=== PATIENT | female | born 1975 | race Caucasian/White ===

== ENCOUNTER → 2017-09-13 11:13 | Outpatient (CLI) | payer MEDICAID, SELFPAY ==
--- NOTE | 2017-09-13 11:04 | DI.REPORT_ITS ---
SYMPTOM/DIAGNOSIS: F/U FX LEFT ANKLE: Three views. Comparison 08/30/17. There are again seen side plate screws and pins transfixing fractures of the distal left tibia and fibula. No change in alignment of the orthopaedic hardware or fracture components is seen. No new fractures or dislocations present. There is soft tissue swelling about the ankle.
== END ==
PROVIDERS: PCP Registered Nurse; Visit Provider Orthopaedic Surgery
DX: S82.852D Displaced trimalleolar fracture of left lower leg, subsequent encounter for closed fracture with routine healing (principal)
CPT/HCPCS: 73610

== ENCOUNTER → 2017-09-28 00:54 | Outpatient (CLI) | payer MEDICAID, SELFPAY ==
--- NOTE | 2017-09-28 10:24 | DI.REPORT_ITS ---
SYMPTOMS/DIAGNOSIS: SELF REPORTED MASS 7:00 O'CLOCK AND 4:00 O'CLOCK, ? FIBROCYSTIC VS MASS, SIMILAR FINDINGS LT BREAST 7:00 O'CLOCK MAMMOGRAM AND RIGHT BREAST ULTRASOUND: Mammograms were interpreted according to the usual protocol including computer analysis with CAD system, tomosynthesis and C view imaging. Mammogram and right breast ultrasound are interpreted in conjunction. The breasts are of moderate density with fairly symmetrical distribution of fibroglandular tissue. No dominant mass or clumped microcalcification identified in either breast. The current examination is compared with previous mammogram of July 2013 and there has been no gross interval change in appearance in comparison with the previous study. Ultrasound examination of a questioned palpable area of abnormality of the right breast shows no evidence of a mass or cyst. However there are incidental right breast masses noted, the largest an approximately 8 mm in diameter well circumscribed horizontally oriented hypoechoic solid lesion with no internal vascularity located in the 3: 00 o'clock position and also a 3 mm in diameter mass in the 3:00 o'clock position as well as a 6 mm in diameter well circumscribed hypoechoic mass seen more peripherally in the 3:00 o'clock position. These all have appearance consistent with benign disease such as fibroadenoma. Malignancy not absolutely excluded and follow up right breast ultrasound is recommended in 6 months. CONCLUSION: No specific evidence of malignancy. Follow up right breast ultrasound recommended in 6 months. Category III. Breast density Category B. MQSA ASSESSMENT OF FINDINGS: Probably benign. Six month follow-up recommended. Category 3. Patient will receive a letter notifying them of these results. BI-RADS category B. There are scattered areas of fibroglandular density.
== END ==
PROVIDERS: PCP Registered Nurse; Visit Provider Registered Nurse
DX: N63.12 Unspecified lump in the right breast, upper inner quadrant (principal); D24.1 Benign neoplasm of right breast
CPT/HCPCS: 76642; 77062; 77066; G0279

== ENCOUNTER 2017-10-18 12:43 | Outpatient (CLI) | payer MEDICAID, SELFPAY ==
--- NOTE | 2017-10-18 09:35 | DI.RAD_ITS ---
SYMPTOM/DIAGNOSIS: F/U ORIF LEFT ANKLE: Comparison is made with 13 September 2017 There has been no change in the hardware seen in both malleoli. The fracture alignment is unchanged. The ankle mortise appears intact.
== END 2017-10-18 13:03 ==
PROVIDERS: PCP Registered Nurse; Visit Provider Orthopaedic Surgery
DX: S82.852D Displaced trimalleolar fracture of left lower leg, subsequent encounter for closed fracture with routine healing (principal)
CPT/HCPCS: 73610

== ENCOUNTER 2017-11-17 09:20 | Outpatient (CLI) | payer MEDICAID, SELFPAY ==
--- NOTE | 2017-11-17 09:26 | DI.RAD_ITS ---
SYMPTOMS/DIAGNOSIS: F/U ORIF LEFT ANKLE: Comparison is made with [id number]. There has been no change in fracture or hardware alignment.
== END 2017-11-17 09:40 ==
PROVIDERS: PCP Registered Nurse; Visit Provider Orthopaedic Surgery
DX: S82.852D Displaced trimalleolar fracture of left lower leg, subsequent encounter for closed fracture with routine healing (principal)
CPT/HCPCS: 73610

== ENCOUNTER 2018-03-30 00:13 | Outpatient (CLI) | payer MEDICAID, SELFPAY ==
--- NOTE | 2018-03-30 11:03 | DI.US_ITS ---
SYMPTOMS/DIAGNOSIS: BREAST LUMP OR MASS, N63.0, 6-MO F/U ABNORMAL MAMMO RIGHT BREAST AND RIGHT AXILLARY ULTRASOUND: Sonographic evaluation of the right breast and right axilla was performed. Comparison is 09/28/17. There are multiple hypoechoic/anechoic round lesions in the right breast. No internal blood flow is seen to any of these lesions. They are most suggestive of cysts. No suspicious cystic or solid masses are seen in the right breast. The area evaluated was the medial right breast. The right axilla was also evaluated sonographically. No cystic or solid masses are seen. The left axilla was imaged briefly for comparison. IMPRESSION: 1. No evidence of an axillary mass sonographically. 2. Multiple right breast cysts.
== END 2018-03-30 00:33 ==
PROVIDERS: PCP Registered Nurse; Visit Provider Registered Nurse
DX: N63.10 Unspecified lump in the right breast, unspecified quadrant (principal); N60.11 Diffuse cystic mastopathy of right breast
CPT/HCPCS: 76642

== ENCOUNTER 2018-05-08 16:28 | Outpatient (CLI) | payer MEDICAID, SELFPAY ==
[2018-05-08 18:44] LABS: Vitamin D 25 Total 15.4 ng/ml (30-100)
== END 2018-05-08 16:48 ==
PROVIDERS: PCP Registered Nurse; Visit Provider Obstetrics & Gynecology Gynecology
DX: R79.89 Other specified abnormal findings of blood chemistry (principal)
CPT/HCPCS: 36415; 82306

== ENCOUNTER 2018-05-08 16:48 | Outpatient (REF) | payer MEDICAID, SELFPAY ==
[2018-05-10 14:10] LABS: Chlamydia Result Negative; GC Result Negative; Specimen Description URINE
== END 2018-05-08 17:08 ==
LOC: LBN 16:48
PROVIDERS: PCP Registered Nurse; Visit Provider Obstetrics & Gynecology Gynecology
DX: Z11.3 Encounter for screening for infections with a predominantly sexual mode of transmission (principal)
CPT/HCPCS: 87491; 87591

== ENCOUNTER 2018-07-25 00:21 | Outpatient (CLI) | payer MEDICAID, SELFPAY ==
--- NOTE | 2018-07-25 08:54 | DI.US_ITS ---
SYMPTOM/DIAGNOSIS: RUQ PAIN R10.11, EVALUATE CHOLELITHIASIS PER GI ABDOMEN ULTRASOUND: The liver shows increased echogenicity and decreased through transmission consistent with fatty infiltration. The posterior portions of the liver are not well seen. No focal liver lesions or biliary dilatation are identified. The gallbladder shows a tiny echogenic focus along the wall which is non shadowing. No calcifications or wall thickening is seen. There is no abnormal gallbladder distension or pericholecystic fluid. The spleen is mildly enlarged at 13.8 cm. The tail of the pancreas was not identified. The kidneys are unremarkable. The aorta is normal in diameter. IMPRESSION: Moderate hepatic steatosis. Tiny non shadowing echogenic gallbladder focus. No evidence of cholelithiasis or biliary dilatation.
== END 2018-07-25 00:41 ==
PROVIDERS: PCP Registered Nurse; Visit Provider Registered Nurse
DX: R10.11 Right upper quadrant pain (principal); K76.0 Fatty (change of) liver, not elsewhere classified; R16.1 Splenomegaly, not elsewhere classified; K82.8 Other specified diseases of gallbladder
CPT/HCPCS: 76700

== ENCOUNTER 2019-05-17 08:35 | Outpatient (CLI) | payer MEDICAID, SELFPAY ==
[2019-05-20 11:19] LABS: SARS-CoV-2 RNA Undetected (Undetected); SARS-CoV-2 Specimen Source Nasopharynx
== END 2019-05-17 08:55 ==
PROVIDERS: PCP Registered Nurse; Visit Provider Registered Nurse
DX: R50.9 Fever, unspecified (principal)
CPT/HCPCS: U0003

== ENCOUNTER 2019-05-25 12:34 | Outpatient (REF) | payer MEDICAID, SELFPAY ==
[2019-05-25 21:02] LABS: Hemoglobin A1C 4.8 % (3.8-5.6)
[2019-05-28 11:57] LABS: HIV-1/2 Ag & Ab Screen Negative (Negative)
[2019-05-28 15:42] LABS: Chlamydia Result Negative (Negative); GC Result Negative (Negative)
== END 2019-05-25 12:54 ==
LOC: NCHCN 12:34
PROVIDERS: PCP Registered Nurse; Visit Provider Registered Nurse
DX: Z11.3 Encounter for screening for infections with a predominantly sexual mode of transmission (principal); Z13.1 Encounter for screening for diabetes mellitus; Z11.4 Encounter for screening for human immunodeficiency virus [HIV]
CPT/HCPCS: 87389; 87491; 87591; 83036

== ENCOUNTER 2019-05-31 16:01 | Emergency (ER) | payer MEDICAID, SELFPAY ==
[2019-05-31 16:07] VITALS: BP 153/90; PULSE 101; RESP 16; TEMP 36.5; O2SAT 98
--- NOTE | 2019-05-31 16:15 | DI.CT_ITS ---
EXAM: CT BRAIN NECK CTA CLINICAL HISTORY: headache, r/o aneurysm TECHNIQUE: Noncontrast images through the brain were performed followed by images from the level of the aorta aortic arch through the vertex after IV contrast during the arterial phase. COMPARISON: ABD PELVIS WITH CONTRAST from 01/15/2015 FINDINGS: Noncontrast head CT: No intracranial hemorrhage, mass or infarct is seen. The ventricles are harman l in size. There is no evidence of skull fracture. The orbits, sinuses and mastoid air cells are un remarkable where visualized. CTA of the neck: The lung apices are clear. The common, internal and external carotid arteries as we ll as vertebral arteries are normal in caliber. There is no evidence of stenosis, dissection or occl usion. Degenerative disc changes are seen at C5-6 and C6-7. CTA of the brain: The poizxg-lm-Munqdp vasculature and branches show normal diameter. There is no ev idence of an aneurysm. There is no evidence of dissection or vascular irregularity. IMPRESSION: Negative noncontrast head CT. Negative CT angiography of the head and neck. RADIATION DOSE DELIVERED: Total DLP Total DLP Total DLP Total DLP
--- NOTE | 2019-05-31 16:23 | ED.GENADUL_ITS ---
Discharge Plan Disposition Patient Disposition: HOME Condition: Good Discharge Details Chief Complaint: Headache Clinical Impression: Atypical migraine, Headache Primary Care Provider: ANIBAL ESQUIVEL ED Provider: Gaurav Lin Home Meds and New Rx's Prescriptions: Continued cholecalciferol (vitamin D3) 50,000 unit capsule 50,000 unit PO QWEEK Qty: 8 RF: 0 mirabegron 50 mg tablet extended release 24 hr 50 mg PO DAILY Qty: 20 RF: 1 ibuprofen 800 MG tablet 800 mg PO TID Qty: 30 RF: 0 oxybutynin chloride 5 mg tablet extended release 24hr 5 mg PO DAILY Qty: 14 RF: 0 acetaminophen [Mapap Extra Strength] 500 MG tablet 2 PRNRF: 0 ibuprofen [Advil] 200 MG tablet 600 PRNRF: 0 Discharge Instructions Instructions: General Headache (ED), Lumbar Puncture (ED) Additional Instructions: At this time your lumbar puncture shows no evidence of meningitis or bleed. After the extensive work-up thankfully it seems that your headache may have been a notably atypical migraine or vasospasm. Please make sure to be drinking plenty of fluids, avoiding any nitrates, getting plenty of rest. As we discussed please follow-up with your primary care provider at your established appointment for discussion of potential migraine medications. After a lumbar puncture you may experience mild headache, I would recommend lying flat if this occurs, and drinking some caffeine beverage. If you notice any worsening of your symptoms, or any new symptoms such as vomiting, diarrhea, fever, chills, shortness of breath, chest pain, numbness, weakness, or fainting , please return immediately to the emergency department for reevaluation. Please follow up with your primary care provider as soon as possible for reassessment and reevaluation. As always, it was a pleasure participating in your medical care today. 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 Patient states that over the last 1 to 2 weeks she has had these occasional headaches not come on very suddenly, mild to moderate in severity, are usually located behind her frontal region or her occipital region. No particular aggravating or relieving factors, they go away after 2 to 3 hours on their own. However last night while the patient was having intercourse she states that she was having very small orgasms and during that episode she shot suddenly had a thunderclap onset of severe headache in the occipital region. She states that that was the worst headache that she is ever had before. It was made worse by breathing deep, squinting her eyes, or moving. She did take some ibuprofen this slightly helped her symptoms. However her headache has maintained through today. She denies any IV or illicit drug use. She does have a history of previous ocular migraines, but st ates that this is notably different from that. She is unaware of any of her family history as she was in foster care at a young age. She denies fever, chills, IV or illicit drug use, or other complaints. Patient has no other complaints at this time. No other modifying factors. Physical exam demonstrates no nuchal rigidity, no clinical evidence of meningismus, however she does have reproducible tenderness over her right posterior occiput. Neurologic exam is unremarkable. Vital signs are notably stable. Differential is broad, atypical migraine certainly on the differential however of concern would be aneurysm or rupture. Patient is notably hesitant about lumbar puncture, we will start with CTA and CT scan, treat the patient's pain and then reassess. 6:[address] scan of the head has returned negative for acute process, no evidence of aneurysm or bleed on CT, however the patient's clinical symptoms are certainly concerning. Headache is improved from a 10 out of 10 to a 5 out of 10 with the patient's history, and how it is been greater than 6 hours since the initial onset I do not feel that CT is adequate for complete rule out a bleed. I did discuss risk and benefits of further procedures, including lumbar puncture, patient has agreed to lumbar puncture. It was performed without complication. Patient tolerated procedure well. We are pending lab values at this time. 7:30 PM Patient's lumbar puncture results have returned, glucose normal, protein normal, patient has 3 WBCs and 2 RBCs in tube 4. Her symptoms are clinically inconsistent with meningitis, acute intracranial or aneurysmal hemorrhage, or other abnormality. On reassessment the patient has complete resolution of her headache symptoms at this time. She feels much better. Differential at this time after notable work-up includes arterial or vasospasm, notable atypical migraine, or combination of dehydration with tension migraine. Recommend close follow-up with her PCP at her scheduled appointment in 2 weeks. Discussed red flags for which to return. Discussed positioning post lumbar puncture. The complete resolution of the patient's symptomatology, she will be discharged home. I have extensively reviewed the treatment plan and discharge instructions with the patient. I have addressed all patient concerns at this time. The patient was made aware of what symptoms to monitor for that would warrant a return to the emergency department. Discussed the plan with the patient, they demonstrate verbal understanding and agreement with our assessment and plan at this time. Of note repeat neurologic exam after lumbar puncture and then again at time of discharge demonstrates no focal neurologic deficits whatsoever, no clinical evidence of nuchal rigidity or meningitis. IMPRESSION: 1. No acute intracranial abnormality. 2. Normal caliber and appearance of the intracranial arteries. No aneurysm as queried IMPRESSION: Normal caliber and appearance of the cervical arteries. Procedure: Lumbar Puncture Indication: Headache A time-out was completed verifying correct patient, procedure, site, positioning, and special equipment if applicable. The patient was placed in the left lateral decubitus position in a semi- position with help from the nursing staff. The area was cleansed and draped in usual sterile fashion. 1% lidocaine was used anesthetize the surrounding skin area. A 20-gauge 3.5-inch spinal needle was placed in the L4-L5 interspace. Clear cerebral spinal fluid was obtained. Four tubes were filled with 4 mL of CSF. These were sent for the usual tests, including 1 tube to be held for further analysis if needed. Estimated Blood Loss: <1ml The patient tolerated the procedure well and there were no complications. HPI General Date/Time Provider Initiated Documentation: 05/31/19 16:09 . HPI Narrative: 43-year-old female with a past medical history of fibromyalgia, depression, presents today for evaluation of headache. Patient states that over the last 1 to 2 weeks she has had these occasional headaches not come on very suddenly, mild to moderate in severity, are usually located behind her frontal region or her occipital region. No particular aggravating or relieving factors, they go away after 2 to 3 hours on their own. However last night while the patient was having intercourse she states that she was having very small orgasms and during that episode she shot suddenly had a thunderclap onset of severe he adache in the occipital region. She states that that was the worst headache that she is ever had before. It was made worse by breathing deep, squinting her eyes, or moving. She did take some ibuprofen this slightly helped her symptoms. However her headache has maintained through today. She denies any IV or illicit drug use. She does have a history of previous ocular migraines, but states that this is notably different from that. She is unaware of any of her family history as she was in foster care at a young age. She denies fever, chills, IV or illicit drug use, or other complaints. Patient has no other complaints at this time. No other modifying factors. Related Data Home Medications Medication Instructions Recorded Confirmed acetaminophen [Mapap Extra 2 PRN 11/24/16 05/08/18 Strength] ibuprofen [Advil] 600 PRN 11/24/16 05/08/18 ibuprofen 800 mg PO TID #30 tab-cap 08/22/17 05/08/18 cholecalciferol (vitamin D3) 1,250 50,000 unit PO QWEEK #8 cap 05/09/18 05/09/18 mcg (50,000 unit) capsule mirabegron 50 mg tablet,extended 50 mg PO DAILY #20 tab 05/09/18 05/09/18 release 24 hr oxybutynin chloride 5 mg 5 mg PO DAILY #14 tab 05/19/18 tablet,extended release 24 hr Previous Rx's Medication Instructions Recorded cholecalciferol (vitamin D3) 1,250 50,000 unit PO QWEEK #8 cap 05/09/18 mcg (50,000 unit) capsule mirabegron 50 mg tablet,extended 50 mg PO DAILY #20 tab 05/09/18 release 24 hr oxybutynin chloride 5 mg 5 mg PO DAILY #14 tab 05/19/18 tablet,extended release 24 hr Allergies Allergy/AdvReac Type Severity Reaction Status Date / Time dicyclomine [From Bentyl] Allergy Mild Verified 05/31/19 16:13 adhesive tape Allergy Skin Rash Unverified 05/31/19 16:13 Penicillins Allergy Hives Unverified 05/31/19 16:13 General Stated Complaint: Headache MARCELLO: 3 Review of Systems All systems reviewed & are unremarkable except as noted in HPI and below [facility] Medical History Abnormal glandular Papanicolaou smear of cervix (Acute) Aftercare for healing traumatic fracture of lower leg (Resolved) Anxiety (Chronic) Arthralgia (Resolved) BMI 30.0-30.9,adult (Acute) 05/2018 BMI 39 Chronic neck pain (Resolved) Chronic radicular pain of lower extremity (Resolved) Depression (Chronic) Fatigue (Acute) Fibromyalgia (Acute) Arthralgia, chronic neck pain, low back pain, chronic radicular pain of lower extremities H/O iron deficiency anemia (Inactive) 2017 Heavy menstrual bleeding (Acute) History of basal cell carcinoma (Acute) Low back pain (Resolved) Lump or mass in breast (Ruled-out) 03/2018 normal mammogram, breast ultrasound multiple cysts Migraine with aura (Acute) Obesity (Resolved) Palpitations (Acute) PMDD (premenstrual dysphoric disorder) (Acute) Treated with increased dose of sertraline 1 week prior to onset of menses Sleep apnea (Chronic) Stress incontinence (Chronic) With component of urinary frequency and urgency 09/2018. Refer to pelvic floor PT at [facility]. Had one visit did not reach Suicidal ideation (Resolved) Vitamin D deficiency (Acute) 05/2018 Vit D level 15.4 ng/mL. Rx 50K Vit D/week. 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 [employer] Sexually active: No (Not in relationship) Do you feel safe at home: Yes Do you feel safe in your relationship?: Yes Additional Social history: Children: Sandro, Fatuma, [place], Curt, Justa Female Reproductive History Menstrual Age of Menarche: 11 Duration of menses: 3-5 days control method: permanent sterilization (BTL) History History 5 Para Hx # Term Pregnancies 5 Multiple births Hx # Pregnancies Ectopic pregnancies AB induced Hx Number of Living Children AB spontaneous Exam Narrative Exam Narrative: 1.Const: Well-nourished, Well-developed, appearing stated age 2.Eyes: PERRL, no conjunctival injection, and symmetrical lids. 3.ENT: Atraumatic external nose and ears. Moist MM. Neck: Symmetric, trachea midline, No thyromegaly. Patient demonstrates good movement of cervical neck. There is no nuchal rigidity, no nuchal tenderness. Patient is able to flex the neck without any difficulty or significant pain. Negative Kernig's and Brudzinski sign. However the patient does have mild reproducible tenderness on palpation of the posterior occipital primarily on the right. 4.CVS: +S1/S2, No murmurs or gallops. Peripheral pulses 2+ and equal in all extremities. Brisk capillary refill in all extremities. 5.RESP: Unlabored respiratory effort. Clear to auscultation bilaterally. No wheezes rales or rhonchi 6.GI: Soft, Nontender/Nondistended, No hepatosplenomegaly. No guarding or rebound. 7.MSK: Normocephalic/Atraumatic, Extremities w/o deformity or ttp No cyanosis or clubbing, Normal movement of all extremities 8.Skin: Warm, Dry. No rashes or lesions. 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 Sensation grossly intact, no focal neurologic deficits. All 6 cardinal planes of vision are fully intact. No evidence of rotatory or vertical nystagmus. The patient demonstrated a normal hsaids-mymh-upkbyi, good dexterity. There was no evidence of dysdiadochokinesia. Patient was able to ambulate without difficulty. There was no wide-based gait. Romberg testing was normal. Namy-hk-zzej testing was normal. Sensation was intact bilaterally as well as muscle strength bilaterally for all extremities. Patient was able to verbalize butter cup with no slurring, or miss pronunciation. 10.Psych: (AAO) x3. Appropriate mood and affect Course Vital Signs Vital signs: Vital Signs Temperature 36.5 C 05/31/19 16:07 Pulse 101 H 05/31/19 16:07 Respiratory Rate 16 05/31/19 16:07 Blood Pressure 153/90 H 05/31/19 16:07 Pulse Oximetry 98 05/31/19 16:07 Temperature 36.5 C 05/31/19 16:07 Temperature Source Tympanic 05/31/19 16:07 Pulse 101 H 05/31/19 16:07 Respiratory Rate 16 05/31/19 16:07 Respiratory Effort Non-Labored 05/31/19 16:10 Blood Pressure 153/90 H 05/31/19 16:07 Blood Pressure Position Sitting 05/31/19 16:07 Pulse Oximetry 98 05/31/19 16:07 Oxygen Delivery Method Room Air 05/31/19 16:07 Oxygen Flow Rate 0 05/31/19 16:07 Pain Level 7 05/31/19 16:11 Procedures Lumbar Puncture Time Out Performed: Yes Patient Position: left lateral decubitus Skin Prep: Povidone-Iodine 1% Local Anesthetic: Lidocaine 1% Amount of anesthesia used (mL): 8 (Prior to procedure being started patient requested additional/extra anesthesia medications.) Spinal Needle Gauge: 20G Interspace Used: L4-L5 Fluid Initially Obtained: clear Complications: none
[2019-05-31] MEDS: diphenhydrAMINE 50 MG/ML VIAL 25 MG IVP (16:36)
[2019-05-31] MEDS: methylPREDNISolone SUCC 125 MG VIAL IVP (16:37)
[2019-05-31] MEDS: Prochlorperazine 10 MG/2 ML VIAL IVP (16:37)
[2019-05-31] MEDS: Omnipaque 350 MG/ML 100 ML BTL IJ (16:48)
[2019-05-31 16:53] LABS: Abs Immature Grans 0.01 k/cumm (0.0-0.09); Absolute Basophil Count 0.02 k/cumm (0.0-0.2); Absolute Eosinophil Count 0.02 k/cumm (0.0-0.7); Absolute Lymphocyte Count 2.23 k/cumm (1.2-3.4); Absolute Monocyte Count 0.38 k/cumm (0.11-0.7); Absolute Neutrophil Count 4.24 k/cumm (1.2-6.7); Basophils % 0.3; Eosinophils % 0.3; HCT 34.1 % (36.0-46.0); HGB 11.6 g/dL (12.0-15.5); Immature Grans % 0.1 %; Lymphocytes % 32.3; Mean Corpuscular Hemoglobin 28.5 pg (27.0-33.0); Mean Corpuscular Volume 83.8 fL (80-95); Mean Platelet Volume 9.5 fL (8.0-11.0); Monocytes % 5.5; Neutrophils % 61.5; Platelet Count 259 x1000/uL (130-400); RBC 4.07 m/cumm (4.00-5.20); RBC Distribution Width 15.5 % (11.7-14.6)
[2019-05-31] MEDS: Normal Saline 1,000 ML 1000 ML IV (16:58)
[2019-05-31] MEDS: Acetaminophen 500 MG TAB 1000 MG PO (16:58)
[2019-05-31 17:09] LABS: INR 1.1 (0.9-1.1); PTT Activated 23.9 sec (21.0-31.4); Prothrombin Time 10.6 sec (9.3-11.0)
[2019-05-31 17:17] LABS: ALT 44 U/L (14-59); AST 29 U/L (15-37); Albumin 3.6 g/dL (3.4-5.0); Alkaline Phosphatase 93 U/L (46-116); BUN 13 mg/dL (7-18); Bilirubin, Total 0.7 mg/dL (0.2-1.0); CREATININE 0.94 mg/dL (0.55-1.02); Calcium 8.5 mg/dL (8.5-10.1); Chloride 104 mmol/L (98-107); Glucose 113 mg/dL (74-106); Potassium 3.8 mmol/L (3.5-5.1); Sodium 138 mmol/L (136-145); Total Protein 7.2 g/dL (6.4-8.2)
[2019-05-31 17:24] VITALS: BP 101/59; PULSE 74; RESP 16; TEMP 36.8; O2SAT 97
--- NOTE | 2019-05-31 17:28 | DI.VRAD_ITS ---
PROCEDURE INFORMATION: Exam: CT Angiography Head With Contrast Exam date and time: 05/31/2019 4:23 PM Age: 43 years old Clinical indication: Other: Headache, R/O aneurysm TECHNIQUE: Imaging protocol: Computed tomography angiography of the head with intravenous contrast. 3D rendering: MIP and/or 3D reconstructed images were created by the technologist. Contrast material: OMNIPAQUE 350; Contrast volume: 85 ml; Contrast route: IV; COMPARISON: No relevant prior studies available. FINDINGS: Right internal carotid artery: Intracranial segment is patent with no significant stenosis or occlusion. No aneurysm. Right anterior cerebral artery: No occlusion or significant stenosis. No aneurysm. Right middle cerebral artery: No occlusion or significant stenosis. No aneurysm. Right posterior cerebral artery: No occlusion or significant stenosis. No aneurysm. Right vertebral artery: No occlusion or significant stenosis. No aneurysm. Left internal carotid artery: Intracranial segment is patent with no significant stenosis or occlusion. No aneurysm. Left anterior cerebral artery: No occlusion or significant stenosis. No aneurysm. Left middle cerebral artery: No occlusion or significant stenosis. No aneurysm. Left posterior cerebral artery: No occlusion or significant stenosis. No aneurysm. Left vertebral artery: Normal variant left vertebral artery terminating as PICA. Basilar artery: No occlusion or significant stenosis. No aneurysm. HEAD: Brain: No hemorrhage. No acute large vascular territory infarct. No mass effect. IMPRESSION: 1. No acute intracranial abnormality. 2. Normal caliber and appearance of the intracranial arteries. No aneurysm as queried. PROCEDURE INFORMATION: Exam: CT Angiography Neck With Contrast Exam date and time: 05/31/2019 4:23 PM Age: 43 years old Clinical indication: Other: Headache, R/O aneurysm TECHNIQUE: Imaging protocol: Computed tomography angiography of the neck with intravenous contrast. 3D rendering: MIP and/or 3D reconstructed images were created by the technologist. Radiation optimization: All CT scans at this facility use at least one of these dose optimization techniques: automated exposure control; mA and/or kV adjustment per patient size (includes targeted exams where dose is matched to clinical indication); or iterative reconstruction. Contrast material: OMNIPAQUE 350; Contrast volume: 85 ml; Contrast route: IV; COMPARISON: No relevant prior studies available. FINDINGS: Right common carotid artery: No stenosis. No dissection or occlusion. Right internal carotid artery: No stenosis of the extracranial segment. No dissection or occlusion. Right external carotid artery: No occlusion or stenosis of the origin. Right vertebral artery: No stenosis. No dissection or occlusion. Left common carotid artery: No stenosis. No dissection or occlusion. Left internal carotid artery: No stenosis of the extracranial segment. No dissection or occlusion. Left external carotid artery: No occlusion or stenosis of the origin. Left vertebral artery: No stenosis. No dissection or occlusion. Bones/joints: No acute fracture. Soft tissues: Normal. No significant soft tissue swelling. Lungs: The visualized portions of the lung apices are normal. IMPRESSION: Normal caliber and appearance of the cervical arteries. Dictated and Authenticated by: Sesar Arita MD. Ordering:TAMMI Nolasco MD
[2019-05-31 17:55] VITALS: BP 108/65; PULSE 83; RESP 14; O2SAT 99
--- NOTE | 2019-05-31 17:56 | NUR.NOTE ---
Nursing Note: Condon at bedside performing lumbar puncture.
[2019-05-31 19:05] LABS: Glucose (CSF) 58 mg/dL (40-70); Total Protein (CSF) 37 mg/dL (15-45)
[2019-05-31 19:27] LABS: Clarity Clear; Tube # 4
[2019-05-31 19:28] LABS: Other Cells CSF 0 % (0-0); RBC 2 /mm3 (0-5); WBC 3 /mm3 (0-5); Xanthochromia Absent
[2019-05-31 19:46] VITALS: BP 139/71; PULSE 72; RESP 16; O2SAT 99
== END 2019-05-31 19:50 | disposition home or self-care (01) ==
PROVIDERS: Emergency Provider Student in an Organized Health Care Education/Training Program; PCP Registered Nurse
DX: G43.009 Migraine without aura, not intractable, without status migrainosus (principal)
CPT/HCPCS: 62270; 70496; 70498; 80053; 81025; 82945; 89050; 89051; 96361; 96374; 96375; 99285; 84157; 85025; 85610; 85730; 87070; 87205; 99284; J0780; J1200; J2930; J3490

== ENCOUNTER 2019-07-04 01:01 | Outpatient (CLI) | payer MEDICAID, SELFPAY ==
--- NOTE | 2019-07-04 16:08 | DI.MAMMO_ITS ---
EXAM: MAMMO SCREENING CLINICAL HISTORY: SCREENING, Z12.39 TECHNIQUE: Mammograms were interpreted according to the usual protocol including computer analysis w [employer] CAD system, tomosynthesis and C-view imaging. COMPARISON: and 2017 FINDINGS: The breasts are composed of scattered fibroglandular densities, Breast Density category B. No suspicious masses or suspicious microcalcifications are seen. No skin thickening or abnormal axillary lymph nodes are seen. There has been no significant change from prior exams. IMPRESSION: BI-RADS category 1, yearly screening mammography is recommended. Breast density category B, scattered fibroglandular densities.
== END 2019-07-04 01:21 ==
PROVIDERS: PCP Registered Nurse; Visit Provider Registered Nurse
DX: Z12.31 Encounter for screening mammogram for malignant neoplasm of breast (principal)
CPT/HCPCS: 77063; 77067

== ENCOUNTER 2019-11-14 00:40 | Outpatient (CLI) | payer MEDICAID, SELFPAY ==
--- NOTE | 2019-11-14 | DI.US_ITS ---
EXAM: US SOFT TISSUE EXTREMITY CLINICAL HISTORY: SWELLING, INTERMITTENT PAIN, ? GANGLION CYST TECHNIQUE: Ultrasound performed using standard protocol. COMPARISON: US US ABDOMEN from 07/25/2018 FINDINGS: Soft tissue ultrasound was performed to evaluate an area palpable abnormality anterior to the lateral malleolus. There is heterogeneous partially cystic echogenicity at this site, could represent a dale glion cyst with debris, mass not excluded. No additional significant findings. IMPRESSION: Question ganglion cyst versus mass, correlation with MR of the ankle is recommended. Noncontrast and contrast enhanced study suggested. DATA REPOSITORY:
== END 2019-11-14 01:00 ==
PROVIDERS: PCP Registered Nurse; Visit Provider Registered Nurse
DX: M79.89 Other specified soft tissue disorders (principal); R22.42 Localized swelling, mass and lump, left lower limb
CPT/HCPCS: 76881

== ENCOUNTER 2020-02-21 16:51 | Outpatient (REF) | payer BC, MEDICAID, SELFPAY ==
[2020-02-21 20:57] LABS: Abs Immature Grans 0.02 10^3/uL (0.0-0.06); Absolute Basophil Count 0.04 10^3/uL (0.0-0.2); Absolute Eosinophil Count 0.02 10^3/uL (0.0-0.7); Absolute Lymphocyte Count 2.59 10^3/uL (1.2-3.4); Absolute Monocyte Count 0.42 10^3/uL (0.1-0.8); Absolute Neutrophil Count 5.93 10^3/uL (1.2-6.7); Basophils % 0.4; Eosinophils % 0.2; HCT 37.1 % (36.0-46.0); HGB 12.4 g/dL (11.2-15.7); Immature Grans % 0.2; Lymphocytes % 28.7; MCH 27.7 pg (27.0-33.0); MCHC 33.4 % (32.0-36.0); MPV 9.3 fL (8.0-11.0); Monocytes % 4.7; Neutrophils % 65.8; Nucleated RBC 0 %; Platelet Count 234 10^3/uL (130-400); RBC 4.47 10^6/uL (3.93-5.22); RDW 14.7 % (11.7-14.6); RDW-SD 43.9 fL; WBC 9.02 10^3/uL (4.4-10.8)
[2020-02-21 21:11] LABS: ALT 20 U/L (14-59); AST 15 U/L (15-37); Albumin 3.9 g/dL (3.4-5.0); Alkaline Phosphatase 117 U/L (46-116); Anion Gap 8.4 mmol/L (3-11); BUN 9 mg/dL (7-18); Bilirubin, Total 0.6 mg/dL (0.2-1.0); C-Reactive Protein 0.42 mg/dL (0.0-0.3); CO2 27.6 mmol/L (21.0-32.0); CREATININE 0.91 mg/dL (0.55-1.02); Calcium 8.6 mg/dL (8.5-10.1); Chloride 105 mmol/L (98-107); Glucose 94 mg/dL (74-106); Potassium 3.9 mmol/L (3.5-5.1); Sodium 141 mmol/L (136-145); Total Protein 7.5 g/dL (6.4-8.2)
[2020-02-21 21:23] LABS: Bacteria Moderate HPF (Negative); C & S Indicated? No/Sq. Contamination; Casts Negative LPF (Negative); Crystals Few Amorphous HPF (Negative); Epithelial Cells Many HPF (Negative); Mucus Negative (Negative); Other Cells Negative (Negative); RBC Negative HPF (0-2); WBC 0-2 HPF (0-5)
[2020-02-21 21:37] LABS: Mono Screening Negative (Negative)
[2020-02-21 22:07] LABS: ESR 43 mm/hr (0-20)
[2020-02-25 13:01] LABS: Lyme Ab w Rflx to Lyme Confirm Positive (Negative)
[2020-02-25 17:32] LABS: Anaplasma phagocytophilum Negative (Negative); B. miyamotoi PCR Negative (Negative); Babesia divergens/MO-1 Negative (Negative); Babesia duncani Negative (Negative); Babesia microti Negative (Negative); Ehrlichia chaffeensis Negative (Negative); Ehrlichia ewingii/canis Negative (Negative); Ehrlichia muris eauclairensis Negative (Negative)
[2020-02-27 14:41] LABS: IgG Band(s) p66; IgG Immunoblot Negative (Negative); IgM Band(s) p39; IgM Immunoblot Positive (Negative)
== END 2020-02-21 17:11 ==
LOC: NCHCN 16:51
PROVIDERS: PCP Registered Nurse; Visit Provider Registered Nurse
DX: R50.9 Fever, unspecified (principal)
CPT/HCPCS: 80053; 85652; 86617; 87798; 81015; 85025; 86140; 86308; 86618; 86644; 86645; 87086

== ENCOUNTER 2020-02-27 02:28 | Outpatient (CLI) | payer BC, MEDICAID, SELFPAY ==
--- NOTE | 2020-02-27 11:31 | DI.RAD_ITS ---
EXAM: XR CHEST 2V PA LATERAL CLINICAL HISTORY: FEVER,R50.9 TECHNIQUE: 2D digital imaging was performed. COMPARISON: No exams were available for comparison FINDINGS: MEDIASTINUM: Normal. HEART: Normal. PULMONARY VASCULATURE: Normal. LUNGS: Clear. PLEURAL SPACE: No pleural effusion or pneumothorax. BONE:Within normal limits for the patient's age. OTHER FINDINGS:Normal. IMPRESSION: No acute pulmonary findings. DATA REPOSITORY: RADIATION DOSE DELIVERED:
== END 2020-02-27 02:48 ==
PROVIDERS: PCP Registered Nurse; Visit Provider Nurse Practitioner Family
DX: R50.9 Fever, unspecified (principal)
CPT/HCPCS: 71046

== ENCOUNTER 2020-02-27 04:34 | Outpatient (CLI) | payer BC, MEDICAID, SELFPAY ==
[2020-02-27 12:14] LABS: Bilirubin Negative (Negative); Blood Negative (Negative); Clarity Sl Cloudy (Clear); Glucose Negative (Negative); Ketones Negative (Negative); Leukocyte Esterase Small (Negative); Nitrite Negative (Negative); Specific Gravity >= 1.030 (1.005-1.025); Urobilinogen 0.2 EU/dL (Up TO 0.2)
[2020-02-27 12:21] LABS: Lipase 156 U/L (73-393)
[2020-02-27 12:23] LABS: Epithelial Cells Many HPF (Negative)
[2020-02-27 12:24] LABS: C & S Indicated? No/Sq. Contamination
[2020-02-29 09:59] LABS: CMV Ab, IgM Negative (Negative)
== END 2020-02-27 04:54 ==
PROVIDERS: PCP Registered Nurse; Visit Provider Registered Nurse
DX: R50.9 Fever, unspecified (principal)
CPT/HCPCS: 36415; 83690; 87040; 81003; 81015; 86644; 86645

== ENCOUNTER 2020-03-12 03:52 | Outpatient (CLI) | payer BC, MEDICAID, SELFPAY ==
[2020-03-12 17:20] LABS: Lipase 184 U/L (73-393)
[2020-03-13 12:58] LABS: Lyme Ab w Rflx to Lyme Confirm Positive (Negative)
[2020-03-17 10:12] LABS: IgG 1113 mg/dL (610-1,616); IgM 81 mg/dL (35-242)
[2020-03-25 09:06] LABS: IgG Band(s) p18; IgG Immunoblot Positive (Negative); IgM Band(s) p23; IgM Immunoblot Positive (Negative)
== END 2020-03-12 03:53 | disposition home or self-care (01) ==
LOC: LBO 03:52
PROVIDERS: PCP Registered Nurse; Visit Provider Registered Nurse
DX: A69.20 Lyme disease, unspecified (principal)
CPT/HCPCS: 36415; 82784; 83690; 86617; 86618

== ENCOUNTER 2020-09-03 20:13 | Outpatient (REF) | payer BC, MEDICAID, SELFPAY ==
[2020-09-03 21:47] LABS: Abs Immature Grans 0.02 10^3/uL (0.0-0.06); Absolute Basophil Count 0.04 10^3/uL (0.0-0.2); Absolute Eosinophil Count 0.23 10^3/uL (0.0-0.7); Absolute Monocyte Count 0.35 10^3/uL (0.1-0.8); Absolute Neutrophil Count 5.44 10^3/uL (1.2-6.7); Basophils % 0.5; Eosinophils % 2.8; HCT 34.9 % (36.0-46.0); Immature Grans % 0.2; Lymphocytes % 26.6; MCH 28.4 pg (27.0-33.0); MCHC 34.4 % (32.0-36.0); MCV 82.5 fL (80-95); MPV 9.8 fL (8.0-11.0); Monocytes % 4.2; Neutrophils % 65.7; Nucleated RBC 0 %; Platelet Count 216 10^3/uL (130-400); RBC 4.23 10^6/uL (3.93-5.22); WBC 8.28 10^3/uL (4.4-10.8)
[2020-09-03 22:09] LABS: TSH 2.57 uIU/mL (0.36-3.74)
== END 2020-09-03 20:14 | disposition home or self-care (01) ==
LOC: NCHCN 20:13
PROVIDERS: PCP Registered Nurse; Visit Provider Registered Nurse
DX: R53.83 Other fatigue (principal); R06.09 Other forms of dyspnea; M79.7 Fibromyalgia
CPT/HCPCS: 84443; 85025

== ENCOUNTER 2020-09-09 02:30 | Outpatient (CLI) | payer BC, SELFPAY ==
--- NOTE | 2020-09-09 | DI.RAD_ITS ---
Exam(s) XR CHEST 2V PA LATERAL EXAM: XR CHEST 2V PA LATERAL CLINICAL HISTORY: DYSPNEA ON EXERTION,R06.09 TECHNIQUE: 2D digital imaging was performed. COMPARISON: CR XR CHEST 2V PA LATERAL from 02/27/2020 FINDINGS: The heart is not enlarged. The lungs are clear and well expanded. No pleural effusion seen. Mediastin al contours appear intact. IMPRESSION: Normal chest. RADIATION DOSE DELIVERED: Total DLP
== END 2020-09-09 02:50 ==
PROVIDERS: PCP Registered Nurse; Visit Provider Registered Nurse
DX: R06.00 Dyspnea, unspecified (principal)
CPT/HCPCS: 71046

== ENCOUNTER → 2021-01-26 13:57 | Outpatient (CLI) | payer BC, SELFPAY ==
--- NOTE | 2021-01-26 | DI.RAD_ITS ---
Exam(s) XR ACROMIO CLAVICULAR JOINTS EXAM: XR ACROMIO CLAVICULAR JOINTS INDICATION: RT SHOULDER JOINT PAIN, M25.511. COMPARISON: No exams were available for comparison TECHNIQUE: 2D digital imaging was performed. FINDINGS: AP views were performed without and with weights. There is no widening of either AC joint. No signi ficant degenerative changes are seen. IMPRESSION: No evidence of AC separation. DATA REPOSITORY: RADIATION DOSE DELIVERED:
== END ==
PROVIDERS: PCP Registered Nurse; Visit Provider Family Medicine
DX: M25.511 Pain in right shoulder (principal)
CPT/HCPCS: 73050

== ENCOUNTER 2022-01-04 17:24 | Outpatient (REF) | payer MEDICAID, SELFPAY ==
[2022-01-04 19:12] LABS: Anion Gap 8.8 mmol/L (3-11); BUN 11 mg/dL (7-18); CO2 26.2 mmol/L (21.0-32.0); CREATININE 0.9 mg/dL (0.55-1.02); Calcium 8.9 mg/dL (8.5-10.1); Calculated LDL 122 mg/dL (<100); Chloride 103 mmol/L (98-107); Cholesterol 199 mg/dL (<200); Estimated GFR 78.86 (mL/min/1.73m2); Glucose 105 mg/dL (74-106); HDL Cholesterol 44 mg/dL (40-60); Potassium 4.2 mmol/L (3.5-5.1); Sodium 138 mmol/L (136-145); Triglyceride 169 mg/dL (<150)
== END 2022-01-04 17:25 | disposition home or self-care (01) ==
LOC: NCHCN 17:24
PROVIDERS: PCP Registered Nurse; Visit Provider Nurse Practitioner Family
DX: E66.01 Morbid (severe) obesity due to excess calories (principal); Z00.00 Encounter for general adult medical examination without abnormal findings
CPT/HCPCS: 80048; 80061; 85027; 83036; 84443

== ENCOUNTER 2022-01-08 16:06 | Outpatient (REF) | payer MEDICAID, SELFPAY ==
--- OUTSIDE RECORDS SUMMARY | 2022-01-08 16:08 | XMS_ITS | Encounter Summary ---
:1975 Author Organization [facility] [place] [address] Care Team Providers Name Role Phone Tish Perez APRN Primary Care Provider Encounter Details Date Type Department Care Team Description 01/28/2021 Orders Only Gastroenterology at [facility] Octavia Gilliam Gastroesophageal reflux dise ase, unspecified whether esophagitis present (Primary Dx); [facility] Shannon Moscoso APRN Chest pain, unspecified type; [place] [address] [facility] Heartburn [phone] [place] [address] Social History Tobacco Use Types Packs/Day Years Used Date Smoking Tobacco: Never Smokeless Tobacco: Never Alcohol Use Standard Drinks/Week Comments Yes 0 (1 standard drink = 0.6 oz pure alcoho l) rare Sex Assigned at Date Recorded Not on file documented as of this encounter Plan of Treatment Not on filedocumented as of this encounter Visit Diagnoses Diagnosis Gastroesophageal reflux disease, unspeci fied whether esophagitis present - Primary Chest pain, unspecified type Heartburn documented in this encounter Care Teams Director Of Community Education Relationship Specialty Start Date End Date Tish Perez APRN PCP - General Family Medicine 11/11/20 [place] [address] documented as of this encounter
--- OUTSIDE RECORDS SUMMARY | 2022-01-08 16:08 | XMS_ITS | Clinical Summary ---
:1975 Author Organization [facility] [place] [address] Care Team Providers Name Role Phone Donitafernando Tish BENTON Primary Care Provider Allergies Active Allergy Reactions Severity Noted Date Comments Adhesive Itching, Rash 09/30/2016 Silk tape only . Dicyclomine Hives 11/18/2014 Duloxetine High 05/25/2017 Severe suicidal thoughts. Penicillins Hives 11/18/2014 Medications Medication Sig Dispensed Refills Start Date End Date Status famotidine (Pepcid) 20 mg Take 1 tablet 180 tablet 3 1 Active TabletIndications: Chest by mouth 2 pain, unspecified type, times daily as Heartburn, Esophageal needed. dysphagia, Dyspepsia, Gastroesophageal reflux disease, unspecified whether esophagitis present pantoprazole EC Take 1 tablet 90 tablet 4 04/13/2021 Active (Protonix) 40 mg Tablet, by mouth Delayed Release daily. (E.C.)Indications: Heartburn, Chest pain, unspecified type, Gastroesophageal reflux disease, unspecified whether esophagitis present Active Problems Problem Noted Date Depression 04/02/2020 Fibromyalgia 04/02/2020 Fracture of left ankle 04/02/2020 IBS (irritable bowel syndrome) 04/02/2020 NELSON (obstructive sleep apnea) 04/02/2020 Psoriasis 04/02/2020 Vagina bleeding 01/06/2015 History of abnormal cervical Pap smear 12/16/2014 Overview: [facility] in 1994 - DOROTHEA III with neg margins Intermittent abnormal Paps since. GABRIEL pap in 2010 - EMB benign. Re-collected Pap/HPV 12/16/2014 (pending) Dyspepsia 11/18/2014 Family History Medical History Relation Comments Uterine Cancer Maternal Grandmother ?also her mother, d x age 35? Breast Cancer Neg Hx Ovarian Cancer Neg Hx Relation Status Comments Maternal Grandmother Social History Tobacco Use Types Packs/Day Years Used Date Smoking Tobacco: Never Smokeless Tobacco: Never Alcohol Use Standard Drinks/Week Comments Yes 0 (1 standard drink = 0.6 oz pure alcoho l) rare Sex Assigned at Date Recorded Not on file Last Filed Vital Signs Vital Sign Reading Time Taken Comments Blood Pressure 110/75 01/21/2021 2:30 PM EST Pulse 102 01/21/2021 1:42 PM EST Temperature 36.6 ??C (97.9 ??F) 01/21/2021 11:57 AM EST Respiratory Rate 16 01/21/2021 2:30 PM EST Oxygen Saturation 99% 01/21/2021 2:30 PM EST Inhaled Oxygen Concentration - - Weight 100.7 kg (222 lb) 12/15/2020 4:04 PM EST Height 162.6 cm (5' 4) 12/15/2020 4:04 PM EST Body Mass Index 38.11 12/15/2020 4:04 PM EST Plan of Treatment Health Maintenance Due Date Last Done Comments Hepatitis B vaccine (0-59 yrs) (1 of 3 - 1973 3-dose series) Covid-19 Vaccine (#1) 06/04/1974 HIV screen 12/05/1991 Hepatitis C Screening 12/05/1991 Lipid Screening 12/05/1991 Tdap adult 1992 Tetanus vaccine 1992 Breast Cancer Share Decision Needed 2013 Diabetes Screening (HgbA1C or Glucose) 11/22/2017 5 HPV test 12/17/2019 12/16/2014 PAP Smear 12/17/2019 12/16/2014 Influenza (Flu) vaccine (1 of 1 - 10/08/2021 Influenza standard series) Colonoscopy 12/19/2024 12/19/2014, 12/19/2014 Insurance Payer Benefit Plan Subscriber ID Effective Dates Phone Address Type / Group [employer] [facility] [id number] 2021-Presen [phone] [address] [place] [address] Care Teams Plater Production Relationship Specialty Start Date End Date Tish Perez APRN PCP - General Family Medicine 11/11/20 [address], [place] [id number]
--- OUTSIDE RECORDS SUMMARY | 2022-01-08 16:08 | XMS_ITS | Encounter Summary ---
:1975 Author Organization [place] [address] Care Team Providers Name Role Phone Tish Perez APRN Primary Care Provider Reason for Visit Diagnostic Test (Routine) - Closed Specialty Diagnoses / Procedures Referred By Contact Refer red To Contact Gastroenterology Diagnoses Esophageal dysphagia Heartburn Chest pain, unspecified type HREM - dysphagia Octavia Gilliam APRN [facility] 4t Procedures High Resolution Esophageal Manometry PRG ESOPHAGEAL MOTILITY STUDY HREM - dysphagia [facility] [place] [address] Fax: Referral ID Status Reason Start Date Expiration Date Visits V isits Requested Authorized [id number] Closed Test Only 12/15/2020 12/15/2021 1 1 Encounter Details Date Type Department Care Team Description 03/23/2021 Procedure visit Gastroenterology at [facility] Esophageal dysphagia; [facility] Shannon KONG Heartburn; [place] [address] Chest pain, unspecified type [phone] Social History Tobacco Use Types Packs/Day Years Used Date Smoking Tobacco: Never Smokeless Tobacco: Never Alcohol Use Standard Drinks/Week Comments Yes 0 (1 standard drink = 0.6 oz pure alcoho l) rare Sex Assigned at Date Recorded Not on file documented as of this encounter Progress Notes Saundra Edwards, SHIRLEY - 03/23/2021 3:00 PM EST A description of the esophageal manometry procedure was provided to the patient. All questions were answered and the patient verbalized understanding. The HREM catheter was placed via the left naris without difficulty. The esophageal manometry procedure was performed and the catheter was removed. The patient tolerated the procedure well. Phil Kat MD - 03/23/2021 3:00 PM EST Images from the original note were not included. HIGH-RESOLUTION ESOPHAGEAL MANOMETRY PROCEDURE NOTE Patient: Anya Ferrari Rich Address: [address] [place] [id number] : 1975 Date of service: 03/23/2021 Indication: Dysphagia Procedure: The patient arrived after an overnight fast. After verbal consent, a Annie motility catheter with 36 circumferential sensors on 1 cm spacing with impedance sensors was inserted transnasally after application of topical anesthesia to the nasal passage. The catheter was positioned so that at least 2 distal sensors were in the stomach and 2 proximal sensors were located above the UES. A 3-5 minute acclimation period was provided followed by 10 wet swallows of 5 cc of water while supine. Normal values while supine: Upper esophageal sphincter residual pressure: < 12 mmHg Upper esophageal sphincter relaxation duration: > 480 msec Distal contractile integral (DCI): > 450 and < 8,000 mmHg x cm x s Distal latency time: > 4.5 sec Integrated EGJ relaxation pressure (IRP): < 15 mmHg Normal EGJ resting pressure (respiratory mean): 15-34 mmHg Findings: - Upper Esophageal Sphincter: normal mean residual pressure and relaxation duration - Body: 0% of swallows failed. 0% of swallows had premature contractions with shortened distal latency time. The remaining 100% of swallows were peristaltic, includin% of swallows with hypercontractility, 0% of swallows with weak peristalsis, and 0% of swallows with large breaks (>5 cm) in the 20mmHg isocontour line. - Esophagogastric Junction: Midpoint located 41 cm from the nares, and proximal extent located at 39cm. The lower esophageal sphincter is located at the same level as the crural diaphragm. Normal resting pressure (mean 41 mmHg) and normal IRP in 100% of swallows (median 6.5 mmHg). - Bolus transit: Liquid boluses cleared in 90% of swallows. - Multiple rapid swallows: Peristaltic reserve: intact (ratio of post-multiple rapid swallow DCI to median DCI on 10 supine swallows is >=1.0) Deglutitive inhibition: normal deglutitive inhibition (DCI <100 mmHg*s*cm) during the maneuver Integrated relaxation pressure: 2 mmHg (normal <12 mmHg) - Rapid drink challenge: Esophageal body contractility: normal deglutitive inhibition (DCI <100 mmHg*s*cm) during the maneuver and normal post-maneuver contractility Integrated relaxation pressure: 4 mmHg (normal <12 mmHg) Stringer Machine Tender swallow: Impressions based on Dallas Classification v4.0: No evidence of a clinically significant disorder of peristalsis or EGJ outflow obstruction. *These findings assume that mechanical obstruction has been ruled out. Phil Munson MD, FRCPC Section of Gastroenterology and Hepatology [facility] [place] [address] V: [phone] F: [phone] CC/EC: Tish Perez APRN [address] [place] [address] documented in this encounter Plan of Treatment Not on filedocumented as of this encounter Visit Diagnoses Diagnosis Esophageal dysphagia Dysphagia, pharyngoesophageal phase Heartburn Chest pain, unspecified type documented in this encounter Care Teams Chemical Laboratory Chief Relationship Specialty Start Date End Date Tish Perez APRN PCP - General Family Medicine 11/11/20 [address] [place] [address] documented as of this encounter
--- OUTSIDE RECORDS SUMMARY | 2022-01-08 16:08 | XMS_ITS | Encounter Summary ---
:1975 Author Organization [facility] [place] [address] Care Team Providers Name Role Phone Selena Gentile CHETAN Primary Care Provider [phone] Reason for Visit Reason Onset Date Comments Other 01/31/2020 Encounter Details Date Type Department Care Team Description 01/31/2020 Telephone Rheumatology at [facility] [place] [address] Social History Tobacco Use Types Packs/Day Years Used Date Smoking Tobacco: Never Smokeless Tobacco: Never Alcohol Use Standard Drinks/Week Comments No 0 (1 standard drink = 0.6 oz pure alcoho l) Sex Assigned at Date Recorded Not on file documented as of this encounter Miscellaneous Notes Telephone Encounter - Dexter Barnes RN - 01/31/2020 11:52 AM EST Jeff Boss DO sent to Dexter Barnes RN Caller: Unspecified (Yesterday, ??4:07 PM) ?? She is on a low dose so low risk for withdrawal, however she can wean to 1/2 pill for one week and then stop. Thanks RTC to Anya and left a message, to let her know the above recommendation from Dr. Boss. Telephone Encounter - Dexter Barnes RN - 01/31/2020 9:41 AM EST RTC to Anya and left a message with a call back number. Her message was that she wants to wean off of Lyrica, due to having side effects. documented in this encounter Plan of Treatment Not on filedocumented as of this encounter Visit Diagnoses Not on filedocumented in this encounter Care Teams Board Certified Behavioral Analyst Relationship Specialty Start Date End Date Selena Gentile APRN PCP - General Family Medicine 05/25/17 11/10/20 [address] [place] [address] documented as of this encounter
--- OUTSIDE RECORDS SUMMARY | 2022-01-08 16:08 | XMS_ITS | Encounter Summary ---
:1975 Author Organization [facility] [place] [address] Care Team Providers Name Role Phone Tish Perez APRN Primary Care Provider Reason for Visit Reason Onset Date Comments Reminder Appointment 12/15/2020 Encounter Details Date Type Department Care Team Description 12/15/2020 Telephone Gastroenterology at [facility] Aiyana Magallon Appointment [facility] [place] [address] Social History Tobacco Use Types Packs/Day Years Used Date Smoking Tobacco: Never Smokeless Tobacco: Never Alcohol Use Standard Drinks/Week Comments No 0 (1 standard drink = 0.6 oz pure alcoho l) Sex Assigned at Date Recorded Not on file documented as of this encounter Miscellaneous Notes Telephone Encounter - Jes Magallon LNA - 12/15/2020 9:40 AM EST Called patient to review medications and allergies for their upcoming gastroenterology Type of Appointment: Telehealth appointment. Reach Patient during MA Check: No, Left Message Notes for the provider: Notes for the nurse: documented in this encounter Plan of Treatment Not on filedocumented as of this encounter Visit Diagnoses Not on filedocumented in this encounter Care Teams Bag Machine Operator Relationship Specialty Start Date End Date Tish Perez APRN PCP - General Family Medicine 11/11/20 [facility] [place] [address] documented as of this encounter
--- OUTSIDE RECORDS SUMMARY | 2022-01-08 16:08 | XMS_ITS | Encounter Summary ---
:1975 Author Organization [facility] [place] [address] Care Team Providers Name Role Phone Tish Perez APRN Primary Care Provider Reason for Visit Auth/Cert Specialty Diagnoses / Procedures Referred By Contact Refer red To Contact Diagnoses Heartburn Other dysphagia Chest pain, unspecified EGD Gillis off PPI, symptom: chest pain, RMD: Octavia Gilliam, PCP: Tish Perez APRN Procedures PRO UPPER GI ENDOSCOPY, DIAGNOSTIC PRO UPPER GI ENDOSCOPY, BIOPSY PRO UP GI ENDOSCOPY, REMV TUMOR, SNARE PRO MOD SED SAME PHYS/QHP INITIAL 15 MINS 5/> YRS TC MOD SED SAME PHYS/QHP EACH ADDL 15 MINS EGD, UPPER GI ENDOSCOPY Referral ID Status Reason Start Date Expiration Date Visits Requ ested Visits Authorized [id number] 1 1 Encounter Details Date Type Department Care Team Description 01/21/2021 Hospital Encounter Gastroenterology at [facility] Phil Munson [facility] [place] [address] [place] [address] [employer] [address] [place] [address] Social History Tobacco Use Types Packs/Day Years Used Date Smoking Tobacco: Never Smokeless Tobacco: Never Alcohol Use Standard Drinks/Week Comments Yes 0 (1 standard drink = 0.6 oz pure alcoho l) rare Sex Assigned at Date Recorded Not on file documented as of this encounter Last Filed Vital Signs Vital Sign Reading Time Taken Comments Blood Pressure 110/75 01/21/2021 2:30 PM EST Pulse 102 01/21/2021 1:42 PM EST Temperature 36.6 ??C (97.9 ??F) 01/21/2021 11:57 AM EST Respiratory Rate 16 01/21/2021 2:30 PM EST Oxygen Saturation 99% 01/21/2021 2:30 PM EST Inhaled Oxygen Concentration - - Weight - - Height - - Body Mass Index - - documented in this encounter Discharge Instructions Discharge InstructionsBlaire Garduno RN - 01/21/2021 1:58 PM EST Upper GI Endoscopy: What to Expect at Home Your Recovery You will be able to go home after your doctor or nurse checks to make sure you are not having any problems. You may have to stay overnight if you had treatment during the test. You may have a sore throat for a day or two after the test. This care sheet gives you a general idea about what to expect after the test. How can you care for yourself at home? Activity Rest when you feel tired. ?? You can do your normal activities when it feels okay to do so. Diet ?? Follow your doctor's directions for eating. ?? Unless your doctor has told you not to, drink plenty of fluids. This helps to replace the fluidsthat were lost during the prep. ?? Do not drink alcohol. Medicines ?? Your doctor will tell you if and when you can restart your medicines. He or she will also give you instructions about taking any new medicines. ?? If you take blood thinners, such as warfarin (Coumadin), clopidogrel (Plavix), or aspirin, be sure to talk to your doctor. He or she will tell you if and when to start taking those medicines again.Make sure that you understand exactly what your doctor wants you to do. ?? If polyps were removed or a biopsy was done during the test, your doctor may tell you not to take aspirin or other anti-inflammatory medicines for a few days. These include ibuprofen (Advil, Motrin) and naproxen (Aleve). ?? If you have a sore throat the day after the procedure, use an rqkc-llb-lktuunx spray to numb yourthroat. Sucking on throat lozenges and gargling with warm salt water may also help relieve your symptoms. Other instructions ?? For your safety, do not drive or operate machinery until the medicine wears off and you can think clearly. Your doctor may tell you not to drive or operate machinery until the day after your test. ?? Do not sign legal documents or make major decisions until the medicine wears off and you can think clearly. The anesthesia can make it hard for you to fully understand what you are agreeing to. Additional Information for Sedation Patients For patients who received sedation: ?? You may have received medications before and/or during your procedure which effects your judgement and reaction time. ?? Do not drive, operate machinery, drink alcoholic beverages or make important decisions for 24 hours. ?? Be careful on stairs as you may be unsteady on your feet. ?? You may eat a regular diet as tolerated. ?? Do not smoke if you are alone. ?? IV site: Slight redness or tenderness is normal, you can use a warm compress if you would like. If tenderness and/or redness increase or if foul drainage occurs, please contact your Doctor. Please call [phone] before 8pm Mon-Fri with problems, questions or concerns. If you call after 8pm or on weekends, call the Hospital at [phone] and ask to speak to the Air Lift Operator conveyor man and the filter press operator will contact that person for you. When should you call for help? Call 105 anytime you think you may need emergency care. For example, call if: ?? You passed out (lost consciousness). ?? You pass maroon or bloody stools. ?? You have trouble breathing. Call your doctor now or seek immediate medical care if: ?? You have pain that does not get better after you take pain medicine. ?? You are sick to your stomach or cannot drink fluids. ?? You have new or worse belly pain. ?? You have blood in your stools. ?? You have a fever. ?? You cannot pass stools or gas. Watch closely for changes in your health, and be sure to contact your doctor if you have any problems. Where can you learn more? [facility] View your After Visit Summary and more online at [email or web address] If you would like to provide feedback about your hospital experience, please call the Office of Patient and Family Relations at . If you have received this After Visit Summary in error, please immediately return it in person to the department, or notify the [facility] Privacy Office by calling toll free at between the hours of 8AM and 5PM to arrange for our retrieval of the documents at no cost to you. Content Version: 12.2 ?? [id number] [employer]. Care instructions adapted under license by [facility]. If you have questions about a medical condition or this instruction, always ask your healthcare professional. [employer] disclaims any warranty or liability for your use of this information. documented in this encounter Medications at Time of Discharge Medication Sig Dispensed Refills Start Date End Date sulfamethoxazole-trimethopr Take 1 tablet by 0 04/13/2021 im DS (Bactrim DS) 800-160 mouth 2 times mg Tablet daily. clarithromycin (Biaxin) 250 Take 250 mg by 0 04/13/2021 mg Tablet mouth 2 times daily. documented as of this encounter H&P Notes Phil Munson MD - 01/21/2021 1:00 PM EST Patient Name: Anya Ferrari Patient Age: 45 y.o. Birthdate: 1975 Admit date: 01/21/2021 Attending Physician: Phil Munson MD Gastroenterology and Hepatology Pre-Procedure History and Physical Exam Procedure: EGD: with gillis Indication: dyspepsia Patient Active Problem List Diagnosis Code ??? Dyspepsia R10.13 ??? History of abnormal cervical Pap smear Z87.42 ??? Vagina bleeding N93.9 ??? Depression F32.A ??? Fibromyalgia M79.7 ??? Fracture of left ankle S82.892A ??? IBS (irritable bowel syndrome) K58.9 ??? NELSON (obstructive sleep apnea) G47.33 ??? Psoriasis L40.9 EXAM: HEENT: Airway examined, oropharynx clear Mallampati Score: II (soft palate, uvula, fauces visible) LUNGS: Clear to auscultation HEART: Regular rate and rhythm, normal S1, S2 ABDOMEN: Normal bowel sounds, soft, non tender, non distended, A/P Proceed with the planned endoscopic procedure. ASA 2 - Patient with mild systemic disease with no functional limitations Sedation Plan: moderate (conscious sedation) Risks and benefits of the procedure explained to the patient. Consent signed. documented in this encounter Plan of Treatment Not on filedocumented as of this encounter Procedures Procedure Name Priority Date/Time Associated Diagnosis Comme nts SPECIMEN TO Routine 01/21/2021 1:40 PM Results f or this PATHOLOGY EST procedure are i n the results section. SPECIMEN TO Routine 01/21/2021 1:40 PM Results f or this PATHOLOGY EST procedure are i n the results section. SURGICAL PATHOLOGY Routine 01/21/2021 1:39 PM Res ults for this REPORT EST procedure are i n the results section. EGD WITH BIOPSY 01/21/2021 1:09 PM EGD Gillis off PPI, (WRVU 2.49) EST symptom: chest pain, RMD: Octavia Gilliam, PCP: Tish Perez APRN EGD, UPPER GI 01/21/2021 1:09 PM EGD Gillis off PPI, ENDOSCOPY EST symptom: chest pain, RMD: Octavia Gilliam, PCP: Tish Perez APRN UPPER GI ENDOSCOPY Routine 01/21/2021 12:34 PM Re sults for this EST procedure are i n the results section. documented in this encounter Results Specimen to Pathology (01/21/2021 1:40 PM EST) Specimen Anatomical Collection Method Collection Time Receive d Time (Source) Location / / Volume Laterality AP Specimen 01/21/2021 1:40 PM 1:40 EST PM EST Narrative [facility] - 01/21/2021 1:40 PM EST Specimen requisition ordered. ??Separate Pathology report to follow Phil Munson MD PATHOLOGY/CYTOLOGY ORDERABLE S Performing Organization Address City/State/[place] [address] Specimen to Pathology (01/21/2021 1:40 PM EST) Specimen Anatomical Collection Method Collection Time Receive d Time (Source) Location / / Volume Laterality AP Specimen 01/21/2021 1:40 PM 1:40 EST PM EST Narrative [facility] - 01/21/2021 1:40 PM EST Specimen requisition ordered. ??Separate Pathology report to follow Phil Munson MD PATHOLOGY/CYTOLOGY ORDERABLE S Performing Organization Address City/State/[place] [address] [facility] [address] Surgical Pathology Report (01/21/2021 1:39 PM EST) Component Value Ref Test Analysis Performed At [facility] gist Range Method Time Signature Surgical [id number] ? Location: 4T; EA13; A [facility] Report The signing pathologist has (i) examined the relevant preparation(s) for the [facility] specimen(s) and (ii) rendered or confirmed the diagnosis(es) . HOSPITAL LABORATORY . ?Surgic al Pathology DIAGNOSIS A - Esophagus, biopsy: - ??Esophageal squamous mucosa within normal limits. - ??Gastric fundic mucosa within normal limits. - ??No goblet cell metaplasia is seen. B - Gastric biopsy: - ??Gastric fundic mucosa within normal limits. - ??No H. pylori-like microorganism is seen. Electronically signed by: ?Isaiah Cruz MD Verified: ??01/29/2021 10:11 ??Pathologist Performed at: ??-[facility] Dept. of Pathology, [place], [place] SPECIMEN(S) SUBMITTED A - Esophagus, biopsy B - Gastric, biopsy CLINICAL INFORMATION EGD for dyspepsia SPECIMEN PROCESSING A - Labeled/Fixative: Esophagus, formalin. Quantity/Size: Three, 0.2-0.3 cm. Tissue Description: Soft, pink-white tissues. Sections/Processing: Submitted en toto ??in 1 cassette labeled A1. B - Labeled/Fixative: Gastric, formalin. Quantity/Size: Three, 0.2-0.5 cm. Tissue Description: Soft, champion-pink tissues. Sections/Processing: Submitted en toto ??in 1 cassette labeled B1. ??reji Specimen (Source) Anatomical Collection Method Collection Time Re ceived Time Location / / Volume Laterality 01/21/2021 1:39 PM EST Phil Munson MD PATHOLOGY/CYTOLOGY ORDERABLE S Performing Organization Address City/State/[place] [address] UPPER GI ENDOSCOPY (01/21/2021 12:34 PM EST) Component Value Ref Test Analysis Performed At [facility] Range Method Time Signature UPPER GI [facility] ENDOSCOPY Endoscopy Procedure Date: 01/21/2021 12:34 PM ? Patient Name: Anya Ferrari ? N: [id number] ? Date of : 1975 ? Age: 45 ? Order #: [id number] ? Instrument Name: [id number] ? Procedure: ? Upper GI endoscopy Indications: ? Dyspepsia; GILLIS testing OFF PPI Providers: ? Phil Munson, Liam Crouch , ? RN, Zachary Laureano MD: ?Tish Perez MD Medicines: ? Midazolam 8 mg IV, Fentanyl 200 ? micrograms IV, Diphenhydramin e 25 mg ? IV, Benzocaine spray Complications: ? No immediate complications. Procedure: ? Pre-Anesthesia Assessment: ? - See the other procedure not e for ? documentation of the pre-proc edure ? assessment. ? The procedure, indications, b enefits, ? risks and alternatives were e xplained ? to the patient. Specifically ? discussed were potential ? complications including, but not ? limited to, bleeding, perfora tion, ? infection, missing a cancer, and ? adverse medication reactions. The ? Endoscope was introduced thro h the ? mouth, and [facility] the [facility] ? of duodenum. The patient tole rated ? the procedure well. The upper GI ? endoscopy was accomplished wi [facility] ? difficulty. The patient matilda ated the ? procedure poorly due to the p atient's ? discomfort during the procedu re. ? Findings: ? Esophagogastric landmarks were identified: the Z-line ? was found at 41 cm and the gastroesophageal junction ? was found at 41 cm from the incisors. ? The examined esophagus was normal. Biopsies were ? taken with a cold forceps for histology. The GILLIS ? capsule with delivery system was introduced through ? the mouth and advanced into the esophagus, such that ? the GILLIS pH capsule was positioned 35 cm from the ? incisors, which was 6 cm proximal to the GE junction. ? The GILLIS pH capsule was then deployed and attached ? to the esophageal mucosa. The delivery system was ? then withdrawn. Endoscopy was utilized for probe ? placement and diagnostic evaluation. ? A few 1 to 2 mm sessile polyps were found in the ? stomach. ? Non-targeted gastric biopsies taken ? The examined duodenum was normal. ? Moderate Sedation: ? I was present during the intraservice time as ? documented by the sedation RN. Impression: ?- Esophagogastric landmarks ? identified. ? - Normal esophagus. Biopsied. ? - A few benign appearing александр van ? polyps. Biopsied previously. ? - Normal examined duodenum. ? - The GILLIS pH capsule was de ployed. ? Initially I confirmed positio n in ? esophagus but did not do relo ok due ? to patient tolerance. Recommendation: ?- Discharge patient to home. ? - Patient has a contact numbe r ? available for emergencies. Th e signs ? and symptoms of potential del ayed ? complications were discussed with the ? patient. Return to normal act ivities ? tomorrow. Written discharge ? instructions were provided to the ? patient. ? - Follow-up with Octavia nash APRN ? - Poor tolerance today despit e high ? doses of sedation. Recommend MAC with ? future scopes. ? Attending Participation: ? I personally performed the entire procedure. ? Phil Munson Phil Munson, 01/21/2021 1:41:04 PM Number of Addenda: 0 Note Initiated On: 01/21/2021 12:34 PM Specimen (Source) Anatomical Collection Method Collection Time Re ceived Time Location / / Volume Laterality 01/21/2021 12:34 PM EST Tish Perez AUTOMOTIVE ARTIST GENERAL SURGICAL ORDERABLES Performing Organization Address City/State/ZIP Code Phon e Number [facility] documented in this encounter Visit Diagnoses Not on filedocumented in this encounter Administered Medications Inactive Administered Medications - up to 3 most recent administrations Medication Order MAR Action Action Date Dose Rate Site lactated ringers infusion New Bag 01/21/2021 12:06 PM 100 mL/hr 100 mL/hr 100 mL/hr, Intravenous, EST CONTINUOUS, Starting on Tue01/21/21 at 1215, Until Tue01/21/21 at 1702, Endoscopy (Day of Procedure) documented in this encounter Active and Recently Administered Medications Times are shown in EST. Continuous Medication Order 01/19/2021 01/20/2021 01/21/2021 lactated ringers infusion 1206 ( New Bag - Provider: Tyrone Dooley RN) 100 mL/hr, Intravenous, CONTINUOUS, Star ting on Tue01/21/21 at 1215, Until Tue01/21/21 at 1702, Endoscopy (Day of Procedure) PRN Medication Order 01/19/2021 01/20/2021 01/21/2021 benzocaine (Hurricane One) 20% spray (re stricted to meg-procedural use) (CANCELED) 1320 (Given - Provid er: Liam Crouch RN) ONCE PRN, Starting on Tue01/21/21 at 13 20, Until Tue01/21/21 at 1702, Intra- Operative (Intra-Procedure) diphenhydrAMINE (Benadryl) (50 mg/mL) injection (CANCELED) 1316 (Given - Provider: Liam Crouch RN) ONCE PRN, Starting on Tue01/21/21 at 13 16, Until Tue01/21/21 at 1702, Intra- Operative (Intra-Procedure), Routine fentaNYL (pf) (50 mcg/mL) multi-dose injection (CANCELED) 1310 (Given - Provider: Liam Crouch RN)1313 (Given - Provider: Liam Crouch RN)1316 (Given - Provider: Liam Crouch RN)1319 (Given - Provider: Liam Crouch RN)1322 (Given - Provider: Liam Crouch RN) ONCE PRN, Starting on Tue01/21/21 at 13 10, Until Tue01/21/21 at 1702, Intra- Operative (Intra-Procedure), Routine 132 5 (Given - Provider: Liam Crouch RN) midazolam (pf) (Versed) (1 mg/mL) multi-dose injection (CANCELED ) 1310 (Given - Provider: Liam Crouch RN)1313 (Given - Provider: Liam Crouch RN)1316 (Given - Provider: Liam Crouch RN)1319 (Given - Provider: Liam Crouch RN)1322 (Given - Provider: Liam Crouch RN) ONCE PRN, Starting on Tue01/21/21 at 13 10, Until Tue01/21/21 at 1702, Intra- Operative (Intra-Procedure), Routine 132 5 (Given - Provider: Liam Crouch RN)1328 (Given - Provider: Liam Crouch RN)1333 (Given - Provider: Liam Crouch RN) documented in this encounter Care Teams Paint Dipper Relationship Specialty Start Date End Date Tish Perez APRN PCP - General Family Medicine 11/11/20 [place] [address] documented as of this encounter
--- OUTSIDE RECORDS SUMMARY | 2022-01-08 16:08 | XMS_ITS | Encounter Summary ---
:1975 Author Organization [facility] [place] [address] Care Team Providers Name Role Phone Tish Perez APRN Primary Care Provider Encounter Details Date Type Department Care Team Description 12/16/2020 Telephone Gastroenterology at [facility] [place] [address] Social History Tobacco Use Types Packs/Day Years Used Date Smoking Tobacco: Never Smokeless Tobacco: Never Alcohol Use Standard Drinks/Week Comments No 0 (1 standard drink = 0.6 oz pure alcoho l) Sex Assigned at Date Recorded Not on file documented as of this encounter Miscellaneous Notes Telephone Encounter - Sesar Lowery - 12/16/2020 4:26 PM EST CAR[facility]O CLINICAL SAFETY CHECKLIST 12/16/2020 Sesar Lightvivien Ferrari [address] [facility] [address] [id number] : 1975 REFERRING PROVIDER: Octavia Gilliam PRIMARY CARE PROVIDER: Tish Perez APRN PRIMARY SYMPTOM (PROCEDURE INDICATION): chest pain SAFETY QUESTIONS PACEMAKER/DEFIBRILLATOR? No NEUROSTIMULATOR? no ESOPHAGEAL VARICES? no SENSITIVITY OR ALLERGY TO NICKEL? no BLOOD THINNERS SUCH PLAVIX, COUMADIN, PRADAXA, ELIQUIS, XARELTO, PLAVIX? no IF YES TO ANY OF THE ABOVE PRE-PROCEDURE QUESTIONS, please inform the patient that the test cannot be scheduled due to safety concerns about testing, and the patient should speak with their provider toconsider alternative testing. The music professionals should also contact the provider's office directly to notify them that we are unable to schedule due to a contraindication to testing. Then, delete the remainder of this checklist and close out the referral. 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 No Diabetic patients should speak with their PCP or managing provider at least two weeks before the test to ask what medication or insulin adjustments are needed for testing. If the patient feels ill while fasting due to diabetes, it is OK to have a little apple juice - just enough to feel better. Patients fast 8 hours before testing and the test lasts 1 hour. DOES THE PATIENT USE A WHEELCHAIR? No VERBAL PATIENT INSTRUCTIONS FOR off-PPI STUDY The written instructions are very important for the patient to review and contain specific dietary and medication instructions prior to testing. These instructions will give the patient the most accurate test result. The patient should speak with their referring provider or our office if they have any questions. For this test, it is important that the patient hold proton pump inhibitors (PPIs) for seven days before testing, but it is OK to use H2-blockers (zantac, ranitidine) up to 24 hours before testing. APPOINTMENT NOTES TEMPLATE EGD Caruso off PPI, symptom: chest pain, RMD: Octavia Gilliam, PCP: Tish Perez APRN (At exit, the RMD for appointment notes is the GI provider who saw the patient) EGD PATIENT SAFETY QUESTIONS ENDO Booked by: PNT PRIOR EGD?: No PROBLEMS DURING PRIOR EGD?: No PLAVIX, COUMADIN, PRADAXA? No PACEMAKER/DEFIBRILLATOR? : No DIABETIC? No ALLERGIC TO LATEX, EGGS, OR MEDS? Yes see edh IRON SUPPLEMENTS: no THREE OR MORE ABDOMINAL SURGERIES? no ANY PAST PROBLEMS WITH SEDATION OR ANESTHESIA? no DAILY SUPPLEMENTAL O2 OR CPAP? No DOES PT TAKE RX PAIN MEDS? No HT: 5'4 WT: 222 AGE: 45 y.o. DOES PT KNOW HE/SHE MUST HAVE A ASSEMBLER DECK AND HULL FOR AFTER PROCEDURE: Yes documented in this encounter Plan of Treatment Not on filedocumented as of this encounter Visit Diagnoses Not on filedocumented in this encounter Care Teams Concrete Smoother Relationship Specialty Start Date End Date Tish Perez APRN PCP - General Family Medicine 11/11/20 [place] [address] documented as of this encounter
--- OUTSIDE RECORDS SUMMARY | 2022-01-08 16:08 | XMS_ITS | Encounter Summary ---
:1975 Author Organization [facility] [place] [address] Care Team Providers Name Role Phone Tish Perez APRN Primary Care Provider Reason for Visit Auth/Cert Specialty Diagnoses / Procedures Referred By Contact Refer red To Contact Diagnoses Heartburn Other dysphagia Chest pain, unspecified EGD Caruso off PPI, symptom: chest pain, [...] Expiration Date Visits Requ ested Visits Authorized [id number] 1 1 Encounter Details Date Type Department Care Team Description 01/21/2021 Surgery Gastroenterology at [facility] Phil Munson, EGD, UPPER GI [facility] Shannon [place] [address] [facility] [phone] [place], [place] [address] Social History Tobacco Use Types Packs/Day Years Used Date Smoking Tobacco: Never Smokeless Tobacco: Never Alcohol Use Standard Drinks/Week Comments Yes 0 (1 standard drink = 0.6 oz pure alcoho l) rare Sex Assigned at Date Recorded Not on file documented as of this encounter Last Filed Vital Signs Vital Sign Reading Time Taken Comments Blood Pressure 110/68 01/21/2021 1:40 PM EST Pulse 103 01/21/2021 1:40 PM EST Temperature 36.6 ??C (97.9 ??F) 01/21/2021 11:57 AM EST Respiratory Rate 11 01/21/2021 1:40 PM EST Oxygen Saturation 98% 01/21/2021 1:40 PM EST Inhaled Oxygen Concentration - - [...] the day after the procedure, use an hdhk-iqi-mepjaua spray to numb yourthroat. Sucking on throat [...] occurs, please contact your Doctor. Please call [phone] before 8pm Mon-Fri with problems, questions or concerns. If you call after 8pm or on weekends, call the Hospital at [phone] and ask to speak to the [employer] contact center manager and the shell freezing machine operator will contact that person for you. When should you call for help? Call [phone] anytime you think you may need emergency [...] any problems. Where can you learn more? [email or web address] View your After Visit Summary and more online at [email or web address] If you would like to provide feedback [...] cost to you. Content Version: 12.2 ?? 7608-3021 [employer]. Care instructions adapted under license by [facility]. If you have questions about a medical condition or this instruction, always ask your healthcare professional. [employer] disclaims any warranty or liability for your [...] History and Physical Exam Procedure: EGD: with caruso Indication: dyspepsia Patient Active Problem List Diagnosis [...] EGD WITH BIOPSY 01/21/2021 1:09 PM EGD Caruso off PPI, (WRVU 2.49) EST symptom: chest pain, RMD: Octavia Gilliam, PCP: Tish Perez APRN EGD, UPPER GI 01/21/2021 1:09 PM EGD Caruso off PPI, ENDOSCOPY EST symptom: chest pain, [...] 1:40 PM 1:40 EST PM EST Narrative [facility] - 01/21/2021 1:40 PM EST Specimen requisition ordered. ??Separate Pathology report to follow Phil Munson MD PATHOLOGY/CYTOLOGY ORDERABLE S Performing Organization Address City/State/[place] [address] Specimen to Pathology (01/21/2021 1:40 PM EST) Specimen Anatomical Collection Method Collection Time Receive d Time (Source) Location / / Volume Laterality AP Specimen 01/21/2021 1:40 PM 1:40 EST PM EST Narrative [facility] - 01/21/2021 1:40 PM EST Specimen requisition ordered. ??Separate Pathology report to follow Phil Munson MD PATHOLOGY/CYTOLOGY ORDERABLE S Performing Organization Address City/State/[place] [address] [facility] [address] Surgical Pathology Report (01/21/2021 1:39 PM EST) Component Value Ref Test Analysis Performed At [facility] gist Range Method Time Signature Surgical [id number] ? Location: 4T; EA13; A [facility] Report The signing pathologist has (i) examined the relevant preparation(s) for the [facility] specimen(s) and (ii) rendered or confirmed the [...] MD Verified: ??01/29/2021 10:11 ??Pathologist Performed at: ??-[facility] Dept. of Pathology, [place], [place] SPECIMEN(S) SUBMITTED A - Esophagus, biopsy [...] Organization Address City/State/[place] [address] UPPER GI ENDOSCOPY (01/21/2021 12:34 PM EST) Component Value Ref Test Analysis Performed At [facility] Method Time Signature UPPER GI [facility] ENDOSCOPY Endoscopy Procedure Date: 01/21/2021 12:34 PM ? Patient Name: Anya Ferrari ? Date of : 1975 ? Age: 45 ? Order #: [id number] ? Instrument Name: [id number] ? Procedure: ? Upper GI endoscopy Indications: ? Dyspepsia; CARUSO testing OFF PPI Providers: ? Phil Munson, Liam Crouch , ? SHIRLEY, Zachary Baumann Referring MD: ?Tish Perez MD Medicines: ? Midazolam [...] the ? mouth, and advanced to the [facility] part ? of duodenum. The patient tole rated ? the procedure well. The upper GI ? endoscopy was accomplished wi [facility] ? difficulty. The patient matilda ated the [...] with a cold forceps for histology. The CARUSO ? capsule with delivery system was introduced through ? the mouth and advanced into the esophagus, such that ? the CARUSO pH capsule was positioned 35 cm from the ? incisors, which was 6 cm proximal to the GE junction. ? The CARUSO pH capsule was then deployed and attached [...] - Normal examined duodenum. ? - The CARUSO pH capsule was de ployed. ? Initially [...] Laterality 01/21/2021 12:34 PM EST Tish Perez BAND SPLITTER GENERAL SURGICAL ORDERABLES Performing Organization Address City/State/ZIP Code Phon e Number [facility] documented in this encounter Visit Diagnoses Not on filedocumented in this encounter Administered Medications Inactive Administered Medications - up to 3 most recent administrations Medication Order MAR Action Action Date Dose Rate Site benzocaine (Hurricane One) 20% Given 01/21/2021 1:20 PM EST 1 ea ch spray (restricted to meg-procedural use) ONCE PRN, Starting on Tue01/21/21 at 1320, Until Tue01/21/21 at 1702, Intra-Operative (Intra-Procedure) diphenhydrAMINE (Benadryl) (50 mg/mL) Given 01/21/2021 1:[address] 25 mg injection ONCE PRN, Starting on Tue01/21/21 at 1316, Until Tue01/21/21 at 1702, Intra-Operative (Intra-Procedure), Routine fentaNYL (pf) (50 mcg/mL) multi-dose Given 01/21/2021 1:25 PM ES T 25 mcg injection ONCE PRN, Starting on Tue01/21/21 at 1310, Until Tue01/21/21 at 1702, Intra-Operative (Intra-Procedure), Routine Given 01/21/2021 1:22 PM EST 25 mcg Given 01/21/2021 1:19 PM EST 25 mcg lactated ringers infusion New Bag 01/21/2021 12:06 PM EST 100 mL/hr 100 mL/hr 100 mL/hr, Intravenous, CONTINUOUS, Starting on Tue01/21/21 at 1215, Until Tue01/21/21 at 1702, Endoscopy (Day of Procedure) midazolam (pf) (Versed) (1 mg/mL) multi-dose Given 01/21/2021 1: 33 PM EST 1 mg injection ONCE PRN, Starting on Tue01/21/21 at 1310, Until Tue01/21/21 at 1702, Intra-Operative (Intra-Procedure), Routine Given 01/21/2021 1:28 PM EST 1 mg Given 01/21/2021 1:25 PM EST 1 mg documented in this encounter Active and Recently [...] Provider: Liam Crouch RN)1316 (Given - Provider: iLam Crouch RN)1319 (Given - Provider: Liam Crouch RN)1322 (Given - Provider: Liam Crouch RN) ONCE PRN, Starting on Tue01/21/21 at 13 10, Until Tue01/21/21 at 1702, Intra- Operative (Intra-Procedure), Routine 132 5 (Given - Provider: Liam Crouch RN)1328 (Given - Provider: Liam Crouch RN)1333 (Given - Provider: Liam Crouch RN) documented in this encounter Care Teams Activated Sludge Operator Relationship Specialty Start Date End Date Tish Perez APRN PCP - General Family Medicine 11/11/20 [place] [address] documented as of this encounter
--- OUTSIDE RECORDS SUMMARY | 2022-01-08 16:08 | XMS_ITS | Encounter Summary ---
:1975 [place] [address] Care Team Providers Name Role Phone Selena Gentile APRN Primary Care Provider [phone] Encounter Details Date Type Department Care Team Description 09/25/2020 Ext Surgery or [facility] Darling Mathias MD CONN (dyspnea on Single Event [facility] exertion) [address] [place] [address] [place], [place] [phone] [address] (Work) [phone] Social History Tobacco Use Types Packs/Day Years Used Date Smoking Tobacco: Never Smokeless Tobacco: Never Alcohol Use Standard Drinks/Week Comments No 0 (1 standard drink = 0.6 oz pure alcoho l) Sex Assigned at Date Recorded Not on file documented as of this encounter Plan of Treatment Not on filedocumented as of this encounter Procedures Procedure Name Priority Date/Time Associated Diagnosis Comme nts STRESS TEST SCAN 09/25/2020 12:00 AM Resu lts for this EDT procedure are i n the results section. documented in this encounter Results SCAN DOC: STRESS TEST (09/25/2020 12:00 AM EDT) Anatomical Region Laterality Modality Other Narrative This result has an attachment that is no t available. Unknown MEDIA MGR SCAN EXT ORDR/RSLT documented in this encounter Visit Diagnoses Diagnosis CONN (dyspnea on exertion) Other dyspnea and respiratory abnormalit y documented in this encounter Care Teams Radiation Therapist Relationship Specialty Start Date End Date Selena Gentile APRN PCP - General Family Medicine 05/25/17 11/10/20 [address] [place] [address] documented as of this encounter
--- OUTSIDE RECORDS SUMMARY | 2022-01-08 16:08 | XMS_ITS | Encounter Summary ---
:1975 Author Organization [place] [address] Care Team Providers Name Role Phone Selena Gentile Yoshi BENTON Primary Care Provider [phone] Reason for Visit Reason Onset Date Comments Appointment 04/10/2020 Encounter Details Date Type Department Care Team Description 04/10/2020 Telephone Physical Therapy at [facility] Ina Hughes, [place] [address] Social History Tobacco Use Types Packs/Day Years Used Date Smoking Tobacco: Never Smokeless Tobacco: Never Alcohol Use Standard Drinks/Week Comments No 0 (1 standard drink = 0.6 oz pure alcoho l) Sex Assigned at Date Recorded Not on file documented as of this encounter Miscellaneous Notes Telephone Encounter - Zari Felton - 05/02/2020 3:18 PM EDT Closing out telephone message as patient has never responded to two previous messages left for her re: Frequency of appointments for Ina:??1x/wk for 8 weeks (2-3 telehealth, 4th in person, 2-3 telehealth, etc) Telephone Encounter - Christine Santiago - 04/21/2020 8:37 AM EDT LM#2 to schedule appointments with Ina Hughes for PT. ?? Frequency of appointments: 1x/wk for 8 weeks (2-3 telehealth, 4th in person, 2-3 telehealth, etc) ?? Telephone Encounter - Melanie Kemp - 04/10/2020 9:34 AM EST LM#1 to schedule appointments with Ina Hughes for PT. Frequency of appointments: 1x/wk for 8 weeks (2-3 telehealth, 4th in person, 2-3 telehealth, etc) documented in this encounter Plan of Treatment Not on filedocumented as of this encounter Visit Diagnoses Not on filedocumented in this encounter Care Teams Set Up Mechanic Stamping Machines Relationship Specialty Start Date End Date Selena Gentile APRN PCP - General Family Medicine 05/25/17 11/10/20 [address] [place] [address] documented as of this encounter
--- OUTSIDE RECORDS SUMMARY | 2022-01-08 16:08 | XMS_ITS | Encounter Summary ---
:1975 Author Organization [facility] [place] [address] Care Team Providers Name Role Phone Selena Gentile APRN Primary Care Provider [phone] Encounter Details Date Type Department Care Team Description 01/10/2020 Office Visit Audiology at [facility] Fani Han AUD Dizziness; [facility] [address], [place] [address] AUDIOLOGY DEPT [phone] [place] [phone] (Wo rk) Social History Tobacco Use Types Packs/Day Years Used Date Smoking Tobacco: Never Smokeless Tobacco: Never Alcohol Use Standard Drinks/Week Comments No 0 (1 standard drink = 0.6 oz pure alcoho l) Sex Assigned at Date Recorded Not on file documented as of this encounter Progress Notes Fani Han AUD - 01/10/2020 10:15 AM EST AUDIOLOGIC EVALUATION Anya Ferrari was seen on 01/10/2020 for an audiologic evaluation as medically indicated in conjunction with Dr Pedraza in otolaryngology. Please refer to the scanned audiogram listed under Procedures for findings, impressions and recommendations. Yovani Mera, [facility] [place] [address] documented in this encounter Plan of Treatment Not on filedocumented as of this encounter Procedures Procedure Name Priority Date/Time Associated Comments Diagnosis COMPREHENSIVE HEARING Routine 01/10/2020 9:52 AM Results for this TEST EST procedure are i n the results section. documented in this encounter Results Comprehensive hearing test (01/10/2020 9:52 AM EST) Specimen (Source) Anatomical Collection Method Collection Time Re ceived Time Location / / Volume Laterality 01/10/2020 9:52 AM EST Narrative [facility] - 01/10/2020 9:52 AM EST Follow up as scheduled with Dr Pedraza Procedure Note Unknown - 01/10/2020Formatting of this n ote might be different from the original. Follow up as scheduled with Dr Pedraza Unknown AUDIOLOGY SERVICES ORDERABLE S Performing Organization Address City/State/ZIP Code Phon e Number [facility] documented in this encounter Visit Diagnoses Diagnosis Dizziness Dizziness and giddiness Otalgia, left documented in this encounter Care Teams Skip Miner Blasting Relationship Specialty Start Date End Date Selena Gentile APRN PCP - General Family Medicine 05/25/17 11/10/20 [address] [place] [address] documented as of this encounter
--- OUTSIDE RECORDS SUMMARY | 2022-01-08 16:08 | XMS_ITS | Encounter Summary ---
:1975 Author Organization [facility] [place] [address] Care Team Providers Name Role Phone Tish Perez APRN Primary Care Provider Encounter Details Date Type Department Care Team Description 06/15/2021 Hospital Encounter XRay at [facility] Tawana Octavia Canceled [address] Danis APRN (P-INCONVENIENT DATE [place], [place] [facility] TIME) [phone] [place] [phone] GASTROENTEROLOGY [place] [id number] Social History Tobacco Use Types Packs/Day Years Used Date Smoking Tobacco: Never Smokeless Tobacco: Never Alcohol Use Standard Drinks/Week Comments Yes 0 (1 standard drink = 0.6 oz pure alcoho l) rare Sex Assigned at Date Recorded Not on file documented as of this encounter Medications at Time of Discharge Medication Sig Dispensed Refills Start Date End Date pantoprazole EC (Protonix) Take 1 tablet by 90 tablet 4 08/2021 40 mg Tablet, Delayed mouth daily. Release (E.C.)Indications: Heartburn, Chest pain, unspecified type, Gastroesophageal reflux disease, unspecified whether esophagitis present famotidine (Pepcid) 20 mg Take 1 tablet by 180 tablet 3 01/08 TabletIndications: Chest mouth 2 times pain, unspecified type, daily as needed. Heartburn, Esophageal dysphagia, Dyspepsia, Gastroesophageal reflux disease, unspecified whether esophagitis present documented as of this encounter Plan of Treatment Not on filedocumented as of this encounter Visit Diagnoses Not on filedocumented in this encounter Care Teams Merchandise Clerk Relationship Specialty Start Date End Date Tish Perez APRN PCP - General Family Medicine 11/11/20 [address] [facility] [address] documented as of this encounter
--- OUTSIDE RECORDS SUMMARY | 2022-01-08 16:08 | XMS_ITS | Encounter Summary ---
:1975 Author Organization [facility] [place] [address] Care Team Providers Name Role Phone Tish [...] Expiration Date Visits Requ ested Visits Authorized [id number] 1 1 Encounter Details Date Type Department Care Team Description 01/21/2021 Procedure visit Gastroenterology at [facility] Chest pain, unspecified type ; [address] [facility] [address] [place] [place] [address] Social History Tobacco Use Types Packs/Day Years Used Date Smoking Tobacco: Never Smokeless Tobacco: Never Alcohol Use Standard Drinks/Week Comments Yes 0 (1 standard drink = 0.6 oz pure alcoho l) rare Sex Assigned at Date Recorded Not on file documented as of this encounter Progress Notes Amira Slater RN - 01/21/2021 1:00 PM EST Prior to placement of the Gillis pH capsule, a description of the procedure was provided to the patient. All questions were answered and the patient verbalized understanding. Written instructions were given to the patient as well. At 1:36 the Gillis device was inserted with the endoscope in place. The Gillis pH capsule was then deployed by Dr. Phil Munson following the EGD procedure. The capsule was placed 35cm from the incisors without difficulty. This study is being performed off acid suppressants. First pH: 7.0 Manolo Benoit MD - 01/21/2021 1:00 PM EST Wireless pH-metry (Gillis) procedure report Patient: Anya Ferrari Rich Address: [address] [place] [id number] : 1975 Referring provider: Octavia Gilliam Date of service: 01/28/21 Indication: Chest pain, heartburn Procedure: The Gillis probe was placed in the usual fashion 6cm above the gastroesophageal junction. The patientwas instructed to keep a diary of symptoms, and returned 2 days later for downloading the data. Testing performed OFF acid-suppressive therapy. Analysis Duration Total (HH:MM): 48:00 Analysis Duration Upright (HH:MM): 30:37 Analysis Duration Supine (HH:MM): 17:23 Acid exposure time (AET): Day 1 Day 2 Overall Total distal esophageal acid exposure time % of testing period 15.5 14.6 15.0 Upright distal esophageal acid exposure time % of testing period 16.4 16.3 16.4 Supine distal esophageal acid exposure time % of testing period 12.6 12.5 12.5 DeMeester Score: 49.9 (normal: <14.7) Normal values for total 48-hour average-day acid exposure time (AET) defined as the % of time with apH <4 Evidence for pathologic reflux: AET ?5.1% No convincing evidence of pathologic reflux: AET <5.1% Normal values for worst-day acid exposure time (AET) defined as the % of time with a pH <4 Conclusive evidence for pathologic reflux: AET >7.0% Borderline or inconclusive evidence for pathologic reflux: AET 4.0% to 7.0% Evidence against pathologic reflux: AET <4.0% Reflux symptom association (RSA): SYMPTOM EVENTS SYMPTOM INDEX (SI) Symptom Associated Probability (SAP) Heartburn 48 37.5 99.4 Chest pain 44 34.1 100.0 Regurgitation 7 14.3 68.5 Interpretation of reflux symptom association (RSA) Positive association: Symptom Associated Probability [SAP] > 95% AND Symptom Index [SI] > 50% No convincing association: Symptom Associated Probability [SAP] > 95% OR Symptom Index [SI] > 50% No evidence of association: Symptom Associated Probability [SAP] < 95% AND Symptom Index [SI] < 50% Impression based on the Preston classification: Evidence for pathologic acid reflux as measured by the total average-day acid exposure time The aggregate DeMeester composite score was high at 49.9. Possible association between reflux and recorded symptoms of chest pain and heartburn, but no association with regurgitation.. References: 1) Modern diagnosis of GERD: the Preston Consensus. Gut. 2018 Aug; 67(7): 4667-5597. 2) Validation of the Preston classification for GORD diagnosis: acid exposure time assessed by prolonged wireless pH monitoring in healthy controls and patients with erosive oesophagitis. Gut. 2020. doi 10.1136/xafbmk-8047-525852. Manolo Benoit MD Section of Gastroenterology and Hepatology [facility] [place] [address] V: [phone] F: [phone] CC/ETC: Tish Perez APRN [address] [place] [address] documented in this encounter Plan of Treatment Not on filedocumented as of this encounter Visit Diagnoses Diagnosis Chest pain, unspecified type Heartburn documented in this encounter Care Teams Alterations Workroom Clerk Relationship Specialty Start Date End Date Tish Perez APRN PCP - General Family Medicine 11/11/20 [place] [address] documented as of this encounter
--- OUTSIDE RECORDS SUMMARY | 2022-01-08 16:08 | XMS_ITS | Encounter Summary ---
:1975 Author Organization [facility] [address] Care Team Providers Name Role Phone GentileSelena zhao Yoshi BENTON Primary Care Provider Reason for Visit Physical Therapy (Routine) - Closed Specialty Diagnoses / Procedures Referred By Contact Refer red To Contact Physical Therapy Diagnoses Dizziness after extension of neck Venkata Pedraza MD [facility] Pt Rehab [facility] [place] [address] [place] [address] Fax: Referral ID Status Reason Start Date Expiration Date Visits V isits Requested Authorized [id number] Closed Evaluate and 01/10/2020 01/09/2021 1 1 Treat Encounter Details Date Type Department Care Team Description 02/12/2020 Office Visit Physical Therapy at [facility] [address] Social History Tobacco Use Types Packs/Day Years Used Date Smoking Tobacco: Never Smokeless Tobacco: Never Alcohol Use Standard Drinks/Week Comments No 0 (1 standard drink = 0.6 oz pure alcoho l) Sex Assigned at Date Recorded Not on file documented as of this encounter Miscellaneous Notes Initial Evaluation - Ina Hughes, PT - 02/12/2020 3:00 PM EST Images from the original note were not included. Physical Therapy Initial Evaluation Note: Outpatient Date of Exam/First treatment: 02/12/2020 Date of Referral: 01/11/2020 Onset date: September 2019 Referring Provider: Venkata Pedraza MD Primary Insurance: Payor: [place] / Plan[place] PRIMARY CARE PLUS / Product Type: *No Product type* / Diagnosis: ICD-10-CM 1. Dizziness after extension of neck R42 No past medical history on file. Patient Active Problem List Diagnosis ??? Vagina bleeding ??? History of abnormal cervical Pap smear Overview Note: [facility] in 1994 - DOROTHEA III with neg margins Intermittent abnormal Paps since. [facility] pap in 2010 - EMB benign. Re-collected Pap/HPV 12/16/2014 (pending) ??? Dyspepsia From chart review: dizziness, ankle edema, seasonal allergies, headache, GERD, history of suicidal tendencies, premenstrual dysphoric disorder, stress incontinence, migraines with aura, sleep apnea, depression, anxiety, chronic fatigue, fibromyalgia, obesity Past Surgical History: Procedure Laterality Date ??? CERVIX SURGERY 01/1995 [facility] - DOROTHEA III, neg margins ??? PRO COLONOSCOPY, DIAGNOSTIC N/A 12/19/2014 COLONOSCOPY, DIAGNOSTIC performed by Maxi Shell MD at [facility] ENDOSCOPY ??? PRO UPPER GI ENDOSCOPY, BIOPSY N/A 11/19/2014 EGD WITH BIOPSY performed by Adiel Penny MD at [facility] ENDOSCOPY ??? TUBAL LIGATION 11/01/2008 Current Outpatient Medications: ??? famotidine (Pepcid) 20 mg Tablet, Take 20 mg by mouth 2 times daily., Disp: , Rfl: ??? diclofenac (VOLTAREN) 1 % Gel, Apply 2g to upper extremities or 4g to lower extremities QID PRN for pain, Disp: 1 Tube, Rfl: 3 ??? pregabalin (Lyrica) 50 mg Capsule, Take 1 capsule by mouth nightly., Disp: 30 tablet, Rfl: 3 ??? cyclobenzaprine (Flexeril) 5 mg Tablet, Take 1 tablet by mouth 2 times daily as needed for Muscle spasms., Disp: 60 tablet, Rfl: 1 ??? meloxicam (MOBIC) 15 mg Tablet, Take 1 tablet by mouth daily. (Patient not taking: Reported on 01/01/2020), Disp: 30 tablet, Rfl: 3 ??? sertraline (ZOLOFT) 100 mg Tablet, Take 100 mg by mouth daily., Disp: , Rfl: ??? ranitidine (ZANTAC) 75 mg Tablet, Take 75 mg by mouth 2 times daily., Disp: , Rfl: ??? cholecalciferol, Vitamin D3, 50,000 unit Capsule, take 1 capsule by mouth ONCE A WEEK FOR 8 WEEKS, Disp: , Rfl: 0 Taking only sertraline, famotidine Allergies Allergen Reactions ??? Cymbalta [Duloxetine] Severe suicidal thoughts. ??? Adhesive Itching and Rash Silk tape only. ??? Bentyl [Dicyclomine] Hives ??? Penicillins Hives From 01/10/2020 office visit: ASSESSMENT & RECOMMENDATIONS ?? Anya Ferrari is a 44 y.o. obese female with headaches, blurry vision, and positional lightheadedness. PMHx significant for migraine, MDD, and fibromyalgia. ?? Her description of dizziness is more suggestive of presyncope rather than true vertigo. Differential includes orthostatic hypotension, intracranial hypertension, medication side effect, vestibular migraine, or central problems with assimilating incoming sensory inputs from the eyes, vestibular, and p roprioceptive systems. ?? The positional nature of her symptoms could fit with BPPV or cervicogenic dizziness. I recommended vestibular PT evaluation as the next step to rule these out. Depending on their findings, vestibular function testing may also be useful to obtain in the future. The mild left aural symptoms are nonspecific and not directly associated with dizziness. Her history and normal audiogram are not suggestive of otogenic vertigo. ?? I will cc to PCP for consideration of checking tilt table testing to evaluate for orthostatic hypotension if not already done. ?? If opening pressures were not checked during her LP in [facility], this could be a useful thing to investigate. ? Venkata Pedraza MD, FACS Otolaryngology - Head and Neck Surgery 01/10/20 12:20 PM CURRENT HISTORY Anya Ferrari is a 44 y.o. female referred to physical therapy for vestibular evaluation. Patient reports drop attack a couple of months ago when turning to walk around coffee table. Feels like she's going to fall over backwards when looking up to kiss . Patient reports having to hold reading further away. Symptoms worsen with increased peripheral stimulus. Last spring would get migraines with exertion. Patient reports that L ear feels like it is asleep inside, like a foot. 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 - is having to take breaks from computer at least once per hour Living situation: difficulty with quick movements putting dishes away, bending over to vacuum or bean picker, showers with holding curtain leonardo Social support: good support Transportation: difficulty driving with head turns Hobbies: painting, camping Current exercise: walking Barriers: dizziness, ankle edema, seasonal allergies, headache, GERD, history of suicidal tendencies, premenstrual dysphoric disorder, stress incontinence, migraines with aura, sleep apnea, depression,anxiety, chronic fatigue, fibromyalgia, obesity, polypharmacy Current level of function: difficulty with vacuuming, putting dishes away, UE support needed for showering / dressing, unable to work at computer for more than 60 min, for gym with student is now walking indoors on track rather than outdoors on trails Prior level of function: Prior to September 2019: Walking 2 miles daily, no UE support required for showering or dressing, could use computer throughout work day with no issues Patient's goals for physical therapy: I want an answer, is this something that I do have to live with forever Associated symptoms: Hearing loss denies Tinnitus has Ear fullness denies Ear pain has L with pins and needles, occurs with consistent loud noise, Phonophobia has Anything loud Headache has History of migraines has Only in last year or two, well-controlled Photophobia has Double vision denies Neck pain has Carries tension in shoulders TMJ pain denies Dysarthria/dysphagia has Use of medications for dizzy symptoms: none History of head or neck trauma: none Prior infection/illness: none Number of Falls in last year: 0 Pain: 9/10, neck pain Dizziness rating at start of eval: 4/10 CLINICAL FINDINGS: EXAMINATION Sensation: R LE L LE Light touch WNL WNL Localization WNL WNL Double Simultaneous Stimulation WNL WNL Proprioception Intact at hallux Intact at hallux Protective (Spurger Komal 5.07) WNL WNL Cervical Evaluation did elicit dizziness ROM (degrees) Left Side Bend 22 Right Side Bend 23 Flexion 49 Extension 48, dizzy Left Rotation 100% Right Rotation 100% Sitting VAT: negative bilaterally Cervical Vertigo (Head Fixed Body Turn) test: (L) Comments: negative for nystagmus, positive for vertigo (R) Comments: negative for nystagmus, positive for vertigo Oculomotor Exam Tilt in resting head posture absent Ptosis absent Ocular alignment within normal limits Cover/Uncover test of skew deviation within normal limits Resting or gaze evoked nystagmus absent Smooth pursuit within normal limits Convergence 7cm, <5cm considered normal Saccades within normal limits Vestibulo-Ocular Reflex Exam Head impulse test Right Negative Head impulse test Left Negative VOR x1 horizontal 70 bpm VOR x1 vertical 65 bpm VOR cancellation horizontal symptomatic VOR cancellation vertical symptomatic Head Shaking test (peripheral) Negative Positional Testing for BPPV: Not indicated. Patient's subjective report does not suggest BPPV Computerized Dynamic Posturography (CDP) no shoes, blue harness Sensory organization test (SOT) Motor control test (MCT) Adaptation test (AT) Gait: WFL Dizziness Handicap Inventory (DHI): The higher the score, the greater perceived handicap due to dizziness Dizziness Handicap Inventory 02/12/2020 1. Does looking up increase your problem? Yes 2. Because of your problem, do you feel frustrated? Yes 3. Because of your problem, do you restrict your travel for business or pleasure? Yes 4. Does walking down the aisle of a supermarket increase your problem? Sometimes 5. Because of your problem, do you have difficulty getting into or out of bed? Sometimes 6. Does your problem significantly restrict your participation in social activities such as going out to dinner, the movies, dancing or to parties? Yes 7. Because of your problem, do you have difficulty reading? Sometimes 8. Does performing more ambitious activities like sports, dancing, or prime minister such as sweeping or putting dishes away increase your problem? Yes 9. Because of your problem, are you afraid to leave your home without having someone accompany you? No 10. Because of your problem, are you embarrassed in front of others? No 11. Do quick movements of your head increase your problem? Yes 12. Because of your problem, do you avoid heights? Yes 13. Does turning over in bed increase your problem? No 14. Because of your problem, is it difficult for you to do strenuous housework or yard work? Yes 15. Because of your problem, are you afraid people may think that you are intoxicated? No 16. Because of your problem, is it difficult to go for a walk by yourself? No 17. Does walking down a sidewalk increase your problem? Sometimes 18. Because of your problem, is it difficult for you to concentrate? Yes 19. Because of your problem, is it difficult for you to walk around your house in the dark? Yes 20. Because of your problem, are you afraid to stay home alone? No 21. Because of your problem, do you feel handicapped? No 22. Has your problem placed stress on your relationships with members of your family or friends? No 23. Because of your problem, are you depressed? No 24. Does your problem interfere with your job or household responsibilities? Yes 25. Does bending over increase your problem? Sometimes Total Physical 14 Total Emotional 8 Total Functional 32 Total DHI Score 54 (Moderate Handicap) CLINICAL EVALUATION: Anya Ferrari is a 44 y.o. female who presents to physical therapy for vestibular evaluation due to history of dizziness and vertigo. 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 Impairments include neck pain, impaired gaze stability with functional mobility. Results of CDP assessment demonstrate reducedintegration of sensory inputs for balance. Impairments increase difficulty with showering, walking, using computer, looking up, and patient has had at least one drop attack. Prognosis is good for stated goals, limited by dizziness, ankle edema, seasonal allergies, headache, GERD, history of suicidal tendencies, premenstrual dysphoric disorder, stress incontinence, migraines with aura, sleep apnea, depression, anxiety, chronic fatigue, fibromyalgia, obesity, and distance from clinic. Anya Ferrari would benefit from skilled physical therapy using both rehabilitative and compensatory vestibular interventions of appropriate intensity and repetition required to promote neuroplastic changes and compensatory strategy development in the central nervous system to aid in recovery of functional mobility. Clinical presentation: Stable Evolving Unstable X Clinical decision making of moderate complexity using standardized patient assessment instrument andmeasurable assessment of functional outcome, number of comorbidities influencing plan of care and prognosis, and number of body systems and functions assessed. GOALS Short term goals by 03/04/2020 02/12/2020 Patient will be independent with home exercise program to facilitate management of symptoms and maintain or progress gains made within clinic Initiated Patient will improve worst pain as rated on 0-10 NPRS to no more than 6 points to demonstrate improvement in pain and to progress function. (MCID 1.7-2.17) 10/17 Patient will improve VORx1 to at least 90 beats per minute for at least 1 minute with no increase insymptoms to facilitate gaze stabilization horiz 70 bpm Vert 65 bpm Patient will improve VOR cancellation to WNL in order to decrease symptoms in crowds and busy visualenvironments provocative Patient will participate in positional testing to assess role of semicircular canals in dizziness atnext visit. retirement goals by 03/25/2020 Patient will improve DHI score to no more than 34 / 100 to demonstrate a reduced self-perception of disability related to dizziness, headache, or unsteadiness (18 point MCID for patients with vestibular dysfunction, Yuri and Eleuterio, 1990) 54 Patient will be able to shower without holding curtain leonardo. Patient will demonstrate improved postural stability as demonstrated by achieving within normal limits results with sensory organization testing via computerized dynamic posturography 63/70 Patient will be able to ambulate 2 miles outdoors in order to increase ease of participation in work-related duties. INITIAL TREATMENT INCLUDED: Examination and instruction in a home exercise program (refer to scan doc in chart review for details), patient education regarding physical therapy plan of care, anatomy, physiology, and diagnosis. ??? Patient education: components of balance, contribution of strength to stability, role of exercise in neuroplasticity Neuromuscular re-ed ??? Gaze stabilization, seated, quiet background o Week 1 head movement ex 1: target on wall 6-10 feet - Horizontal - vertical o Week 1 head movement ex 2: target stick at arm length - Horizontal - vertical PLAN: Treatment may include: Manual Techniques, Soft Tissue Mobilization, Stretching, Joint Mobilization, Therapeutic Exercise, Modalities (PRN to control pain and inflammation) hot or cold pack, Patient/Family Education, Body Mechanics, Posture, Home Exercise Program, Balance and Gait Training, Biofeedback, Pain Science Education, Vestibular Interventions and Telehealth Frequency and duration: 1/week x 6 weeks, adding or tapering as appropriate based on clinical and functional progress Further assessment / planned intervention for next visit: ?? Positionals, progress gaze stability Plan of care and goals established with patient. Patient in agreement with visit frequency and expected length of episode. Total Timed Coded Treatment: Evaluation MODERATE Complexity (96613) Therex: Neuromuscular Re-Ed (78752) 8 min Total treatment time: 90 minutes Ina [facility] PT [facility] Outpatient Rehabilitation documented in this encounter Plan of Treatment Scheduled Referrals Name Type Priority Associated Diagnoses Order S chedule Referral to Outpatient Referral Routine Dizziness after Order ed: Physical Therapy extension of neck 2019 documented as of this encounter Visit Diagnoses Diagnosis Dizziness after extension of neck documented in this encounter Care Teams Environmental Epidemiologist Relationship Specialty Start Date End Date Selena Gentile APRN PCP - General Family Medicine 05/25/17 11/10/20 [address] [place] [address] documented as of this encounter
--- OUTSIDE RECORDS SUMMARY | 2022-01-08 16:08 | XMS_ITS | Encounter Summary ---
:1975 Author Organization [facility] [place] [address] Care Team Providers Name Role Phone Tish Perez APRN Primary Care Provider Encounter Details Date Type Department Care Team Description 12/16/2020 Telephone [place] [facility] [place] [address] Social History Tobacco Use Types Packs/Day Years Used Date Smoking Tobacco: Never Smokeless Tobacco: Never Alcohol Use Standard Drinks/Week Comments No 0 (1 standard drink = 0.6 oz pure alcoho l) Sex Assigned at Date Recorded Not on file documented as of this encounter Miscellaneous Notes Telephone Encounter - Sesar Lowery - 12/23/2020 9:51 AM EST Inbound/Outbound: Outbound Spoke to Patient/Left Message: Left message Notes: Outbound call to patient to schedule motility lab testing from referral. Left message asking for callback to schedule. EGD/Gillis scheduled, need to schedule HREM. Return calls can be handled by: [facility] Telephone Encounter - Sesar Lowery - 12/16/2020 2:32 PM EST Inbound/Outbound: Outbound Spoke to Patient/Left Message: Left message Notes: Outbound call to patient to schedule motility lab testing from referral. Left message asking for callback to schedule. Return calls can be handled by: [facility] documented in this encounter Plan of Treatment Not on filedocumented as of this encounter Visit Diagnoses Not on filedocumented in this encounter Care Teams Frame Bender Relationship Specialty Start Date End Date Tish Perez APRN PCP - General Family Medicine 11/11/[address] [place] [address] [place] [address] documented as of this encounter
--- OUTSIDE RECORDS SUMMARY | 2022-01-08 16:08 | XMS_ITS | Encounter Summary ---
:1975 Author Organization [facility] [place] [address] Care Team Providers Name Role Phone Tish Perez APRN Primary Care Provider Encounter Details Date Type Department Care Team Description 04/13/2021 Telephone [place] [facility] [place] Babita Li CMA [facility] [place] [address] DEPT [phone] Social History Tobacco Use Types Packs/Day Years Used Date Smoking Tobacco: Never Smokeless Tobacco: Never Alcohol Use Standard Drinks/Week Comments Yes 0 (1 standard drink = 0.6 oz pure alcoho l) rare Sex Assigned at Date Recorded Not on file documented as of this encounter Miscellaneous Notes Telephone Encounter - Babita Li CMA - 04/13/2021 10:20 AM EST Called patient to review medications and allergies for their upcoming gastroenterology Telehealth appointment. Reach patient: No, left voicemail Notes for the provider: Notes for the nurse: documented in this encounter Plan of Treatment Not on filedocumented as of this encounter Visit Diagnoses Not on filedocumented in this encounter Care Teams Commercial Sales Consultant Relationship Specialty Start Date End Date Tish Perez APRN PCP - General Family Medicine 11/11/20 [place] [address] documented as of this encounter
--- OUTSIDE RECORDS SUMMARY | 2022-01-08 16:09 | XMS_ITS | Encounter Summary ---
:1975 Author Organization [facility] [place] [address] Care Team Providers Name Role Phone Unavailable Primary Care Provider Unavailable Reason for Visit Reason Onset Date Comments Other 03/26/2015 question Encounter Details Date Type Department Care Team Description 03/26/2015 Telephone [place] [facility] [place]entes, Other (question) [facility] [place] [address] Social History Tobacco Use Types Packs/Day Years Used Date Smoking Tobacco: Never Smokeless Tobacco: Never Alcohol Use Standard Drinks/Week Comments No 0 (1 standard drink = 0.6 oz pure alcoho l) Sex Assigned at Date Recorded Not on file documented as of this encounter Miscellaneous Notes Telephone Encounter - Hannah Fuentes RN - 03/26/2015 12:46 PM EST Anya returned call. She says the trazodone is not helping her sleep, her pain is worse, anxiety increased. Last night she reports having bad thoughts. Anya says she is scared to take it and does not want to take it anymore. She is currently on 75 mg daily. After checking with Isi Liang APRN told her to go ahead and stop it tonight, there is no need to taper dose because the dose she is currently on is low. Told her message will be sent to Dr. Parsons to see what else he recommends. Telephone Encounter - Hannah Fuentes RN - 03/26/2015 12:33 PM EST Anya called and left message that she has questions regarding trazodone. She is concerned she may beexperiencing side effects or having a bad reaction. Called Anya and left message that call was returned and for her to call back and have property underwriter paged so we can discuss further. documented in this encounter Plan of Treatment Not on filedocumented as of this encounter Visit Diagnoses Not on filedocumented in this encounter
--- OUTSIDE RECORDS SUMMARY | 2022-01-08 16:09 | XMS_ITS | Encounter Summary ---
:1975 Author Organization [facility] [place] [address] Care Team Providers Name Role Phone Jeremy Schmitz INÉS Primary Care Provider Reason for Referral Consultation (Routine) - Closed Specialty Diagnoses / Procedures Referred By Contact Refer red To Contact Radiology Diagnoses Dyspepsia O'Nuris Sanz APRN Radiology Procedures NM functional biliary scan [facility] [place] [address] [place] [address] Referral ID Status Reason Start Date Expiration Date Visits V isits Requested Authorized [id number] Closed Specialty 11/18/2014 11/18/2015 1 1 Service Requested Reason for Visit Consultation (Routine) - Closed Specialty Diagnoses / Procedures Referred By Contact Refer red To Contact Radiology Diagnoses Dyspepsia Marquis'Nuris Sanz APRN Radiology Procedures NM functional biliary scan [facility] [place] [address] [place] [address] Referral ID Status Reason Start Date Expiration Date Visits V isits Requested Authorized [id number] Closed Specialty 11/18/2014 11/18/2015 1 1 Service Requested Encounter Details Date Type Department Care Team Description 11/26/2014 Hospital Encounter Nuclear Medicine at [facility], Camila Fowler MD Dyspepsia [facility] DR Cabrera [place] [address] DEPT. [phone] [place], [place] [address] (Wo rk) Social History Tobacco Use Types Packs/Day Years Used Date Smoking Tobacco: Never Smokeless Tobacco: Never Alcohol Use Standard Drinks/Week Comments No 0 (1 standard drink = 0.6 oz pure alcoho l) Sex Assigned at Date Recorded Not on file documented as of this encounter Medications at Time of Discharge Medication Sig Dispensed Refills Start Date End Date acetaminophen-codeine Take 1-2 tablets by 20 tablet 0 11/2203/10/2015 (TYLENOL-CODEINE #3) mouth every 4 hours 300-30 mg Tablet as needed for Pain. No driving, no alcohol, no extra tylenol documented as of this encounter Plan of Treatment Not on filedocumented as of this encounter Procedures Procedure Name Priority Date/Time Associated Comments Diagnosis NM FUNCTIONAL Routine 11/26/2014 11:01 AM Dyspepsia Results for this BILIARY SCAN EDT procedure are i n the results section. documented in this encounter Results NM functional biliary scan (11/26/2014 11:01 AM EDT) Anatomical Region Laterality Modality Nuclear Medicine Specimen (Source) Anatomical Location Collection Method / Collectio n Time Received Time / Laterality Volume Impressions 11/26/2014 11:58 AM EDT IMPRESSION: Normal gallbladder function. I have personally reviewed the image(s) and the residents interpretation and agree with the findings, Jordan Moreno at 11/26/2014 11:58 AM Narrative 11/26/2014 11:58 AM EDT EXAMINATION: NM FUNCTIONAL BILIARY SCAN CLINICAL HISTORY: dyspepsia ?gb function TECHNIQUE: Technetium-99m mebrofenin was administered intravenously in a dose of 5.2 mCi. An image of the abdomen was obt ained in the [place] projection 60 minutes later. The patient then received continu ous infusion of IV sincalide in a dose of 0.02 mcg/kg during which time additio nal [place] projection images were obtained at 1 minute per frame for 60 minutes. FINDINGS: Activity fills the gallbladder at 60 min utes post injection. During the sincalide infusion, there is good contra ction of the gallbladder. Quantitative analysis: The gallbladder ejection fraction is 81% (normal is > 38%). Procedure Note Jordan Moreno MD - 11/26/2014Formatti ng of this note might be different from the original. EXAMINATION: NM FUNCTIONAL BILIARY SCAN CLINICAL HISTORY: dyspepsia ?gb function TECHNIQUE: Technetium-99m mebrofenin was administered intravenously in a dose of 5.2 mCi. An image of the abdomen was obt ained in the [place] projection 60 minutes later. The patient then received continu ous infusion of IV sincalide in a dose of 0.02 mcg/kg during which time additio nal [place] projection images were obtained at 1 minute per frame for 60 minutes. FINDINGS: Activity fills the gallbladder at 60 min utes post injection. During the sincalide infusion, there is good contra ction of the gallbladder. Quantitative analysis: The gallbladder ejection fraction is 81% (normal is > 38%). IMPRESSION IMPRESSION: Normal gallbladder function. I have personally reviewed the image(s) and the residents interpretation and agree with the findings, Jordan oMreno at 11/26/2014 11:58 AM Pedro Magdaleno MD IMG NM ORDERABLES documented in this encounter Visit Diagnoses Diagnosis Dyspepsia Dyspepsia and other specified disorders of function of stomach documented in this encounter Administered Medications Inactive Administered Medications - up to 3 most recent administrations Medication Order MAR Action Action Date Dose Rate Site technetium (TC 99M) mebrofenin Given 11/26/2014 8:56 AM EDT 5.2 mCi injection 5.2 mCi 5.2 mCi, Intravenous, ONCE PRN, 1 dose, Starting on Tue11/26/14 at 0855, Until Tue11/26/14 at 0856, Per Protocol, Routine documented in this encounter Care Teams City Superintendent Relationship Specialty Start Date End Date Jeremy Schmitz ND PCP - General Naturopathic Medicine 11/13/14 02/20/15 [address] [place] [address] documented as of this encounter
--- OUTSIDE RECORDS SUMMARY | 2022-01-08 16:09 | XMS_ITS | Encounter Summary ---
:1975 Author Organization [facility] [place] [address] Care Team Providers Name Role Phone Jeremy Schmitz ND Primary Care Provider Encounter Details Date Type Department Care Team Description 12/02/2014 Orders Only Gastroenterology at [facility] O'Iraida Sanza, Bloody stools [facility] Shannon [place] [address] [facility] [phone] GASTROENTEROLOGY DEPT. [place], [place] [address] (Wo rk) Social History Tobacco [...] Name Priority Date/Time Associated Diagnosis Comme nts COLONOSCOPY Routine 12/19/2014 10:48 AM Bloody stools Results for this EST procedure are i n the results section . documented in this encounter Results COLONOSCOPY (12/19/2014 10:48 AM EST) Component Value Ref Test Analysis Performed At [facility] Method Time Signature COLONOSCOPY [facility] Endoscopy Patient Name: Anya Cuellar ? Procedure Date: 12/19/2014 10:48 AM ? Date of : 1975 ? Age: 39 ? Order #: [id number] ? Procedure: ? Colonoscopy Indications: ? Hematochezia Providers: ? Maxi Shell MD, Phil Ramos ? SHIRLEY Carpio, Karen trevino, ? Helminthology Teacher Referring : ?Nuris Chapman MD Medicines: ? Midazolam 5.5 mg IV, Fentanyl 225 ? micrograms IV, Diphenhydramin e 50 mg ? IV Complications: ? No immediate complications. Procedure: ? The procedure, indications, benefi ts, ? risks and alternatives were e xplained ? to the patient. Specifically ? discussed were potential ? complications including, but not ? limited to, bleeding, perfora tion, ? infection, missing a cancer, and ? adverse medication reactions. The ? patient was placed in the lef t ? lateral decubitus position, a nd a ? digital rectal exam was perfo rmed. ? The Colonoscope was inserted in the ? anus and under direct visuali zation, ? advanced to the terminal ileu m. ? Careful inspection was made a s the ? colonoscope was withdrawn. Th e ? colonoscopy was performed wit danyel ? difficulty. The patient matilda ated the ? procedure well. The quality o f the ? bowel preparation was excelle nt. ? Scope withdrawal time was 12 minutes. ? Findings: ? The colon (entire examined portion) appeared normal. ? The terminal ileum appeared normal. ? Hemorrhoids were found during retroflexion. The ? hemorrhoids were small. ? Impression: ?- The entire examined colon is nor mal. ? - The examined portion of the ileum ? was normal. ? - Hemorrhoids. ? - No specimens collected. Recommendation: ?- Repeat colonoscopy in 10 years for ? surveillance. ? Procedure Code(s): ?? --- Professional --- ? 92204, Colonoscopy, flexible; ? diagnostic, including collect ion of ? specimen(s) by brushing or wa shing, ? when performed (separate proc edure) CPT copyright 2014 [employer]. All rights reserved. The codes documented in this report are preliminary and upon quality control assessor review may be revised to meet current compliance requirements. Maxi Shell MD 12/19/2014 11:45 AM This report has been signed electronically. Number of Addenda: 0 Note Initiated On: 12/19/2014 10:48 AM Specimen (Source) Anatomical Collection Method Collection Time Re ceived Time Location / / Volume Laterality 12/19/2014 10:48 AM EST Pedro Magdaleno MD GENERAL SURGICAL ORDERABLES Performing Organization Address City/State/ZIP Code Phon e Number [employer]OV[place] documented in this encounter Visit Diagnoses Diagnosis Bloody stools Blood in stool documented in this encounter Care Teams Sandwich Machine Operator Relationship Specialty Start Date End Date Jeremy Schmitz ND PCP - General Naturopathic Medicine 11/13/14 02/20/15 [address] [place] [address] documented as of this encounter
--- OUTSIDE RECORDS SUMMARY | 2022-01-08 16:09 | XMS_ITS | Encounter Summary ---
:1975 Author Organization [place] [address] Care Team Providers Name Role Phone Jeremy Schmitz ND Primary Care Provider Reason for Visit Auth/Cert - Closed Specialty Diagnoses / Procedures Referred By Contact Refer red To Contact Diagnoses bloody stools Procedures COLONOSCOPY, DIAGNOSTIC Referral ID Status Reason Start Date Expiration Date Visits Requ ested Visits Authorized [id number] Closed 1 1 Encounter Details Date Type Department Care Team Description 12/19/2014 Hospital Encounter Gastroenterology at [facility] Maxi Shell, [facility] [place] [address] [facility] [phone] [place], [place] [address] Social History Tobacco Use Types Packs/Day Years Used Date Smoking Tobacco: Never Smokeless Tobacco: Never Alcohol Use Standard Drinks/Week Comments No 0 (1 standard drink = 0.6 oz pure alcoho l) Sex Assigned at Date Recorded Not on file documented as of this encounter Last Filed Vital Signs Vital Sign Reading Time Taken Comments Blood Pressure 111/60 12/19/2014 11:46 AM EST Pulse 86 12/19/2014 11:46 AM EST Temperature - - Respiratory Rate 14 12/19/2014 11:46 AM EST Oxygen Saturation 100% 12/19/2014 11:46 AM EST Inhaled Oxygen Concentration - - Weight - - Height - - Body Mass Index - - documented in this encounter Discharge Instructions Discharge InstructionsKim Lincoln RN - 12/19/2014 11:48 AM EST Colonoscopy What to expect after the procedure You may feel a little more gassy or bloated than usual. This is normal. You should expect the return of normal bowel function in the 2 to 3 days. Activity Because of the sedation that you received your judgement and reaction time are effected ?? Go home and rest quietly for the remainder of the day. You may resume your normal activities tomorrow. ?? Change from one position to the next slowly. You may lose your balance unexpectedly ?? Be careful on stairs, as you may be unsteady on your feet FOR THE NEXT 24 HRS ?? DO NOT DRIVE OR OPERATE ANY MACHINERY ?? DO NOT DRINK ALCOHOLIC BEVERAGES ?? DO NOT SIGN LEGAL DOCUMENTS ?? If you are a smoker: DO NOT SMOKE WHILE YOU ARE ALONE Diet ?? Start by eating small portions of foods that ordinarily will not upset your stomach . Avoid gas producing foods for the next few days ?? Be gentle with what you choose to start with ?? Drink plenty of fluids ( unless your doctor has told you not to). IV SITE-- slight redness, or tenderness is normal. You can use warm compresses if you become concerned. If the tenderness +/or redness increases or foul drainage and a red streak occurs, please contact your PCP immediately When shoud you call for help? Call 911 anytime you think you may need emergency care. For example If you pass out ( loss of consciousness) If you pass maroon or bloody stools If you have severe belly pain Call your doctor now or seek immediate medical care If your stools are black and tarlike If your stools have streaks of blood, but you did not have a biopsy or any polyps removed If you have belly pain, or your belly is swollen and firm If you vomit If you have a fever If you are very dizzy Watch closely for changes in your health, and be sure to contact your doctor if you have any problems Your doctor will let you know when you will need your next colonoscopy. The results of your test andyour risk for colorectal cancer will help your doctor decide how often you need to be checked. Tuesday-Tuesday Same Day Endo [phone] 7a-8p Otherwise contact [phone] and ask to speak to the occupational health nursing director collection systems foreman Follow up care is a lee part of your treatment and safety. Be sure to make and go to all appointments, and call your doctor if you are having problems. Discharge instructions reviewed with patient who expresses understanding documented in this encounter Medications at Time of Discharge Medication Sig Dispensed Refills Start Date End Date acetaminophen-codeine Take 1-2 tablets by 20 tablet 0 11/2203/10/2015 (TYLENOL-CODEINE #3) mouth every 4 hours 300-30 mg Tablet as needed for Pain. No driving, no alcohol, no extra tylenol documented as of this encounter H&P Notes Maxi Shell MD - 12/19/2014 10:45 AM EST Gastroenterology and Hepatology Pre-Procedure History and Physical Exam Procedure: Colonoscopy: Indication: hematochezia Patient Active Problem List Diagnosis Code ??? Dyspepsia R10.13 ??? History of abnormal cervical Pap smear Z87.42 EXAM: HEENT: Airway examined, oropharynx clear Mallampati [...] Name Priority Date/Time Associated Diagnosis Comme nts COLONOSCOPY, DIAGNOSTIC 12/19/2014 10:58 AM Bloody sto ols EST documented in this encounter Visit Diagnoses Not on filedocumented in this encounter Active and Recently Administered Medications Times are shown in EST. PRN Medication Order 12/17/2014 12/18/2014 12/19/2014 diphenhydrAMINE (BENADRYL) injection (CANCELED) 1104 (Given - Provider: Phil Carpio RN)1110 (Given - Provider: Phil Carpio RN) ONCE PRN, Starting Trang 12/19/14 at 1104, Until Trang 12/19/14 at 1223, Intra- Operative (Intra-Procedure), Routine fentaNYL 50 mcg/mL multi-dose injection (CANCELED) 1104 (Given - Provider: Phil Carpio RN)1110 (Given - Provider: Phil Carpio RN)1115 (Given - Provider: Phil Carpio RN)1118 (Given - Provider: Phil Carpio RN)1121 (Canceled Entry - Provider: Phil Carpio RN) ONCE PRN, Starting Trang 12/19/14 at 1104, Until Trang 12/19/14 at 1223, Intra- Operative (Intra-Procedure), Routine 112 2 (Given - Provider: Phil Carpio RN)1125 (Given - Provider: Phil Carpio RN) midazolam (PF) (VERSED) 1 mg/mL multi-dose injection (CANCELED) 1104 (Given - Provider: Phil Carpio RN)1106 (Given - Provider: Phil Carpio RN)1110 (Given - Provider: Phil Carpio RN)1115 (Given - Provider: Phil Carpio RN)1118 (Given - Provider: Phil Carpio RN) ONCE PRN, Starting Trang 12/19/14 at 1104, Until Trang 12/19/14 at 1223, Intra- Operative (Intra-Procedure), Routine 112 1 (Canceled Entry - Provider: Phil Carpio RN)1122 (Given - Provider: Phil Carpio RN)1125 (Given - Provider: Phil Carpio RN) documented in this encounter Care Teams Second Cutter Relationship Specialty Start Date End Date Jeremy Schmitz ND PCP - General Naturopathic Medicine 11/13/14 02/20/15 [address] [place] [address] documented as of this encounter
--- OUTSIDE RECORDS SUMMARY | 2022-01-08 16:09 | XMS_ITS | Encounter Summary ---
:1975 Author Organization [facility] [place] [address] Care Team Providers Name Role Phone Selena Gentile APRN Primary Care Provider [phone] Reason for Visit Reason Onset Date Comments Other 11/30/2019 Encounter Details Date Type Department Care Team Description 11/30/2019 Telephone Rheumatology at [facility] [place] [address] Social History Tobacco Use Types Packs/Day [...] on filedocumented in this encounter Care Teams Scale Balancer Relationship Specialty Start Date End Date Selena Gentile APRN PCP - General Family Medicine 05/25/17 11/10/20 [address] [place] [address] documented as of this encounter
--- OUTSIDE RECORDS SUMMARY | 2022-01-08 16:09 | XMS_ITS | Encounter Summary ---
:1975 Author Organization [facility] [place] [address] Care Team Providers Name Role Phone Jeremy Schmitz ND Primary Care Provider Reason for Referral Consultation (Routine) - Closed Specialty Diagnoses / Procedures Referred By Contact Refer red To Contact Radiology Diagnoses Constipation, unspecified constipation type O'Umu, Tracia, HORSE RANCHER Radiology Procedures XR Abdomen 1 View (GENERIC) [facility] [place] [address] [place] [address] Referral ID Status Reason Start Date Expiration Date Visits V isits Requested Authorized [id number] Closed Specialty 11/18/2014 11/18/2015 1 1 Service Requested Reason for Visit Reason Comments GI Problem Encounter Details Date Type Department Care Team Description 11/18/2014 Office Visit Gastroenterology at [facility] [place] [place] O'Umu, Tracia, Upper abdominal pain; [facility] Shannon brown APRN Constipation, [place] [address] [facility] [phone] [facility] [place] [address] Social History Tobacco Use Types Packs/Day Years Used Date Smoking Tobacco: Never Smokeless Tobacco: Never Sex Assigned at Date Recorded Not on file documented as of this encounter Last Filed Vital Signs Vital Sign Reading Time Taken Comments Blood Pressure - - Pulse - - Temperature - - Respiratory Rate - - Oxygen Saturation - - Inhaled Oxygen Concentration - - Weight 78.9 kg (174 lb) 11/18/2014 10:00 AM EDT Height 162.6 cm (5' 4) 11/18/2014 10:00 AM EDT Body Mass Index 29.87 11/18/2014 10:00 AM EDT documented in this encounter Progress Notes Nuris Charlton RN - 11/18/2014 10:02 AM EDT Section of Gastroenterology and Hepatology [address] [place] [address] .Anya Ferrari : 1975 Patient is here for further evaluation of gastrointestinal symptoms at the request of Jeremy Schmitz. HPI: Two years has been having sx. Will have bloating. Tried gluten free with some relief of the bloating. Was good for about one year. Then sx returned this May 2014. Tried avoiding dairy, corn and other products with no relief of sx. If she eats gluten she can have muscle aches, dizziness, fatigue, confusion/mental fog. Underwent food allergy testing. Unremarkable per pt. In 2013 was living in [place] underwent an EKG and mri due to tachycardia and dizziness. Per pt these tests were normal. Eating is the trigger. When she eats she has significant distention and her abdomen is taut, hard. Associated nausea. No vomiting. Early satiety. Post-prandially feels full. Feels like nothing moves through her stomach. No chronic nsaids. No hx of reflux. No dysphagia, odynophagia. Occasionally has brief chest pains. No radiation or shortness of pain. Also, having right back/flank pain. Occurs daily. 2015 abdominal u/s: possible gallbladder stone or polyp. Weight fluctuates 10 pounds. Reviewed diet. Breakfast: rice cake peanut butter; banana. Lunch: leftovers. Supper: veg/ at times starch and meat. Does not eat late. She will eat, fill up quickly, then within 30-60 minutes will be starving. Tried Gas X with no relief. Did the Quantum cleanse. Mostly vegetables. [place] the best on this. For a couple of years, has had constipation. Stools are hard. Has to strain. Will not go for a few days. No laxative use. Her abdominal sx improve slightly when she is able to empty. Generally feels not empty. No blood in stool. Has hemorrhoids at times sees bright red blood with wiping. When living in [place] stools were more urgent. But since returning to [place], she is more constipated. November 2014 normal cbc, cmp, lipase, iron, tibc, ferritin. Low vitamin D. Pt aware to supplement. History Social History ??? Marital Status: Spouse Name: N/A Number of Children: N/A ??? Years of Education: N/A Occupational History ??? Not on file. Social History Main Topics ??? Smoking status: Never Smoker ??? Smokeless tobacco: Never Used ??? Alcohol Use: Not on file ??? Drug Use: Not on file ??? Sexual Activity: Not on file Other Topics Concern ??? Not on file Social History Narrative Medical History: non-contributory Surgical History: ganglion cyst removal; tubal ligation Family History: many cancers on father's side. Thinks uncle had colon cancer. Allergies Allergen Reactions ??? Bentyl [Dicyclomine] Hives ??? Penicillins Hives Current outpatient prescriptions: acetaminophen-codeine (TYLENOL-CODEINE #3) 300-30 mg Tablet, Take 1-2 tablets by mouth every 4 hours as needed for Pain. No driving, no alcohol, no extra tylenol, Disp: 20 tablet, Rfl: 0 Review of Systems - Negative except General: Cardiac: Resp: GI: see above : MS: Neuro: Skin: Psyche: Sleep: Endo: Physical Exam: soft, tympanic, tender in upper abdomen, no mass,organomegaly Impression: 1. Etiology for sx is not clear. Given the u/s results proceed with a hida scan. Schedule upper endoscopy. Low fodmap diet. Kefir.Obtain ttg, tsh, B12 today. If testing unrevealing consider further evaluation with gastric emptying scan and small bowel evaluation. 2. Gif in 4-6 weeks. I spent a total of 54 minutes face to face with this patient; 34 minutes were spent counseling the patient in the medical problems described above. Sincerely, Nuris Charlton NP Section of Gastroenterology and Hepatology documented in this encounter Miscellaneous Notes Addendum Note - Cindy Arrington - 11/18/2014 11:53 AM EDT Addended by: CNIDY ARIRNGTON on: 11/18/2014 11:53 AM Modules accepted: Orders documented in this encounter Plan of Treatment Not on filedocumented as of this encounter Procedures Procedure Name Priority Date/Time Associated Diagnosis Comme nts TISSUE Routine 11/18/2014 12:01 PM Upper abdominal pain Results for this TRANSGLUTAMINASE, EDT procedure are in IGA the results section. TSH Routine 11/18/2014 12:01 PM Upper abdominal pain Results for this EDT procedure are i n the results section. VITAMIN B12 Routine 11/18/2014 12:01 PM Upper abdominal pain Results for this EDT procedure are i n the results section. documented in this encounter Results Vitamin B12 (11/18/2014 12:01 PM EDT) athologist Signature Vitamin B-12 [phone] CERNER pg/mL MILLENNIUM Specimen Anatomical Collection Method Collection Time Receive d Time (Source) Location / / Volume Laterality Blood specimen 11/18/2014 12:01 5 (specimen) PM EDT 12:06 PM EDT Resulting Agency Comment Spec In Lab Pedro Magdaleno MD CHEMISTRY ORDERABLES Performing Organization Address City/State/[place] [address] CERNER MILLENNIUM TSH (11/18/2014 12:01 PM EDT) athologist Signature TSH 1.33 0.27 - 4.20 CERNER mcIU/mL MILLENNIUM Specimen Anatomical Collection Method Collection Time Receive d Time (Source) Location / / Volume Laterality Blood specimen 11/18/2014 12:01 5 (specimen) PM EDT 12:06 PM EDT Resulting Agency Comment Spec In Lab Pedro Magdaleno MD CHEMISTRY ORDERABLES Performing Organization Address City/State/[place] [address] CERNER MILLENNIUM Tissue transglutaminase, IgA (11/18/2014 12:01 PM EDT) P athologist Signature TTG IgA Ab 0.7 0.1 - 10.0 CERNER u/ml MILLENNIUM Comment: New methodology as of 06-11-2014 Negative = <7 U/mL Equivocal = 7-10 U/mL Positive = >10 U/mL Specimen Anatomical Collection Method Collection Time Receive d Time (Source) Location / / Volume Laterality Blood specimen 11/18/2014 12:01 5 8:02 (specimen) PM EDT AM EDT Resulting Agency Comment Spec In Lab Pedro Magdaleno MD IMMUNOLOGY ORDERABLES Performing Organization Address City/State/ZIP Code Phon e Number [place] [phone] [facility] [address] CERNER MILLENNIUM XR Abdomen 1 View (GENERIC) (11/18/2014 11:48 AM EDT) Anatomical Region Laterality Modality Abdomen N/A Digital Radiography Specimen (Source) Anatomical Location Collection Method / Collectio n Time Received Time / Laterality Volume Impressions 11/18/2014 12:01 PM EDT IMPRESSION: Stool seen throughout the colon with distention of the rectum. Narrative 11/18/2014 12:01 PM EDT EXAMINATION: XR ABDOMEN ONE VIEW CLINICAL HISTORY: constipation TECHNIQUE: Single supine view the abdome n COMPARISON: None FINDINGS: There is stool seen in the asc ending transverse descending colon and distending the rectum. This is consisten t with the clinical history of constipation. Small bowel is gasless. Procedure Note Bibiana Valentin MD - 11/18/2014Form atting of this note might be different from the original. EXAMINATION: XR ABDOMEN ONE VIEW CLINICAL HISTORY: constipation TECHNIQUE: Single supine view the abdome n COMPARISON: None FINDINGS: There is stool seen in the asc ending transverse descending colon and distending the rectum. This is consisten t with the clinical history of constipation. Small bowel is gasless. IMPRESSION IMPRESSION: Stool seen throughout the co jonny with distention of the rectum. Pedro Magdaleno MD IMG DX ORDERABLES documented in this encounter Visit Diagnoses Diagnosis Upper abdominal pain Abdominal pain, other specified site Constipation, unspecified constipation t ype Constipation, unspecified constipation t ype documented in this encounter Care Teams Cupola Patcher Relationship Specialty Start Date End Date Jeremy Schmitz ND PCP - General Naturopathic Medicine 11/13/14 02/20/15 [address] [place] [address] documented as of this encounter
--- OUTSIDE RECORDS SUMMARY | 2022-01-08 16:09 | XMS_ITS | Encounter Summary ---
:1975 Author Organization [facility] [place] [address] Care Team Providers Name Role Phone Jeremy Schmitz ND Primary Care Provider Encounter Details Date Type Department Care Team Description 12/02/2014 Orders Only Gastroenterology at [facility] Nuris Charlton, [facility] [place] [address] [facility] [phone] GASTROENTEROLOGY DEPT. [place], [place] [address] (Wo rk) Social History Tobacco [...] on filedocumented in this encounter Care Teams Security Operations Manager Relationship Specialty Start Date End Date Jeremy Schmitz ND PCP - General Naturopathic Medicine 11/13/14 02/20/15 [address] [place] [address] documented as of this encounter
--- OUTSIDE RECORDS SUMMARY | 2022-01-08 16:09 | XMS_ITS | Encounter Summary ---
:1975 Author Organization [facility] [place] [address] Care Team Providers Name Role Phone Unavailable Primary Care Provider Unavailable Reason for Visit Reason Onset Date Comments Medication Refill 04/03/2015 Encounter Details Date Type Department Care Team Description 04/03/2015 Refill [place]ology [place] [facility] [place]iena Parsons MD [facility] [place] [address] RHEUMATOLOGY DEPT [phone] [place], [place] [address] (Wo rk) Social History Tobacco [...]
--- OUTSIDE RECORDS SUMMARY | 2022-01-08 16:09 | XMS_ITS | Encounter Summary ---
:1975 Author Organization [facility] [place] [address] Care Team Providers Name Role Phone Selena Gentile APRN Primary Care Provider [phone] Encounter Details Date Type Department Care Team Description 01/01/2020 Orders Only Rheumatology at [facility] Selina Calles MD [facility] [place] [address] RHEUMATOLOGY DEPT. [phone] [place], [place] [address] (Wo rk) Social History Tobacco [...] on filedocumented in this encounter Care Teams Production Assembler Relationship Specialty Start Date End Date Selena Gentile APRN PCP - General Family Medicine 05/25/17 11/10/20 [address] [place] [address] documented as of this encounter
--- OUTSIDE RECORDS SUMMARY | 2022-01-08 16:09 | XMS_ITS | Encounter Summary ---
:1975 Author Organization [facility] [place] [address] Care Team Providers Name Role Phone Unavailable Primary Care Provider Unavailable Reason for Visit Reason Onset Date Comments Other 05/12/2015 gabapentin Encounter Details Date Type Department Care Team Description 05/12/2015 Telephone Rheumatology at [facility] Hannah Fuentes, Other (gabapentin) [facility] [place] [address] Social History Tobacco Use Types Packs/Day Years Used Date Smoking Tobacco: Never Smokeless Tobacco: Never Alcohol Use Standard Drinks/Week Comments No 0 (1 standard drink = 0.6 oz pure alcoho l) Sex Assigned at Date Recorded Not on file documented as of this encounter Miscellaneous Notes Telephone Encounter - Hananh Fuentes RN - 05/12/2015 9:57 AM EDT Anya is calling today to let Dr. Parsons know she stopped taking the gabapentin. She had been taking 600 mg at bedtime and 300 mg in the morning. She stopped it on 05/10/15 due to acne breakouts on her faceand chest. She also reports her anxiety and depression worsened, she was having blurry vision and itwas not relieving her pain. Since stopping it she feels mostly better. She says this is the third medication she has tried that has not worked. The others were trazodone and Cymbalta. She is switching jobs and will be without insurance for awhile, so if Dr. Parsons has other recommendations they will have to be not too expensive. documented in this encounter Plan of Treatment Not on filedocumented as of this encounter Visit Diagnoses Not on filedocumented in this encounter
--- OUTSIDE RECORDS SUMMARY | 2022-01-08 16:09 | XMS_ITS | Encounter Summary ---
:1975 Author Organization [facility] [place] [address] Care Team Providers Name Role Phone Selena Gentile APRN Primary Care Provider [phone] Encounter Details Date Type Department Care Team Description 04/24/2018 Telephone Rheumatology at [facility] Marcia Wu, [facility] [place] [address] [facility] [phone] RHEUMATOLOGY DEP [place], [place] [address] (Wo rk) Social History Tobacco Use Types Packs/Day Years Used Date Smoking Tobacco: Never Smokeless Tobacco: Never Alcohol Use Standard Drinks/Week Comments No 0 (1 standard drink = 0.6 oz pure alcoho l) Sex Assigned at Date Recorded Not on file documented as of this encounter Miscellaneous Notes Telephone Encounter - Anna Mandujano - 04/24/2018 4:46 PM EDT Anya would like a f/u appt with you. 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 documented in this encounter Plan of Treatment Not on filedocumented as of this encounter Visit Diagnoses Not on filedocumented in this encounter Care Teams Drilling Plant Operator Relationship Specialty Start Date End Date Selena Gentile APRN PCP - General Family Medicine 05/25/17 11/10/20 [address] [place] [address] documented as of this encounter
--- OUTSIDE RECORDS SUMMARY | 2022-01-08 16:09 | XMS_ITS | Encounter Summary ---
:1975 Author Organization [facility] [place] [address] Care Team Providers Name Role Phone Jeremy Schmitz INÉS Primary Care Provider Reason for Visit Consultation (Routine) - Closed Specialty Diagnoses / Procedures Referred By Contact Refer red To Contact Radiology Diagnoses Dyspepsia Nuris Charlton APRN Radiology Procedures NM functional biliary scan [facility] Deborah [place] [address] [place] [address] Referral ID Status Reason Start Date Expiration Date Visits V isits Requested Authorized [id number] Closed Specialty 11/18/2014 11/18/2015 1 1 Service Requested Encounter Details Date Type Department Care Team Description 11/26/2014 Hospital Encounter Nuclear Medicine at Camila Magdaleno MD [facility] DR [address] [place] [address] DEPT. [phone] [place], [place] [address] (Wo rk) Social History Tobacco [...] the abdomen was obt ained in the CHILEAN projection 60 minutes later. The patient then received continu ous infusion of IV sincalide in a dose of 0.02 mcg/kg during which time additio nal CHILEAN projection images were obtained at 1 minute [...] the abdomen was obt ained in the CHILEAN projection 60 minutes later. The patient then received continu ous infusion of IV sincalide in a dose of 0.02 mcg/kg during which time additio nal CHILEAN projection images were obtained at 1 minute [...] findings, Jordan Moreno at 11/26/2014 11:58 AM Pedro Magdaleno MD IMG NM ORDERABLES documented in this encounter Visit Diagnoses Not on filedocumented in this encounter Care Teams Pipe Covering Molder Relationship Specialty Start Date End Date Jeremy Schmitz ND PCP - General Naturopathic Medicine 11/13/14 02/20/15 [address] [place] [address] documented as of this encounter
--- OUTSIDE RECORDS SUMMARY | 2022-01-08 16:09 | XMS_ITS | Encounter Summary ---
:1975 Author Organization [facility] [place] [address] Care Team Providers Name Role Phone Selena Gentile APRN Primary Care Provider [phone] Encounter Details Date Type Department Care Team Description 12/05/2019 Ancillary Procedure Radiology Library at [facility] [address] [place] [address] [place] [address] [phone] Social History Tobacco Use Types Packs/Day Years Used Date Smoking Tobacco: Never Smokeless Tobacco: Never Alcohol Use Standard Drinks/Week Comments No 0 (1 standard drink = 0.6 oz pure alcoho l) Sex Assigned at Date Recorded Not on file documented as of this encounter Plan of Treatment Not on filedocumented as of this encounter Procedures Procedure Name Priority Date/Time Associated Diagnosis Comme nts FILM LIBRARY Routine 12/05/2019 12:00 AM Results for this STORAGE ONLY MR EDT procedure ar e in HEAD the results section. documented in this encounter Results Film Library- Storage Only MR Head (12/05/2019 12:00 AM EDT) Specimen (Source) Anatomical Location Collection Method / Collectio n Time Received Time / Laterality Volume Narrative [facility] - 12/07/2019 8:33 AM EDT This exam is auto-finalizing. It's purpo se is for storage only. Selena Gentile APRN [facility] FILM LIBRARY ORDERABLES Performing Organization Address City/State/ZIP Code [facility] e Number DH RAD DH RAD [place], [place] documented in this encounter Visit Diagnoses Not on filedocumented in this encounter Care Teams Circuit Manager Relationship Specialty Start Date End Date Selena Gentile APRN PCP - General Family Medicine 05/25/17 11/10/20 [address] [place] [address] documented as of this encounter
--- OUTSIDE RECORDS SUMMARY | 2022-01-08 16:09 | XMS_ITS | Encounter Summary ---
:1975 Author Organization [facility] [place] [address] Care Team Providers Name Role Phone Selena Gentile BIOLOGICAL SCIENCE AIDE Primary Care Provider Reason for Visit Consultation (Routine) - Closed Specialty Diagnoses / Procedures Referred By Contact Refer red To Contact Rheumatology Diagnoses Fibromyalgia pt [place] [address] Parsons. Selena Gentile, [facility] 5c Procedures consult BIOLOGICAL SCIENCE AIDE [facility] [address] [place] [phone] [place] [address] Referral ID Status Reason Start Date Expiration Date Visits Requ ested Visits Authorized [id number] Closed 02/23/2017 02/23/2018 1 1 Encounter Details Date Type Department Care Team Description 05/25/2017 Office Visit Rheumatology at [facility] [place] [place] Chel Amin MD Arthralgia, [facility] [place] [address] RHEUMATOLOGY DEPT [phone] [place], [place] [address] Social History Tobacco Use Types Packs/Day Years Used Date Smoking Tobacco: Never Smokeless Tobacco: Never Alcohol Use Standard Drinks/Week Comments No 0 (1 standard drink = 0.6 oz pure alcoho l) Sex Assigned at Date Recorded Not on file documented as of this encounter Last Filed Vital Signs Vital Sign Reading Time Taken Comments Blood Pressure 122/56 05/25/2017 9:11 AM EDT Pulse 78 05/25/2017 9:11 AM EDT Temperature 37.1 ??C (98.7 ??F) 05/25/2017 9:11 AM EDT Respiratory Rate - - Oxygen Saturation 100% 05/25/2017 9:11 AM EDT Inhaled Oxygen Concentration - - Weight 100.8 kg (222 lb 3.2 oz) 05/25/2017 9:11 AM EDT Height 162.6 cm (5' 4) 05/25/2017 9:11 AM EDT Body Mass Index 38.14 05/25/2017 9:11 AM EDT documented in this encounter Progress Notes Chel Amin MD - 05/25/2017 9:30 AM EDT Rheumatology Follow Up Note Patient was originally seen on 03/10/2015 for generalized body pains. Initial HPI:?? Patient reports that her symptoms started in 2012 as bloating, lethargy, mental fogginess and dizziness after a stressful event in her family. She had evaluation for her GI symptoms and dizziness whichwere mostly benign. MRI brain- normal, Colonoscopy- normal, EGD- mild grade A oesophagitis, thyroid panel/Ab's- normal, serum TTG-neg...etc). Over the next few years along with these symptoms she also developed generalized body aches and joint pains that are worse on somedays and better on others. No specific triggers noted. No swelling/redness/stifness in her joints. She reports longstanding Hx of poor sleep. Could hardly remember the last time she had a good night sleep. She takes flexeril at night which helps with falling asleep but she wakes up 3-4 hrs later andhas difficulty falling back to sleep. Snoring (+), occassional episodes of apnic spells (as noted byothers). ?? Reports feeling stressful over the past few years due to personal/family issues. Interval History: - Anya returns for follow up, was initially seen > 2 years ago - had recent sleep study which showed mild NELSON ->started using CPAP 2 weeks ago - she has chronic pain, diffuse pain, wakes up with pain at night - ongoing poor quality sleep, has not noticed a difference with using the CPAP yet, + brain fog, in addition to her diffuse pain areas will be painful when pressure is applied ie. Leaning against a wall, getting a hig - she is currently not taking anything for her pain - she has tried gabapentin, cymbalta and other medications, she does not remember exactly which onesand why they were stopped - she is now on sertraline 50mg (started a few months ago), helps some with her depression - ongoing abd bloating, occasionally food will get stuck when swallowing - trying to do regular exercise, going for walks with her dog ROS: No fevers, chills + fatigue + night sweats, + weight gain, wondering if starting menopausue (thryoid level was normal) + bloating (had upper and lower scopes, had a tear at end of esophagus and was told to start PPI, which she took for months but otherwise scopes were normal) No rashes No eye inflammatoin + Psoriasis in niece Joint pain: hips,knees, hands (PIPs) will feel swollen, joint pain worse with use, denies morning stiffness or improvement with activity + Foot pain with swelling, pain worse when standing, pain in the middle of her feet, feels like theyare being squished +Tingling in her hands involving her ring fingers Ongoing personal stress PMHx: Patient Active Problem List Diagnosis Code ??? Dyspepsia R10.13 ??? History of abnormal cervical Pap smear Z87.898 ??? Vagina bleeding N93.9 ? Past??Surgical??History Past Surgical History Procedure Laterality Date ??? Pro upper gi endoscopy, biopsy N/A 11/19/2014 ? EGD WITH BIOPSY performed by Adiel Penny MD at [facility] ??? Cervix surgery ?? 01/1995 ? cone - DOROTHEA III, neg margins ??? Tubal ligation ?? 11/01/2008 ? Pro colonoscopy, diagnostic N/A 12/19/2014 ? COLONOSCOPY, DIAGNOSTIC performed by Maxi Shell MD at [facility] ? Allergies Allergen Reactions ??? Bentyl [Dicyclomine] Hives ??? Penicillins Hives ? Social??History History ?? Social History ??? Marital Status: ? Spouse Name: N/A ? Number of Children: N/A ??? Years of Education: N/A ?? Occupational History ??? Not on file. ?? Social History Main Topics ??? Smoking status: Never Smoker ??? Smokeless tobacco: Never Used ??? Alcohol Use: No ??? Drug Use: No ??? Sexual Activity: Not on file ?? Other Topics Concern ??? Not on file ?? Social History Narrative ? Physical exam: Blood pressure 122/56, pulse 78, temperature 37.1 ??C (98.7 ??F), temperature source Oral, height 162.6 cm (5' 4), weight 100.8 kg (222 lb 3.2 oz), SpO2 100 %. Gen: Patient is awake, alert and oriented x 3, in no distress Skin: warm and dry, no rheumatologic rashes Spine: normal ROM and no tenderness Joints: normal ROM throughout the upper and lower extremity joints, no synovitis or tenderness in the hands, wrists,elbows, shoulders, knees, ankles and feet. Tender points above and below the waist. Diffuse trigger point tenderness ?? Studies: Sleep Study (04/2017) Mild NELSON, suspicion for restless leg syndrome-> recommendation to start CPAP therapy. ?? Assessment/Plan: Anya is 41 y/o female with longstanding hx of generalized body aches and sleep disturbances who present for follow up. She was last seen in our office >2 years ago at which time her symptoms were most consistent with fibromyalgia. Her symptoms and physical exam once again do not suggest an inflammatory etiology and are most consistent with FM. We checked inflammatory markers today, which were mostly normal (CRP slightly up at 5.6) which is further reassuring. We discussed the importance of continuing with her CPAP treatment and making sure her NELSON is treated. She is still noting poor quality sleep and we decided to try some flexeril 5-10mg at bedtime. We also talked about the importance of regular exercise and suggested trying yoga or raquel chi. She will also review her own records and discuss with her PCP which medications have been tried in the past, and exactly what the reasons were why she failed them. We will also consider a SMA in the future. ?? RTC in 1 month. Chel Amin MD Rheumatology Fellow ?? Steffen Russell MD - 05/25/2017 9:30 AM EDT I was the attending physician supervising the resident in the above care. For the purposes of billing, the resident provided the care. Chel Amin MD - 05/25/2017 9:30 AM EDT Review of previous medications (based on our noted and PCP notes) Naproxen, Celebrex, Ibuprofen - no benefit trazadone - nausea, dizziness, bad thoughts Gabapentin (600mg bed time, 300mg day time)- rash, worsened depression Nortriptyline - bad thoughts cymbalta (30 and 60mg) - helped FM, depression but made caused shaking, anxiety ,loss of appetite, sweating, dark urine and leaking urine Effexor - bad thoughts, palpitations Citalopram - prescribed, unclear if tried documented in this encounter Plan of Treatment Not on filedocumented as of this encounter Procedures Procedure Name Priority Date/Time Associated Comments Diagnosis CRP, ACUTE Routine 05/25/2017 10:48 Arthralgia, Results for this INFLAMMATION AM EDT unspecified joint procedure are in the results section. SEDIMENTATION RATE Routine 05/25/2017 10:48 Arthralgia, Resul ts for this AM EDT unspecified joint procedure are in the results section. FERRITIN Routine 05/25/2017 10:48 Arthralgia, Results for this AM EDT unspecified joint procedure are in the results section. documented in this encounter Results Ferritin (05/25/2017 10:48 AM EDT) athologist Signature Ferritin 78 15 - 150 JONAH ANA ng/mL [facility] Comment: Pediatric reference ranges not verified at [facility] [place] [place], interpret with caution. Reference ranges for females greater travon n 50 years of age approach values for men, i.e., 30-400 ng/mL. Specimen Anatomical Collection Method Collection Time Receive d Time (Source) Location / / Volume Laterality Blood specimen 05/25/2017 10:48 8 (specimen) AM EDT 10:53 AM EDT Resulting Agency Comment Spec In Lab Steffen Russell MD CHEMISTRY ORDERABLES Performing Organization Address City/[facility]/[place] [address] (ABNORMAL) CRP, acute inflammation (05/25/2017 10:48 AM EDT) P athologist Signature CRP 5.6 (H) <=4.9 mg/L [facility] Specimen Anatomical Collection Method Collection Time Receive d Time (Source) Location / / Volume Laterality Blood specimen 05/25/2017 10:48 8 (specimen) AM EDT 10:53 AM EDT Resulting Agency Comment Spec In Lab Steffen Rusesll MD CHEMISTRY ORDERABLES Performing Organization Address City/[facility]/[place] [address] Sedimentation rate (05/25/2017 10:48 AM EDT) P athologist Signature Sed Rate 16 0 - 20 [facility] mm/hr [facility] Specimen Anatomical Collection Method Collection Time Receive d Time (Source) Location / / Volume Laterality Blood specimen 05/25/2017 10:48 8 (specimen) AM EDT 10:53 AM EDT Resulting Agency Comment Spec In Lab Steffen Russell MD HEMATOLOGY ORDERABLES Performing Organization Address City/[facility]/[place] [address] documented in this encounter Visit Diagnoses Diagnosis Arthralgia, unspecified joint documented in this encounter Care Teams Glass Sagger Relationship Specialty Start Date End Date Selena Gentile APRN PCP - General Family Medicine 05/25/17 11/10/20 [address] [place] [address] documented as of this encounter
--- OUTSIDE RECORDS SUMMARY | 2022-01-08 16:09 | XMS_ITS | Encounter Summary ---
:1975 Author Organization [facility] [place] [address] Care Team Providers Name Role Phone Selena Gentile CHETAN Primary Care Provider [phone] Reason for Referral Physical Therapy (Routine) - Closed Specialty Diagnoses / Procedures Referred By Contact Refer red To Contact Physical Therapy Diagnoses Dizziness after extension of neck Venkata Pedraza MD [facility] [place]NGOLOG[place] [address] [place] [address] Fax: Referral ID Status Reason Start Date Expiration Date Visits V isits Requested Authorized [id number] Closed Evaluate and 01/10/2020 01/09/2021 1 1 Treat Reason for Visit Consultation (Routine) - Closed Specialty Diagnoses / Procedures Referred By Contact Refer red To Contact Otolaryngology Diagnoses Vestibular dysfunction of both ears Braxton Cline MD [facility] [address] [place] [address] [place] [address] [place] [address] Referral ID Status Reason Start Date Expiration Date Visits V isits Requested Authorized [id number] Closed Consult, 12/11/2019 12/10/2020 1 1 Test & Treat Encounter Details Date Type Department Care Team Description 01/10/2020 Office Visit Otolaryngology at [facility] Venkata Pedraza, Dizziness after [facility] Shannon brown [place] [address] [facility] [phone] CENTER OTOLARYNGOLOGY DEPT. [place], [place] [address] Social History Tobacco Use Types Packs/Day Years Used Date Smoking Tobacco: Never Smokeless Tobacco: Never Alcohol Use Standard Drinks/Week Comments No 0 (1 standard drink = 0.6 oz pure alcoho l) Sex Assigned at Date Recorded Not on file documented as of this encounter Last Filed Vital Signs Vital Sign Reading Time Taken Comments Blood Pressure 120/86 01/10/2020 10:30 AM EST Pulse 84 01/10/2020 10:30 AM EST Temperature 36.7 ??C (98.1 ??F) 01/10/2020 10:30 AM EST Respiratory Rate 20 01/10/2020 10:30 AM EST Oxygen Saturation 100% 01/10/2020 10:30 AM EST Inhaled Oxygen Concentration - - Weight 97.5 kg (215 lb) 01/10/2020 10:30 AM EST Height - - Body Mass Index 36.9 01/01/2020 1:14 PM EST documented in this encounter Progress Notes Venkata Pedraza MD - 01/10/2020 11:00 AM EST Images from the original note were not included. [facility] Otolaryngology - Head and Neck Surgery Venkata Pedraza MD 01/10/20 12:20 PM [place], [place] [address] Office Patient Name: Anya Ferrari Date of : 1975 PCP: Selena Gentile APRN Chief Complaint: dizziness History of Present Illness: Anya Ferrari is a 44 y.o. year old female with a history of MDD, fibromyalgia, and migraine headaches who was seen today at the request of Braxton Cline in consultation for dizziness. She describes several months of positional dysequilibrium/lightheadedness. If she stands up, turns fast, or whips her head around, it feels like the blood drains out and she feels she may pass out. No prior LOC. Alleviated by lying down. Disequilibrium is also triggered by visual stimuli as while driving. No preceding event. She did get this summer. Has been on and off sertraline. 1 week ago started lyrica. Also taking flexeril less than a month ago. Also has poorly characterized intermittent left aural symptoms including fullness and tinnitus that sounds like static sound and lasts up to 30 minutes. It doesn't happen every day. Not triggered by anything. This can also be associated with a milder version of lightheadedness which is different than the more severe feeling that she may pass out that she gets with rapid standing or rapid head movements. She specifically denies the illusion of movement at rest, no vertigo. + migraine headaches often ocular symptoms with these and other times just feels like a massive headache with tension in neck muscles. + phonophobia. Trouble hearing in noise. + photophobia. Had LP at [facility] more than 1 year ago for excruciating headaches. Says this was difficult for them to get in, but results came back fine. She is unsure if they checked opening pressure, and I do not havea copy of the report. Last March, she got a new eyeglasses prescription, and she feels she needs more power for reading. EKG was reportedly normal. MRI negative. Audiogram: Normal audiogram. MRI 12/05/19 with contrast brain: 10 point Review of Systems was normal except for pertinent positives and negatives included in the History of Present Illness. Past Medical and Surgical History Patient Active Problem List Diagnosis Code ??? Dyspepsia R10.13 ??? History of abnormal cervical Pap smear Z87.42 ??? Vagina bleeding N93.9 Current Outpatient Medications on File Prior to Visit Medication Sig Dispense Refill ??? famotidine (Pepcid) 20 mg Tablet Take 20 mg by mouth 2 times daily. ??? diclofenac (VOLTAREN) 1 % Gel Apply 2g to upper extremities or 4g to lower extremities QID PRN for pain 1 Tube 3 ??? pregabalin (Lyrica) 50 mg Capsule Take 1 capsule by mouth nightly. 30 tablet 3 ??? cyclobenzaprine (Flexeril) 5 mg Tablet Take 1 tablet by mouth 2 times daily as needed for Musclespasms. 60 tablet 1 ??? sertraline (ZOLOFT) 100 mg Tablet Take 100 mg by mouth daily. ??? ranitidine (ZANTAC) 75 mg Tablet Take 75 mg by mouth 2 times daily. ??? cholecalciferol, Vitamin D3, 50,000 unit Capsule take 1 capsule by mouth ONCE A WEEK FOR 8 WEEKS0 ??? meloxicam (MOBIC) 15 mg Tablet Take 1 tablet by mouth daily. (Patient not taking: Reported on 01/01/2020) 30 tablet 3 No current facility-administered medications on file prior to visit. Allergies: Cymbalta [duloxetine], Adhesive, Bentyl [dicyclomine], and Penicillins Surgical History: Past Surgical History: Procedure Laterality Date ??? CERVIX SURGERY 01/1995 cone - DOROTHEA III, neg margins ??? PRO COLONOSCOPY, DIAGNOSTIC N/A 12/19/2014 COLONOSCOPY, DIAGNOSTIC performed by Maxi Shell MD at [facility] ??? PRO UPPER GI ENDOSCOPY, BIOPSY N/A 11/19/2014 EGD WITH BIOPSY performed by Adiel Penny MD at [facility] ??? TUBAL LIGATION 11/01/2008 Family and Social History Family History: Family History Problem Relation Age of Onset ??? Ovarian Cancer Neg Hx ??? Breast Cancer Neg Hx ??? Uterine Cancer Maternal Grandmother ?also her mother, dx age 35? Social History: Lives in [place] [id number] Social History Socioeconomic History ??? Marital status: Spouse name: Not on file ??? Number of children: Not on file ??? Years of education: Not on file ??? Highest education level: Not on file Occupational History ??? Not on file Social Needs ??? Financial resource strain: Not on file ??? Food insecurity Worry: Not on file Inability: Not on file ??? Transportation needs Medical: Not on file Non-medical: Not on file Tobacco Use ??? Smoking status: Never Smoker ??? Smokeless tobacco: Never Used Substance and Sexual Activity ??? Alcohol use: No ??? Drug use: No ??? Sexual activity: Not on file Lifestyle ??? Physical activity Days per week: Not on file Minutes per session: Not on file ??? Stress: Not on file Relationships ??? Social connections Talks on phone: Not on file Gets together: Not on file Attends hinduism service: Not on file Active member of club or organization: Not on file Attends meetings of clubs or organizations: Not on file Relationship status: Not on file ??? Intimate partner violence Fear of current or ex partner: Not on file Emotionally abused: Not on file Physically abused: Not on file Forced sexual activity: Not on file Other Topics Concern ??? Do You live alone? Not Asked ??? Tobacco in Home Not Asked Social History Narrative ??? Not on file Physical Exam Temperature: 36.7 ??C (98.1 ??F) Heart Rate: 84 Blood Pressure: 120/86 Respiratory Rate: 20 SpO2: 100 % General: Age appropriate, healthy appearing, well-groomed, independently mobile. Communicates easily, speech clear, voice is strong. Awake, alert, and oriented to person, place and time. Affect appropriate. Head and Face: Head is normocephalic, atraumatic. Facial resting tone symmetric. Eyes: Conjugate gaze, ocular motility intact bilaterally Neurologic: Cranial Nerves II-XII grossly intact and symmetric. Ears: External ears without deformity. See documentation of otomicroscopy below. Hearing is grossly normal. Tuning fork midline with Air>Bone bilaterally. Nose: External nose is midline without deformity or lesion. Dentition is in good repair. Larynx: Strong voice and cough Pulmonary: Breathing comfortably. Symmetric chest expansion without use of accessory muscles or retraction. Milfay Hallpike testing negative. She became lightheaded with sitting up quickly from Shaq maneuvers and described blurry vision and need to close eyes tightly to allow the sensation to pass. There was no nystagmus. Romberg normal Fukuda stepping test normal Procedures Binocular otomicroscopy was performed: Left side: Ear canal clear Tympanic membrane intact and translucent with normal mobility on pneumatic otoscopy. Fistula test isnegative. Right side: Ear canal clear Tympanic membrane intact and translucent with normal mobility on pneumatic otoscopy. Fistula test isnegative. ASSESSMENT & RECOMMENDATIONS Anya Ferrari is a 44 y.o. obese female with headaches, blurry vision, and positional lightheadedness. PMHx significant for migraine, MDD, and fibromyalgia. Her description of dizziness is more suggestive of presyncope rather than true vertigo. Differential includes orthostatic hypotension, intracranial hypertension, medication side effect, vestibular migraine, or central problems with assimilating incoming sensory inputs from the eyes, vestibular, and p roprioceptive systems. The positional nature of her symptoms could [...] audiogram are not suggestive of otogenic vertigo. I will cc to PCP for consideration of checking tilt table testing to evaluate for orthostatic hypotension if not already done. If opening pressures were not checked during her LP in [facility], this could be a useful thing to investigate. Venkata Pedraza MD, [facility] Otolaryngology - Head and Neck Surgery 01/10/20 12:20 PM documented in this encounter Plan of Treatment Scheduled Referrals Name Type Priority Associated Diagnoses Order S chedule Referral to Outpatient Referral Routine Dizziness after Order ed: Physical Therapy extension of neck 2019 documented as of this encounter Visit Diagnoses Diagnosis Dizziness after extension of neck documented in this encounter Care Teams Power Shovel Mechanic Relationship Specialty Start Date End Date Selena Gentile APRN PCP - General Family Medicine 05/25/17 11/10/20 [address] [place] [address] documented as of this encounter
--- OUTSIDE RECORDS SUMMARY | 2022-01-08 16:09 | XMS_ITS | Encounter Summary ---
:1975 Author Organization [facility] [place] [address] Care Team Providers Name Role Phone Jeremy Schmitz ND Primary Care Provider Reason for Visit Reason Onset Date Comments Results 11/26/2014 Encounter Details Date Type Department Care Team Description 11/26/2014 Telephone [place] [facility] [place] [address] Social History Tobacco Use Types Packs/Day Years Used Date Smoking Tobacco: Never Smokeless Tobacco: Never Alcohol Use Standard Drinks/Week Comments No 0 (1 standard drink = 0.6 oz pure alcoho l) Sex Assigned at Date Recorded Not on file documented as of this encounter Miscellaneous Notes Telephone Encounter - Omkar Henderson RN - 11/26/2014 2:51 PM EDT Patient had HIDA scan done today. Calls for results. Advised patient the preliminary results are normal (EF 81%), however Tracia needs to looks at these in terms of the overall picture of her symptoms to come up with a plan of care. Patient teary and says that she is worried because no one knows what's going on. Reassured patient that I will have Tracia look at the results and give her a call. documented in this encounter Plan of Treatment Not on filedocumented as of this encounter Visit Diagnoses Not on filedocumented in this encounter Care Teams Resource Conservationist Relationship Specialty Start Date End Date Jeremy Schmitz ND PCP - General Naturopathic Medicine 11/13/14 02/20/15 [address] [place] [address] documented as of this encounter
--- OUTSIDE RECORDS SUMMARY | 2022-01-08 16:09 | XMS_ITS | Encounter Summary ---
:1975 Author Organization [facility] [place] [address] Care Team Providers Name Role Phone Jeremy Schmitz ND Primary Care Provider Reason for Visit Reason Comments Establish Care Consultation (Routine) - Closed Specialty Diagnoses / Procedures Referred By Contact Refer red To Contact Obstetrics and Diagnoses Nuris Pitt, [facility] Sales Lead Generator 5l Gynecology ACTUARIAL MANAGER Formerly [facility] [address] [place] GASTROENTEROLOGY [address] [place] [address] Referral ID Status Reason Start Date Expiration Date Visits V isits Requested Authorized [id number] Closed Consult, 12/02/2014 12/02/2015 1 1 Test & Treat Encounter Details Date Type Department Care Team Description 12/16/2014 Office Visit Obstetrics and Pedro Magdaleno M D [facility] [place] [address] Bloating (Primary Dx); Gynecology at [facility] Tyshawn Ortiz MD [facility] OBSTETRICS & [place] [address] Abnormal uterine bleeding; [facility] Health[facility] e maintenance; Drive Abdominal cramping; [place], [place] History of abno rmal cervical Pap smear [id number] Social History Tobacco Use Types Packs/Day Years Used Date Smoking Tobacco: Never Smokeless Tobacco: Never Alcohol Use Standard Drinks/Week Comments No 0 (1 standard drink = 0.6 oz pure alcoho l) Sex Assigned at Date Recorded Not on file documented as of this encounter Last Filed Vital Signs Vital Sign Reading Time Taken Comments Blood Pressure 100/64 12/16/2014 2:52 PM EST Pulse - - Temperature - - Respiratory Rate - - Oxygen Saturation - - Inhaled Oxygen Concentration - - Weight 78.5 kg (173 lb) 12/16/2014 2:52 PM EST Height 162.6 cm (5' 4) 12/16/2014 2:52 PM EST Body Mass Index 29.7 12/16/2014 2:52 PM EST documented in this encounter Progress Notes Fransisco Villanueva MD - 12/18/2014 8:40 PM EST Anya Ferrari was discussed with me at the time of the visit or immediately after the visit. The assessment and plan were formulated in discussion with me and I agree with them as documented. I have reviewed the history, physical exam, assessment and plan with the resident. FRANSISCO VILLANUEVA MD Tyshawn Ortiz MD - 12/16/2014 2:59 PM EST AIRCRAFT SALES REPRESENTATIVE Consult Visit Patient Name: Anya Ferrari Date of : 1975 Today's Date: 12/16/2014 Referring: Nuris Charlton APRN Reason for Visit: abdominal bloating Subjective: Anya Ferrari is a 39 y.o. presenting in kind referral from Nuris Charlton APRN,for bloating. Anya reports bloating after eating starting about 2 years ago, now has become constant, has been eval by GI. No Celiac, upper endoscopy WNL, colonoscopy is scheduled for . BM's are generally normal every 2-4 days, occasionally constipation, no diarrhea. +Hematochezia/clots - GI is aware. Denies pelvic pain but does report progressively heavier menstrual periods over the past year or so, no inter- menstrual bleeding. Constant, daily menstrual-like cramps. Wants to rule out AIRCRAFT SALES REPRESENTATIVE source for bloating, daily cramping. Denies dysuria, hematuria, frequency. +Urgency, +mild stress incontinence. Not interested in treatment at this time. AIRCRAFT SALES REPRESENTATIVE Hx: Cycles are regular every 28-30 days, lasting 7 days of heavy bleeding (uses tampons + pads and soaks through every few hours), +dysmenorrhea. Used OCP's <5 years in her lifetime. S/P BTL. Insame sex relationship. +Remote history of STI's - remote hx chlamydia, treated. Last Pap: ?2012 in [place] - normal, + history abnormal Paps. Cone bx age 19, many abnormals since that time. Hx EMB in 2010 for GABRIEL - benign. ROS: Negative to complete review except as per HPI No past medical history on file. Past Surgical History Procedure Laterality Date ??? Pro upper gi endoscopy, biopsy N/A 11/19/2014 EGD WITH BIOPSY performed by Adiel Penny MD at [facility] ENDOSCOPY ??? Cervix surgery 01/1995 cone - DOROTHEA III, neg margins ??? Tubal ligation 11/01/2008 Family History Problem Relation Age of Onset ??? Ovarian Cancer Neg Hx ??? Breast Cancer Neg Hx ??? Uterine Cancer Maternal Grandmother ?also her mother, dx age 35? Social Hx: History Social History ??? Marital Status: Spouse Name: N/A Number of Children: N/A ??? Years of Education: N/A Occupational History ??? Not on file. Social History Main Topics ??? Smoking status: Never Smoker ??? Smokeless tobacco: Never Used ??? Alcohol Use: No ??? Drug Use: Not on file ??? Sexual Activity: Not on file Other Topics Concern ??? Not on file Social History Narrative Current Meds: acetaminophen-codeine (TYLENOL-CODEINE #3) 300-30 mg Tablet Allergies: Allergies Allergen Reactions ??? Bentyl [Dicyclomine] Hives ??? Penicillins Hives Objective: BP 100/64 mmHg Ht 162.6 cm (5' 4) Wt 78.472 kg (173 lb) BMI 29.68 kg/m2 LMP 11/25/2014 Physical Examination: Gen: AAOx3, NAD, appears well, very pleasant Abd: soft, NT, ND Pelvic exam: VULVA: normal appearing vulva with no masses, tenderness or lesions, VAGINA: normal appearing vagina with normal color and discharge, no lesions, CERVIX: cervix without discharge or lesions, c/w prior cone bx, friable with collection of Pap test using cytobrush and broom, cervical motion t enderness absent, multiparous os, Nabothian cyst at 11 o'clock, UTERUS: uterus is normal size, shape, consistency and nontender, anteverted, mobile, ADNEXA: normal adnexa in size, nontender and no masses. Ext: warm, well-perfused Pertinent Labs/Films: none Assessment/Plan: Anya Ferrari is a 39 y.o. ( x5) female with abdominal bloating and dailymenstrual-like cramping with progressively heavier menses over the past year or so. She is undergoing workup by GI for bloating but so far has been unrevealing. Colonoscopy is scheduled for this . She is interested in ruling out a AIRCRAFT SALES REPRESENTATIVE source for her bloating and for her daily cramping. I reviewed with her my low suspicion for a pelvic cause of her bloating based on her concurrent GI symptoms of constipation, hematochezia, and multiple food intolerances making a GI source seem more consistent. Her bleeding may be related to meg-menopause and she is having occasional hot flashes/night sweats, or it may be related to hyperplasia, fibroids, adenomyosis, etc. She did have an EMB in 2010 for anAGUS Pap, which returned benign. Her daily cramping may be related to a polyp, though she has had nointer-menstrual bleeding. I feel that it would be worthwhile to obtain a pelvic US as her exam todaywas unrevealing. -TVUS with possible SHG and possible EMB if indicated -FU Pap test collected today -Continue workup with GI Thank you for this consultation. I will keep you apprised of progress in our care. D/W Dr. Villanueva. TYSHAWN ORTIZ MD, PGY4 12/16/2014 CC: Nuris Charlton APRN documented in this encounter Plan of Treatment Not on filedocumented as of this encounter Procedures Procedure Name Priority Date/Time Associated Comments Diagnosis HPV Routine 12/16/2014 3:19 Results for this PM EST procedure are i n the results section. AIRCRAFT SALES REPRESENTATIVE CYTOLOGY Routine 12/16/2014 3:19 Results for this INTERPRETATION PM EST procedure are in the results section. AIRCRAFT SALES REPRESENTATIVE CYTOLOGY FINAL Routine 12/16/2014 3:19 Result s for this REPORT PM EST procedure are i n the results section. CYTOPATHOLOGY Routine 12/16/2014 3:19 Healthcare Results for this GYNECOLOGICAL PM EST maintenance procedure are in the results section. documented in this encounter Results Policyholder Information Clerk Cytology Final Report (12/16/2014 3:19 PM EST) Component Value Ref Test Analysis Performed At [facility] Range Method Time Signature Policyholder Information Clerk Cytology The signing pathologist has (i) examined the relevant preparation(s) for the CERNER Final Report specimen(s) and (ii) rendered or confirmed the diagnosis (es). [facility] Accession Number: [id number] ?Location: 5 L . ? Policyholder Information Clerk Final DIAGNOSIS NORMAL Negative for Intraepithelial Lesion or Malignancy (NILM). 12/24/14 ?? Screened by: ??SLA 12/24/14 ?? Verified by: ??LUPE Weller(ASCP), Brianne Daniel - Basket Sorter DISCUSSION Please also see concurrent HPV test result. STATEMENT OF ADEQUACY Specimen submitted is satisfactory. Endocervical component present. CLINICAL INFORMATION HPV Option: ?Concurrent HPV and Pap Preparation: ? Liquid based Pap Specimen Source: ? Cervical/Endocervical LMP: ? 11/25/2014 Hormones?: ? No Hysterectomy?: ? No ?: ? No ?: ? No I.U.D.?: ? No Pelvic Radiation: ?No Prior AIRCRAFT SALES REPRESENTATIVE Therapy?: ?Cone Biopsy Hist Abnl Pap/Biopsy?: ?? Yes, Pap after Cryo, LEEP Hist of HPV Vaccine?: ?No Hist of Smoking?: ?No Hist of SUMI exposure?: ?? No ICD Diagnosis: ? V15.89 History of Clinically H igh Risk Clinical Data, Significant Therapy and Clinical Impression: ?_ Note: The Pap test is a screening test for cervical cancer with an inherent false-negative rate dependent upon several variables. ??For further information please contact the [facility] Laboratory. Reference: ??Ceasar ZAVALA. ? ?Paster Supervisor of Pap Smear Results. ??In: ??Waldemar BS, [facility], ed. ??The Pap Smear. ??[place]: ??Mil, 2002: ? ?71-77. Specimen (Source) Anatomical Collection Method Collection Time Re ceived Time Location / / Volume Laterality 12/16/2014 3:19 PM EST Pedro Magdaleno MD PATHOLOGY/CYTOLOGY ORDERABLE S Performing Organization Address City/[facility]/ZIP Code Phon [place] [address] [facility] AIRCRAFT SALES REPRESENTATIVE Cytology Interpretation (12/16/2014 3:19 PM EST) [facility] gist Method Time Signature Policyholder Information Clerk Cytology NILM [facility] Comment: Policyholder Information Clerk Cytology Final Report Acces yandel: [id number] Endocervical Component Present [facility] Specimen Anatomical Collection Method Collection Time Receive d Time (Source) Location / / Volume Laterality AP Specimen 12/16/2014 3:19 PM 5 4:55 EST PM EST Pedro Magdaleno MD PATHOLOGY/CYTOLOGY ORDERABLE S Performing Organization Address City/[facility]/ZIP [place] [address] [facility] HPV (12/16/2014 3:19 PM EST) Component Value Ref Test Analysis Performed At [facility] gist Range Method Time Signature HPV 16 NEGATIVE [facility] IUM HPV [facility] Other HR NEGATIVE [facility] HPV NEGATIVE for high-risk HPV *. [facility] It is recommended that patients with ASCUS cytology and a negative test for high-risk HPV undergo further evaluation according to curren t practice guidelines. ??* Testing negative for high risk H PV means that the specimen is negative for the following 1 4 types tested: ??types 16, 18, 31, 33, 35, 39, 45, 51, 52, 56, 58, 59, 66, and 68. ??The test is no t intended to detect low risk HPV types. Damion Shweta?? HPV test Specimen: HPV Testing - Cytology Liquid Based Prep Specimen Anatomical Collection Method Collection Time Receive d Time (Source) Location / / Volume Laterality Cervical swab 12/16/2014 3:19 PM 12/18/19 15 (specimen) EST 12:10 PM EST Resulting Agency Comment Spec In Lab Pedro Magdaleno MD PATHOLOGY/CYTOLOGY ORDERABLE S Performing Organization Address [facility] Code Phon e Number [address] [facility] Cytopathology Gynecological (12/16/2014 3:19 PM EST) Specimen Anatomical Collection Method Collection Time Receive d Time (Source) Location / / Volume Laterality AP Specimen 12/16/2014 3:19 PM 5 3:19 EST PM EST Narrative [facility] - 12/16/2014 3:[address] Specimen requisition ordered. ??Separate Pathology report to follow Pedro Magdaleno MD PATHOLOGY/CYTOLOGY ORDERABLE S Performing Organization Address City/[facility] Phon e Number [address] [facility] documented in this encounter Visit Diagnoses Diagnosis Bloating - Primary Flatulence, eructation, and gas pain Abnormal uterine bleeding Unspecified disorder of menstruation and other abnormal bleeding from female genital tract Healthcare maintenance Routine general medical examination at a health care facility Abdominal cramping Abdominal pain, unspecified site History of abnormal cervical Pap smear Personal history of other genital system and obstetric disorders documented in this encounter Care Teams Steam Shovel Operator Relationship Specialty Start Date End Date Jeremy Schmitz ND PCP - General Naturopathic Medicine 11/13/14 02/20/15 [address] [place] [address] documented as of this encounter
--- OUTSIDE RECORDS SUMMARY | 2022-01-08 16:09 | XMS_ITS | Encounter Summary ---
:1975 Author Organization [facility] [place] [address] Care Team Providers Name Role Phone Selena Gentile APRN Primary Care Provider [phone] Reason for Visit Reason Onset Date Comments Prior Authorization 01/02/2020 Encounter Details Date Type Department Care Team Description 01/02/2020 Telephone Rheumatology at [facility] [place] [phone] Social History Tobacco Use Types Packs/Day Years Used Date Smoking Tobacco: Never Smokeless Tobacco: Never Alcohol Use Standard Drinks/Week Comments No 0 (1 standard drink = 0.6 oz pure alcoho l) Sex Assigned at Date Recorded Not on file documented as of this encounter Miscellaneous Notes Telephone Encounter - Justa Zhang - 01/02/2020 12:26 PM EST Medication Prior Authorization Karyn Medication name/dose/directions: Diclofenac 1% gel - Apply 2g to upper extremities or 4g Rationale for request: Pain Health plan: [facility] (COUNTS INCLUDE 234 BEDS AT THE [facility]) Authorizing b2b sales representative name: Shima Sent to health plan on: 01/02/20 Health plan decision: Approved Quantity approved: Authorization number: [id number] Start date: 12/03/19 End date: 01/01/21 documented in this encounter Plan of Treatment Not on filedocumented as of this encounter Visit Diagnoses Not on filedocumented in this encounter Care Teams Electric Installer Relationship Specialty Start Date End Date Selena Gentile APRN PCP - General Family Medicine 05/25/17 11/10/20 [address] [place] [address] documented as of this encounter
--- OUTSIDE RECORDS SUMMARY | 2022-01-08 16:09 | XMS_ITS | Encounter Summary ---
:1975 Author Organization [place] [address] Care Team Providers Name Role Phone Jeremy Schmitz ND Primary Care Provider Reason for Referral Consultation (Routine) - Closed Specialty Diagnoses / Procedures Referred By Contact Refer red To Contact Radiology Diagnoses Constipation, unspecified constipation type O'Umu, Tracia, FREELANCE ART DIRECTOR Radiology Procedures XR Abdomen 1 View (GENERIC) [facility] [address] [place] [address] [place] [address] Referral ID Status Reason Start Date Expiration Date Visits V isits Requested Authorized [id number] Closed Specialty 11/18/2014 11/18/2015 1 1 Service Requested Reason for Visit Consultation (Routine) - Closed Specialty Diagnoses / Procedures Referred By Contact Refer red To Contact Radiology Diagnoses Constipation, unspecified constipation type O'Umu, Tracia, FREELANCE ART DIRECTOR Radiology Procedures XR Abdomen 1 View (GENERIC) [facility] [address] [facility] [place] [address] [place] [address] Referral ID Status Reason Start Date Expiration Date Visits V isits Requested Authorized [id number] Closed Specialty 11/18/2014 11/18/2015 1 1 Service Requested Encounter Details Date Type Department Care Team Description 11/18/2014 Hospital Encounter XRay at [facility] Pedro Magdaleno, Constipation, [address] HERNANDEZ unspecified [place], [place] [facility] constipation [facility] [phone] [place] [phone] [place] [address] Social History Tobacco Use Types Packs/Day Years Used Date Smoking Tobacco: Never Smokeless Tobacco: Never Sex Assigned at Date Recorded Not on file documented as of this encounter Medications at Time of Discharge Medication Sig Dispensed Refills Start Date End Date acetaminophen-codeine Take 1-2 tablets by 20 tablet 0 11/1311/22/2014 (TYLENOL-CODEINE #3) mouth every 4 hours 300-30 mg Tablet as needed for Pain. No driving, no alcohol, no extra tylenol documented as of this encounter Plan of Treatment Not on filedocumented as of this encounter Procedures Procedure Name Priority Date/Time Associated Diagnosis Comme nts XR ABDOMEN 1 VIEW Routine 11/18/2014 11:48 AM Constipation, Re sults for this EDT unspecified procedure are i n constipation type the result s section. documented in this encounter Results XR Abdomen 1 View (GENERIC) (11/18/2014 11:48 [...] documented in this encounter Visit Diagnoses Diagnosis Constipation, unspecified constipation t ype documented in this encounter Care Teams Silviculture Teacher Relationship Specialty Start Date End Date Jeremy Schmitz ND PCP - General Naturopathic Medicine 11/13/14 02/20/15 [address] [place] [address] documented as of this encounter
--- OUTSIDE RECORDS SUMMARY | 2022-01-08 16:09 | XMS_ITS | Encounter Summary ---
:1975 Author Organization [facility] [place] [address] Care Team Providers Name Role Phone Unavailable Primary Care Provider Unavailable Reason for Referral Consultation (Routine) - Closed Specialty Diagnoses / Procedures Referred By Contact Refer red To Contact Sleep Center Diagnoses Fibromyalgia Siena Parsons MD [facility] Sleep Disorders [address] [place] [address] [place] [address] Referral ID Status Reason Start Date Expiration Date Visits V isits Requested Authorized [id number] Closed Consult, 04/02/2015 04/01/2016 1 1 Test & Treat Encounter Details Date Type Department Care Team Description 04/02/2015 Orders Only Rheumatology at [facility] Siena Parsons MD Fibromyalgia [facility] [address] [facility] [phone] RHEUMATOLOGY DEPT [phone] [place], [place] [address] (Wo rk) Social History Tobacco Use Types Packs/Day Years Used Date Smoking Tobacco: Never Smokeless Tobacco: Never Alcohol Use Standard Drinks/Week Comments No 0 (1 standard drink = 0.6 oz pure alcoho l) Sex Assigned at Date Recorded Not on file documented as of this encounter Plan of Treatment Scheduled Referrals Name Type Priority Associated Diagnoses Order S chedule Referral to Sleep Outpatient Referral Routine Fibromyalgia Ord ered: Disorders Center 04/02/2015 documented as of this encounter Visit Diagnoses Diagnosis Fibromyalgia Mylagia and myositis, unspecified documented in this encounter
--- OUTSIDE RECORDS SUMMARY | 2022-01-08 16:09 | XMS_ITS | Encounter Summary ---
:1975 Author Organization [facility] [place] [address] Care Team Providers Name Role Phone Selena Gentile APRN Primary Care Provider [phone] Reason for Visit Reason Onset Date Comments Medication Refill 10/12/2017 Encounter Details Date Type Department Care Team Description 10/12/2017 Refill Rheumatology at [facility] Marcia Wu, [facility] [place] [phone] [facility] [phone] RHEUMATOLOGY [place], [place] [address] (Wo rk) Social History Tobacco [...] on filedocumented in this encounter Care Teams Human Resource Professional Relationship Specialty Start Date End Date Selena Gentile APRN PCP - General Family Medicine 05/25/17 11/10/20 [address] [place] [address] documented as of this encounter
--- OUTSIDE RECORDS SUMMARY | 2022-01-08 16:09 | XMS_ITS | Encounter Summary ---
:1975 Author Organization [facility] [place] [address] Care Team Providers Name Role Phone Jeremy Schmitz ND Primary Care Provider Reason for Visit Reason Onset Date Comments Advice Only 11/29/2014 Encounter Details Date Type Department Care Team Description 11/29/2014 Telephone Gastroenterology at [facility] Natacha Wu, vp & general counsel Only One [facility] Shannon brown DE[place] [phone] Social History Tobacco Use Types Packs/Day Years Used Date Smoking Tobacco: Never Smokeless Tobacco: Never Alcohol Use Standard Drinks/Week Comments No 0 (1 standard drink = 0.6 oz pure alcoho l) Sex Assigned at Date Recorded Not on file documented as of this encounter Miscellaneous Notes Telephone Encounter - Missael Nicholson, RN - 12/02/2014 3:36 PM EDT Spoke directly with patient. Reviewed results/findings from her 11/19/14 EGD, including esophagitis,gastric polyps which, in conjunction with abdominal pain/bloating are basis of Nuris Elmore APRN'srecommendation for starting PPi. Patient voiced understanding, will fill prescription and start taking PPi. PAtient wishes to proceed with colonoscopy, asks that procedure be scheduled for as soon as practical. Telephone Encounter - Missael Nicholson, RN - 12/02/2014 1:09 PM EDT LM on patient's voicemail that Nuris Charlton APRN faxed prescription for Nexium 40mg PO daily to [facility] in [facility]. Telephone Encounter - Missael Nicholson, RN - 12/02/2014 10:17 AM EDT Telephoned patient, left detailed message on identified private VM. Per Nuris Charlton APRN: (1) tin pot operator referral made - phone [phone] to schedule an appointment to assess etiology of symptoms andr/o or confirm logistics solution manager casue; (2) based on symptoms, colonoscopy worth considering - would you be interested in a colonoscopy?; (3) recommend PPI - have checked her insurance, appears coverage is available for esomeprazole and for omeprazole. Nuris can order for her. Call back to discuss when convenient. Telephone Encounter - Natacha Pham RN - 11/29/2014 10:01 AM EDT Returned patient's call regarding something that happened this morning She states her usual bowel pattern is a normal caliber bm once per day. For the past couple of days she has been passing thin, narrow stool 2-3 times per day. She adds that she started her menses on Tuesday, her usual cycle is 5-7 days. Her menses stopped yesterday. This morning she passed another narrow stool, and called GI because she noted streaks of bloodon the stool along with several clots. She adds after this bm, her menses started again. Patient denies fever or pain. (aside from post prandial) (EGD 11/19/14, two gastric polyps resected,LA Grade A esophagitis) She states she's had abnormal paps for forever and wonders if her abdominal pain, bloating, etc isGYN related. She states she has her first visit with her new PCP on 12/13 to discuss this and other concerns. Inquired if patient would like BLASTING CAP ASSEMBLER referral at [facility]? Patient is agreeable as she suspects new PCP will be unsure how to treat. Patient states she has hard copies of her medical records available to fax. Advised I would forward to CHETAN You for review and contact her if she feels patient needs urgent intervention. Please advise. documented in this encounter Plan of Treatment Not on filedocumented as of this encounter Visit Diagnoses Not on filedocumented in this encounter Care Teams Training Analyst Relationship Specialty Start Date End Date Jeremy Schmitz ND PCP - General Naturopathic Medicine 11/13/14 02/20/15 [address] [place] [address] documented as of this encounter
--- OUTSIDE RECORDS SUMMARY | 2022-01-08 16:09 | XMS_ITS | Encounter Summary ---
:1975 Author Organization [facility] [place] [address] Care Team Providers Name Role Phone Unavailable Primary Care Provider Unavailable Encounter Details Date Type Department Care Team Description 05/18/2017 Notes Only Rheumatology at [facility] Chel Amin MD [facility] [place] [address] RHEUMATOLOGY DEPT [phone] [place], [place] [address] (Wo rk) Social History Tobacco Use Types Packs/Day Years Used Date Smoking Tobacco: Never Smokeless Tobacco: Never Alcohol Use Standard Drinks/Week Comments No 0 (1 standard drink = 0.6 oz pure alcoho l) Sex Assigned at Date Recorded Not on file documented as of this encounter Progress Notes Chel Amin MD - 05/18/2017 2:45 PM EDT Sleep Study (04/2017) Mild NELSON, suspicion for restless leg syndrome-> recommendation to start CPAP therapy. documented in this encounter Plan of Treatment Not on filedocumented as of this encounter Visit Diagnoses Not on filedocumented in this encounter
--- OUTSIDE RECORDS SUMMARY | 2022-01-08 16:09 | XMS_ITS | Encounter Summary ---
:1975 Author Organization [facility] [place] [address] Care Team Providers Name Role Phone Jeremy Schmitz ND Primary Care Provider Encounter Details Date Type Department Care Team Description 01/27/2015 Telephone Obstetrics and Gynecology Ruth Young MD at [facility] Shannon brown OBSTETRICS & [place] [address] DEPT [phone] [place], [place] [address] (Wo rk) Social History Tobacco Use Types Packs/Day Years Used Date Smoking Tobacco: Never Smokeless Tobacco: Never Alcohol Use Standard Drinks/Week Comments No 0 (1 standard drink = 0.6 oz pure alcoho l) Sex Assigned at Date Recorded Not on file documented as of this encounter Miscellaneous Notes Telephone Encounter - Ruth Young MD - 01/27/2015 3:43 PM EST Called Anya to check in on her symptoms. She is s/p normal pelvic US 01/06/15. She reports that her pelvic cramping has subsided. She continues to have heavy menstrual bleeding but it is tolerable to her at this time. She is waiting to check in on her bloating with her PCP. She is doing well overall and will call for an appointment with me if she has any continued or new concerns going forward. documented in this encounter Plan of Treatment Not on filedocumented as of this encounter Visit Diagnoses Not on filedocumented in this encounter Care Teams Youth Liaison Officer Relationship Specialty Start Date End Date Jeremy Schmitz ND PCP - General Naturopathic Medicine 11/13/14 02/20/15 [address] [place] [address] documented as of this encounter
--- OUTSIDE RECORDS SUMMARY | 2022-01-08 16:09 | XMS_ITS | Encounter Summary ---
:1975 Author Organization [facility] [place] [address] Care Team Providers Name Role Phone Jeremy Schmitz ND Primary Care Provider Reason for Referral Consultation (Routine) - Closed Specialty Diagnoses / Procedures Referred By Contact Refer red To Contact Radiology Diagnoses Dyspepsia Nuris Charlton, CHETAN Radiology Procedures NM functional biliary scan [facility] [place] [address] [place] [address] Referral ID Status Reason Start Date Expiration Date Visits V isits Requested Authorized [id number] Closed Specialty 11/18/2014 11/18/2015 1 1 Service Requested Encounter Details Date Type Department Care Team Description 11/18/2014 Orders Only Gastroenterology at [facility] O'Umu Tracia, Dyspepsia [facility] [place] [address] [facility] [phone] GASTROENTEROLOGY DEPT. [place], [place] [address] (Wo rk) Social History Tobacco Use Types Packs/Day Years Used Date Smoking Tobacco: Never Smokeless Tobacco: Never Sex Assigned at Date Recorded Not on file documented as of this encounter Plan of Treatment Not on filedocumented as of this encounter Results NM functional biliary scan [...] the abdomen was obt ained in the KAZAKH projection 60 minutes later. The patient then received continu ous infusion of IV sincalide in a dose of 0.02 mcg/kg during which time additio nal KAZAKH projection images were obtained at 1 minute [...] the abdomen was obt ained in the KAZAKH projection 60 minutes later. The patient then received continu ous infusion of IV sincalide in a dose of 0.02 mcg/kg during which time additio nal KAZAKH projection images were obtained at 1 minute [...] at 11/26/2014 11:58 AM Pedro Magdaleno MD [facility] ORDERABLES documented in this encounter Visit Diagnoses Diagnosis Dyspepsia Dyspepsia and other specified disorders of function of stomach Dyspepsia Dyspepsia and other specified disorders of function of stomach documented in this encounter Care Teams Business Continuity Global Director Relationship Specialty Start Date End Date Jeremy Schmitz ND PCP - General Naturopathic Medicine 11/13/14 02/20/[address] [place] [address] documented as of this encounter
--- OUTSIDE RECORDS SUMMARY | 2022-01-08 16:09 | XMS_ITS | Encounter Summary ---
:1975 Author Organization [facility] [place] [address] Care Team Providers Name Role Phone Jeremy Schmitz ND Primary Care Provider Reason for Visit Auth/Cert - Closed Specialty Diagnoses / Procedures Referred By Contact Refer red To Contact Procedures PRO COLONOSCOPY, DIAGNOSTIC Referral ID Status Reason Start Date Expiration Date Visits Requ ested Visits Authorized [id number] Closed 1 1 Encounter Details Date Type Department Care Team Description 11/19/2014 Surgery [place]ology at [facility] Adiel Penny EGD WITH BIOPSY [facility] Shannon Mendez MD (WRVU 2.49) [place] [address] [facility] [phone] GASTROENTEROLOGY [place], [place] [address] (Wo rk) Social History Tobacco Use Types Packs/Day Years Used Date Smoking Tobacco: Never Smokeless Tobacco: Never Alcohol Use Standard Drinks/Week Comments No 0 (1 standard drink = 0.6 oz pure alcoho l) Sex Assigned at Date Recorded Not on file documented as of this encounter Last Filed Vital Signs Vital Sign Reading Time Taken Comments Blood Pressure 104/66 11/19/2014 9:33 AM EDT Pulse 76 11/19/2014 9:33 AM EDT Temperature 36.6 ??C (97.9 ??F) 11/19/2014 9:33 AM EDT Respiratory Rate 16 11/19/2014 9:33 AM EDT Oxygen Saturation 100% 11/19/2014 9:33 AM EDT Inhaled Oxygen Concentration - - Weight - - Height - - Body Mass Index - - documented in this encounter Discharge Instructions Discharge InstructionsMarta Howard RN - 11/19/2014 11:52 AM EDT UPPER GI ENDOSCOPY WHAT TO EXPECT AFTER THE PROCEDURE After the test you may feel a little more gassy or bloated than usual, this is normal. ACTIVITY Because of the sedation that you received Your judgement and reaction time are affected ?? Go home and rest quietly for the remainder of the day. You may resume your normal activities tomorrow. ?? Change from one position to the next slowly. You may lose your balance unexpectedly Be careful on stairs, as you may be unsteady on your feet. FOR THE NEXT 24 HRS ?? DO NOT DRIVE OR OPERATE ANY MACHINERY ?? DO NOT DRINK ALCOHOLIC BEVERAGES ?? DO NOT SIGN LEGAL DOCUMENTS ?? If you are a smoker: DO NOT SMOKE WHILE YOU ARE ALONE Diet ?? Start by eating small portions of foods that ordinarily will not upset your stomach. Be gentle with what you choose to start with. ?? Drink plenty of fluids ( unless otherwise told not to) Medications You may have a mild sore throat. Ice chips, popsicles, over the counter throat lozenges or spray may help numb your throat. This procedure should not cause a fever. IV SITE-- slight redness or tenderness is normal, you can use warm compresses if you get concerned.If the tenderness +/or redness increases or foul drainage and a red streak occurs, please contact your PCP immediately. WHEN SHOULD YOU CALL FOR HELP? Call 911 anytime you think that you need emergency care. For example, call if: You passed out (lost consciousness). You cough up blood. You vomit blood or what looks like coffee grounds. You pass maroon or very bloody stools. Call your healthcare provider or seek immediate medical attention if: You have trouble swallowing. You have belly pain. Your stools are black or tarlike or have streaks of blood. You are sick to your stomach or cannot keep fluids down. Watch closely for changes in your health, and be sure to contact your doctor IF Your throat still hurts after a day or two You do not get better as expected. Tuesday-Tuesday Same Day Endo [phone] 7a-8p Otherwise contact [phone] and ask to speak to the seed laboratory assistant commercial front load driver Follow-up care is a lee part of your treatment and safety. Be sure to make and go to all appointments, and call your doctor if you are having problems. Instructions have been reviewed and patient expresses understanding documented in this encounter Medications at Time of Discharge Medication Sig Dispensed Refills Start Date End Date acetaminophen-codeine Take 1-2 tablets by 20 tablet 0 11/1311/22/2014 (TYLENOL-CODEINE #3) mouth every 4 hours 300-30 mg Tablet as needed for Pain. No driving, no alcohol, no extra tylenol documented as of this encounter H&P Notes Adiel Penny MD - 11/19/2014 11:11 AM EDT Patient Name: Anya Ferrari Patient Age: 38 y.o. Birthdate: 1975 Admit date: 11/19/2014 Attending Physician: Adiel Penny MD Gastroenterology & Hepatology Pre-Procedure History and Physical Planned Procedure: EGD: Indication: abdominal pain and bloating after eating, assess for celiac disease Patient Active Problem List Diagnosis Code ??? Dyspepsia R10.13 Medications: Reviewed in EDH Allergies Allergen Reactions ??? Bentyl [Dicyclomine] Hives ??? Penicillins Hives Social History/Family History: Reviewed in EDH. No changes Exam: Filed Vitals: 11/19/14 0933 BP: 104/66 Pulse: 76 Temp: 36.6 ??C (97.9 ??F) Resp: 16 GEN: NAD, AAOX3 HEENT: NC/AT dryMM, anicteric Chest: CTAB Heart: RRR, nl s1, s2 Abdomen: normal bowel sounds, soft, non tender Assessment and Plan: Proceed with EGD: ASA Grade: ASA 1 - Normal health patient Mallampati: I (soft palate, uvula, fauces, tonsillar pillars visible) Sedation plan: Moderate Conscious sedation Risks and benefits of the procedure were discussed with the patient. Consent has been signed. documented in this encounter Plan of Treatment Not on filedocumented as of this encounter Procedures Procedure Name Priority Date/Time Associated Diagnosis Comme nts SURGICAL PATHOLOGY Routine 11/19/2014 11:45 AM Re sults for this REPORT EDT procedure are i n the results section. SPECIMEN TO Routine 11/19/2014 11:45 AM Results for this PATHOLOGY EDT procedure are i n the results section. SPECIMEN TO Routine 11/19/2014 11:45 AM Results for this PATHOLOGY EDT procedure are i n the results section. EGD WITH BIOPSY 11/19/2014 11:15 AM ongoing upper abd (WRVU 2.49) EDT pain UPPER GI ENDOSCOPY Routine 11/19/2014 11:14 AM Re sults for this EDT procedure are i n the results section. documented in this encounter Results Surgical Pathology Report (11/19/2014 11:45 AM EDT) [facility] Method Time Signature Surgical The signing pathologist has (i) examined the relevant preparation(s) for the [facility] Pathology specimen(s) and (ii) rendered or confirmed the diagnosis(e s). [facility] Report Accession Number: [id number] ?Location: . ?Surgic al Pathology DIAGNOSIS A - Duodenum, biopsy: Duodenal mucosa within ahrman l limits, including preserved villous architecture. B - Gastric body/fundus, polypectomy: Gastric fundic gland polyps. CR-0 11/20/14 [facility] 11/20/14 Verified by: ? Anthony HERNANDEZ, Isaiah Moscoso ?Pathologist ?(Electronic Signature ) The attending pathologist whose signature appears on this re port has reviewed all diagnostic slides and has edited the gross and/ or microscopic portion of the report in brendon dering the final pathologic diagnosis. CLINICAL INFORMATION Specimen Submitted: A - Duodenum, groslly normal for possible celiac B - Two small gastric body/fundus polyps Clinical History: Abdominal pain and prandial bloating Clinical Diagnosis: Same SPECIMEN PROCESSING A - Labeled/Fixative: Duodenum, grossly normal f or possible celiac, formalin. Quantity/Size: Seven, ranging from 0.2-0.6 cm. Tissue Description: Soft, champion tissues. Sections/Processing: (T2) B - Labeled/Fixative: Two small gastric body/fundus polyps, formalin. Quantity/Size: Two, ranging from 0.3 -0.4 cm. Tissue Description: Soft, champion tissues. Sections/Processing: (T1) ??aml Specimen (Source) Anatomical Collection Method Collection Time Re ceived Time Location / / Volume Laterality 11/19/2014 11:45 AM EDT Adiel Penny MD PATHOLOGY/CYTOLOGY ORDERABLE S Performing Organization Address [facility] [place] [address] [facility] Specimen to Pathology (surgical or derm) (11/19/2014 11:45 AM EDT) Specimen Anatomical Collection Method Collection Time Receive d Time (Source) Location / / Volume Laterality AP Specimen 11/19/2014 11:45 11/19/2014 AM EDT 11:45 AM EDT Narrative CERNER MILLENNIUM - 11/19/2014 11:45 AM EDT Specimen requisition ordered. ??Separate Pathology report to follow Adiel Penny MD PATHOLOGY/CYTOLOGY ORDERABLE S Performing Organization Address [facility] [place] [address] CERNER MILLENNIUM Specimen to Pathology (surgical or derm) (11/19/2014 11:45 AM EDT) Specimen Anatomical Collection Method Collection Time Receive d Time (Source) Location / / Volume Laterality AP Specimen 11/19/2014 11:45 11/19/2014 AM EDT 11:45 AM EDT Narrative CERNER MILLENNIUM - 11/19/2014 11:45 AM EDT Specimen requisition ordered. ??Separate Pathology report to follow Adiel Penny MD PATHOLOGY/CYTOLOGY ORDERABLE S Performing Organization Address City/[facility] [place] [address] CERNER MILLENNIUM UPPER GI ENDOSCOPY (11/19/2014 11:14 AM EDT) Component Value Ref Test Analysis Performed At [facility] Range Method Time Signature UPPER GI [facility] END[facility] Endoscopy Patient Name: Anya Ferrari ? Procedure Date: 11/19/2014 11:14 AM ? Date of : 1975 ? Age: 38 ? Order #: [id number] ? Procedure: ? Upper GI endoscopy Indications: ? Generalized abdominal pain, Abdomin al ? bloating Providers: ? Adiel Penny, Brianne Simpson, ? RN, Yoko Jacome RN, Giacomo Montgomery ? Eligio, Barn And Property Manager, Venkata ambrosio, ? Barn And Property Manager Referring MD: ?Jeremy Schmitz Requesting Provider: Nuris Charlton MD Medicines: ? Midazolam 4 mg IV, Fentanyl 150 ? micrograms IV, Diphenhydramin e 50 mg ? IV Complications: ? No immediate complications. Procedure: ? Pre-Anesthesia Assessment: ? - Prior to the procedure, a H istory ? and Physical was performed, a nd ? patient medications and aller gies ? were reviewed. The patient is ? competent. The risks and bene fits of ? the procedure and the sedatio n ? options and risks were discus sed with ? the patient. All questions we re ? answered and informed consent was ? obtained. Patient identificat ion and ? proposed procedure were verif ied by ? the physician, the nurse and the ? digital cartographic technician in the pre-procedu re area ? in the procedure room. Mental Status ? Examination: alert and orient ed. ? Airway Examination: normal ? oropharyngeal airway and neck ? mobility. Respiratory Examina tion: ? clear to auscultation. CV ? Examination: normal. Prophyla ctic ? Antibiotics: The patient does not ? require prophylactic antibiot ics. ? Prior Anticoagulants: The pat ient has ? taken no previous anticoagula nt or ? antiplatelet agents. ASA Grad e ? Assessment: I - A normal, hea lthy ? patient. After reviewing the risks ? and benefits, the patient was deemed ? in satisfactory condition to undergo ? the procedure. The anesthesia plan ? was to use moderate sedation / ? analgesia (conscious sedation ). ? Immediately prior to administ ration ? of medications, the patient w as ? re-assessed for adequacy to r eceive ? sedatives. The heart rate, ? respiratory rate, oxygen satu rations, ? blood pressure, adequacy of p ulmonary ? ventilation, and response to care ? were monitored throughout the ? procedure. The physical statu s of the ? patient was re-assessed after the ? procedure. ? The procedure, indications, b enefits, ? risks and alternatives were e xplained ? to the patient. Specifically ? discussed were potential ? complications including, but not ? limited to, bleeding, perfora tion, ? infection, missing a cancer, and ? adverse medication reactions. The ? Endoscope was introduced thro [facility] the ? mouth, and advanced to the [facility] part ? of duodenum. The patient tole rated ? the procedure well. The upper GI ? endoscopy was accomplished wi [facility] ? difficulty. The patient matilda ated the ? procedure well. ? Findings: ? Mild LA Grade A (one or more mucosal breaks less than ? 5 mm, not extending between tops of 2 mucosal folds) ? esophagitis with no bleeding was found 39 cm from the ? incisors. ? The Z-line was otherwise regular and was found 39 cm ? from the incisors. ? Three benign appearing sessile polyps (4 to 6 mm ? each) with no bleeding and no stigmata of recent ? bleeding were found in the gastric fundus and in the ? gastric body. Two of these polyps were removed with a ? cold biopsy forceps. Resection and retrieval were ? complete. Verification of patient identification for ? the specimen was done by the physician and digital cartographic technician ? using the patient's name, date and medical ? record number. ? The exam of the stomach was otherwise normal. ? Patchy mildly erythematous mucosa without active ? bleeding and with no stigmata of bleeding was found ? in the duodenal bulb. ? The exam of the duodenum was otherwise normal. ? Biopsies for histology were taken with a cold forceps ? in the duodenal bulb, in the first part of the ? duodenum, in the 2nd part of the duodenum and in the ? 3rd part of the duodenum for evaluation of celiac ? disease. Verification of patient identification for ? the specimen was done by the physician and digital cartographic technician ? using the patient's name, date and medical ? record number. Estimated blood loss was minimal. ? Impression: ?- Mild LA Grade A reflux esophagit is. ? - Z-line regular, 39 cm from the ? incisors. ? - Multiple gastric polyps. Re sected ? and retrieved. ? - Erythematous duodenopathy. ? - Biopsies were taken with a cold ? forceps for evaluation of estefanía iac ? disease. Recommendation: ?- Await pathology results. ? - Return to GI clinic. ? - Given constipation confirme d on ? X-ray, use fiber, for example ? Citrucel, Fibercon, Konsyl or ? Metamucil or Miralax daily wi th ? plenty of water and regular e xercise. ? Attending Participation: ? I personally performed the entire procedure. ? Adiel Penny, 11/19/2014 11:52 AM Number of Addenda: 0 Note Initiated On: 11/19/2014 11:14 AM Specimen (Source) Anatomical Collection Method Collection Time Re ceived Time Location / / Volume Laterality 11/19/2014 11:14 AM EDT Jeremy Schmitz ND GENERAL SURGICAL ORDERABLES Performing Organization Address City/State/ZIP Code Phon e Number [employer] documented in this encounter Visit Diagnoses Not on filedocumented in this encounter Administered Medications Inactive Administered Medications - up to 3 most recent administrations Medication Order MAR Action Action Date Dose Rate Site diphenhydrAMINE (BENADRYL) Given 11/19/2014 11:23 AM 25 mg Right Arm injection EDT ONCE PRN, Starting on Tue11/19/14 at 1120, Until Tue11/19/14 at 1451, Intra-Operative (Intra-Procedure), Routine Given 11/19/2014 11:20 AM EDT 25 mg Righ t Arm fentaNYL 50 mcg/mL multi-dose Given 11/19/2014 11:27 AM EDT 50 m cg Right Arm injection ONCE PRN, Starting on Tue11/19/14 at 1120, Until Tue11/19/14 at 1451, Intra-Operative (Intra-Procedure), Routine Given 11/19/2014 11:23 AM EDT 50 mcg Righ t Arm Given 11/19/2014 11:20 AM EDT 50 mcg Righ t Arm lactated ringers infusion New Bag 11/19/2014 9:44 AM EDT 100 mL/hr 100 mL/hr 100 mL/hr, Intravenous, CONTINUOUS, Starting on Tue11/19/14 at 1000, Until Tue11/19/14 at 1451, Endoscopy (Day of Procedure) midazolam (PF) (VERSED) 1 mg/mL Given 11/19/2014 11:34 AM EDT 0. 5 mg Right Arm multi-dose injection ONCE PRN, Starting on Tue11/19/14 at 1120, Until Tue11/19/14 at 1451, Intra-Operative (Intra-Procedure), Routine Given 11/19/2014 11:30 AM EDT 0.5 mg Righ t Arm Given 11/19/2014 11:27 AM EDT 1 mg documented in this encounter Active and Recently Administered Medications Times are shown in EDT. Continuous Medication Order 11/17/2014 11/18/2014 11/19/2014 lactated ringers infusion (CANCELED) 0944 (New Bag - Provider: Anders Crowe RN) 100 mL/hr, at 100 mL/hr, Intravenous, CO NTINUOUS, Starting Tue11/19/14 at 1000, Until Tue11/19/14 at 1451, Endo (Day of Procedure) PRN Medication Order 11/17/2014 11/18/2014 11/19/2014 diphenhydrAMINE (BENADRYL) injection (CANCELED) 1120 (Given - Provider: Brianne Simpson RN - Comment: starting sedation)1123 (Given - Provider: Brianne Simpson RN - Comment: starting sedation) ONCE PRN, Starting e 11/19/14 at 1120, Until Tue11/19/14 at 1451, Intra- Operative (Intra-Procedure), Routine fentaNYL 50 mcg/mL multi-dose injection (CANCELED) 1120 (Given - Provider: Brianne Simpson RN - Comment: starting sedation)1123 (Given - Provider: Brianne Simpson RN - Comment: continuing sedation)1127 (Given - Provider: Brianne Simpson RN - Comment: continuing sedation) ONCE PRN, Starting e 11/19/14 at 1120, Until Tue11/19/14 at 1451, Intra- Operative (Intra-Procedure), Routine midazolam (PF) (VERSED) 1 mg/mL multi-dose injection (CANCELED) 1120 (Given - Provider: Brianne Simpson RN - Comment: starting sedation)1123 (Given - Provider: Brianne Simpson RN - Comment: continuing sedation)1127 (Given - Provider: Brianne Simpson RN - Comment: continuing sedation) ONCE PRN, Starting e 11/19/14 at 1120, Until Tue11/19/14 at 1451, Intra- Operative (Intra-Procedure), Routine 113 0 (Given - Provider: Brianne Simpson RN - Comment: continuing sedation)1134 (Given - Provider: Brianne Simpson RN - Comment: pt waking) documented in this encounter Care Teams Flour Blender Relationship Specialty Start Date End Date Jeremy Schmitz ND PCP - General Naturopathic Medicine 11/13/14 02/20/15 [address] [place] [address] documented as of this encounter
--- OUTSIDE RECORDS SUMMARY | 2022-01-08 16:09 | XMS_ITS | Encounter Summary ---
:1975 Author Organization [facility] [place] [address] Care Team Providers Name Role Phone Selena Gentile APRN Primary Care Provider [phone] Encounter Details Date Type Department Care Team Description 07/09/2018 Orders Only Rhe[place]ology at [facility]cia Wu [facility] [place] [address] [facility] [phone] RHEUMATOLOGY DEP [place], [place] [address] (Wo rk) Social History Tobacco [...] on filedocumented in this encounter Care Teams Wound/Ostomy Nurse Relationship Specialty Start Date End Date Selena Gentile APRN PCP - General Family Medicine 05/25/17 11/10/20 [address] [place] [address] documented as of this encounter
--- OUTSIDE RECORDS SUMMARY | 2022-01-08 16:09 | XMS_ITS | Encounter Summary ---
:1975 Author Organization [facility] [place] [address] Care Team Providers Name Role Phone Unavailable Primary Care Provider Unavailable Encounter Details Date Type Department Care Team Description 05/13/2016 Hospital Encounter Radiology Library at [facility] M, GAS WELL PUMPER [facility] [address] [place] [address] [place] [address] [phone] Social History Tobacco Use Types Packs/Day Years Used Date Smoking Tobacco: Never Smokeless Tobacco: Never Alcohol Use Standard Drinks/Week Comments No 0 (1 standard drink = 0.6 oz pure alcoho l) Sex Assigned at Date Recorded Not on file documented as of this encounter Medications at Time of Discharge Medication Sig Dispensed Refills Start Date End Date gabapentin (NEURONTIN) 300 Take 1 capsule by 90 capsule 12 05/25/2017 mg Capsule mouth 3 times daily. DULoxetine (CYMBALTA) 60 Take 1 capsule by 30 tablet 3 03/1105/25/2017 mg Capsule, Delayed mouth daily. Release(E.C.) omeprazole (PRILOSEC) 20 Take 20 mg by 0 01/29/20 15 05/25/2017 mg Capsule, Delayed mouth daily. Release(E.C.) celecoxib (CELEBREX) 200 Take 200 mg by 0 016 05/25/2017 mg Capsule mouth as needed. cyclobenzaprine (FLEXERIL) Take 5 mg by mouth 0 0 02/11/2015 05/25/2017 5 mg Tablet nightly as needed. cholecalciferol, Vitamin Take 1,000 Units 0 05/25/2017 D3, 1,000 unit Capsule by mouth daily. documented as of this encounter Plan of Treatment Not on filedocumented as of this encounter Procedures Procedure Name Priority Date/Time Associated Diagnosis Comme nts FILM LIBRARY Routine 05/13/2016 12:00 AM Results for this STORAGE ONLY DX EDT procedure ar e in SPINE the results section. documented in this encounter Results Film Library- Storage Only DX Spine (05/13/2016 12:00 AM EDT) Specimen (Source) Anatomical Location Collection Method / Collectio n Time Received Time / Laterality Volume Narrative RAD - 06/01/2017 2:24 PM EDT This exam is for storage only and is aut o-finalizing. Selena Gentile APRN IMG FILM LIBRARY ORDERABLES Performing Organization Address City/State/ZIP Code Phon e Number [facility] [place], [place] documented in this encounter Visit Diagnoses Not on filedocumented in this encounter
--- OUTSIDE RECORDS SUMMARY | 2022-01-08 16:09 | XMS_ITS | Encounter Summary ---
:1975 Author Organization [facility] [place] [address] Care Team Providers Name Role Phone Unavailable Primary Care Provider Unavailable Reason for Visit Reason Onset Date Comments Other 03/11/2015 prescription Encounter Details Date Type Department Care Team Description 03/11/2015 Telephone Rheumatology at [facility] Hannah Fuentes Other (prescription) [facility] [place] [address] Social History Tobacco Use Types Packs/Day Years Used Date Smoking Tobacco: Never Smokeless Tobacco: Never Alcohol Use Standard Drinks/Week Comments No 0 (1 standard drink = 0.6 oz pure alcoho l) Sex Assigned at Date Recorded Not on file documented as of this encounter Miscellaneous Notes Telephone Encounter - Hannah Fuentes RN - 03/13/2015 12:11 PM EST Anya called and left message that she tried the trazodone for two nights and it is not helping. She says she is actually worse, waking up every 2 hours, pain worse, nauseous and dizzy. She is not sure if she should continue the medication or try something different. Telephone Encounter - Hannah Fuentes RN - 03/11/2015 11:33 AM EST Anya called and left message yesterday afternoon asking when her prescription would be sent in. She saw Dr. Parsons and Dr. Antoine yesterday and she was told they were prescribing a medication. Called [facility] and left message that Dr. Antoine ordered trazodone yesterday evening and it was sent to [facility] in [place], [place]. Asked her to call back if she has additional questions. documented in this encounter Plan of Treatment Not on filedocumented as of this encounter Visit Diagnoses Not on filedocumented in this encounter
--- OUTSIDE RECORDS SUMMARY | 2022-01-08 16:09 | XMS_ITS | Encounter Summary ---
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 [address] [place] [address] [place] [address] [phone] Social History Tobacco Use Types Packs/Day Years [...] Associated Diagnosis Comme nts FILM LIBRARY Routine 05/13/2017 12:00 AM Results for this STORAGE ONLY DX EDT procedure ar e in SPINE the results section. documented in this encounter Results Film Library- Storage Only DX Spine (05/13/2017 12:00 AM EDT) Specimen (Source) Anatomical Location Collection Method / Collectio n Time Received Time / Laterality Volume Narrative RAD - 06/01/2017 2:23 PM EDT This exam is for storage only and is aut o-finalizing. Selena Gentile APRN IMG FILM LIBRARY ORDERABLES Performing Organization Address City/State/ZIP Code Phon e Number [facility] [place], [place] documented in this encounter Visit Diagnoses Not on filedocumented in this encounter
--- OUTSIDE RECORDS SUMMARY | 2022-01-08 16:09 | XMS_ITS | Encounter Summary ---
:1975 Author Organization [facility] [place] [address] Care Team Providers Name Role Phone Jeremy Schmitz ND Primary Care Provider Encounter Details Date Type Department Care Team Description 01/06/2015 Hospital Encounter Radiology at [facility] Pedro Magdaleno, Abnormal uterine [facility] MD bleeding [facility] [id number] GASTROENTEROLOGY [phone] [place] [address] Social History Tobacco Use Types Packs/Day Years [...] Procedure Name Priority Date/Time Associated Comments Diagnosis US TRANSVAGINAL NON Routine 01/06/2015 3:58 PM Abnormal uterin e Results for this OB EST bleeding procedure are i n the results section. documented in this encounter Results US Transvaginal Non OB (01/06/2015 3:58 PM EST) Anatomical Region Laterality Modality Ultrasound Specimen (Source) Anatomical Collection Method Collection Time Re ceived Time Location / / Volume Laterality 01/06/2015 3:55 PM EST Impressions 01/06/2015 4:09 PM EST Impression ??Ultrasound - Transvaginal - Summary The uterus is ??anteverted and appears normal and the adnexa are normal. On 3-D rendering of the uterine cavity if appears normal. The endometrial echo measures 6.59 mm. This study was performed transvaginally . I ??viewed the images and agree with kris ventura above interpretation. ? Lolly Moran MD Electronically Signed Final Report ?? 04:09 pm Narrative 01/06/2015 4:09 PM EST Gynecological Report ? (Signed Final 01/06/2015 04:09 pm) Patient Info ID #: ? [id number] ?: ??[birth year] (39 yrs) Name: ? ANYA CARRILLO ? Visit Date: 01/06/2015 03:55 pm Performed By Performed By: ? Fe OCHOA, ??Leila hurtado Attending: ?Nancy Moran MD, Lolly Associate: ?Tan HERNANDEZ, Charlene Negrete Referred By: ?JEAN-CLAUDE TOLBERT MD Service(s) Provided ??UTV - Ultrasound - Transvaginal - IMG [id number] ? [id number] Indications ??39yo P5 with heavy menses and constan t ??menstrual-like cramps. Eval for fibro ids, ??SHG if indicated, EMB if indicated.; History ??of: Abnormal bleeding, Tubes tied Comparison No prior studies for comparison. ------- History ------- Age: ?? 39 ------ Uterus ------ Uterus: ? Visualized Position: ?? Anteverted Size (cm) ?L: ??7.91 ?W: ?? 4.87 ? H: ??4.83 Endometrium Endometrium: ?Normal appea radha Thickness(mm): ?6.59 [place] No fluid is visualized. Right Ovary Status: ?? Visualized Size (cm) ?L: ??3.1 ? W: ?? 2.67 ? H: ??1.9 Vol (ml): ?8.2 Morphology: ?Normal appearance Left Ovary Status: ?? Visualized Size (cm) ?L: ??2.67 ?W: ?? 1.36 ? H: ??1.37 Vol (ml): ?2.6 Morphology: ?Normal appearance Procedure Note Lolly Alex MD - 015 Gynecological Report (Signed Final 12/10 04:09 pm) Patient Info ID #: [id number] : [birth year] (39 y rs) Name: ANYA CARRILLO Visit Date: 01/07/20 03:55 pm Performed By Performed By: Kiersten Miramontes RDMS Attending: Lolly Alex MD Associate: Christine Maddox MD Referred By: JEAN-CLAUDE TOLBERT MD Service(s) Provided UTV - Ultrasound - Transvaginal - [id number] Indications 39yo P5 with heavy menses and constant menstrual-like cramps. Eval for fibroid s, SHG if indicated, EMB if indicated.; Hi story of: Abnormal bleeding, Tubes tied Comparison No prior studies for comparison. ------- History ------- Age: 39 ------ Uterus ------ Uterus: Visualized Position: Anteverted Size (cm) L: 7.91 W: 4.87 H: 4.83 Endometrium Endometrium: Normal appearance Thickness(mm): 6.59 [place] No fluid is visualized. Right Ovary Status: Visualized Size (cm) L: 3.1 W: 2.67 H: 1.9 Vol (ml): 8.2 Morphology: Normal appearance Left Ovary Status: Visualized Size (cm) L: 2.67 W: 1.36 H: 1.37 Vol (ml): 2.6 Morphology: Normal appearance IMPRESSION Impression Ultrasound - Transvaginal - Summary The uterus is anteverted and appears no rmal and the adnexa are normal. On 3-D rendering of the uterine cavity if appears normal. The endometrial echo measures 6.59 mm. This study was performed transvaginally . I viewed the images and agree with the above interpretation. Lolly Moran MD Electronically Signed Final Report 01/06 04:09 pm Pedro Magdaleno MD IMG US PELVIC ORDERABLES documented in this encounter Visit Diagnoses Diagnosis Abnormal uterine bleeding Unspecified disorder of menstruation and other abnormal bleeding from female genital tract documented in this encounter Care Teams Cryptographic Clerk Relationship Specialty Start Date End Date Jeremy Schmitz ND PCP - General Naturopathic Medicine 11/13/14 02/20/15 [address] [place] [address] documented as of this encounter
--- OUTSIDE RECORDS SUMMARY | 2022-01-08 16:09 | XMS_ITS | Encounter Summary ---
:1975 Author Organization [facility] Address [address] [place] [address] Care Team Providers Name Role Phone Jeremy Schmitz INÉS Primary Care Provider Reason for Visit Reason Comments Abdominal Pain Encounter Details Date Type Department Care Team Description 11/22/2014 Emergency Emergency Department Maxi Erazo Ab dominal pain, unspecified abdominal location; Darling Hurley [facility] Abdominal pain, right upper quadrant; [address] Abdominal pain, epigastric [place], [place] [address] [phone] [place] [address] (Work) [phone] Social History Tobacco Use Types Packs/Day Years Used Date Smoking Tobacco: Never Smokeless Tobacco: Never Alcohol Use Standard Drinks/Week Comments No 0 (1 standard drink = 0.6 oz pure alcoho l) Sex Assigned at Date Recorded Not on file documented as of this encounter Last Filed Vital Signs Vital Sign Reading Time Taken Comments Blood Pressure 106/66 11/22/2014 7:02 PM EDT Pulse 76 11/22/2014 7:02 PM EDT Temperature 36.8 ??C (98.2 ??F) 11/22/2014 2:00 PM EDT Respiratory Rate 20 11/22/2014 7:02 PM EDT Oxygen Saturation 99% 11/22/2014 7:02 PM EDT Inhaled Oxygen Concentration - - Weight 78.9 kg (174 lb) 11/22/2014 2:00 PM EDT Height - - Body Mass Index 29.87 11/18/2014 10:00 AM EDT documented in this encounter Discharge Instructions Discharge InstructionsSarai Vela - 11/22/2014 6:58 PM EDT Please return to the emergency department for any concerning symptoms such as worsening or changing abdominal pain, fevers or chills, or inability to tolerate food or drink by mouth. You should keep your follow up appointment for HIDA scan scheduled next week for 11/26. Additionally, you should follow up with the gastroenterology service. Take prescribed medication for pain as needed. Do not drive or drink alcohol while taking this medication. AttachmentsThe following attachments cannot be sent through Care Everywhere. GALLSTONES (TAJIK)documented in this encounter Medications at Time of Discharge Medication Sig Dispensed Refills Start Date End Date acetaminophen-codeine Take 1-2 tablets by 20 tablet 0 11/2203/10/2015 (TYLENOL-CODEINE #3) mouth every 4 hours 300-30 mg Tablet as needed for Pain. No driving, no alcohol, no extra tylenol documented as of this encounter ED Notes Maxi Erazo MD - 11/22/2014 5:19 PM EDT Anya Ferrari is an 38 y.o. female who presents to the ED with: Chief Complaint Patient presents with ??? Abdominal Pain I saw this patient 11/22/2014. HPI Anya Ferrari is a 38 y.o. female who presents to the Emergency Department with complaint of worsening RUQ abdominal pain and epigastric pain. She has been worked up for this pain both in this ED and inoutpatient GI clinic over the past two weeks with RUQ ultrasound and EGD, which were revealing of gallstone and several gastric polyps. Patient states that she is also schedule for HIDA scan next week.She has been prescribed tylenol with codeine for pain control at home, which she has not been taking. Nor has she been take OTC pain medications. She has been eating and drinking without difficulty. Today she states that the pain has worsened, is 8/10, and when at it's worst she has the sensation of di fficulty breathing. She also endorses a period of brief chest pain/aching while driving over associated with the pain. No fevers, no chills, no dysuria. No change in bowel movements. She does report feeling intermittently bloated. No current nausea, no episodes of emesis. Review of Systems: Review of Systems Constitutional: Negative for fever and chills. HENT: Negative for congestion and rhinorrhea. Respiratory: Positive for shortness of breath. Negative for cough. Cardiovascular: Positive for chest pain. Negative for palpitations and leg swelling. Gastrointestinal: Positive for nausea and abdominal pain. Negative for vomiting and diarrhea. Genitourinary: Negative for dysuria and frequency. Musculoskeletal: Negative for back pain and neck pain. Skin: Negative for pallor and rash. Neurological: Negative for dizziness and headaches. Hematological: Negative for adenopathy. Does not bruise/bleed easily. Psychiatric/Behavioral: Negative for confusion and agitation. Patient Vitals for the past 24 hrs: BP Temp Temp src Pulse Resp SpO2 Weight 11/22/14 1515 112/65 mmHg - - 75 17 100 % - 11/22/14 1400 117/73 mmHg 36.8 ??C (98.2 ??F) Oral 81 16 100 % 78.926 kg (174 lb) Physical Exam: Physical Exam Constitutional: She is oriented to person, place, and time. She appears well- developed and well-nourished. No distress. HENT: Head: Normocephalic and atraumatic. Mouth/Throat: Oropharynx is clear and moist. Eyes: EOM are normal. Pupils are equal, round, and reactive to light. Neck: Normal range of motion. Neck supple. Cardiovascular: Normal rate, regular rhythm, normal heart sounds and intact distal pulses. Pulmonary/Chest: Effort normal and breath sounds normal. No respiratory distress. Abdominal: Soft. Bowel sounds are normal. There is tenderness in the right upper quadrant and epigastric area. There is no rigidity, no rebound, no guarding, no tenderness at McBurney's point and negative Gama's sign. Musculoskeletal: She exhibits no edema or tenderness. Neurological: She is alert and oriented to person, place, and time. Skin: Skin is warm and dry. Psychiatric: Her mood appears anxious. ED Course: - Patient was evaluated and discussed with Dr. Erazo - Medications, allergies and past medical history reviewed - I reviewed the patients records: briefly, multiple visits to ED and outpatient for this pain, see above - I reviewed the EKG: NSR, no stemi, no depressions, normal intervals - Medications and fluids administered: dilaudid IV, IV NS - I reviewed the patient's labwork: no leukocytosis, no anemia, BMP and LFTs completely wnl. - I reviewed the US images from 11/13: No cholecytitis, no CBD dilation, small stone vs polyp visualized Assessment and Plan: Assessment: 38 y.o. female with ongoing RUQ and epigastric abdominal pain, today associated with some SOB. Etiology of her pain seems likely to be biliary colic in the setting of a known gallstone vs. polyp as seen on ultrasound last week. Patient has recently seen in GI in evaluation of her symptoms,and has a HIDA scan scheduled for next week. And EGD was done which showed mild reflux esophagitis, and few gastric polyps. EKG today is unremarkable for evidence of ischemia or strain. Labs show no evidence of cholecystitis or other biliary pathology. No leukocytosis, no fever, no focal infectious symptoms. Pain is significantly improved in the ED with dose of dilaudid. Patient is encouraged to takeher recently prescribed pain control medications and follow up with GI as scheduled. She is hemodynamically stable, symptomatically improved, and ready for discharge to home. Return precautions were verbally discussed with the patient and written in discharge instructions, including fevers, shortness of breath, abdominal pain, nausea/vomiting, or other concerns. The patientexpressed understanding that she could come back to the ED at any time and agreed to the follow-up plan. Plan: - Rx for continued tylenol/codeine - Recommend PPI - Follow up with PCP and GI - Return precautions clearly discussed Sarai Vela MD Resident 11/23/14 1030 ED ATTENDING ATTESTATION NOTE The patient was seen in conjunction with Dr. Vela, the resident physician. I have independently performed the lee portions of the history and physical exam. I have reviewed the nursing notes, vitalsigns, and all diagnostic studies personally including labs, imaging studies and EKGs. I have discussed the details of the case with the resident and agree with the assessment and plan as described in the resident note above unless noted otherwise below. Brief Summary: Young otherwise healthy female with right upper quadrant pain. She has had negative labs and a negative ultrasound. She has a HIDA scan scheduled for the next couple of days. She was hoping she could get this today but this does not seem a reasonable possibility given that it is Tuesday a fternoon. Her pain was improved and her labs are again negative. She will follow up as scheduled andunderstands this plan and will return if worsening. Final Assessment: Right upper quadrant pain Maxi Erazo MD 11/29/14 1150 documented in this encounter Miscellaneous Notes ED Triage - Lauren Henry RN - 11/22/2014 1:56 PM EDT Pt presents with pain RUQ, mid abd and under both shoulders. Eval for this in the ED on 11/13 and Dx with gallstones. She had an endoscopy 11/19 wnl. She is scheduled for a HIDA scan on 11/26. Comes to the ED today because of worsened pain. A+O PWD She has had recurrent CP and SOB (sometimes associatedwith CP) x the last few days. Though no CP currently she had CP in route to [facility] lasting 30 seconds. documented in this encounter Plan of Treatment Not on filedocumented as of this encounter Procedures Procedure Name Priority Date/Time Associated Comments Diagnosis HEMOGRAM STAT 11/22/2014 3:48 PM Results f or this EDT procedure are i n the results section. DIFFERENTIAL, STAT 11/22/2014 3:48 PM Results for this AUTOMATED EDT procedure are i n the results section. GOLD TUBE HOLD STAT 11/22/2014 3:48 PM Results for this EDT procedure are i n the results section. BLUE TUBE HOLD STAT 11/22/2014 3:48 PM Results for this EDT procedure are i n the results section. CREATININE STAT 11/22/2014 3:48 PM Results f or this EDT procedure are i n the results section. CBC (WITH DIFF) STAT 11/22/2014 3:48 PM EDT BUN STAT 11/22/2014 3:48 PM Results f or this EDT procedure are i n the results section. LIPASE STAT 11/22/2014 3:48 PM Results f or this EDT procedure are i n the results section. GLUCOSE, RANDOM STAT 11/22/2014 3:48 PM Result s for this EDT procedure are i n the results section. HEPATIC FUNCTION STAT 11/22/2014 3:48 PM Resul ts for this PANEL EDT procedure are i n the results section. ELECTROLYTES PANEL STAT 11/22/2014 3:48 PM Res ults for this EDT procedure are i n the results section. EKG 12-LEAD STAT 11/22/2014 3:46 PM Results f or this EDT procedure are i n the results section. documented in this encounter Results Gold Tube HOLD (11/22/2014 3:48 PM EDT) athologist Signature Gold Hold Sample in [facility] Specimen Anatomical Collection Method Collection Time Receive d Time (Source) Location / / Volume Laterality Blood specimen Venous Draw / 11/22/2014 3:48 PM 2014 4:16 (specimen) Unknown EDT PM EDT Maxi Erazo MD CHEMISTRY ORDERABLES Performing Organization Address City/[facility] [place] [address] [facility] TheBlogTVDIGNITY [facility]IL[facility]ERTIUM Blue Tube HOLD (11/22/2014 3:48 PM EDT) athologist Signature Blue Hold Sample in [facility] Specimen Anatomical Collection Method Collection Time Receive d Time (Source) Location / / Volume Laterality Blood specimen Venous Draw / 11/22/2014 3:48 PM 2014 4:17 (specimen) Unknown EDT PM EDT Maxi Erazo MD HEMATOLOGY ORDERABLES Performing Organization Address City/[facility] [place] [address] [facility] M [employer]IUM Differential, Automated (11/22/2014 3:48 PM EDT) athologist Signature Neutrophils % 62.3 % CERNER MILLENNIUM Neutr Abs (ANC) 4.40 1.50 - CERNER 6.30 MILLENNIUM x10(3)/mcL Lymphocytes % 32.0 % CERNER MILLENNIUM Lymphocytes Abs 2.3 1.0 - 3.6 CERNER x10(3)/mcL MILLENNIUM Monocytes % 4.5 % CERNER MILLENNIUM Monocyte Abs 0.3 0.2 - 1.0 CERNER x10(3)/mcL MILLENNIUM Eosinophils % 0.8 % CERNER MILLENNIUM Eosinophils Abs 0.1 0.0 - 0.5 CERNER x10(3)/mcL MILLENNIUM Basophils % 0.1 % CERNER MILLENNIUM Basophils Abs 0.0 0.0 - 0.2 CERNER x10(3)/mcL MILLENNIUM Immature Gran % 0.30 % CERNER MILLENNIUM Comment: Immature granulocytes(IG's)percentage an d absolute count will include metamyelocytes, myelocytes, and promyelo cytes. Blood smears from CBCs yielding IG's will be scanned manually for concor dance. If this scan disagrees with the automated IG or if promyelocytes are not ed, a manual differential will be performed. Oma Gran Abs 0.02 0.00 - 0.05 x10(3)/mcL CER NER MILLENNIUM Specimen Anatomical Collection Method Collection Time Receive d Time (Source) Location / / Volume Laterality Blood specimen 11/22/2014 3:48 PM 015 4:16 (specimen) EDT PM EDT Resulting Agency Comment Spec In Lab Maxi Erazo MD HEMATOLOGY ORDERABLES Performing Organization Address City/State/[place] [address] CERNER MILLENNIUM (ABNORMAL) Hemogram (11/22/2014 3:48 PM EDT) P athologist Signature WBC 7.1 4.0 - 10.0 CERNER x10(3)/mcL MILLENNIUM RBC 4.02 3.93 - CERNER 5.22 MILLENNIUM x10(6)/mcL Hemoglobin 12.4 11.2 - CERNER 15.7 gm/dL MILLENNIUM Hematocrit 34.8 34.0 - CERNER 45.0 % MILLENNIUM MCV 86.6 79.0 - CERNER 94.0 fL MILLENNIUM MCH 30.8 26.6 - CERNER 32.2 pg MILLENNIUM MCHC 35.6 32.0 - CERNER 36.5 gm/dL MILLENNIUM Platelets 211 145 - 370 CERNER x10(3)/mcL MILLENNIUM RDWSD 46.2 (H) 35.0 - CERNER 46.0 fL MILLENNIUM RDWCV 14.7 (H) 10.9 - CERNER 14.4 % MILLENNIUM MPV 10.4 9.0 - 12.0 CERNER fL MILLENNIUM Specimen Anatomical Collection Method Collection Time Receive d Time (Source) Location / / Volume Laterality Blood specimen 11/22/2014 3:48 PM 015 4:16 (specimen) EDT PM EDT Resulting Agency Comment Spec In Lab Maxi Erazo MD HEMATOLOGY ORDERABLES Performing Organization Address City/[facility]/ZIP Code Phon e Number [address] [facility] MILLDIGN[facility]ERTI[facility] Lipase (11/22/2014 3:48 PM EDT) athologist Signature Lipase 42 0 - 60 CERNER unit/L [facility] Specimen Anatomical Collection Method Collection Time Receive d Time (Source) Location / / Volume Laterality Blood specimen 11/22/2014 3:48 PM 015 4:16 (specimen) EDT PM EDT Resulting Agency Comment Spec In Lab Maxi Erazo MD CHEMISTRY ORDERABLES Performing Organization Address City/[facility] Phon e Number [address] [facility] MILLDIGN[facility] Hepatic Function Panel (11/22/2014 3:48 PM EDT) P athologist Signature Total Protein 7.7 6.1 - 8.0 CERNER gm/dL MILLENNIUM Albumin 4.5 3.2 - 5.2 CERNER gm/dL MILLENNIUM AST 17 0 - 30 CERNER unit/L MILLENNIUM ALT 11 0 - 30 CERNER unit/L MILLENNIUM Alk Phos 81 40 - 104 CERNER unit/L MILLENNIUM Total 0.9 0.2 - 1.3 CERNER Bilirubin mg/dL MILLENNIUM Bili, Direct 0.2 0.0 - 0.3 CERNER mg/dL MILLENNIUM Specimen Anatomical Collection Method Collection Time Receive d Time (Source) Location / / Volume Laterality Blood specimen 11/22/2014 3:48 PM 015 4:16 (specimen) EDT PM EDT Resulting Agency Comment Spec In Lab Maxi Erazo MD CHEMISTRY ORDERABLES Performing Organization Address City/[facility] Phon e Number [address] CERNER MILLENNIUM Creatinine (11/22/2014 3:48 PM EDT) athologist Signature Creatinine 0.75 0.70 - 1.20 CERNER mg/dL [facility] Comment: Please note that the pediatric reference intervals supplied above were not validated at [facility]. Results from pediatri c patients should be interpreted in conjunction to the patient's age, height and muscle mass. Estimated GFR >60 >=60 FRANCISCO JAVIERNER MILVIANETTIEIU M Comment: This estimated GFR (eGFR) value was calc ulated using the MDRD equation which has been validated on patients between t he ages of 18 and 70. The MDRD should not be used to assess kidney function in patients < 18 years of age or in patients with extremes of body mass, or in patients with acute kidney failure. This value should be multiplied by 1.2 f or patients. For further information please copy and past e the following links into your internet browser. [email or web address] Specimen Anatomical Collection Method Collection Time Receive d Time (Source) Location / / Volume Laterality Blood specimen 11/22/2014 3:48 PM 015 4:16 (specimen) EDT PM EDT Resulting Agency Comment Spec In Lab Maxi Erazo MD CHEMISTRY ORDERABLES Performing Organization Address City/[facility] Phon e Number [address] CERNER MILLENNIUM Glucose, random (11/22/2014 3:48 PM EDT) athologist Signature Glucose Lvl 88 65 - 199 CERNER mg/dL MILLENNIUM Comment: Diabetes: >=200 mg/dL plus symp toms Specimen Anatomical Collection Method Collection Time Receive d Time (Source) Location / / Volume Laterality Blood specimen 11/22/2014 3:48 PM 015 4:16 (specimen) EDT PM EDT Resulting Agency Comment Spec In Lab Maxi Erazo MD CHEMISTRY ORDERABLES Performing Organization Address [facility] [place] [address] CERNER MILLENNIUM BUN (11/22/2014 3:48 PM EDT) athologist Signature BUN 13 8 - 18 CERNER mg/dL MILLENNIUM Specimen Anatomical Collection Method Collection Time Receive d Time (Source) Location / / Volume Laterality Blood specimen 11/22/2014 3:48 PM 015 4:16 (specimen) EDT PM EDT Resulting Agency Comment Spec In Lab Maxi Erazo MD CHEMISTRY ORDERABLES Performing Organization Address [facility] [place] [address] CERNER MILLENNIUM Electrolytes panel (11/22/2014 3:48 PM EDT) athologist Signature Sodium 139 135 - 145 CERNER mmol/L MILLENNIUM Potassium 3.5 3.5 - 5.0 CERNER mmol/L MILLENNIUM Comment: Please note: ??Patients with WBC >100,00 0 may have falsely elevated Potassium levels. ??For accurate Potassium quantif ication in these patients send serum separator tube (gold top) for subsequent determinations. ??Contact the Clinical Chemistry Laboratory if there are any qu estions. Chloride 103 98 - 107 mmol/L CERNER MILLENN IUM CO2 24 22 - 31 mmol/L CERNER MILLENNI UM Anion Gap 12 5 - 15 mmol/L CERNER MILLENNIU M Specimen Anatomical Collection Method Collection Time Receive d Time (Source) Location / / Volume Laterality Blood specimen 11/22/2014 3:48 PM 015 4:16 (specimen) EDT PM EDT Resulting Agency Comment Spec In Lab Maxi Erazo MD CHEMISTRY ORDERABLES Performing Organization Address City/State/ZIP Code Phon e Number [place] [phone] NICA M [employer] TechnologiesIUM EKG 12 Lead (11/22/2014 3:46 PM EDT) [facility] gist Method Time Signature Ventricular rate 72 BPM MUSE SYSTEM Atrial Rate 72 BPM MUSE SYSTEM P-R Interval 134 ms MUSE SYSTEM QRS Duration 80 ms MUSE SYSTEM Q-T Interval 404 ms MUSE SYSTEM QTC Calculated 442 ms MUSE SYSTEM (Bezet) Calculated P [place] 53 degrees MUSE SYSTEM Calculated R [place] 47 degrees MUSE SYSTEM Calculated T [place] 32 degrees MUSE SYSTEM INTERPRETATION Normal sinus rhythm MUSE SYSTEM Normal ECG No previous ECGs available Confirmed by MD Harvey, Ton ([id number]) on 11/23/2014 9:46:18 A M Specimen Anatomical Collection Method Collection Time Receive d Time (Source) Location / / Volume Laterality 11/22/2014 3:46 PM 5 9:46 EDT AM EDT Maxi Erazo MD ECG ORDERABLES Performing Organization Address City/[facility]/ZIP Code Phon e Number MUSE SYSTEM documented in this encounter Visit Diagnoses Diagnosis Abdominal pain, unspecified abdominal lo cation Abdominal pain, right upper quadrant Abdominal pain, epigastric documented in this encounter Administered Medications Inactive Administered Medications - up to 3 most recent administrations Medication Order MAR Action Action Date Dose Rate Site HYDROmorphone (DILAUDID) injection Given 11/22/2014 3:53 PM EDT 0.5 mg 0.5 mg 0.5 mg, Intravenous, ONCE, 1 dose, On Tue11/22/14 at 1549, STAT HYDROmorphone (DILAUDID) injection 0.5 m g Given 11/22/2014 6:12 PM EDT 0.5 mg 0.5 mg, Intravenous, ONCE, 1 dose, On Tue11/22/14 at 1759, STAT sodium chloride 0.9% 1,000 mL IV bolus Given 11/22/2014 3:54 PM EDT Intravenous, ONCE, 1 dose, On Tue11/22/14 at 1551 documented in this encounter Active and Recently Administered Medications Times are shown in EDT. Scheduled Medication Order 11/20/2014 11/21/2014 11/22/2014 HYDROmorphone (DILAUDID) injection 0.5 mg (COMPLETED) 1553 (Given - Provider: Catalino Garcia RN) 0.5 mg, Intravenous, ONCE, 1 dose, 11/22/14 at 1549, STAT HYDROmorphone (DILAUDID) injection 0.5 mg (COMPLETED) 1812 (Given - Provider: Amira Boles RN) 0.5 mg, Intravenous, ONCE, 1 dose, Tue11/22/14 at 1759, STAT sodium chloride 0.9% 1,000 mL IV bolus (COMPLETED) 1554 (Given - Provider: Catalino Garcia RN) Intravenous, ONCE, 1 dose, Tue11/22/14 at 1551 documented in this encounter Care Teams Wrinkle Chaser Relationship Specialty Start Date End Date Jeremy Schmitz ND PCP - General Naturopathic Medicine 11/13/14 02/20/15 [address] [place] [address] documented as of this encounter
--- OUTSIDE RECORDS SUMMARY | 2022-01-08 16:09 | XMS_ITS | Encounter Summary ---
:1975 Author Organization [facility] [place] [address] Care Team Providers Name Role Phone Jeremy Schmitz ND Primary Care Provider Reason for Visit Reason Onset Date Comments Follow-up 12/27/2014 Encounter Details Date Type Department Care Team Description 12/27/2014 Telephone Obstetrics and Gynecology at [facility], Follow-up [facility] [place] [phone] Social History Tobacco Use Types Packs/Day Years Used Date Smoking Tobacco: Never Smokeless Tobacco: Never Alcohol Use Standard Drinks/Week Comments No 0 (1 standard drink = 0.6 oz pure alcoho l) Sex Assigned at Date Recorded Not on file documented as of this encounter Miscellaneous Notes Telephone Encounter - Arlin Hernadez RN - 12/27/2014 10:58 AM EST Caller: Arlin Hernadez RN Learning Needs Assessment Reviewed: Yes Subjective Patient presents with: Follow-up Objective/Assessment Patient called per Dr Young regarding medication for acid reflux. Dr Young had advised Pepcid OTC. Symptom onset:NA Location:NA Duration:NA Characteristics:NA Aggravating factors:NA Relieving factors:NA Timing:NA Severity:N A Pertinent Past Medical History: History of abnormal pap. dyspepsia Plan Intervention/Plan/ Follow Up: Attempted to reach patient and message left advising her to try OTC Pepcid. Advised to call clinic with any questions. documented in this encounter Plan of Treatment Not on filedocumented as of this encounter Visit Diagnoses Not on filedocumented in this encounter Care Teams Metallurgical Technician Relationship Specialty Start Date End Date Jeremy Schmitz ND PCP - General Naturopathic Medicine 11/13/14 02/20/15 [address] [place] [address] documented as of this encounter
--- OUTSIDE RECORDS SUMMARY | 2022-01-08 16:09 | XMS_ITS | Encounter Summary ---
:1975 Author Organization [facility] [place] [address] Care Team Providers Name Role Phone Selena Gentile APRN Primary Care Provider [phone] Encounter Details Date Type Department Care Team Description 12/14/2019 Notes Only Otolaryngology at [facility] [place] [address] Social History Tobacco Use Types Packs/Day Years Used Date Smoking Tobacco: Never Smokeless Tobacco: Never Alcohol Use Standard Drinks/Week Comments No 0 (1 standard drink = 0.6 oz pure alcoho l) Sex Assigned at Date Recorded Not on file documented as of this encounter Progress Notes Elisabeth Escamilla RN - 12/14/2019 9:18 AM EST On 12/13/19 we have carefully reviewed your case with the Clinical Vertigo Team including your medical history and any other previous diagnostic tests performed/forwarded by your referring provider. It's our recommendation that you have an AE and appointment with ENT. Management Department Chair is aware. documented in this encounter Plan of Treatment Not on filedocumented as of this encounter Visit Diagnoses Not on filedocumented in this encounter Care Teams Senior Asic Design Engineer Relationship Specialty Start Date End Date Selena Gentile APRN PCP - General Family Medicine 05/25/17 11/10/20 [address] [place] [address] documented as of this encounter
--- OUTSIDE RECORDS SUMMARY | 2022-01-08 16:09 | XMS_ITS | Encounter Summary ---
:1975 Author Organization [facility] [place] [address] Care Team Providers Name Role Phone Unavailable Primary Care Provider Unavailable Encounter Details Date Type Department Care Team Description 10/15/2016 Hospital Encounter Radiology Library at [facility] M, RAILROAD FIRER/FIREMAN [facility] [address] [place] [address] [place] [address] [phone] Social History Tobacco Use Types Packs/Day Years [...] Associated Diagnosis Comme nts FILM LIBRARY Routine 10/15/2016 12:00 AM Results for this STORAGE ONLY NM EDT procedure ar e in PET/CT the results section. documented in this encounter Results Film Library- Storage Only NM Pet / CT (10/15/2016 12:00 AM EDT) Specimen (Source) Anatomical Location Collection Method / Collectio n Time Received Time / Laterality Volume Narrative RAD - 06/01/2017 2:18 PM EDT This exam is for storage only and is aut o-finalizing. Selena Gentile APRN IMG FILM LIBRARY ORDERABLES Performing Organization Address City/State/ZIP Code Phon e Number [facility] TOMASZ Vicente documented in this encounter Visit Diagnoses Not on filedocumented in this encounter
--- OUTSIDE RECORDS SUMMARY | 2022-01-08 16:09 | XMS_ITS | Encounter Summary ---
:1975 Author Organization [facility] [place] [address] Care Team Providers Name Role Phone Jeremy Schmitz ND Primary Care Provider Reason for Visit Auth/Cert - Closed Specialty Diagnoses / Procedures Referred By Contact Refer red To Contact Diagnoses bloody stools Procedures COLONOSCOPY, DIAGNOSTIC Referral ID Status Reason Start Date Expiration Date Visits Requ ested Visits Authorized [id number] Closed 1 1 Encounter Details Date Type Department Care Team Description 12/19/2014 [place] [facility] [place] Maxi Shell, COLONOSCOPY, [facility] Sahnnon [place] [address] [facility] [phone] DR GASTROENTEROLOGY [place], [place] [address] Social History Tobacco Use Types [...] to be checked. Tuesday-Tuesday Same Day Endo [phone]-[phone] Otherwise contact [phone] and ask to speak to the unarmed security officer precision inspector Follow up care is a lee part [...] EST documented in this encounter Visit Diagnoses Diagnosis Bloody stools Blood in stool documented in this encounter Administered Medications Inactive Administered Medications - up to 3 most recent administrations Medication Order MAR Action Action Date Dose Rate Site diphenhydrAMINE (BENADRYL) Given 12/19/2014 11:10 AM 25 mg Right Arm injection EST ONCE PRN, Starting on Trang 12/19/14 at 1104, Until Trang 12/19/14 at 1223, Intra-Operative (Intra-Procedure), Routine Given 12/19/2014 11:04 AM EST 25 mg Righ t Arm fentaNYL 50 mcg/mL multi-dose Given 12/19/2014 11:25 AM EST 25 m cg Right Arm injection ONCE PRN, Starting on Trang 12/19/14 at 1104, Until Trang 12/19/14 at 1223, Intra-Operative (Intra-Procedure), Routine Given 12/19/2014 11:22 AM EST 50 mcg Righ t Arm Given 12/19/2014 11:18 AM EST 25 mcg Righ t Arm midazolam (PF) (VERSED) 1 mg/mL Given 12/19/2014 11:25 AM EST 0. 5 mg Right Arm multi-dose injection ONCE PRN, Starting on Trang 12/19/14 at 1104, Until Trang 12/19/14 at 1223, Intra-Operative (Intra-Procedure), Routine Given 12/19/2014 11:22 AM EST 1 mg Righ t Arm Given 12/19/2014 11:18 AM EST 0.5 mg Righ t Arm documented in this encounter Active and Recently [...] RN) documented in this encounter Care Teams Hospice Executive Director Relationship Specialty Start Date End Date Jeremy Schmitz ND PCP - General Naturopathic Medicine 11/13/14 02/20/15 [address] [place] [address] documented as of this encounter
--- OUTSIDE RECORDS SUMMARY | 2022-01-08 16:09 | XMS_ITS | Encounter Summary ---
:1975 Author Organization [facility] [place] [address] Care Team Providers Name Role Phone Unavailable Primary Care Provider Unavailable Encounter Details Date Type Department Care Team Description 08/20/2016 Hospital Encounter Radiology Library at [facility] M, CINDER SNAPPER [facility] [address] [place] [address] [place] [address] [phone] Social History Tobacco Use Types Packs/Day Years [...] Associated Diagnosis Comme nts FILM LIBRARY Routine 08/20/2016 12:00 AM Results for this STORAGE ONLY DX EDT procedure ar e in SPINE the results section. documented in this encounter Results Film Library- Storage Only DX Spine (08/20/2016 12:00 AM EDT) Specimen (Source) Anatomical Location Collection Method / Collectio n Time Received Time / Laterality Volume Narrative RAD - 06/01/2017 2:20 PM EDT This exam is for storage only and is aut o-finalizing. Selena Gentile APRN IMG FILM LIBRARY ORDERABLES Performing Organization Address City/State/ZIP Code Phon e Number [facility] [place], [place] documented in this encounter Visit Diagnoses Not on filedocumented in this encounter
--- OUTSIDE RECORDS SUMMARY | 2022-01-08 16:09 | XMS_ITS | Encounter Summary ---
:1975 Author Organization [facility] [address] Care Team Providers Name Role Phone Jeremy Schmitz ND Primary Care Provider Reason for Visit Auth/Cert - Closed Specialty Diagnoses / Procedures Referred By Contact Refer red To Contact Procedures PRO COLONOSCOPY, DIAGNOSTIC Referral ID Status Reason Start Date Expiration Date Visits Requ ested Visits Authorized [id number] Closed 1 1 Encounter Details Date Type Department Care Team Description 11/19/2014 Hospital Encounter [place] [facility] [place] Adiel [facility] [place] [address] [facility] [phone] DR GASTROENTEROLOGY [place], [place] [address] (Wo rk) Social History Tobacco Use Types Packs/Day Years Used Date Smoking Tobacco: Never Smokeless Tobacco: Never Alcohol Use Standard Drinks/Week Comments No 0 (1 standard drink = 0.6 oz pure alcoho l) Sex Assigned at Date Recorded Not on file documented as of this encounter Last Filed Vital Signs Vital Sign Reading Time Taken Comments Blood Pressure 112/62 11/19/2014 11:50 AM EDT Pulse 77 11/19/2014 11:50 AM EDT Temperature 36.6 ??C (97.9 ??F) 11/19/2014 9:33 AM EDT Respiratory Rate 12 11/19/2014 11:50 AM EDT Oxygen Saturation 100% 11/19/2014 11:50 AM EDT Inhaled Oxygen Concentration - - [...] better as expected. Tuesday-Tuesday Same Day Endo [phone] 7a-8p Otherwise contact [phone] and ask to speak to the clinical review specialist video production specialist Follow-up care is a lee part of [...] Surgical Pathology Report (11/19/2014 11:45 AM EDT) [facility] Method Time Signature Surgical The signing pathologist has (i) examined the relevant preparation(s) for the [facility] Pathology specimen(s) and (ii) rendered or confirmed the diagnosis(e s). [facility] Report Accession Number: [id number] ?Location: . ?Surgic al Pathology DIAGNOSIS A - Duodenum, biopsy: Duodenal mucosa within harman l limits, including preserved villous architecture. B - Gastric body/fundus, polypectomy: Gastric fundic gland polyps. CR-0 11/20/14 [facility] 11/20/14 Verified by: ? Isaiah Cruz MD A ?Pathologist ?(Electronic Signature ) The attending pathologist [...] MD PATHOLOGY/CYTOLOGY ORDERABLE S Performing Organization Address City/[facility] Code Phon e Number [address] CERNER MILLENNIUM Specimen to Pathology [...] MD PATHOLOGY/CYTOLOGY ORDERABLE S Performing Organization Address [facility]/[place] [address] CERNER MILLENNIUM Specimen to [...] MD PATHOLOGY/CYTOLOGY ORDERABLE S Performing Organization Address City/[facility]/[place] [address] CERNER MILLENNIUM UPPER GI ENDOSCOPY (11/19/2014 11:14 AM EDT) Component Value Ref Test Analysis Performed At [facility] Range Method Time Signature UPPER GI [facility]OVATION ENDOSCOPY Endoscopy Patient Name: Anya Ferrari ? Procedure Date: 11/19/2014 11:14 AM ? Date of : 1975 ? Age: 38 ? Order #: [id number] ? Procedure: ? Upper GI endoscopy Indications: ? Generalized abdominal pain, Abdomin al ? bloating Providers: ? Adiel Zohaib, Brianne P. Musty, ? RN, Yoko Jacome RN, Giacomo Montgomery ? Eligio, General Internist, Venkata ambrosio, ? General Internist Referring MD: ?Jeremy Schmitz Requesting Provider: Nuris [...] the physician, the nurse and the ? landscape management technician in the pre-procedu re area ? [...] the ? mouth, and advanced to the pending [facility] part ? of duodenum. The patient tole rated ? the procedure well. The upper GI ? endoscopy was accomplished wi out ? difficulty. The patient matilda ated the [...] specimen was done by the physician and landscape management technician ? using the patient's name, date [...] specimen was done by the physician and landscape management technician ? using the patient's name, date [...] Rate Site lactated ringers infusion New Bag 11/19/2014 9:44 AM EDT 100 mL/hr 100 mL/hr 100 mL/hr, Intravenous, CONTINUOUS, Starting on Tue11/19/14 at 1000, Until Tue11/19/14 at 1451, Endoscopy (Day of Procedure) documented in this encounter Active and Recently Administered Medications Times are shown in EDT. Continuous Medication Order 11/17/2014 11/18/2014 11/19/2014 lactated ringers infusion (CANCELED) 0944 (New Bag - Provider: Anders Crowe RN) 100 mL/hr, at 100 mL/hr, Intravenous, CO NTINUOUS, Starting e 11/19/14 at 1000, Until Tu11/19/14 at 1451, Endo (Day of Procedure) PRN Medication Order 11/17/2014 11/18/2014 11/19/2014 diphenhydrAMINE (BENADRYL) injection (CANCELED) 1120 (Given - Provider: Brianne Simpson RN - Comment: starting sedation)1123 (Given - Provider: Brianne Simpson RN - Comment: starting sedation) ONCE PRN, Starting e 11/19/14 at 1120, Until 11/19/14 at 1451, Intra- Operative (Intra-Procedure), Routine fentaNYL 50 mcg/mL multi-dose injection (CANCELED) 1120 (Given - Provider: Brianne Simpson RN - Comment: starting sedation)1123 (Given - Provider: Brianne Simpson RN - Comment: continuing sedation)1127 (Given - Provider: Brianne Simpson RN - Comment: continuing sedation) ONCE PRN, Starting e 11/19/14 at 1120, Until 11/19/14 at 1451, Intra- Operative (Intra-Procedure), Routine midazolam (PF) (VERSED) 1 mg/mL multi-dose injection (CANCELED) 1120 (Given - Provider: Brianne Simpson RN - Comment: starting sedation)1123 (Given - Provider: Brianne Simpson RN - Comment: continuing sedation)1127 (Given - Provider: Brianne Simpson RN - Comment: continuing sedation) ONCE PRN, Starting 11/19/14 at 1120, Until Tue11/19/14 at 1451, Intra- Operative (Intra-Procedure), Routine 113 0 (Given - Provider: Brianne Simpson RN - Comment: continuing sedation)1134 (Given - Provider: Brianne Simpson RN - Comment: pt waking) documented in this encounter Care Teams Finishing Manager Relationship Specialty Start Date End Date Jeremy Schmitz ND PCP - General Naturopathic Medicine 11/13/14 02/20/15 [address] [place] [address] documented as of this encounter
--- OUTSIDE RECORDS SUMMARY | 2022-01-08 16:09 | XMS_ITS | Encounter Summary ---
:1975 Author Organization [facility] [place] [address] Care Team Providers Name Role Phone Jeremy Schmitz ND Primary Care Provider Reason for Visit Reason Onset Date Comments Results 11/19/2014 Encounter Details Date Type Department Care Team Description 11/19/2014 Telephone Gastroenterology at [facility] [place] [address] Social History Tobacco Use Types Packs/Day Years Used Date Smoking Tobacco: Never Smokeless Tobacco: Never Alcohol Use Standard Drinks/Week Comments No 0 (1 standard drink = 0.6 oz pure alcoho l) Sex Assigned at Date Recorded Not on file documented as of this encounter Miscellaneous Notes Telephone Encounter - Omkar Henderson RN - 11/21/2014 9:58 AM EDT Per Nuris patient should keep appointment for HIDA scan. Left patient message with above information. Encouraged her to continue with miralax as per plan for2 weeks. We will contact her with pathology and HIDA scan results when they're available. Telephone Encounter - Omkar Henderson RN - 11/19/2014 3:55 PM EDT Patient calls to discuss results of bloodwork. Gave patient normal results. Reviewed recommendations given in EGD procedure note with patient. Discussed trial of miralax for 2 weeks to see if this is helpful. Advised 17 g at night before bed taken with a large glass of water. Pathology report still pending. We will contact her with results. Patient wonders is she should still have HIDA scan? Advised her to keep unless Tracia contacts her to cancel. Patient verbalized understanding. documented in this encounter Plan of Treatment Not on filedocumented as of this encounter Visit Diagnoses Not on filedocumented in this encounter Care Teams Automotive Parts Manager Relationship Specialty Start Date End Date Jeremy Schmitz ND PCP - General Naturopathic Medicine 11/13/14 02/20/15 [address] [place] [address] documented as of this encounter
--- OUTSIDE RECORDS SUMMARY | 2022-01-08 16:09 | XMS_ITS | Encounter Summary ---
:1975 Author Organization [facility] [place] [address] Care Team Providers Name Role Phone Unavailable Primary Care Provider Unavailable Encounter Details Date Type Department Care Team Description 05/27/2016 Hospital Encounter Radiology Library at [facility] M, HOME THEATRE TECHNICIAN [facility] [address] [place] [address] [place] [address] [phone] Social History Tobacco Use Types Packs/Day Years [...] Associated Diagnosis Comme nts FILM LIBRARY Routine 05/27/2016 12:00 AM Results for this STORAGE ONLY MR EDT procedure ar e in SPINE the results section. documented in this encounter Results Film Library- Storage Only MR Spine (05/27/2016 12:00 AM EDT) Specimen (Source) Anatomical Location Collection Method / Collectio n Time Received Time / Laterality Volume Narrative RAD - 06/01/2017 2:22 PM EDT This exam is for storage only and is aut o-finalizing. Selena Gentile APRN IMG FILM LIBRARY ORDERABLES Performing Organization Address City/State/ZIP Code Phon e Number [facility] [place] documented in this encounter Visit Diagnoses Not on filedocumented in this encounter
--- OUTSIDE RECORDS SUMMARY | 2022-01-08 16:09 | XMS_ITS | Encounter Summary ---
:1975 Author Organization [facility] [place] [address] Care Team Providers Name Role Phone Jermey Schmitz ND Primary Care Provider Encounter Details Date Type Department Care Team Description 11/13/2014 Emergency Emergency Department Christian Tolbert MD Abdominal pain, RUQ (right upper quadran t); [facility] Chronic abdominal pain; [facility] Nausea and vomiting, vomiting of unspeci fied type; [facility] EMERGENCY MED ICINE Calculus of gallbladder without cholecys titis without obstruction [place] [id number] [phone] Social History Tobacco Use Types Packs/Day Years Used Date Smoking Tobacco: Never Sex Assigned at Date Recorded Not on file documented as of this encounter Last Filed Vital Signs Vital Sign Reading Time Taken Comments Blood Pressure 107/63 11/13/2014 1:00 PM EDT Pulse 84 11/13/2014 10:50 AM EDT Temperature 36.6 ??C (97.9 ??F) 11/13/2014 10:50 AM EDT Respiratory Rate 15 11/13/2014 10:50 AM EDT Oxygen Saturation 97% 11/13/2014 1:00 PM EDT Inhaled Oxygen Concentration - - Weight 78.5 kg (173 lb) 11/13/2014 10:50 AM EDT Height - - Body Mass Index - - documented in this encounter Discharge Instructions Discharge InstructionsChristian Tolbert MD - 11/13/2014 1:49 PM EDT Images from the original note were not included. [facility] Abdominal Pain: After Your Visit Your Care Instructions Abdominal pain has many possible causes. Some aren't serious and get better on their own in a few days. Others need more testing and treatment. If your pain continues or gets worse, you need to be rechecked and may need more tests to find out what is wrong. You may need surgery to correct the problem. Don't ignore new symptoms, such as fever, nausea and vomiting, urination problems, pain that gets worse, and dizziness. These may be signs of a more serious problem. Your doctor may have recommended a follow-up visit in the next 8 to 12 hours. If you are not gettingbetter, you may need more tests or treatment. The doctor has checked you carefully, but problems can develop later. If you notice any problems or new symptoms, get medical treatment right away. Follow-up care is a lee part of your treatment and safety. Be sure to make and go to all appointments, and call your doctor if you are having problems. It's also a good idea to know your test results and keep a list of the medicines you take. How can you care for yourself at home? ?? Rest until you feel better. ?? To prevent dehydration, drink plenty of fluids, enough so that your urine is light yellow or clear like water. Choose water and other caffeine-free clear liquids until you feel better. If you have kidney, heart, or liver disease and have to limit fluids, talk with your doctor before you increase the amount of fluids you drink. ?? If your stomach is upset, eat mild foods, such as rice, dry toast or crackers, bananas, and applesauce. Try eating several small meals instead of two or three large ones. ?? Wait until 48 hours after all symptoms have gone away before you have spicy foods, alcohol, and drinks that contain caffeine. ?? Do not eat foods that are high in fat. ?? Avoid anti-inflammatory medicines such as aspirin, ibuprofen (Advil, Motrin), and naproxen (Aleve). These can cause stomach upset. Talk to your doctor if you take daily aspirin for another health problem. When should you call for help? Call 911 anytime you think you may need emergency care. For example, call if: ?? You passed out (lost consciousness). ?? You pass maroon or very bloody stools. ?? You vomit blood or what looks like coffee grounds. ?? You have new, severe belly pain. Call your doctor now or seek immediate medical care if: ?? Your pain gets worse, especially if it becomes focused in one area of your belly. ?? You have a new or higher fever. ?? Your stools are black and look like tar, or they have streaks of blood. ?? You have unexpected vaginal bleeding. ?? You have symptoms of a urinary tract infection. These may include: ?? Pain when you urinate. ?? Urinating more often than usual. ?? Blood in your urine. ?? You are dizzy or lightheaded, or you feel like you may faint. Watch closely for changes in your health, and be sure to contact your doctor if: ?? You are not getting better after 1 day (24 hours). Where can you learn more? Visit our health information library at [email or web address] You can also view health information on [employer], your personal patient account. Log in or sign up today. Enter E907 in the search box to learn more about Abdominal Pain: After Your Visit. ?? [id number] [employer]. Care instructions adapted under license by [facility]. This care instruction is for use with your licensed healthcare professional. If you have questionsabout a medical condition or this instruction, always ask your healthcare professional. [employer] disclaims any warranty or liability for your use of this information. Content Version: 10.4.543448; Current as of: July 11, 2013 documented in this encounter Medications at Time of Discharge Medication Sig Dispensed Refills Start Date End Date dicyclomine (BENTYL) 10 Take 1 capsule by 20 capsule 0 11/1311/18/2014 mg Capsule mouth 4 times daily as needed. acetaminophen-codeine Take 1-2 tablets by 20 tablet 0 11/1311/22/2014 (TYLENOL-CODEINE #3) mouth every 4 hours 300-30 mg Tablet as needed for Pain. No driving, no alcohol, no extra tylenol documented as of this encounter ED Notes Christian Tolbert MD - 11/13/2014 1:51 PM EDT No chief complaint on file. JUAN J Ferrari is a 38 y.o. who presents to the Emergency Department, with abdominal pain associated with nausea and vomiting. Patient complains of postprandial pain. Denies any significant alcohol intake. No previous history of gallbladder surgery. Patient is not concerned that she might be . She denies any fevers or chills. No cough or shortness breath. Patient states the pain is now morein her right upper quadrant. Allergies not on file Review of Systems Physical Exam Constitutional: She is oriented to person, place, and time. She appears well- developed and well-nourished. No distress. HENT: Head: Normocephalic and atraumatic. Eyes: Conjunctivae are normal. Right eye exhibits no discharge. Left eye exhibits no discharge. No scleral icterus. Neck: Normal range of motion. Neck supple. No tracheal deviation present. No thyromegaly present. Cardiovascular: Normal rate, regular rhythm and normal heart sounds. Pulmonary/Chest: Effort normal and breath sounds normal. No respiratory distress. She has no wheezes. She has no rales. Abdominal: Soft. Bowel sounds are normal. She exhibits no distension and no mass. There is tenderness. There is no rebound and no guarding. Musculoskeletal: Normal range of motion. She exhibits no edema or tenderness. Neurological: She is alert and oriented to person, place, and time. Skin: Skin is warm and dry. She is not diaphoretic. No erythema. Psychiatric: She has a normal mood and affect. Nursing note and vitals reviewed. Procedures MDM Number of Diagnoses or Management Options Abdominal pain, RUQ (right upper quadrant): Diagnosis management comments: I reviewed the patient's past medical history, medications, and an allergy list. I reviewed the patient's social history, patient's had chronic abdominal pain it's now localized to the right upper quadrant postprandially associated with nausea no vomiting, ultrasound shows one stone no evidence cholecystitis this would be a little unusual to have symptomatically or colic with one stone recommend follow-up with primary care doctor with possible surgical consult will try Bentyl andTylenol with codeine to see if this helps with her pain ED Course: Patient with abdominal pain of unclear etiology, metabolic evaluation is unremarkable no evidence ofcholecystitis she does have a gallstone this may be symptomatic biliary colic recommend follow-up with primary care and possible surgical referral Christian Tolbert MD 11/26/14 0439 Christian Tolbert MD 11/26/14 0440 Saadia Kaye RN - 11/13/2014 1:16 PM EDT Pt would like something for the pain. aware. No new orders at this time documented in this encounter Miscellaneous Notes ED Triage - Saadia Kaye RN - 11/13/2014 10:58 AM EDT Pt presents to the ED AAOX4 c/o diffuse abdominal pain for the past couple of weeks. PT states, I recently took gluten out of my diet because I would get really bloated everytime I ate it. I went to a naturopathic doctor and she gave me enzymes to try. I've never had normal bowel movements but todayI had two formed stools w/ no blood in it. I've been nauseous and I am peeing a lot more. Denies chest pain SOB, fever, fatigue. Respirations even and unlabored. Skin pink warm and dry documented in this encounter Plan of Treatment Not on filedocumented as of this encounter Procedures Procedure Name Priority Date/Time Associated Comments Diagnosis US ABDOMEN LIMITED STAT 11/13/2014 12:44 Resul ts for this PM EDT procedure are i n the results section. HEMOGRAM STAT 11/13/2014 11:40 Results for this AM EDT procedure are i n the results section. DIFFERENTIAL, STAT 11/13/2014 11:40 Results fo r this AUTOMATED AM EDT procedure are i n the results section. BLUE TUBE HOLD STAT 11/13/2014 11:40 Results f or this AM EDT procedure are i n the results section. CBC (WITH DIFF) STAT 11/13/2014 11:40 AM EDT LIPASE STAT 11/13/2014 11:40 Results for this AM EDT procedure are i n the results section. HEPATIC FUNCTION STAT 11/13/2014 11:40 Results for this PANEL AM EDT procedure are i n the results section. ELECTROLYTES PANEL STAT 11/13/2014 11:40 Resul ts for this AM EDT procedure are i n the results section. POCT URINE STAT 11/13/2014 Results for this procedure are i n the results section. POCT URINE DIPSTICK STAT 11/13/2014 Results for this procedure are i n the results section. documented in this encounter Results US Abdomen Limited (11/13/2014 12:44 PM EDT) Anatomical Region Laterality Modality Abdomen Ultrasound Specimen (Source) Anatomical Collection Method Collection Time Re ceived Time Location / / Volume Laterality 11/13/2014 12:43 PM EDT Impressions 11/13/2014 1:32 PM EDT Impression Ultrasound - Abdomen Limited - Summary Probable gallbladder stone vs tiny poly p. No CBD dilatation. I ??viewed the images and agree with kris willis interpretation. ? Maxi Hector MD Electronically Signed Final Report ?? 01:31 pm Narrative 11/13/2014 1:32 PM EDT Abdominal ?(Signed Final 11/13/2014 01:31 pm) Patient Info ID #: ? [id number] ?: ??[birth year] (38 yrs) Name: ? FLORENCIA FERRARI ? Visit Date: 11/13/2014 12:43 pm Performed By Performed By: ? Fe OCHOA, ??Leila hurtado Attending: ?Tawny HERNANDEZ, Toni Black Referred By: ?CHRISTIAN TOLBERT MD Service(s) Provided ??UABDLIM - Abdominal Limited Survey Si ngle ? [id number] ??Organ or Quadrant - [id number] Indications ??Postprandial right upper quadrant romy n concern for ??biliary d Comparison No prior studies for comparison. ----- Liver ----- Right Lobe Length: ?? 14.6 ?? cm Echogenicity/Echotexture: ?? Normal Gallbladder Cholelithiasis: ?single small st one vs polyp Wall Thickness: ?Normal wall thi ckness Focal Tenderness: ?Negative sonogra phic Gama's sign Biliary Tract Intrahepatic Ducts: ?? Normal Extrahepatic Ducts: ?? Normal Common Duct Size: ? 2.49 ?mm -------- Pancreas -------- Head: ? Normal Tail: ? Poorly visua lized due to overlying bowel Body: ? Normal Right Kidney Size (cm) ?L: ??10.2 Cortical Thickness: ?Normal Cortical Echogenicity: ?? Normal Hydronephrosis: ?No sonogr aphic evidence ----- Aorta ----- Measurements (cm): Proximal ? AP: ?? 1.3 Mid ?AP: ?? 1.1 Distal ? AP: ?? 1.25 --- IVC --- Normal in caliber where visualized. Fluid Collections No ascites in the imaged RUQ. Procedure Note Maxi Hector MD - 11/13/2014Format ting of this note might be different from the original. Abdominal (Signed Final 11/13/2014 01:3 1 pm) Patient Info ID #: [id number] : [birth year] (38 y rs) Name: FLORENCIA FERRARI Visit Date: 11/14/19 12:43 pm Performed By Performed By: Kiersten Miramontes RDMS Attending: Maxi Hector MD Referred By: CHRISTIAN TOLBERT MD Service(s) Provided UABDLIM - Abdominal Limited Survey [place] [id number] Organ or Quadrant - [id number] Indications Postprandial right upper quadrant pain concern for biliary d Comparison No prior studies for comparison. ----- Liver ----- Right Lobe Length: 14.6 cm Echogenicity/Echotexture: Normal Gallbladder Cholelithiasis: single small stone vs p olyp Wall Thickness: Normal wall thickness Focal Tenderness: Negative sonographic Gama's sign Biliary Tract Intrahepatic Ducts: Normal Extrahepatic Ducts: Normal Common Duct Size: 2.49 mm -------- Pancreas -------- Head: Normal Tail: Poorly visualized due to overlyin g bowel Body: Normal Right Kidney Size (cm) L: 10.2 Cortical Thickness: Normal Cortical Echogenicity: Normal Hydronephrosis: No sonographic evidence ----- Aorta ----- Measurements (cm): Proximal AP: 1.3 Mid AP: 1.1 Distal AP: 1.25 --- IVC --- Normal in caliber where visualized. Fluid Collections No ascites in the imaged RUQ. IMPRESSION Impression Ultrasound - Abdomen Limited - Summary Probable gallbladder stone vs tiny poly p. No CBD dilatation. I viewed the images and agree with the above interpretation. Maxi Hector MD Electronically Signed Final Report 11/13 01:31 pm Christian Tol[address] [facility] GEN ORDERABLES Blue Tube HOLD (11/13/2014 11:40 AM EDT) athologist Signature Blue Hold Sample in [employer]. Applitools Specimen Anatomical Collection Method Collection Time Receive d Time (Source) Location / / Volume Laterality Blood specimen Venous Draw / 11/13/2014 11:40 11/14/19 15 (specimen) Unknown AM EDT 11:58 AM EDT Christian Tolbert MD HEMATOLOGY ORDERABLES Performing Organization Address City/State/ZIP Code Phon e Number [place] [phone] [employer] Differential, Automated (11/13/2014 11:40 AM EDT) P athologist Signature Neutrophils % 59.7 % CERNER MILLENNIUM Neutr Abs (ANC) 3.80 1.50 - CERNER 6.30 MILLENNIUM x10(3)/mcL Lymphocytes % 34.3 % CERNER MILLENNIUM Lymphocytes Abs 2.2 1.0 - 3.6 CERNER x10(3)/mcL MILLENNIUM Monocytes % 4.1 % CERNER MILLENNIUM Monocyte Abs 0.3 0.2 - 1.0 CERNER x10(3)/mcL MILLENNIUM Eosinophils % 1.6 % CERNER MILLENNIUM Eosinophils Abs 0.1 0.0 - 0.5 CERNER x10(3)/mcL MILLENNIUM Basophils % 0.3 % CERNER MILLENNIUM Basophils Abs 0.0 0.0 - 0.2 CERNER x10(3)/mcL MILLENNIUM Immature Gran % 0.00 % CERNER MILLENNIUM Comment: Immature granulocytes(IG's)percentage an d absolute count will include metamyelocytes, myelocytes, and promyelo cytes. Blood smears from CBCs yielding IG's will be scanned manually for concor dance. If this scan disagrees with the automated IG or if promyelocytes are not ed, a manual differential will be performed. Oma Gran Abs 0.00 0.00 - 0.05 x10(3)/mcL CER NER MILLENNIUM Specimen Anatomical Collection Method Collection Time Receive d Time (Source) Location / / Volume Laterality Blood specimen 11/13/2014 11:40 5 (specimen) AM EDT 11:58 AM EDT Resulting Agency Comment Spec In Lab Christian Tolbert MD HEMATOLOGY ORDERABLES Performing Organization Address City/State/[place] [address] CERNER MILLENNIUM (ABNORMAL) Hemogram (11/13/2014 11:40 AM EDT) P athologist Signature WBC 6.4 4.0 - 10.0 CERNER x10(3)/mcL MILLENNIUM RBC 4.01 3.93 - CERNER 5.22 MILLENNIUM x10(6)/mcL Hemoglobin 12.4 11.2 - CERNER 15.7 gm/dL MILLENNIUM Hematocrit 35.5 34.0 - CERNER 45.0 % MILLENNIUM MCV 88.5 79.0 - CERNER 94.0 fL MILLENNIUM MCH 30.9 26.6 - CERNER 32.2 pg MILLENNIUM MCHC 34.9 32.0 - CERNER 36.5 gm/dL MILLENNIUM Platelets 217 145 - 370 CERNER x10(3)/mcL MILLENNIUM RDWSD 46.3 (H) 35.0 - CERNER 46.0 fL MILLENNIUM RDWCV 14.4 10.9 - CERNER 14.4 % MILLENNIUM MPV 10.1 9.0 - 12.0 CERNER fL MILLENNIUM Specimen Anatomical Collection Method Collection Time Receive d Time (Source) Location / / Volume Laterality Blood specimen 11/13/2014 11:40 5 (specimen) AM EDT 11:58 AM EDT Resulting Agency Comment Spec In Lab Christian Tolbert MD HEMATOLOGY ORDERABLES Performing Organization Address City/[facility]/ZIP Code Phon e Number [address] [facility] MILLEN[facility] Lipase (11/13/2014 11:40 AM EDT) P athologist Signature Lipase 33 0 - 60 CERNER unit/L MILLENNIUM Specimen Anatomical Collection Method Collection Time Receive d Time (Source) Location / / Volume Laterality Blood specimen 11/13/2014 11:40 5 (specimen) AM EDT 11:58 AM EDT Resulting Agency Comment Spec In Lab Christian Tolbert MD CHEMISTRY ORDERABLES Performing Organization Address City/[facility] Phon e Number [address] CERNER MILLENNIUM Hepatic Function Panel (11/13/2014 11:40 AM EDT) P athologist Signature Total Protein 7.3 6.1 - 8.0 CERNER gm/dL MILLENNIUM Albumin 4.5 3.2 - 5.2 CERNER gm/dL MILLENNIUM AST 15 0 - 30 CERNER unit/L MILLENNIUM ALT 12 0 - 30 CERNER unit/L MILLENNIUM Alk Phos 78 40 - 104 CERNER unit/L MILLENNIUM Total 0.7 0.2 - 1.3 CERNER Bilirubin mg/dL MILLENNIUM Bili, Direct 0.2 0.0 - 0.3 CERNER mg/dL MILLENNIUM Specimen Anatomical Collection Method Collection Time Receive d Time (Source) Location / / Volume Laterality Blood specimen 11/13/2014 11:40 5 (specimen) AM EDT 11:58 AM EDT Resulting Agency Comment Spec In Lab Christian Tolbert MD CHEMISTRY ORDERABLES Performing Organization Address City/State/[place] [address] CERNER MILLENNIUM Electrolytes panel (11/13/2014 11:40 AM EDT) P athologist Signature Sodium 142 135 - 145 CERNER mmol/L MILLENNIUM Potassium 3.7 3.5 - 5.0 CERNER mmol/L MILLENNIUM Comment: Please note: ??Patients with WBC >100,00 0 may have falsely elevated Potassium levels. ??For accurate Potassium quantif ication in these patients send serum separator tube (gold top) for subsequent determinations. ??Contact the Clinical Chemistry Laboratory if there are any qu estions. Chloride 103 98 - 107 mmol/L CERNER MILLENN IUM CO2 26 22 - 31 mmol/L CERNER MILLENNI UM Anion Gap 13 5 - 15 mmol/L CERNER MILLENNIU M Specimen Anatomical Collection Method Collection Time Receive d Time (Source) Location / / Volume Laterality Blood specimen 11/13/2014 11:40 5 (specimen) AM EDT 11:58 AM EDT Resulting Agency Comment Spec In Lab Christian Tolbert MD CHEMISTRY ORDERABLES Performing Organization Address City/[facility]/ZIP Code Phon e Number [address] CERNER MILLENNIUM POCT urine (11/13/2014) Patholo gist Method Time Signature POC Urine HCG Negative Negative - Negative POC Control Internal Controls Acceptable Specimen (Source) Anatomical Location Collection Method / Collectio n Time Received Time / Laterality Volume 11/13/2014 Christian Tolbert MD POINT OF CARE TEST ORDERABLE S POCT urine dipstick (11/13/2014) Analysis Performed At Patho logist Time Signature POC Sp [place] 1.010 1.002 - 1.030 POC pH, UA 8.0 5.0 - 8.5 POC Leuk, UA neg Negative - Negative POC Nitrite, neg Negative - UA Negative POC Protein, neg Negative - UA Negative mg/dL POC Glucose, normal Normal - UA Normal mg/dL POC Ketone, UA neg Negative - Negative POC Urobil, UA normal 0.2 - 1.0 mg/dL POC Bili, UA neg Negative - Negative POC Blood, UA neg Negative - Negative joe/uL Specimen (Source) Anatomical Location Collection Method / Collectio n Time Received Time / Laterality Volume 11/13/2014 Christian Tolbert MD POINT OF CARE TEST ORDERABLE S documented in this encounter Visit Diagnoses Diagnosis Abdominal pain, RUQ (right upper quadran t) Abdominal pain, right upper quadrant Chronic abdominal pain Abdominal pain, unspecified site Nausea and vomiting, vomiting of unspeci fied type Calculus of gallbladder without cholecys titis without obstruction Calculus of gallbladder without mention of cholecystitis or obstruction documented in this encounter Administered Medications Inactive Administered Medications - up to 3 most recent administrations Medication Order MAR Action Action Date Dose Rate Site HYDROmorphone (DILAUDID) Given 11/13/2014 11:46 AM EDT 0.5 mg injection 0.5 mg 0.5 mg, Intravenous, ONCE, 1 dose, On Tue11/13/14 at 1133, STAT documented in this encounter Active and Recently Administered Medications Times are shown in EDT. Scheduled Medication Order 11/11/2014 11/12/2014 11/13/2014 HYDROmorphone (DILAUDID) injection 0.5 mg (COMPLETED) 1146 (Given - Provider: Saadia Kaye RN) 0.5 mg, Intravenous, ONCE, 1 dose, Tue11/13/14 at 1133, STAT documented in this encounter Care Teams Air Export Agent Relationship Specialty Start Date End Date Jeremy Schmitz ND PCP - General Naturopathic Medicine 11/13/14 02/20/15 [address] [place] [address] documented as of this encounter
--- OUTSIDE RECORDS SUMMARY | 2022-01-08 16:09 | XMS_ITS | Encounter Summary ---
:1975 Author Organization [facility] [place] [address] Care Team Providers Name Role Phone Unavailable Primary Care Provider Unavailable Reason for Referral Consultation (Routine) - Closed Specialty Diagnoses / Procedures Referred By Contact Refer red To Contact Sleep Center Diagnoses Sleep disturbance Siena Parsons MD [facility] Sleep Disorders [address] [place] [address] [place] [address] Referral ID Status Reason Start Date Expiration Date Visits V isits Requested Authorized [id number] Closed Consult, 03/10/2015 03/09/2016 1 [facility] Reason for Visit Reason Comments Referral Consultation (Routine) - Closed Specialty Diagnoses / Procedures Referred By Contact Refer red To Contact Rheumatology Diagnoses Arthralgias Mariela Paniagua, [facility] 5c [employer] TECHNICIAN [facility] [address] [place] [phone] [place] [address] Referral ID Status Reason Start Date Expiration Date Visits V isits Requested Authorized [id number] Closed Consult, 02/24/2015 02/24/2016 1 1 [facility] Encounter Details Date Type Department Care Team Description 03/10/2015 Office Visit [place] [facility] [place]win Antoine MD [facility] [address] [place] [address] Sleep disturbance [facility] Siena Escamilla MD [facility] [place] [address] [place] [address] Social History Tobacco Use Types Packs/Day Years Used Date Smoking Tobacco: Never Smokeless Tobacco: Never Alcohol Use Standard Drinks/Week Comments No 0 (1 standard drink = 0.6 oz pure alcoho l) Sex Assigned at Date Recorded Not on file documented as of this encounter Last Filed Vital Signs Vital Sign Reading Time Taken Comments Blood Pressure 110/80 03/10/2015 12:41 PM EST Pulse 82 03/10/2015 12:41 PM EST Temperature 36.8 ??C (98.2 ??F) 03/10/2015 12:41 PM EST Respiratory Rate - - Oxygen Saturation 100% 03/10/2015 12:41 PM EST Inhaled Oxygen Concentration - - Weight 77.1 kg (170 lb) 03/10/2015 12:41 PM EST Height 162.6 cm (5' 4) 03/10/2015 12:41 PM EST Body Mass Index 29.18 03/10/2015 12:41 PM EST documented in this encounter Progress Notes Siena Parsons MD - 03/10/2015 1:17 PM EST Outpatient rheumatology consult note Reason for consult: generalized body pains. HPI: Ms Martinez is a 39 y/o female who was referred to us by PCP for evaluation of generalized body aches. Patient reports that her symptoms started in [...] episodes of apnic spells (as noted byothers). Reports feeling stressful over the past few years due to personal/family issues. ROS: General (-)fevers, (-)chills, (-)night sweats, (-)wt loss/gain,(+) fatigue. HEENT (-)head trauma, (-)vision change, (-)tinnitus, (-)epistaxis, (-)sore throat, oral ulcers (-)bleeding gums, (-), (-)dry eyes, (-)dry mouth, (- )dysphagia, (-)GERD, (-)photo sensitivity, (-)Hair loss, (-)vertigo CVS (-)chest pain, (-)palpitations, (-)pedal edema, (-)PND, (-)orthopnea. Pulm (+)CONN, (-)wheezes, (-)cough. GI (+)N, (-) bloating, (-)emesis, (-)hematemesis, (-)hematochezia, (-)change in appetite, (-) diahrrea. (-)hematuria, (-)dysuria, (-)frequency, (-)nocturia, (-)genital ulcers MS As above Endo (-)thyroid disorders, (-)diabetes, (-)temperature intolerance. Neuro (-)focal weakness, (-)paresthesias, (-)gait instability, (-) hx seizures Skin (-)Raynaud's,(-) rash,(-) ulcers, telangectasia (-) Psych (-) mood disorder. Recent hospitalizations for serious infections - Active Ambulatory Problems Diagnosis Date Noted ??? Dyspepsia 11/18/2014 ??? History of abnormal cervical Pap smear 12/16/2014 ??? Vagina bleeding 01/06/2015 Resolved Ambulatory Problems Diagnosis Date Noted ??? No Resolved Ambulatory Problems No Additional Past Medical History Past Surgical History Procedure Laterality Date ??? Pro upper gi endoscopy, biopsy N/A 11/19/2014 EGD WITH BIOPSY performed by Adiel Penny MD at [facility] ENDOSCOPY ??? Cervix surgery 01/1995 cone - DOROTHEA III, neg margins ??? Tubal ligation 11/01/2008 ??? Pro colonoscopy, diagnostic N/A 12/19/2014 COLONOSCOPY, DIAGNOSTIC performed by Maxi Shell MD at [facility] ENDOSCOPY Allergies Allergen Reactions ??? Bentyl [Dicyclomine] Hives ??? Penicillins Hives ??? omeprazole (PRILOSEC) 20 mg Capsule, Delayed Release(E.C.) ??? celecoxib (CELEBREX) 200 mg Capsule ??? cyclobenzaprine (FLEXERIL) 5 mg Tablet ??? cholecalciferol, Vitamin D3, 1,000 unit Capsule History Social History ??? Marital Status: Spouse Name: N/A Number of Children: N/A ??? Years of Education: N/A Occupational History ??? Not on file. Social History Main Topics ??? Smoking status: Never Smoker ??? Smokeless tobacco: Never Used ??? Alcohol Use: No ??? Drug Use: No ??? Sexual Activity: Not on file Other Topics Concern ??? Not on file Social History Narrative Physical exam: Filed Vitals: 03/10/15 1241 BP: 110/80 Pulse: 82 Temp: 36.8 ??C (98.2 ??F) Gen: Patient is awake, alert and oriented x 3, in no distress Skin: warm and dry, no rheumatologic rashes Lymph: no cervical or submandibular adenopathy Thyroid: no nodules or thyromegaly Mouth: moist mucous membranes, no oral ulcers Eyes: normal sclerae Heart: regular rate, no murmurs, rubs or gallops Lungs: clear to auscultation b/l Spine: normal ROM and no tenderness Joints: normal ROM throughout the upper and lower extremity joints, no synovitis or tenderness in the hands, wrists,elbows, shoulders, knees, ankles and feet. Tender points above and below the waist. Last 3 wbc, hgb, hct plt Recent Labs 11/22/14 1548 11/13/14 1140 WBC 7.1 6.4 HGB 12.4 12.4 HCT 34.8 35.5 PLATELET 211 217 Last 3 wbc, hgb, hct plt Recent Labs 11/22/14 1548 11/13/14 1140 WBC 7.1 6.4 HGB 12.4 12.4 HCT 34.8 35.5 PLATELET 211 217 Last 3 Lytes Recent Labs 11/22/14 1548 11/13/14 1140 NA 139 142 K 3.5 3.7 CL 103 103 CO2 24 26 BUN 13 -- CREATININE 0.75 -- Assessment/Plan: Ms Robb is 39 y/o female with longstanding hx of generalized body aches and sleep disturbances. Exam is negative for synovitis and she denies symptoms of rash, photosensitivity, oral ulcers, joint swelling/redness, muscle weakness etc.. suggestive of an ongoing autoimmune disorder. Considering her poor sleep, stress and findings of tender points above and below the waist, I suspect her symptoms are primarily myofascial pains driven by poor sleep. I believe she would most benefit by addressing her sleep problems at this time. Will refer for sleep evaluation and start trazodone for improving quality of sleep. Patients with fibromyalgia generally respond best to a multidisciplinary involving both non-pharmacologic measures and drug therapy. Patient was educated regarding the disease, treatment approaches, good sleep hygiene and the adverseeffects of poor sleep on pain. Role of stress was explained. Patient was educated on simple relaxation techniques. Low-impact aerobic activities such as fast walking, biking, swimming, or water aerobics are most successful. Medication: Trazadone 25 mg x 1week -->50 mg x 1 week --->75 mg x 1 week --->100 mg till next visit. Referral: Sleep evaluation. RTC- 4-6 weeks. Rheumatology Staff Note: I have interviewed and examined the patient independently and I agree with the assessment and plan of Dr. Parsons. There is a high enough probability for NELSON that a sleep study ismerited while we are attempting trazodone. Corwin Antoine M.D. documented in this encounter Plan of Treatment Scheduled Referrals Name Type Priority Associated Diagnoses Order S chedule Referral to Sleep Outpatient Referral Routine Sleep disturbanc e Ordered: Disorders Center 03/10/2015 documented as of this encounter Visit Diagnoses Diagnosis Sleep disturbance Sleep disturbance, unspecified documented in this encounter
--- OUTSIDE RECORDS SUMMARY | 2022-01-08 16:13 | XMS_ITS | Encounter Summary ---
:1975 Author Organization [facility] Address [address] [place] [address] Care Team Providers Name Role Phone Nicholas Damon MD Unavailable Selena Gentile APRN Primary Care Provider [phone] Reason for Visit Reason Onset Date Comments Medical Records 02/26/2021 Encounter Details Date Type Department Care Team Description 02/26/2021 Telephone [facility] Records Rheumatology & Immunology MD Reg - [id number] [place] [address] [place] [address] (Wo rk) Social History Tobacco Use Types Packs/Day Years Used Date Smoking Tobacco: Never Smokeless Tobacco: Never Alcohol Use Standard Drinks/Week Comments Yes 0 (1 standard drink = 0.6 oz pure alcoho l) Sex Assigned at Date Recorded Female 12/11/2020 13:05 EDT documented as of this encounter Functional Status Functional Status Response Date of Assessment Because of a physical, mental, or emotional condition, Yes 04/25/2020 does this person have difficulty doing errands alone such as visiting a doctor's office or shopping? Cognitive Status Response Date of Assessment Because of a physical, mental, or emotional condition, No 06/27/2020 does this person have serious difficulty concentrating, remembering, or making decisions? documented as of this encounter Miscellaneous Notes Telephone Encounter - Lorena De Jesus RN - 02/26/2021 1546 EST Per pt request, X-ray report of right shoulder along with the ULS done were faxed to Dr. Hinojosa [phone] Telephone Encounter - Millie Roldan - 02/26/2021 1442 EST Patient is calling to get xrays of shoulder and U/S results sent to: [facility] [address]. Ashwin Garcia documented in this encounter Plan of Treatment Upcoming Encounters Date Type Specialty Care Team Description 03/10/2022 Office Visit Dermatology Doris Sheffield , SITA [address] [facility], [facility], [address] [place], [place] [phone] (Wo rk) documented as of this encounter Visit Diagnoses Not on filedocumented in this encounter Care Teams Golf Course Mechanic Relationship Specialty Start Date End Date Selena Gentile APRN PCP - General 09/02/16 [address] [place] [phone] Nicholas Damon MD 05/29/14 [facility] [address] [place] [address] documented as of this encounter
--- OUTSIDE RECORDS SUMMARY | 2022-01-08 16:13 | XMS_ITS | Encounter Summary ---
:1975 Author Organization [facility] Address [address] [place] [address] Care Team Providers Name Role Phone Nicholas Damon MD Unavailable Selena Gentile APRN Primary Care Provider [phone] Reason for Visit Reason Comments Follow-up Skin lesions. Re-check spot on back. Post-5-FU along face Encounter Details Date Type Department Care Team Description 12/18/2020 Office Visit [facility] Doris Sheffield, Denise orcody of basal cell carcinoma (Primary Dx); Dermatology - [facility] PA-C Actinic keratoses; [place] [address] [place] Seborrheic keratosis; [address] [place] [address] Actinic skin damage; [place], [place] [phone] [place] [address], [place] Lyme disease [phone] [facility] [address] [place] [phone] (Wo rk) Social History Tobacco Use Types [...] making decisions? documented as of this encounter Progress Notes Doris Sheffield PA-C - 12/18/2020 1030 EST DERMATOLOGY OUT PATIENT PROGRESS NOTE BASAL CELL SKIN CANCER - FOLLOW-UP PROBLEM: 1. History of basal cell carcinoma on the right anterior temporal scalp; S/P Mohs micrographic surgery with complex linear repair, 11/19/16 by Nicholas Forrest MD 2. Basal cell carcinoma, right upper back post electrodesiccation and curettage 11/19/16 by Nicholas Forrest MD. SUBJECTIVE: Ms. Villanueva is a 45 y.o. female who presents today for skin check. She was last seen 1 year ago. She has no concerns regarding the surgical site(s). She has no constitutional symptoms. She has been much better about sun protection. Risk factors: fair skin, history of blistering sunburns and prior history of skin cancer Other concerns: 1. At her last visit on 10/31/2019 we talked about using the prescription that she had been given fortopical 5-fluorouracil cream for treatment of her actinic keratoses -she use this on her nose and right cheek. She thinks she may have a remaining small actinic keratosis just at the left alar crease. 2. She was diagnosed with Lyme disease and is currently taking a azithromycin, doxycycline and a probiotic. She has had symptoms for about 2 years with no history of a tick bite and no rash. She was having night sweats and was not feeling well and a battery of tests were done that were negative. Lyme a ntibodies were done that were negative but immunoblot confirmation was positive for IgG and IgM. I reviewed the past medical history, social history, current medications and allergies. Current Outpatient Medications on File Prior to Visit Medication Sig Dispense Refill ??? azithromycin (ZITHROMAX) 250 mg tablet Take 250 mg by mouth daily. ??? DOXYCYCLINE HYCLATE ORAL Take by mouth daily. ??? Lactobac no.41/Bifidobact no.7 (PROBIOTIC-10 ORAL) Take by mouth daily. No current facility-administered medications on file prior to visit. Allergies Allergen Reactions ??? Duloxetine Severe suicidal thoughts. ??? Adhesive ??? Bentyl [Dicyclomine] ??? Penicillins OBJECTIVE: She is well-groomed, well-nourished and appears stated age. Appropriate affect and demeanor. SKIN EXAM: Ramos Skin Type II: Well-healed scar on the right anterior temporal scalp and rightupper back with no nodularity, crusting or erosion - full body examination including the hair, scalp, face, eyelids, lips, neck, chest, back, abdomen, all four extremities, pubis, buttocks, hands, feet, digits and nails. There are diffuse actinic changes over the sun-exposed areas of the face, neck, chest, upper back, shoulders (most prominent), arms and dorsal hands; less so on the legs. Suspicious lesions: none: Other findings: 1. Left anterior alar crease - 1 mm slightly gritty papule 2. Right cheek - clear 3. The rest of her face is clear 4. Right mid back -solitary 1.0 x 0.6 cm oval, waxy villalobos/champion seborrheic keratosis ASSESSMENT: 1. History of basal cell carcinoma 2. Actinic keratoses 3. Seborrheic keratosis 4. Actinic skin damage 5. Lyme disease -currently being treated PLAN: 1. Recommend continued sun avoidance, sun protection and self-examination. Reapply sunscreen every 2-3 hours. 2. Reviewed signs and symptoms of melanoma and non-melanoma skin cancers to be aware of. 3. It is possible that there is a remaining tiny actinic keratosis on the left alar crease. She can retreat this area sometime over the winter. She may get an exuberant reaction as this is in the crease and should try to put this on in the direction away from that. 4. Patient was reassured about the benign lesions - instructed to call with any changes. She can expect more seborrheic keratoses over time. Reviewed the clinical characteristics (champion, marrufo, waxy etc). 5. Follow-up: 1 year or sooner with any questions or concerns. Please note: Parts of this documentation were created with the use of voice recognition software andmay contain home energy rater errors Doris Sheffield PA-C 10:41 12/18/2020 Surinder Flores MA - 12/18/2020 1030 EST Review of Systems Constitutional: Negative for fatigue, fever and unexpected weight change. HENT: Negative for mouth sores. Eyes: Negative for pain. Respiratory: Negative for cough and shortness of breath. Cardiovascular: Negative for chest pain and palpitations. Gastrointestinal: Negative for abdominal pain, blood in stool, constipation, diarrhea, nausea and vomiting. Genitourinary: Negative for dysuria, frequency and hematuria. Musculoskeletal: Negative for myalgias, joint swelling, arthralgias and muscle stiffness in the morning. Skin: Negative for rash. Neurological: Negative for numbness and headaches. Endo/Heme/Allergies: Does not bruise/bleed easily. Psychiatric/Behavioral: Negative for sleep disturbance. The patient is not nervous/anxious. SURINDER FLORES MA 12/18/2020 10:49 Doris Sheffield PA-C 11:24 12/18/2020 documented in this encounter Plan of Treatment Upcoming Encounters Date Type Specialty Care Team Description 03/10/2022 Office Visit Dermatology Doris Sheffield PA-C [address] [facility], [facility], [address] [place], [place] [phone] (Wo rk) documented as of this encounter Visit Diagnoses Diagnosis History of basal cell carcinoma - Primar y Personal history of other malignant neop lasm of skin Actinic keratoses Actinic keratosis Seborrheic keratosis Other seborrheic keratosis Actinic skin damage Other dermatitis due to solar radiation Lyme disease documented in this encounter Discontinued Medications Medication Sig Discontinue Reason Start Date End Date acetaminophen (TYLENOL) Take by mouth. 325 mg capsule cyclobenzaprine Take 1 at bedtime. Therapy completed 04/25/2020 1 02/18/2020 (FLEXERIL) 10 mg tablet famotidine (PEPCID) 20 Take 20 mg by Therapy completed 03/08/2020 12/18/2020 mg tablet mouth 2 times daily. fluorouraciL (EFUDEX) 5 Apply to nose and 10/31/2019 12/18/2020 % cream cheek daily for 3 weeks. KEEP AWAY FROM CHILDREN AND PETS ibuprofen (MOTRIN) 200 4 tab(s) orally Patient Stopped 12/18/2020 mg tablet every 6 hours PRN Taking headaches ranitidine HCl Take by mouth at Patient Stopped 2020 (HEARTBURN RELIEF, bedtime. Taking RANITIDINE, ORAL) sertraline (ZOLOFT) 100 Take 100 mg by Discontinued by 12/18/2020 mg tablet mouth daily. another clinician documented as of this encounter Historical Medications This list may reflect changes made after this encounter. Medication Sig Dispensed Refills Start Date End Date Lactobac no.41/Bifidobact Take by mouth daily. 0 no.7 (PROBIOTIC-10 ORAL) azithromycin (ZITHROMAX) Take 250 mg by mouth 0 250 mg tablet daily. DOXYCYCLINE HYCLATE ORAL Take by mouth daily. 0 added in this encounter Care Teams Bailiff Relationship Specialty Start Date End Date Selena Gentile APRN PCP - General 09/02/16 [address] [place] [phone] Nicholas Damon MD 05/29/[address] [address] documented as of this encounter
--- OUTSIDE RECORDS SUMMARY | 2022-01-08 16:13 | XMS_ITS | Encounter Summary ---
:1975 Author Organization [facility] Address [address] [place] [address] Care Team Providers Name Role Phone Nicholas Damon MD Unavailable Selena Gentile APRN Primary Care Provider [phone] Reason for Referral PT/OT/ST (Routine) - New Request Specialty Diagnoses / Procedures Referred By Contact Refer red To Contact Diagnoses Pain in joint of right shoulder Subdeltoid bursitis of right shoulder joint Mil Luna MD [address] [place] [address] 5 [place] [address] Referral ID Status Reason Start Expiration Visits Visits Date Date Requested Authorized [id number] New Request Specialty 06/27/2020 1 1 Services Required Question Answer Reason for Request: Right shoulder pain. Will ne ed strengthening of infraspinatus and supraspinatus muscles. Reason for Visit Reason Comments Ultrasound right shoulder Joint Pain Injections Encounter Details Date Type Department Care Team Description 06/27/2020 Procedure visit [facility] Mil Luna ain in joint of right shoulder (Primary Dx); Rheumatology & MD Reg Subdeltoid bursitis of right shoulder mu int Immunology - Main [address] [place] [address] [address] [place], [place] [id number] [place] [address] [place] [address] Social History Tobacco Use Types Packs/Day Years Used Date Smoking Tobacco: Never Smokeless Tobacco: Never Alcohol Use Standard Drinks/Week Comments Yes 0 (1 standard drink = 0.6 oz pure alcoho l) Sex Assigned at Date Recorded Female 12/11/2020 13:05 EDT documented as of this encounter Last Filed Vital Signs Vital Sign Reading Time Taken Comments Blood Pressure 124/79 06/27/2020 0955 EDT Pulse 91 06/27/2020 0955 EDT Temperature - - Respiratory Rate - - Oxygen Saturation - - Inhaled Oxygen Concentration - - Weight 103 kg (227 lb) 06/27/2020 0955 EDT Height - - Body Mass Index 38.66 04/25/2020 1451 EDT documented in this encounter Functional Status Functional Status Response [...] making decisions? documented as of this encounter Patient Instructions Patient InstructionsMil Luna MD - 06/27/2020 10:00 EDT Take it easy on your right shoulder for the next 1-2 days. Use an ice bag over the region intermittently for 5-10 minutes on and 1 hour off for the next few hours today. Keep the area dry today. The band-aid can be removed tomorrow. Give us call if you develop any redness or warmth over your right shoulder. Start physical therapy for your right shoulder from next week. documented in this encounter Progress Notes Mil Luna MD - 06/27/2020 1000 EDT Images from the original note were not included. DIVISION OF RHEUMATOLOGY AND CLINICAL IMMUNOLOGY MUSCULOSKELETAL ULTRASOUND REPORT Date of Service: 06/27/2020 Site: Right shoulder Indication: Right shoulder pain Probe: High frequency linear probe Scan views performed: Complete sonographic shoulder evaluation Findings: The long head of the biceps tendon appears normal within the bicipital groove. The sheath surrounding the tendon appears normal. No abnormal Doppler activity in this region. The subscapularis tendon appears normal. The tendon fibers of the infraspinatus tendon appear minimally hyperechoic. Few hyperechoic densities suggestive of calcifications are noted within the tendon. An erosion is noted over the greater tuberosity (erosions over this region are not always pathologic and can also be seen in healthy individuals). The tendon fibers of the supraspinatus tendon appear minimally hyperechoic. The tendon fibers of the teres minor tendon appear minimally hyperechoic. The subdeltoid bursa appears thickened. No abnormal Doppler signal in the region. The glenohumeral joint appears normal. There is mild extrusion of the joint capsule at the acromioclavicular joint. No abnormal Doppler signal in the region. 1. The overlying deltoid muscle and subcutaneous tissues appear normal. Impression: 1. Rotator cuff tendinosis affecting infraspinatus, supraspinatus and teres minor tendons. 2. Subdeltoid bursitis. 3. AC joint arthritis Mil Luna MD 06/27/2020 Anterior Transverse and Longitudinal views (Biceps tendon views): Anterior Transverse and Longitudinal views with arm in External Rotation (Subscapularis tendon views): Posterior Transverse and Longitudinal views (Infraspinatus tendon views): Posterior Transverse and Longitudinal views (Teres minor tendon views): Posterior Glenohumeral joint views: Acromioclavicular joint views: Crass and modified Crass position views (Supraspinatus tendon views): Lateral Longitudinal views (Subacromial bursa impingement testing views): Mil Luna MD 06/27/2020 DIVISION OF RHEUMATOLOGY AND CLINICAL IMMUNOLOGY ULTRASOUND GUIDED INJECTION PROCEDURE NOTE Date of Service: 06/27/2020 Site: Right shoulder Indication: Right shoulder pain, subdeltoid bursitis Probe: High frequency linear probe Procedure Description: Once informed consent was obtained from the patient, the area(s) was marked and time out was performed. The area(s) was cleansed with Chlorhexidine. Ethyl chloride was used for surface anesthesia and lidocaine was used for subcutaneous anesthesia. A 21 gauge 2 inch needle was used to enter the bursa under sonographic guidance and Kenalog (triamcinolone acetonide 40 mg mixed with lidocaine was then injected into this area. The area(s) was then cleansed again with alcohol and band aid(s) was applied. No complications were noted. Post- procedure instructions were provided to the patient. Needle guidance views: Mil Luna MD 06/27/2020 documented in this encounter Plan of Treatment Upcoming Encounters Date Type Specialty Care Team Description 03/10/2022 Office Visit Dermatology Doris Sheffield , SITA [address] [facility], [facility], [address] [place], [place] [address] (Wo rk) Scheduled Referrals Name Type Priority Associated Diagnoses Order S chedule AMB CONS/FOLLOW UP Outpatient Referral Routine Pain in joint o f Ordered: PHYSICAL THERAPY right shoulder 06/27/2020 Subdeltoid bursitis of right shoulder joint documented as of this encounter Visit Diagnoses Diagnosis Pain in joint of right shoulder - Primar y Pain in joint, shoulder region Subdeltoid bursitis of right shoulder mu int documented in this encounter Administered Medications Inactive Administered Medications - up to 3 most recent administrations Medication Order MAR Action Action Date Dose Rate Site triamcinolone acetonide (KENALOG-40) Given 06/27/2020 11:15 EDT 40 mg injection 40 mg 40 mg, intra-articular, NOW X1, 1 dose, On Tue06/27/20 at 1145, Routine documented in this encounter Orders Medications Ordered That Might Not Have Count Last Ord ered Date First Ordered Date Been Administered triamcinolone acetonide (KENALOG-40) 1 06/27/2020 injection 40 mg documented in this encounter Care Teams Top Carrier Relationship Specialty Start Date End Date Selena Gentile APRN PCP - General 09/02/16 [address] [place] [address] Nicholas Damon MD 05/29/14 [place] [address] [place] [address] documented as of this encounter
--- OUTSIDE RECORDS SUMMARY | 2022-01-08 16:14 | XMS_ITS | Encounter Summary ---
:1975 Author Organization [facility] Address [address] [place] [address] Care Team Providers Name Role Phone Nicholas Damon MD Unavailable Selena Gentile APRN Primary Care Provider [phone] Reason for Visit Reason Comments Follow-up Skin lesions. Spot on R eyeb row, L lower legs, back Encounter Details Date Type Department Care Team Description 10/31/2019 Office Visit [facility] Doris Sheffield, Hist ory of basal cell carcinoma (Primary Dx); Dermatology - Main PA-C Actinic keratoses; [place] [address] [place] Seborrheic keratosis; [address] [place] [address] Actinic skin damage [place], [place] [id number] [place] [address] [place], [address] [place] [address] (Wo rk) Social History Tobacco [...] a physical, mental, or emotional condition, No 04/21/2019 does this person have difficulty doing errands alone such as visiting a doctor's office or shopping? Cognitive Status Response Date of Assessment Because of a physical, mental, or emotional condition, No 04/21/2019 does this person have serious difficulty concentrating, remembering, or making decisions? documented as of this encounter Patient Instructions Patient InstructionsDoris Sheffield PA-C - 10/31/2019 15:30 EDT INSTRUCTIONS FOR USING TOPICAL 5-FLUOROURACIL FOR ACTINIC KERATOSES Actinic keratoses are the result of sun damage and are visible as rough, red darden on the skin. Carac???, Efudex??? or Tolak (5-fluorouracil) is chemotherapy which kills the precancerous cells. The medication is safe as prescribed. Do not use if you are , trying to become , or nursing. 1. Apply a thin layer of cream to the affected areas and rub into the skin. 2. Wash your hands well after applying. AVOID: Eyelids and the crescents around the wings of the nose. CAUTION: If eaten by pets or children this medication is toxic. Keep away. 3. EXPECT THE FOLLOWING: The following reactions start after a few days. ??? Redness and Irritation ??? Crusting and some Oozing ??? Mild discomfort These are normal: Continue application as directed. To reduce tenderness, use a moist pillowcase as a cool compress. Wash after use. Apply petroleum jelly / Vaseline several times daily. You may use ibuprofen orally at standard doses as needed. If you develop ?? Excessive pain and purulent discharge (pus) ?? Fever or chills ?? Painful blisters Contact our office at [phone] or , as you may be developing an infection. 4. Minimize sun exposure to the treated areas during and for at least 1 month following treatment. 5. After completing treatment it will take several weeks for the treated area(s) to return to normal. You can conceal the redness with makeup. Redness or discoloration can persist for several months. Please call our office or if you have any concerns or questions. documented in this encounter Ordered Prescriptions Prescription Sig Dispensed Refills Start Date End Date fluorouraciL (EFUDEX) 5 % Apply to nose and 40 g 0 12/18/2020 cream cheek daily for 3 weeks. KEEP AWAY FROM CHILDREN AND PETS documented in this encounter Progress Notes Surinder Flores MA - 10/31/2019 1530 EDT Review of Systems Constitutional: Negative for fatigue, [...] disturbance. The patient is not nervous/anxious. SURINDER FLROES MA 10/31/2019 15:27 Doris Sheffield PA-C 15:50 10/31/2019 Doris Sheffield PA-C - 10/31/2019 1530 EDT DERMATOLOGY OUT PATIENT PROGRESS NOTE BASAL CELL SKIN CANCER - FOLLOW-UP Chief Complaint Patient presents with ??? Follow-up Skin lesions. Spot on R eyebrow, L lower legs, back PROBLEM: 1. History of basal cell carcinoma on the right anterior temporal scalp; S/P Mohs micrographic surgery with complex linear repair, 11/19/16 by Nicholas Forrest MD 2. Basal cell carcinoma, right upper back post electrodesiccation and curettage 11/19/16 by Nicholas Forrest MD. SUBJECTIVE: Ms. Ferrari is a 43 y.o. female who presents today for skin check. She was last seen 1 year ago. She has no concerns regarding the surgical site(s). She has no constitutional symptoms. She has been much better about sun protection. Risk factors: fair skin, history of blistering sunburns and prior history of skin cancer Other concerns: 1. She never did the treatment with the topical 5-fluorouracil cream because many friends told her that it was a horrible experience and she chickened out. She has not noticed any changes in any of the small actinic keratoses that were noted at her visit last year. 2. Check spot above the right brow-she thinks this may be a little larger and thicker over time 3. Check spot on the right mid back at the bra line 4. New shiny champion spot on the left knee I reviewed the past medical history, social history, current medications and allergies. Current Outpatient Medications on File Prior to Visit Medication Sig Dispense Refill ??? acetaminophen (TYLENOL) 325 mg capsule Take by mouth. ??? ibuprofen (MOTRIN) 200 mg tablet 4 tab(s) orally every 6 hours PRN headaches ??? ranitidine HCl (HEARTBURN RELIEF, RANITIDINE, ORAL) Take by mouth at bedtime. ??? sertraline (ZOLOFT) 100 mg tablet Take 100 mg by mouth daily. No current facility-administered medications on file prior to visit. Allergies Allergen Reactions ??? Duloxetine Severe suicidal thoughts. ??? Adhesive ??? Bentyl [Dicyclomine] ??? Penicillins OBJECTIVE: She is well-groomed, well-nourished and appears stated age. Appropriate affect and demeanor. She is accompanied today by her . SKIN EXAM: Ramos Skin Type II: Well-healed scar on the right anterior temporal scalp and rightupper back with no nodularity, crusting or erosion - full body examination including the hair, scalp, face, eyelids, lips, neck, chest, back, abdomen, all four extremities, hands, feet, digits and nails. There are diffuse actinic changes over the sun-exposed areas of the face, neck, chest, upper back,shoulders, arms and dorsal hands; less so on the legs. Suspicious lesions: none Other findings: 1. Right superior cheek, nasal tip, right chest- pink gritty macules and small patches 2. Right forehead just superior to the brow- 7 x 4 mm waxy, champion, stuck-on appearing, flat-topped papule 3. Right mid back- 8 x 5 mm waxy, champion, stuck-on appearing, flat-topped papule 4. Left medial knee-1 mm champion, waxy, shiny, stuck-on appearing papule ASSESSMENT: 1. History of basal cell carcinoma 2. Actinic keratoses 3. Seborrheic keratosis 4. Actinic skin damage PLAN: 1. Recommend continued sun avoidance, sun protection and self-examination. Reapply sunscreen every 2-3 hours. 2. Reviewed signs and symptoms of melanoma and non-melanoma skin cancers to be aware of. 3. Her actinic keratoses are so small and so few in number, I do not think that her course of treatment will be intolerable. She could also do this segmentally if she prefers. She is willing to give elma try. Rx Efudex 40 g no refills; apply daily for 3 weeks to the affected areas on the cheeks and nose and right chest. Encouraged to call to talk to the nurse with any questions or concerns. 4. Patient was reassured about the benign lesions - instructed to call with any changes. She can expect more seborrheic keratoses over time. Reviewed the clinical characteristics (champion, marrufo, waxy etc). 5. Follow-up: 1 year or sooner with any questions or concerns. Please note: Parts of this documentation were created with the use of voice recognition software andmay contain managed care manager errors Doris Sheffield PA-C 15:51 10/31/2019 documented in this encounter Plan of Treatment Upcoming Encounters Date Type Specialty Care Team Description 03/10/2022 Office Visit Dermatology Doris Sheffield PA-C [address] [facility], [facility], [address] [place], [place] [address] (Wo rk) documented as of this encounter Visit Diagnoses Diagnosis History of basal cell carcinoma - Primar y Personal history of other malignant neop lasm of skin Actinic keratoses Actinic keratosis Seborrheic keratosis Other seborrheic keratosis Actinic skin damage 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 to scaly spots on right cheek, right chest, nose for 3 weeks. KEEP AWAY FROM CHILDREN AND PETS documented as of this encounter Care Teams Account Resolution Specialist Relationship Specialty Start Date End Date Selena Gentile APRN PCP - General 09/02/16 [address] [place] [phone] Nicholas Damon MD 05/29/[address] [address] documented as of this encounter
--- OUTSIDE RECORDS SUMMARY | 2022-01-08 16:14 | XMS_ITS | Encounter Summary ---
:1975 Author Organization [facility] Address [address] [place] [address] Care Team Providers Name Role Phone Unknown, Provider Primary Care Provider Nicholas Damon MD Unavailable Nicholas Damon MD Primary Care Provider Mariela Paniagua CNM Primary Care Provider Unknown, Provider Primary Care Provider Selena Gentile APRN Primary Care Provider [phone] Encounter Details Date Type Department Care Team Description 01/07/2016 Historical Results [facility] - Kristen Seo [facility] - [place] us M, [employer]LECT[employer] D[employer] [address] [place], [place] [id number] [place] [address] Road [address] [place] [address] Social History Tobacco Use Types Packs/Day Years Used Date Smoking Tobacco: Never Assessed Sex Assigned at Date Recorded Female 12/11/2020 13:05 EDT documented as of this encounter Plan of Treatment Upcoming Encounters Date Type Specialty Care Team Description 03/10/2022 Office Visit Dermatology Doris Sheffield PA-C [address] [facility], [facility], [address] [place], [place] [address] (Wo rk) documented as of this encounter Procedures Procedure Name Priority Date/Time Associated Comments Diagnosis PHARYNGITIS SCREEN - Routine 01/07/2016 14:27 Res ults for this [facility] EST procedure are i n the results section. documented in this encounter Results PHARYNGITIS SCREEN - [facility] (01/07/2016 14:27 EST) P athologist Signature BETA HEMOLYTIC SKIP LOCATOR 01/09/[address] NOT GRP 12:28 EST [facility] - [facility] QUANT - [facility] MANY 01/09/2016 CENTRAL 12:28 EST [facility] USUAL UTF 01/09/2016 CENTRAL ORAL/PHARYNGEA 12:28 EST [facility] SHAUN - [facility] QUANT - [facility] PRESENT 01/09/2016 CENTRAL 12:28 EST [facility] Specimen Anatomical Collection Method Collection Time Receive d Time (Source) Location / / Volume Laterality 01/07/2016 14:27 01/07/2016 EST 18:18 EST Ricky Seo NP CHEMISTRY & BLOOD GAS ORDERA BLES Performing Organization Address City/State/ZIP Code Phon e Number [facility] [address] [place], [place] [id number] [place] [address] LAB documented in this encounter Visit Diagnoses Not on filedocumented in this encounter Care Teams Mortuary Beautician Relationship Specialty Start Date End Date Unknown, Provider, PCP - General 05/29/14 07/07/16 Nicholas Damon MD PCP - General 07/08/16 07/27/16 [facility] [address] [place], [place] [id number] Mariela Paniagua CNM PCP - General 07/28/16 07/28/16 [address] [place] [address] Unknown, Provider, PCP - General 07/29/16 09/01/16 Selena Gentile, CREPE MACHINE OPERATOR PCP - General 09/02/16 [address] [place] [address] Nicholas Damon MD 05/29/[address] [address] documented as of this encounter
--- OUTSIDE RECORDS SUMMARY | 2022-01-08 16:14 | XMS_ITS | Encounter Summary ---
:1975 Author Organization [facility] Address [address] [place] [address] Care Team Providers Name Role Phone Nicholas Damon MD Primary Care Provider Encounter Details Date Type Department Care Team Description 06/26/2010 Results Only [facility] Maggie Ash ie, [facility] Laboratory Services - [address] [facility] [place] [address] [address] [facility] [place], [place] [address] [phone] Social History Tobacco Use Types Packs/Day Years Used Date Smoking Tobacco: Never Assessed Sex Assigned at Date Recorded Female 12/11/2020 13:05 EDT documented as of this encounter Plan of Treatment Upcoming Encounters Date Type Specialty Care Team Description 03/10/2022 Office Visit Dermatology Doris Sheffield , SITA [address] [facility], [facility], [address] [place] [address] (Wo rk) documented as of this encounter Procedures Procedure Name Priority Date/Time Associated Diagnosis Comme nts SURGICAL PATHOLOGY Routine 06/26/2010 0:00 EDT Re sults for this procedure are i n the results section. documented in this encounter Results SURGICAL PATHOLOGY (06/26/2010 0:00 EDT) Component Value Ref Test Analysis Performed At [facility] Range Method Time Signature Pathology SURGICAL PATHOLOGY REPORT ? FLETC HER Report: Reports generated via electr onic interface contain original data; ? [facility] however they are lacking the format of the original report. ? Caution should be taken when reading/interpreting unformatted reports. ? Name: ? LORENA, ANYA L ? Accession #: ? [id number] ? : ? 1975 (Age: 34) ??F ? Collec t Date: ? 06/26/2010 ? Location: ? [facility] ? R eceive Date: ? 06/29/2010 ? Provider: GABE SONJA CNM ? Copy to: DANIEL MECH MD ? Final Pathologic Diagnosis: ? A. ?Endometrium , biopsy: ? 1. ?Benign endo cervical tissue admixed with mucin. ??See comment. ? B. ?Endometrium , curettings: ? 1. ?Secretory e ndometrium. ??See comment. ? Comment: ? Specimen container (A ) was labelled as endometrial biopsy, and specimen ? container (B) was labelled a s biopsy. ??(Dr. Stevenson)/mpl ? Document reviewed and electr onically signed by: ? ABDELMONEM [facility] MD ? Report ??Date: 07/02/2010 16 :26 ? By the signature above, the attending physician certifies that he/she has ? personally conducted a gross and/or microscopic examination of the described ? specimens and rendered or co nfirmed the above diagnosis. ? Specimen(s) Received: ? A. ?Endometrial ? B. ? Bx x2 ? Clinical History: ? Clinical diagnosis co de: glandular cell abn-atypical endocervical cells ? Gross Description: ? Received in formalin labelled Ferrari, Anya and EMB is 1cc of ? blood-tinged mucus admixed w ith fragments of red-brown tissue. ??The specimen is received attached to two cur ettage brushes. ??The specimen is submitted entirely as (A). ? Received in formalin amanda d Ferrari, Anya and bx are approximately 2cc of champion-brown and red-brown tiss ue fragments admixed with blood-tinged mucus. ??The ?? specimen is submitted entire ly as (B) following filtration. (Alexandria Haque)/evgeny ? End of Report ? Specimen (Source) Anatomical Collection Method Collection Time Re ceived Time Location / / Volume Laterality 06/26/2010 06/29/2010 8:23 EDT Gabe Ash CNM PATHOLOGY ORDERABLES Performing Organization Address City/State/ZIP Code Phon e Number [facility] [address] [place] [address] SERVICES [facility] [address] [place] [address] documented in this encounter Visit Diagnoses Not on filedocumented in this encounter Care Teams Band Machine Operator Relationship Specialty Start Date End Date Nicholas Damon MD PCP - General 05/29/08 05/28/14 [facility] [address] [address] documented as of this encounter
--- OUTSIDE RECORDS SUMMARY | 2022-01-08 16:14 | XMS_ITS | Encounter Summary ---
:1975 Author Organization [facility] Address [address] [place] [address] Care Team Providers Name Role Phone Nicholas Damon MD Unavailable Selena Gentile APRN Primary Care Provider [phone] Reason for Visit Reason Onset Date Comments Wound Care 11/24/2016 Encounter Details Date Type Department Care Team Description 11/24/[address] [facility] Nicholas Forrest MD Wound Care Dermatology - Main ampus [address] [facility] PREM [address] [place], [place] [id number] [place] [phone] (Wo rk) Social History Tobacco Use Types Packs/Day Years Used Date Smoking Tobacco: Never Smokeless Tobacco: Never Alcohol Use Standard Drinks/Week Comments Yes 0 (1 standard drink = 0.6 oz pure alcoho l) Sex Assigned at Date Recorded Female 12/11/2020 13:05 EDT documented as of this encounter Miscellaneous Notes Telephone Encounter - Fatuma Mccarthy - 11/25/[address] Forrest, Ms. Ferrari has been scheduled for a [facility] nurse visit today at 11:30AM. Fatuma Mccarthy 11/25/2016 8:13 Telephone Encounter - Fatuma Mccarthy - 11/24/2016 1529 EDT Spoke with Ms. Ferrari and provided her with my email so she can send a photo of her face to Dr. Forrest. She stated that when she went to the ER they gave her an antibiotic because they believe she has askin infection. Fatuma Rosassunitashawnlennie 11/24/2016 15:33 Telephone Encounter - Fatuma Mccarthy - 11/24/2016 1511 EDT Left message for patient asking if she would be willing to send a photo of her face and the Mohs site. If patient calls back and is fine to send the photo, please have her email it to my email, or Dr. Forrest's. Also please try and get hold of me. [email or web address] or [email or web address] Fatuma Shari 11/24/2016 15:13 Telephone Encounter - Marta Amezcua - 11/24/2016 1428 EDT Nurse from [facility] calling regarding patient illness/fever. Patient has fever of 101.2, but no signs of infection. Nurse wanted to relay information to Dr. Forrest to see if he thought it would be best to see patient again? Please call patient, if so. Telephone Encounter - Prema Negro RN - 11/24/2016 1310 EDT Status Post MOHS of basal cell carcinoma right, anterior scalp with complex linear repair and Curettage and Electrodesiccation basal cell carcinoma right an upper back by Nicholas Forrest MD 11/19/16 Patient reports: Tuesday she started feeling sick like she didn't have any energy, slept all day Scalp is painful, rates pain 7/10 and if she moves it is 10/10 Rates pain on back 4-5/10 Eye is swollen with pinkish at the inner corer of her eye, feels like to swelling is getting worse Has difficulty seeing out of her eye No drainage Temp was 99 Took yesterday off from work and went to see her PCP who assessed her wounds and she felt that everything was OK as far as her surgery went, recommended watching the wound on her back Went into work today, started feeling worse No energy, joints are achy Temp is 101.2 Patient offered an appointment for a wound check but with her swollen eye does not feel as if it is safe for her to drive. She was instructed to see her PCP or [facility] for assessment Triage note to Nicholas Forrest MD to make him aware PREMA NEGRO RN 11/24/2016 13:40 Telephone Encounter - Mel Joiner - 11/24/2016 1229 EDT Patient returning call. She states she is leaving work now due to a fever and will be available to answer her phone. Telephone Encounter - Guillermo Arechiga - 11/24/2016 1209 EDT Patient is returning a call. Please call. Telephone Encounter - Guillermo Arechiga - 11/24/2016 1140 EDT Patient states she had Mohs on 11/19/16 and she has started running a temperature of 101.2, has bodyaches, a bad headache, swelling around her eye and forehead and the wound site is very painful. Patient is wondering what she can do to help. Please call patient. documented in this encounter Plan of Treatment Upcoming Encounters Date Type Specialty Care Team Description 03/10/2022 Office Visit Dermatology Doris Sheffield PA-C 111 [facility], [facility], [address] [place], [place] [phone] (Wo rk) documented as of this encounter Visit Diagnoses Not on filedocumented in this encounter Care Teams Data Processing Mechanic Relationship Specialty Start Date End Date Selena Gentile APRN PCP - General 09/02/16 [address] [place] [phone] Nicholas Damon MD 05/29/[address] [id number] documented as of this encounter
--- OUTSIDE RECORDS SUMMARY | 2022-01-08 16:14 | XMS_ITS | Encounter Summary ---
:1975 Author Organization [facility] Address [address] [place] [address] Care Team Providers Name Role Phone Nicholas Damon MD Unavailable Unknown, Provider Primary Care Provider Encounter Details Date Type Department Care Team Description 08/04/2016 [facility] MD [id number] [place] [address] [phone] Social History Tobacco Use Types Packs/Day Years Used Date Smoking Tobacco: Never Assessed Sex Assigned at Date Recorded Female 12/11/2020 13:05 EDT documented as of this encounter Discharge Diagnoses Diagnosis M25.512 Pain in left shoulder-M25.512[IC D-10-CM] documented in this encounter Discharge Disposition Disposition Code Departure Means Destination Auto Discharge Home documented in this encounter Plan of Treatment Upcoming Encounters Date Type Specialty Care Team Description 03/10/2022 Office Visit Dermatology Doris Sheffield PA-C 111 [facility], [facility], [address] [place], [place] [phone] (Wo rk) documented as of this encounter Visit Diagnoses Not on filedocumented in this encounter Care Teams Director Of Informatics Relationship Specialty Start Date End Date Unknown, Provider, PCP - General 07/29/16 09/01/16 Nicholas Damon MD 05/29/[address] [address] documented as of this encounter
--- OUTSIDE RECORDS SUMMARY | 2022-01-08 16:14 | XMS_ITS | Encounter Summary ---
:1975 Author Organization [facility] Address [address] [place] [address] Care Team Providers Name Role Phone Nicholas Damon MD Unavailable Selena Gentile APRN Primary Care Provider [phone] Reason for Visit Reason Comments Fever dizzy about 10 days, fever a nd headache x1 week, no ear pain but prone to ear infections, highest temps 10 1. Encounter Details Date Type Department Care Team Description 04/21/2019 Walk-In [facility] - Cynthia Silva Fever of unknown [facility] AUSTIN Nunez origin (Primary Dx) [address] [place] [address] [place] [address] [phone] (Wo rk) Social History Tobacco Use Types Packs/Day Years Used Date Smoking Tobacco: Never Smokeless Tobacco: Never Alcohol Use Standard Drinks/Week Comments Yes 0 (1 standard drink = 0.6 oz pure alcoho l) Sex Assigned at Date Recorded Female 12/11/2020 13:05 EDT documented as of this encounter Last Filed Vital Signs Vital Sign Reading Time Taken Comments Blood Pressure 110/64 04/21/2019 1146 EDT Pulse 84 04/21/2019 1146 EDT Temperature 36.8 ??C (98.2 ??F) 04/21/2019 1146 EDT Respiratory Rate 18 04/21/2019 1146 EDT Oxygen Saturation 98% 04/21/2019 1146 EDT Inhaled Oxygen Concentration - - Weight - - Height - - Body Mass Index - - documented in this encounter Functional Status Functional [...] as of this encounter Patient Instructions Patient InstructionsToJolene lee APRN - 04/21/2019 11:30 EDT Images from the original note were not included. [facility] Patient Instructions Learning About Fever What is a fever? A fever is a high body temperature. It's one way your body fights being sick. A fever shows that thebody is responding to infection or other illnesses, both minor and severe. A fever is a symptom, not an illness by itself. A fever can be a sign that you are ill, but most fevers are not caused by a serious problem. You may have a fever with a minor illness, such as a cold. But sometimes a very serious infection may cause little or no fever. It is important to look at other symptoms, other conditions you have, andhow you feel in general. In children, notice how they act and see what symptoms they complain of. What is a normal body temperature? A normal body temperature is about 98.6??F. Some people have a normal temperature that is a little higher or a little lower than this. Your temperature may be a little lower in the morning than it is later in the day. It may go up during hot weather or when you exercise, wear heavy clothes, or take a hot bath. Your temperature may also be different depending on how you take it. A temperature taken in the mouth (oral) or under the arm may be a little lower than your core temperature (rectal). What is a fever temperature? A core temperature of 100.4??F or above is considered a fever. What can cause a fever? A fever may be caused by: ?? Infections. This is the most common cause of a fever. Examples of infections that can cause a fever include the flu, a kidney infection, or pneumonia. ?? Some medicines. ?? Severe trauma or injury, such as a heart attack, stroke, heatstroke, or botello. ?? Other medical conditions, such as arthritis and some cancers. How can you treat a fever at home? ?? Ask your doctor if you can take an yvoj-khv-szrypvf pain medicine, such as acetaminophen (Tylenol), ibuprofen (Advil, Motrin), or naproxen (Aleve). Be safe with medicines. Read and follow all instructions on the label. ?? To prevent dehydration, drink plenty of fluids. Choose water and other caffeine-free clear liquids until you feel better. If you have kidney, heart, or liver disease and have to limit fluids, talk with your doctor before you increase the amount of fluids you drink. Follow-up care is a lee part of your treatment and safety. Be sure to make and go to all appointments, and call your doctor if you are having problems. It's also a good idea to know your test results and keep a list of the medicines you take. Where can you learn more? Go to https://[email or web address].net/CenturyLink or log into your [employer] account at [email or web address] Enter G732 in the search box to learn more about Learning About Fever. Current as of: August 02, 2018 Content Version: 12.2 ?? 8814-0010 [employer]. Care instructions adapted under license by [facility]. If you have questions about a medical condition or this instruction, always ask your healthcare professional. [employer] disclaims any warranty or liability for your use of this information. documented in this encounter Progress Notes Jolene Silva APRN - 04/21/2019 1130 EDT [facility] Chief Complaint(s): Fever (dizzy about 10 days, fever and headache x1 week, no ear pain but prone toear infections, highest temps 101.) HPI: Onset 10 days ago with dizziness and fatigue. Developed fever and headache 6 days ago. Temp average 101. Denies cough, congestion, sore throat, dysuria, or shortness of breath. Has outdoor cat who sometimes carries in ticks but hasn't seen any ticks recently. I have reviewed current problem list and current medications. ROS: Review of Systems Constitutional: Positive for fever and malaise/fatigue. HENT: Negative. Respiratory: Negative. Cardiovascular: Negative. Musculoskeletal: Negative. Skin: Negative. Neurological: Positive for dizziness and headaches. Objective: Examination: Vitals: BP 110/64 Pulse 84 Temp 36.8 ??C (98.2 ??F) Resp 18 SpO2 98% There is no height or weight onfile to calculate BMI. Physical Exam Constitutional: She is oriented to person, place, and time. She appears well- developed and well-nourished. No distress. HENT: Right Ear: Tympanic membrane normal. Left Ear: Tympanic membrane normal. Nose: Nose normal. Mouth/Throat: Oropharynx is clear and moist. Neck: Normal range of motion. Neck supple. Cardiovascular: Normal rate, regular rhythm and normal heart sounds. Pulmonary/Chest: Effort normal and breath sounds normal. Lymphadenopathy: She has no cervical adenopathy. Neurological: She is alert and oriented to person, place, and time. Skin: Skin is warm and dry. Vitals reviewed. Data reviewed with patient (past results):Reviewed and/or ordered lab results, imaging tests Results for orders placed or performed in visit on 04/21/19 POCT URINE CLINITEK (DIPSTICK) - DOES NOT REFLEX Result Value Ref Range Color, UA Yellow Clarity, UA Cloudy Glucose, UA Negative . mg/dL Bilirubin, UA Negative . Ketones, UA Negative . mg/dL Spec Grav, UA 1.020 . Blood, UA Negative . pH, UA 5.5 4.6 - 8.0 Protein, UA Negative . mg/dL Urobilinogen, UA 0.2 0.2 - 1.0 E.U./dL Nitrite, UA Negative . Leuk Esterase Small . Comment Assessment & Plan: 1. Fever of unknown origin Unclear etiology of fever. No focal infection. U/A essentially negative and Chest xray appears normal. Will get baseline labs and advised follow up with pcp if fever persists another 3-5 days. Stay home until fever free for 24 hours. - POCT URINE CLINITEK (DIPSTICK) - DOES NOT REFLEX - XR CHEST 2 VIEWS - COMPLETE BLOOD COUNT AND DIFFERENTIAL - LYME AB; Future - COMPREHENSIVE METABOLIC PANEL (CMP) Francesca Johnson - 04/21/2019 1130 EDT Venipuncture performed, patient tolerated well. Butterfly used in RT AC. Tubes drawn EDTA and SST Francesca Johnson 04/21/19 12:53 documented in this encounter Plan of Treatment Upcoming Encounters Date Type Specialty Care Team Description 03/10/2022 Office Visit Dermatology Doris Sheffield , SITA [address] [facility], [facility], [address] [place], [place] [address] (Wo rk) Scheduled Orders Name Type Priority Associated Diagnoses Order S chedule COMPLETE BLOOD COUNT AND Lab Routine Fever of unknown origin Ordered: 04/21/2019 DIFFERENTIAL COMPREHENSIVE METABOLIC Lab Routine Fever of unknown origin Ordered: 04/21/2019 PANEL (CMP) documented as of this encounter Procedures Procedure Name Priority Date/Time Associated Comments Diagnosis XR CHEST 2 VIEWS 04/21/2019 13:03 Results for this EDT procedure are i n the results section. COMPLETE BLOOD COUNT Routine 04/21/2019 12:35 Fever of unknown Results for this WITH DIFFERENTIAL EDT origin procedure are in (AUTO) the results section. LYME AB Routine 04/21/2019 12:35 Fever of unknown Results for this EDT origin procedure are i n the results section. POCT URINE CLINITEK Routine 04/21/2019 Fever of unknown Resu lts for this (DIPSTICK) - DOES NOT origin proced ure are in REFLEX the results section. BACTERIAL CULTURE, Routine 04/20/2019 16:41 Fever of unknown R esults for this URINE EDT origin procedure are i n the results section. documented in this encounter Results XR CHEST 2 VIEWS (04/21/2019 13:03 EDT) Anatomical Region Laterality Modality Other Specimen (Source) Anatomical Collection Method Collection Time Re ceived Time Location / / Volume Laterality 04/21/2019 13:03 EDT Narrative 04/21/2019 13:03 EDT ? EXAM: RADIOLOGY EXPRESS CARE/EXP CARE FABIAN EX. D/ (1220) ? CLINICAL INFORMATION: ? R50.9 FEVER OF UNKNOWN ORGIN ? PROCEDURE INFORMATION: ? Exam: XR Chest, 2 Views ? Exam date and time: 04/21/2019 12: 09 PM ? Age: 43 years old ? Clinical indication: Fever; Addit ional info: R50.9 fever of unknown ? orgin ? TECHNIQUE: ? Imaging protocol: XR of the chest ? Views: 2 views. ? COMPARISON: ? CR CHEST (PA ?? LAT) 11/11/2018 1: 39 PM ? FINDINGS: ? Lungs: Unremarkable. No consolida tion. ? Pleural space: Unremarkable. No p leural effusion. No pneumothorax. ? Heart/Mediastinum: Unremarkable. No cardiomegaly. ? Bones/joints: Thoracic spondylosi s is present. ? IMPRESSION: ? No acute findings. ? REPORT SIGNED IN OTHER VENDOR SYSTEM 04/21/2019 ?Reported B y: Iza Aiken MD ? CC: ? Transcribed Date/Time: 04/21/2019 (1303) ? Scraper Burrer: .VRAD ? Printed Date/Time: 04/21/2019 (13 03) ? PAGE 1 ? Daiana d Report ? Procedure Note Iza Aiken MD - 04/21/2019 EXAM: RADIOLOGY EXPRESS CARE/EXP CARE C HE EX. D/ (1320) CLINICAL INFORMATION: R50.9 FEVER OF UNKNOWN ORGIN PROCEDURE INFORMATION: Exam: XR Chest, 2 Views Exam date and time: 04/21/2019 12:09 PM Age: 43 years old Clinical indication: Fever; Additional info: R50.9 fever of unknown orgin TECHNIQUE: Imaging protocol: XR of the chest Views: 2 views. COMPARISON: CR CHEST (PA LAT) 11/11/2018 1:39 PM FINDINGS: Lungs: Unremarkable. No consolidation. Pleural space: Unremarkable. No pleural effusion. No pneumothorax. Heart/Mediastinum: Unremarkable. No car diomegaly. Bones/joints: Thoracic spondylosis is p resent. IMPRESSION: No acute findings. REPORT SIGNED IN OTHER VENDOR SYSTEM 04/21/2019 Reported By: Iza Aiken MD CC: Transcribed Date/Time: 04/21/2019 (4494 ) Scraper Burrer: Printed Date/Time: 04/21/2019 (9931) PAGE 1 Signed Report Jolene Silva DIAMOND DIE DRILLER IMG DIAGNOSTIC IMAGING O RDERABLES LYME AB (04/21/2019 12:35 EDT) athologist Signature Lyme Ab IgG NEGATIVE 04/23/2019 [place] 10:07 EDT [facility] Lyme Ab NEGATIVE 04/23/2019 [place] 10:07 EDT [facility] Specimen Anatomical Collection Method Collection Time Receive d Time (Source) Location / / Volume Laterality 04/21/2019 12:35 04/21/2019 EDT 13:21 EDT Jolene Silva DIAMOND DIE DRILLER IMMUNOLOGY AND SEROLOGY ORDERABLES Performing Organization Address City/State/ZIP Code Phon e Number [facility] [address] [place], [place] [id number] [place] [address] LAB (ABNORMAL) COMPLETE BLOOD COUNT WITH DIFFERENTIAL (AUTO) (04/21/2019 12:35 EDT) [facility] gist Method Time Signature Gran # 4.7 2.2 - 8.85 04/21/2019 [place] 10e3/uL 13:29 EDT [facility] BASO # - [facility] 0.03 0.01 - 04/21/2019 [place] 0.11 13:29 EDT [facility] 10e/uL [facility] LAB BASO % - [facility] 1 0 - 2 % 04/21/2019 [place] 13:29 [facility] EOS # - [facility] 0 (L) 0.03 - 04/21/2019 [place] 0.61 13:29 [place] [address]e3/ul CENTER LAB EOS % - [facility] 0 0 - 5 % 04/21/2019 [place] 13:29 [facility] GRAN % - [facility] 72.1 40 - 80 % 04/21/2019 [place] 13:29 [facility] HEMATOCRIT - 34.8 (L) 34.9 - 04/21/2019 [place] [facility] 44.4 % 13:29 [facility] HEMOGLOBIN - 12.0 11.6 - 04/21/2019 [place] [facility] 15.2 g/dl 13:29 [facility] IG# - [facility] 0.01 0 - 0.7 04/21/2019 [place] [address]/uL 13:29 [facility] IG% - [facility] 0.2 0 - 0.9 % 04/21/2019 [place] 13:29 [facility] LYMPH # - [facility] 1.5 1.09 - 3.3 04/21/2019 [place] [address]/ul 13:29 [facility] LYMPH% - [facility] 23.1 20 - 40 % 04/21/2019 [facility] 13:29 [facility] MEAN CORPUSCULAR 28.9 26.7 - 04/21/2019 [place] HGB - [facility] 33.3 pg 13:29 [facility] MEAN CORPUSCULAR 34.5 32.1 - 04/21/2019 [place] HGB CONC - [facility] 35.9 g/dL 13:29 [facility] MEAN CELL VOLUME 83.9 81 - 98 fl 04/21/2019 CENTRAL - [facility] 13:29 [facility] MONO # - [facility] 0.3 0.1 - 0.8 04/21/2019 [place] [address]/uL 13:29 [facility] MONO% - [facility] 4.1 0 - 12 % 04/21/2019 [place] 13:29 [facility] PLATELET COUNT 220 141 - 377 04/21/2019 [facility] 10e3/ul 13:29 EDT [facility] RED BLOOD COUNT 4.15 3.86 - 04/21/2019 [facility] 5.04 13:29 EDT [facility] 10e3/ul [facility] RED CELL DISTRI 15.1 <14.7 % 04/21/2019 [place] WIDTH - [facility] 13:29 EDT [facility] WHITE BLOOD 6.5 4.0 - 12.4 04/21/2019 [place] COUNT - [facility] 10e3/ul 13:29 EDT [facility] Specimen Anatomical Collection Method Collection Time Receive d Time (Source) Location / / Volume Laterality 04/21/2019 12:35 04/21/2019 EDT 13:21 EDT Jolene Silva DIAMOND DIE DRILLER HEMATOLOGY & PF4 ORDERAB LES Performing Organization Address City/State/ZIP Code Phon e Number [facility] [address] LAB POCT URINE CLINITEK (DIPSTICK) - DOES NOT REFLEX (04/21/2019) athologist Signature Color, UA Yellow POINT OF CARE [facility] Clarity, UA Cloudy POINT OF CARE [facility] Glucose, UA Negative . mg/dL POINT [facility] CARE [facility] Bilirubin, UA Negative . POINT OF CARE [facility] Ketones, UA Negative . mg/dL POINT [facility] CARE [facility] Spec Grav, UA 1.020 . POINT OF CARE [facility] Blood, UA Negative . POINT OF CARE [facility] pH, UA 5.5 4.6 - 8.0 POINT OF CARE [facility] Protein, UA Negative . mg/dL POINT OF CARE [facility] Urobilinogen, 0.2 0.2 - 1.0 POINT OF CARE UA E.U./dL [facility] Nitrite, UA Negative . POINT OF CARE [facility] Leuk Esterase Small . POINT OF CARE [facility] Comment POINT OF CARE [facility] Specimen (Source) Anatomical Location Collection Method / Collectio n Time Received Time / Laterality Volume Urine URINE SPECIMEN 04/21/2019 COLLECTION, CLEAN CATCH / Unknown Jolene Silva DIAMOND DIE DRILLER URINALYSIS ORDERABLES Performing Organization Address City/State/ZIP Code Phon e Number [facility] POINT OF CARE POINT OF CARE [facility] BACTERIAL CULTURE, URINE (04/20/2019 16:41 EDT) P athologist Signature USUAL [facility] 04/22/2019 [place] [facility] 10:33 EDT [facility] SHAUN - [facility] COLONY COUNT <10,000 CFU/ML 04/22/2019 [place] 10:33 EDT [facility] Specimen Anatomical Collection Method Collection Time Receive d Time (Source) Location / / Volume Laterality Urine URINE SPECIMEN 04/20/2019 16:41 0 (substance) COLLECTION, CLEAN EDT 13:25 EDT CATCH / Unknown Comment: VOID Jolene Silva NP MICROBIOLOGY - GENERAL O RDERABLES Performing Organization Address City/State/ZIP Code Phon e Number [facility] [address] [place] [address] [facility] documented in this encounter Visit Diagnoses Diagnosis Fever of unknown origin - Primary Fever, unspecified documented in this encounter Historical Medications This list may reflect changes made after this encounter. Medication Sig Dispensed Refills Start Date End Date acetaminophen (TYLENOL) Take by mouth. 0 12/18/2020 325 mg capsule ibuprofen (MOTRIN) 200 mg 4 tab(s) orally 0 12/18/2020 tablet every 6 hours PRN headaches added in this encounter Care Teams Computer Game Tester Relationship Specialty Start Date End Date Selena Gentile, DRUG DISCOVERY INFORMATICS SPECIALIST PCP - General 09/02/16 [address] [place] [phone] Nicholas Damon MD 05/29/14 [facility] [address] [place] [id number] documented as of this encounter
--- OUTSIDE RECORDS SUMMARY | 2022-01-08 16:14 | XMS_ITS | Encounter Summary ---
:1975 Author Organization [facility] Address [address] [place] [address] Care Team Providers Name Role Phone Nicholas Damon MD Unavailable Selena Gentile APRN Primary Care Provider [phone] Reason for Visit Reason Onset Date Comments Appointment Related 10/03/2019 Encounter Details Date Type Department Care Team Description 10/03/2019 Telephone [facility] Doris Sheffield Appo intment Related Dermatology - [id number] [place] [address], [place] [address] (Wo rk) Social History Tobacco [...] this encounter Miscellaneous Notes Telephone Encounter - Surinder Flores MA - 10/03/2019 1137 EDT Called and got patient scheduled for her annual skin exam on 10/31/19 at 3:30pm with Isi Sheffield PA-C. SURINDER FLORES MA 10/03/2019 11:37 Telephone Encounter - Fatuma Maldonado MA - 10/03/2019 1040 EDT Patient calling today to reschedule cancelled visit from this spring. OK to leave a message with an appointment, contact confirmed. FBSE hx BCC, [place] FATUMA MALDONADO MA 10/03/2019 10:41 documented in this encounter Plan of Treatment Upcoming Encounters Date Type Specialty Care Team Description 03/10/2022 Office Visit Dermatology Doris Sheffield PA-C [address] [facility], [facility], [address] [place], [place] [address] (Wo rk) documented as of this encounter Visit Diagnoses Not on filedocumented in this encounter Care Teams Stuntman Relationship Specialty Start Date End Date Selena Gentile APRN PCP - General 09/02/16 [address] [place] [phone] Nicholas Damon MD 05/29/14 [facility] [address] [place] [address] documented as of this encounter
--- OUTSIDE RECORDS SUMMARY | 2022-01-08 16:14 | XMS_ITS | Encounter Summary ---
:1975 Author Organization [facility] Address [address] [place] [address] Care Team Providers Name Role Phone Unknown, Provider Primary Care Provider Nicholas Damon MD Unavailable Encounter Details Date Type Department Care Team Description 05/13/2016 Hospital Encounter [facility], [facility] [phone] [place] [address] (Work) [place], [place] [id number] Social History Tobacco Use Types Packs/Day Years Used Date Smoking Tobacco: Never Assessed Sex Assigned at Date Recorded Female 12/11/2020 13:05 EDT documented as of this encounter Discharge Disposition Disposition Code Departure Means Destination Auto Discharge Home documented in this encounter Plan of Treatment Upcoming Encounters Date Type Specialty Care Team Description 03/10/2022 Office Visit Dermatology Doris Sheffield , SITA [address] [facility], [facility], [address] [place], [place] [address] (Wo rk) documented as of this encounter Visit Diagnoses Not on filedocumented in this encounter Care Teams Vice President Business & Corporate Development Relationship Specialty Start Date End Date Unknown, Provider, PCP - General 05/29/14 07/07/16 Nicholas Damon MD 05/29/14 [facility] [address] [place], [place] [id number] documented as of this encounter
--- OUTSIDE RECORDS SUMMARY | 2022-01-08 16:14 | XMS_ITS | Encounter Summary ---
:[address] [facility] Address [address] [place] [address] Care Team Providers Name Role Phone Nicholas Damon MD Unavailable Selena Gentile APRN Primary Care Provider [phone] Reason for Visit (Routine) - Receiving Office to Obtain Authorization Specialty Diagnoses / Procedures Referred By Contact Refer red To Contact Procedures Unknown, Provider, MR OUTSIDE IMAGES NEURO Phone: Referral ID Status Reason Start Expiration Visits Visits Date Date Requested Authorized [id number] Receiving Office 04/03/2020 1 1 to Obtain Authorization Encounter Details Date Type Department Care Team Description 12/05/2019 Hospital Encounter [facility] Secondary [place] Social History Tobacco Use Types Packs/Day Years [...] making decisions? documented as of this encounter Medications at Time of Discharge Medication Sig Dispensed Refills Start Date End Date acetaminophen (TYLENOL) Take by mouth. 0 12/18/2020 325 mg capsule fluorouraciL (EFUDEX) 5 % Apply to nose and 40 g 0 12/18/2020 cream cheek daily for 3 weeks. KEEP AWAY FROM CHILDREN AND PETS ibuprofen (MOTRIN) 200 mg 4 tab(s) orally 0 12/18/2020 tablet every 6 hours PRN headaches ranitidine HCl (HEARTBURN Take by mouth at 0 12/18/2020 RELIEF, RANITIDINE, ORAL) bedtime. sertraline (ZOLOFT) 100 Take 100 mg by mouth 0 12/18/2020 mg tablet daily. documented as of this encounter Discharge Disposition Disposition Code Departure Means Destination Home or Self Care documented in this encounter Plan of Treatment Upcoming Encounters Date Type Specialty Care Team Description 03/10/2022 Office Visit Dermatology Doris Sheffield PA-C 111 [facility], [facility], [address] [place], [place] [address] (Wo rk) documented as of this encounter Procedures Procedure Name Priority Date/Time Associated Diagnosis Comme nts MR OUTSIDE IMAGES Routine 04/03/2020 9:45 EST Res ults for this NEURO procedure are i n the results section. documented in this encounter Results MR OUTSIDE IMAGES NEURO (04/03/2020 9:45 EST) Specimen (Source) Anatomical Location Collection Method / Collectio n Time Received Time / Laterality Volume Narrative 04/03/2020 9:45 EST This is a non-reportable exam. Provider Unknown MD MALLOY OTHER IMAGING ORDERABLES documented in this encounter Visit Diagnoses Not on filedocumented in this encounter Care Teams Clerk Guide Relationship Specialty Start Date End Date Selena Gentile, HEADING MACHINE OPERATOR PCP - General 09/02/16 [address] [place] [phone] Nicholas Damon MD 05/29/14 [facility] [address] [place] [address] documented as of this encounter
--- OUTSIDE RECORDS SUMMARY | 2022-01-08 16:14 | XMS_ITS | Encounter Summary ---
:[address] [facility] Address [address] [place] [address] Care Team Providers Name Role Phone Nicholas Damon MD Primary Care Provider Encounter Details Date Type Department Care Team Description 06/14/2011 Results Only [facility] Alvin Conway, CN Laboratory Services - [address] [facility],[address] [place] [address] [address] [facility] [place], [place] [address] [phone] Social History Tobacco Use Types Packs/Day Years Used Date Smoking Tobacco: Never Assessed Sex Assigned at Date Recorded Female 12/11/2020 13:05 EDT documented as of this encounter Plan of Treatment Upcoming Encounters Date Type Specialty Care Team Description 03/10/2022 Office Visit Dermatology Doris Sheffield , SITA 111 [facility], [facility], [address] [place], [place] [address] (Wo rk) documented as of this encounter Procedures Procedure Name Priority Date/Time Associated Diagnosis Comme nts PAP TEST- RESULT Routine 06/14/2011 0:00 EDT Resu lts for this ONLY procedure are i n the results section. documented in this encounter Results PAP TEST- RESULT ONLY (06/14/2011 0:00 EDT) Component Value Ref Test Analysis Performed At [facility] Range Method Time Signature Pathology CYTOPATHOLOGY REPORT [facility] Report: [facility] Reports generated via electronic interface contain original data; however they are lacking the format of the original report. Caution should be taken when reading/interpreting unformatte d reports. Name: ? ANYA CARRILLO ? Accession #: ? [id number] : ? 1975 (Age: 35) ??F ?Collect Date: ? 06/14/2011 Location: ? [facility] ? Receive Date: ? 06/16/2011 Provider: ?SUNITHA CONWAY CNM Copy to: ? Specimen/Source: ? Pap Test, Cervix/Endocervix, ThinPrep Imaging System with manual evaluation Last Menstrual Period: ? Hormonal/Contraceptive Status: ? Tubal ligation Previous Gynecologic Pathology: ? HPV Treatment History: ? Cone biopsy: '95 Colposcopy: '95 ? SPECIMEN ADEQUACY ? Satisfactory for Evaluation - transformation zone component present GENERAL CATEGORIZATION ? Negative for Intraepithelial Lesion or Malignancy INTERPRETATION ? Reactive cellular aureliano nges associated with inflammation present (includes repair). Shift in palma present suggestive of bacterial vaginosis. ? Document reviewed and electronically signed by: ? DORIS PUGH MD ? Report Date: ??06/22/2011 12:25 End of Report Specimen (Source) Anatomical Location Collection Method / Collectio n Time Received Time / Laterality Volume 06/14/2011 06/16/2011 Sunitha Conway CNM PATHOLOGY ORDERABLES Performing Organization Address City/State/ZIP Code Phon e Number [facility] [address] [place] [address] SERVICES [facility] [address] [place] [address] documented in this encounter Visit Diagnoses Not on filedocumented in this encounter Care Teams Chain Saw Mechanic Relationship Specialty Start Date End Date Nihcolas Damon MD PCP - General 05/29/08 05/28/[address] [address] documented as of this encounter
--- OUTSIDE RECORDS SUMMARY | 2022-01-08 16:14 | XMS_ITS | Encounter Summary ---
:1975 Author Organization [facility] Address [address] [place] [address] Care Team Providers Name Role Phone Nicholas Damon MD Unavailable Unknown, Provider Primary Care Provider Selena Gentile APRN Primary Care Provider [phone] Reason for Visit Reason Onset Date Comments Provider Referred 08/25/2016 Encounter Details Date Type Department Care Team Description 08/25/2016 Telephone [facility] Quinten Townsend, Provider Referred Dermatology - [address] [address] [place], [place] [phone] (Wo rk) Social History Tobacco Use Types Packs/Day Years Used Date Smoking Tobacco: Never Assessed Sex Assigned at Date Recorded Female 12/11/2020 13:05 EDT documented as of this encounter Miscellaneous Notes Telephone Encounter - Shy Harris RN - 09/02/2016 1027 EDT PRISM Notes under External Notes tab Patient is referred by MITA Lovett, [facility] for Skin lesion Per Notes 08/12/16: lesion Right forehead. Present for several months and has increased in size. Initially pickked at it, there was some discharge. Denies pain, signs of infection, discharge currently. On Exam: Round raised pink pearly lesion, approx 3 mm in diameter, right forehead, just above hairline Spoke to patient Lesion, right forehead at hairline Present x at least 6 months Raised ~ 6 mm Circular to oval shape Pinkish Smooth shiny surface Patient states initially when it appeared I messed with it and it popped, there was some wetness. Ihaven't messed with it since. Left it alone and it has grown Denies pain, itch or bleeding No personal or family hx of skin cancer Would like FBSE Declined appointment today or tomorrow Scheduled for NPV 09/30/16 at 10:15 AM with Shannon Sheffield PA-C, EP3 SHY HARRIS, RN 09/02/2016 10:44 Telephone Encounter - Guillermo Arechiga - 08/25/2016 1416 EDT Notes received from MITA Lovett referring patient for a lesion on scalp that has increased in size. Please call patient to schedule. documented in this encounter Plan of Treatment Upcoming Encounters Date Type Specialty Care Team Description 03/10/2022 Office Visit Dermatology Doris Sheffield PA-C 111 [facility], [facility], [address] [place], [place] [address] (Wo rk) documented as of this encounter Visit Diagnoses Not on filedocumented in this encounter Care Teams [place] Upholsterer Relationship Specialty Start Date End Date Unknown, Tao, PCP - General 07/29/16 09/01/16 Selena Gentile APRN PCP - General 09/02/16 [address] [place] [address] Nicholas Damon MD 05/29/14 [facility] [address] [place] [address] documented as of this encounter
--- OUTSIDE RECORDS SUMMARY | 2022-01-08 16:14 | XMS_ITS | Encounter Summary ---
:1975 Author Organization [facility] Address [address] [place] [address] Care Team Providers Name Role Phone Nicholas Damon MD Primary Care Provider Encounter Details Date Type Department Care Team Description 05/22/2014 Hospital Encounter [facility] - Unknown, [facility] [phone] [place] [address] (Work) [place] [address] Social History Tobacco Use Types Packs/Day Years Used Date Smoking Tobacco: Never Assessed Sex Assigned at Date Recorded Female 12/11/2020 13:05 EDT documented as of this encounter Discharge Disposition Disposition Code Departure Means Destination Home or Self Intermediate documented in this encounter Plan of Treatment Upcoming Encounters Date Type Specialty Care Team Description 03/10/2022 Office Visit Dermatology Doris Sheffield , SITA [address] [facility], [facility], [address] [place], [place] [phone] (Wo rk) documented as of this encounter Visit Diagnoses Not on filedocumented in this encounter Care Teams Vehicle Assembler Relationship Specialty Start Date End Date Nicholas Damon MD PCP - General 05/29/08 05/28/14 [facility] [address] [place] [id number] documented as of this encounter
--- OUTSIDE RECORDS SUMMARY | 2022-01-08 16:14 | XMS_ITS | Encounter Summary ---
:1975 Author Organization [facility] Address [address] [place] [address] Care Team Providers Name Role Phone Nicholas Damon MD Unavailable Selena Gentile APRN Primary Care Provider [phone] Reason for Visit Reason Onset Date Comments Appointment Related 03/26/2019 Encounter Details Date Type Department Care Team Description 03/26/2019 Telephone [facility] Doris Sheffield Appo intment Related Dermatology - Main SITA [phone] [place] [address], [place] [address] (Wo rk) Social History Tobacco Use Types Packs/Day Years Used Date Smoking Tobacco: Never Smokeless Tobacco: Never Alcohol Use Standard Drinks/Week Comments Yes 0 (1 standard drink = 0.6 oz pure alcoho l) Sex Assigned at Date Recorded Female 12/11/2020 13:05 EDT documented as of this encounter Miscellaneous Notes Telephone Encounter - Lois Mancilla - 03/26/2019 0710 EST PAS Message: Anya called to cancel appointment with Doris Sheffield PA-C on 03/26 at 0845 due to schedule conflict. Patient would like a call back to reschedule? Yes. documented in this encounter Plan of Treatment Upcoming Encounters Date Type Specialty Care Team Description 03/10/2022 Office Visit Dermatology Doris Sheffield , SITA [address] [facility], [facility], [address] [place], [place] [phone] (Wo rk) documented as of this encounter Visit Diagnoses Not on filedocumented in this encounter Care Teams Brewer Helper Relationship Specialty Start Date End Date Selena Gentile APRN PCP - General 09/02/16 [address] [place] [phone] Nicholas Damon MD 05/29/14 [facility] [address] [place] [address] documented as of this encounter
--- OUTSIDE RECORDS SUMMARY | 2022-01-08 16:14 | XMS_ITS | Encounter Summary ---
:1975 Author Organization [facility] Address [address] [place] [address] Care Team Providers Name Role Phone Nicholas Damon MD Unavailable Nicholas Damon MD Primary Care Provider Encounter Details Date Type Department Care Team Description 07/13/2016 Results Only [facility] Anibal Gentile, AGRICULTURAL PRODUCE COMMISSION AGENT [address] [place] [address] (Wo rk) Social History Tobacco Use Types Packs/Day Years Used Date Smoking Tobacco: Never Assessed Sex Assigned at Date Recorded Female 12/11/2020 13:05 EDT documented as of this encounter Plan of Treatment Upcoming Encounters Date Type Specialty Care Team Description 03/10/2022 Office Visit Dermatology Doris Sheffield PA-C 111 [facility], [facility], [address] [place], [place] [address] (Wo rk) documented as of this encounter Procedures Procedure Name Priority Date/Time Associated Diagnosis Comme nts PAP TEST- RESULT Routine 07/13/2016 0:00 EDT Resu lts for this ONLY procedure are i n the results section. documented in this encounter Results PAP TEST- RESULT ONLY (07/13/2016 0:00 EDT) Component Value Ref Test Analysis Performed At [facility] Method Time Signature Pathology CYTOPATHOLOGY REPORT [facility] Report: CENTER Reports generated via electronic interface contain origina l data; LABORATORY however they are lacking the format of the original report. SERVICES Caution should be taken when reading/interpreting unformatte d reports. Name: ? ANYA CARRILLO Ashely ? Accession #: ? [id number] ? : ? 1975 (Age: 40) ??F ?Collect Date: ? 2016 ? Location: ? [facility] ? Receive Date: ? 07/15/2016 ? Provider: ANIBAL GENTILE AGRICULTURAL PRODUCE COMMISSION AGENT Copy to: ? Final Report SPECIMEN ADEQUACY ? Satisfactory for Evaluation - transformation zone component present GENERAL CATEGORIZATION ? Epithelial Cell Abnormality INTERPRETATION ? Squamous Cell Abnormality - Atypical squamous cells, undetermined significance (ASC-US). Shift in palma present suggestive of bacterial vaginosis. EDUCATIONAL NOTES/RECOMMENDATIONS ? [facility] recommends foll owing ASCCP's 2012 Updated Consensus Guidelines for the Management of Abnormal Cervical Cancer Screening Tests a nd Cancer Precursors (JLGTD, 2013; 17(5):S1-S27). ??Conse nsus guidelines are available online at www.asccp.org. Previous Gynecologic Pathology: Yes: previous PAP abnl no dx available Other: Friable Cervix Specimen/Source: ??Pap Test, Cervix, ThinPrep Imaging System with manual evaluation Document reviewed and electronically signed by: ? ANJEL LIN MD ? Report ??Date: 07/28/2016 15:38 HPV with Pap Test ? Date Ordered: ? 07/27/2016 ? Status: ?? Signed Out ?Date Complete: ? 07/30/2016 ? By: ??System I nterface ? Date Reported: ? 07/30/2016 ? Interpretation RESULT: Negative for HPV. No E6 or E7 mRNA is detected from HPV types 16,18,31,33,35, 39,45,51,52,56,58,59,66, and 68 by molder setter mediated amplification. Comments Document reviewed and electronically signed by: ? System Interface ? Report date: 07/30/2016 By the signature above, the attending physician certifies th at he/she has personally conducted a gross and/or microscopic examin ation of the described specimens and rendered or confirmed the above diagnosis. End of Report Specimen (Source) Anatomical Location Collection Method / Collectio n Time Received Time / Laterality Volume 07/13/2016 07/15/2016 Anibal Gentile AGRICULTURAL PRODUCE COMMISSION AGENT PATHOLOGY ORDERABLES Performing Organization Address City/State/[facility] Code Phon e Number [facility] [address] [place] [phone] SERVICES documented in this encounter Visit Diagnoses Not on filedocumented in this encounter Care Teams Computer Graphic Designer Relationship Specialty Start Date End Date Nicholas Damon MD PCP - General 07/08/16 07/27/[address] [address] Nicholas Damon MD 05/29/[address] [address] documented as of this encounter
--- OUTSIDE RECORDS SUMMARY | 2022-01-08 16:14 | XMS_ITS | Encounter Summary ---
:1975 Author Organization Address [address] [place] [address] Care Team Providers Name Role Phone Nicholas Damon MD Unavailable Selena Gentile APRN Primary Care Provider [phone] Reason for Referral Radiology Services (Routine) - Authorization Not Required Specialty Diagnoses / Procedures Referred By Contact Refer red To Contact Diagnoses Pain in joint of right shoulder Jennifer White MD Procedures XR SHOULDER RIGHT 2 OR MORE VIEWS [address] [place] [phone] Referral ID Status Reason Start Expiration Visits Visits Date Date Requested Authorized [id number] Authorization Not 04/25/2020 1 1 Required Reason for Visit Radiology Services (Routine) - Authorization Not Required Specialty Diagnoses / Procedures Referred By Contact Refer red To Contact Diagnoses Pain in joint of right shoulder Jennifer White MD Procedures XR SHOULDER RIGHT 2 OR MORE VIEWS [address] [phone] Referral ID Status Reason Start Expiration Visits Visits Date Date Requested Authorized [id number] Authorization Not 04/25/2020 1 1 Required Encounter Details Date Type Department Care Team Description 04/25/2020 [facility] Pain in joint of right Radiology [place] [address] Social History Tobacco Use Types Packs/Day Years [...] condition, Yes 04/25/2020 does this person have serious difficulty concentrating, remembering, or making decisions? documented as of this encounter Medications at Time of Discharge Medication Sig Dispensed Refills Start Date End Date acetaminophen (TYLENOL) Take by mouth. 0 12/18/2020 325 mg capsule cyclobenzaprine (FLEXERIL) Take 1 at bedtime. 30 Tab 4 0 04/25/2020 12/18/2020 10 mg tablet famotidine (PEPCID) 20 mg Take 20 mg by mouth 0 0 03/08/2020 12/18/2020 tablet 2 times daily. fluorouraciL (EFUDEX) 5 % Apply to nose and 40 g 0 12/18/2020 cream cheek daily for 3 weeks. KEEP AWAY FROM CHILDREN AND PETS ibuprofen (MOTRIN) 200 mg 4 tab(s) orally 0 12/18/2020 tablet every 6 hours PRN headaches ranitidine HCl (HEARTBURN Take by mouth at 0 12/18/2020 RELIEF, RANITIDINE, ORAL) bedtime. sertraline (ZOLOFT) 100 mg Take 100 mg by 0 12/18/2020 tablet mouth daily. documented as of this encounter Discharge Disposition Disposition Code Departure Means Destination Home or Self Care documented in this encounter Plan of Treatment Upcoming Encounters Date Type Specialty Care Team Description 03/10/2022 Office Visit Dermatology Doris Sheffield , SITA [address] [facility], [facility], [address] [place], [place] [address] (Wo rk) documented as of this encounter Procedures Procedure Name Priority Date/Time Associated Diagnosis Comme nts XR SHOULDER RIGHT 2 Routine 04/25/2020 16:55 Pain in joint of Results for this OR MORE VIEWS EDT right shoulder procedure ar e in the results section. documented in this encounter Results XR SHOULDER RIGHT 2 OR MORE VIEWS (04/25/2020 16:55 EDT) Anatomical Region Laterality Modality Right Computed Radiography Specimen (Source) Anatomical Collection Method Collection Time Re ceived Time Location / / Volume Laterality 04/25/2020 17:01 EDT Impressions 04/25/2020 17:01 EDT FINDINGS / IMPRESSION: Right shoulder 3 views: The humeral head is located in the scapular glenoid fossa. No evidence for acute fracture or dislocation. No significant degenerative changes visualized in the glenohumeral joint . Mild acromioclavicular joint arthrosis is noted. Right hand: PA and ball-catcher's views of the right hand show scattered minimal to mild degenerative changes, including at the first CMC joint, triscaphe joints, at the first MCP joint and some of the interphalangeal joints of the fingers an d thumb. No discrete articular erosions are identified. Left hand: PA and ball-catcher's views o f the left hand show scattered minimal to mild degenerative changes, including at the first CMC joint, triscaphe joints, at the first MCP joint and some of the in terphalangeal joints of the fingers and thumb. No discrete articular erosions are identified. Narrative 04/25/2020 17:01 EDT EXAM/TECHNIQUE: XR HAND RIGHT 1-2 VIEWS, XR SHOULDER RIG HT 2 OR MORE VIEWS, XR HAND LEFT 1-2 VIEWS ??04/25/2020 4:40 PM HISTORY: ?? please assess for erosive changes. Exam not supportive of inflammatory arthritis. History of psoriasis and chronic hand pain. COMPARISON: None. Procedure Note Shyam Arreola MD - 04/25/2020Formatt ing of this note might be different from the original. EXAM/TECHNIQUE: XR HAND RIGHT 1-2 VIEWS, XR SHOULDER RIG HT 2 OR MORE VIEWS, XR HAND LEFT 1-2 VIEWS 04/25/2020 4:40 PM HISTORY: please assess for erosive changes. Exam not supportive of inflammatory arthritis. History of psoriasis and chronic hand pain. COMPARISON: None. IMPRESSION FINDINGS / IMPRESSION: Right shoulder 3 views: The humeral head is located in the scapular glenoid fossa. No evidence for acute fracture or dislocation. No significant degenerative changes visualized in the glenohumeral joint. Mild acromioclavicular joint arthrosis i s noted. Right hand: PA and ball-catcher's views of the right hand show scattered minimal to mild degenerative changes, including at the first CMC joint, triscaphe joints, at the first MCP joint and some of the interphalangeal joints of the fingers and thumb. No disc rete articular erosions are identified. Left hand: PA and ball-catcher's views o f the left hand show scattered minimal to mild degenerative changes, including at the first CMC joint, triscaphe joints, at the first MCP joint and some of the interphalangeal joints of the fingers and thumb. No disc rete articular erosions are identified. Jennifer White MD IMG DIAGNOSTIC IMAGING ORDER BRENT documented in this encounter Visit Diagnoses Diagnosis Pain in joint of right shoulder Pain in joint, shoulder region documented in this encounter Care Teams Public Health Registrar Relationship Specialty Start Date End Date Selena Gentile, CHETAN PCP - General 09/02/16 [address] [place] [phone] Nicholas Damon MD 05/29/14 [facility] [address] [place] [address] documented as of this encounter
--- OUTSIDE RECORDS SUMMARY | 2022-01-08 16:14 | XMS_ITS | Encounter Summary ---
:1975 Author Organization [facility] Address [address] [place] [address] Care Team Providers Name Role Phone Nicholas Damon MD Unavailable Selena Gentile APRN Primary Care Provider [phone] Encounter Details Date Type Department Care Team Description 05/26/2019 Lab Requisition [facility] Unknown, Provider, Pathology & Laboratory [facility] [address] [facility] [place] [address] Social History Tobacco Use Types Packs/Day Years [...] making decisions? documented as of this encounter Plan of Treatment Upcoming Encounters Date Type Specialty Care Team Description 03/10/2022 Office Visit Dermatology Doris Sheffield , SITA [address] [facility], [facility], [address] [place], [place] [address] (Wo rk) documented as of this encounter Procedures Procedure Name Priority Date/Time Associated Comments Diagnosis CHLAMYDIA/N. Routine 05/25/2019 10:05 Results for this GONORRHOEAE AMPLIFIED EDT proced ure are in RNA the results section. documented in this encounter Results CHLAMYDIA/N. GONORRHOEAE AMPLIFIED RNA (05/25/2019 10:05 EDT) [facility] Method Time Signature Gonococcus Negative Negative 05/28/2019 [facility] Result 15:37 EDT [facility] Chlamydia Negative Negative 05/28/2019 [facility] MED[facility] Result 15:37 T [facility] Specimen Anatomical Collection Method Collection Time Receive d Time (Source) Location / / Volume Laterality Urine 05/25/2019 10:05 05/26/2019 EDT 21:48 EDT Narrative [facility] - 05/28/2019 15:37 EDT A first catch urine specimen is acceptab le for detection of Gonorrhea and Chlamydia, but might detect up to 10% fewer infecti ons when compared with vaginal and endocervical swab samples. Provider Unknown MICROBIOLOGY - GENERAL ORDER BRENT Performing Organization Address City/State/ZIP Code Phon e Number [facility] [address] [place] [address] SERVICES documented in this encounter Visit Diagnoses Not on filedocumented in this encounter Care Teams Spray Drier Relationship Specialty Start Date End Date Selena Gentile APRN PCP - General 09/02/16 [address] [place] [phone] Nicholas Damon MD 05/29/[address] [address] documented as of this encounter
--- OUTSIDE RECORDS SUMMARY | 2022-01-08 16:14 | XMS_ITS | Encounter Summary ---
:1975 Author Organization [facility] Address [address] [place] [address] Care Team Providers Name Role Phone Nicholas Damon MD Unavailable Selena Gentile APRN Primary Care Provider [phone] Reason for Visit Reason Comments Follow-up Spot check nasal tip, R uppe r cheek, R upper eyebrow, R chest Encounter Details Date Type Department Care Team Description 01/15/2019 Office Visit [facility] Doris Sheffield Hist ory of basal cell carcinoma (Primary Dx); Dermatology - Main PA-Felicitas Actinic keratoses; [place] [address] Seborrheic keratosis [address] [place], [place] [phone] [place] [address] [place], [address] [place] [address] (Wo rk) Social History Tobacco Use Types Packs/Day Years Used Date Smoking Tobacco: Never Smokeless Tobacco: Never Alcohol Use Standard Drinks/Week Comments Yes 0 (1 standard drink = 0.6 oz pure alcoho l) Sex Assigned at Date Recorded Female 12/11/2020 13:05 EDT documented as of this encounter Patient Instructions Patient InstructionsDoris Sheffield PA - 01/15/2019 15:15 EST INSTRUCTIONS FOR USING TOPICAL 5-FLUOROURACIL FOR ACTINIC [...] after use. Apply petroleum jelly / Vaseline or OTC hydrocortisone 1% ointment several times daily. You may use ibuprofen orally at standard doses as needed. If you develop ?? Excessive pain and purulent discharge (pus) ?? Fever or chills ?? Painful blisters Contact our office at [phone] or , as you may be developing [...] Sig Dispensed Refills Start Date End Date fluorouracil (EFUDEX) 5 Apply topically 2 40 g 1 01/1510/31/2019 % cream times daily. to scaly spots on right cheek, right chest, nose for 3 weeks. KEEP AWAY FROM CHILDREN AND PETS documented in this encounter Progress Notes Surinder Flores MA - 01/15/2019 2725 EST Review of Systems Constitutional: Negative for [...] patient is not nervous/anxious. SURINDER FLORES MA 01/15/2019 15:48 Doris Sheffield PA - 01/15/2019 2645 EST DERMATOLOGY OUT PATIENT PROGRESS NOTE CHANGING LESION / NEW LESION SUBJECTIVE: Anya is a 43 y.o. female who presents today for evaluation of a lesion on the right cheek, nose and right chest. Present for: several months Changes: itchy, flaking and scaly History of skin cancer: Yes -basal cell carcinoma x2 -Right anterior temporal scalp post Mohs micrographic surgery 11/19/16 by Nicholas Forrest MD -Right upper back post electrodesiccation and curettage 11/19/16 by Nicholas Forrest MD Risk factors: fair skin, history of blistering sunburns and prior history of skin cancer OTHER concerns: 1. Check growth on right forehead; this has enlarged over the past year or so although she does not know exactly when. This does not itch hurt or bleed. This feels different than her other scaly spots. I reviewed the past medical history, social history, current medications and allergies. Current Outpatient Medications on File Prior to Visit Medication Sig Dispense Refill ??? ranitidine HCl (HEARTBURN RELIEF, RANITIDINE, ORAL) Take by mouth at bedtime. ??? sertraline (ZOLOFT) 100 mg tablet Take 100 mg by mouth daily. No current facility-administered medications on file prior to visit. Allergies Allergen Reactions ??? Adhesive ??? Bentyl [Dicyclomine] ??? Penicillins OBJECTIVE: No apparent distress. Healthy appearing female with appropriate affect and demeanor. SKIN EXAM: Chest, head and neck examination including the hair, scalp, face, eyelids, lips, chest and neck 1. Right superior cheek, nasal tip, right chest- pink, gritty macules and patches 2. Right forehead-6 x 4 mm waxy champion stuck-on appearing papule ASSESSMENT: 1. History of basal cell carcinoma 2. Actinic keratoses 3. Seborrheic keratosis PLAN: 1. Education on actinic keratoses. These are considered precancer and although only a small percentage of these will go on to become a squamous cell carcinoma, we often treat the most prominent ones as we do not know which ones will progress. Treatment options for actinic keratoses were discussed. Liquid nitrogen cryosurgery is done in the office - it can result in dyspigmentation, incomplete resolution or recurrence. Topical 5-FU cream needs to be applied daily (or twice daily, depending on the formulation) for 3-4 weeks by patient at home. The area can get very red, scaly, burning or cracking/bleeding. There is a less likely chance of post-treatment dyspigmentation. Incomplete resolution and recurrence are still possibilities. As the actinic keratosis on the nasal tip is somewhat ill-defined, I think it a little too large for liquid nitrogen cryosurgery as this could leave a hypopigmented patch. I think she would get the best result from using topical 5-fluorouracil cream. Written instructions and expected course were given as well 2. Rx Efudex 40 g; apply once a day to the involved areas on the cheek, nose and right chest. 3. Patient was reassured about the benign lesions - instructed to call with any changes. She can expect more seborrheic keratoses over time. Reviewed the clinical characteristics (champion, marrufo, waxy etc). 4. Follow up -she needs a full skin exam and will make an appointment for this sometime in the spring which can also be a follow-up post topical 5-fluorouracil treatment. Or sooner with any concerns. Please note: Parts of this documentation were created with the use of voice recognition software andmay contain tapper operator errors Doris Sheffield PA-C 16:08 01/15/2019 documented in this encounter Plan of Treatment Upcoming Encounters Date Type Specialty Care Team Description 03/10/2022 Office Visit Dermatology Doris Sheffield PA-C [address] [facility], [facility], [address] [place], [place] [address] (Wo rk) documented as of this encounter Visit Diagnoses Diagnosis History of basal cell carcinoma - Primar y Personal history of other malignant neop lasm of skin Actinic keratoses Actinic keratosis Seborrheic keratosis Other seborrheic keratosis documented in this encounter Discontinued Medications Medication Sig Discontinue Reason Start Date End Date omeprazole (PRILOSEC) 20 Take 20 mg by mouth Therapy completed 01/15/2019 mg capsule daily. documented as of this encounter Historical Medications This list may reflect changes made after this encounter. Medication Sig Dispensed Refills Start Date End Date ranitidine HCl (HEARTBURN Take by mouth at 0 12/18/2020 RELIEF, RANITIDINE, ORAL) bedtime. sertraline (ZOLOFT) 100 Take 100 mg by mouth 0 12/18/2020 mg tablet daily. added in this encounter Care Teams Financial Internship Relationship Specialty Start Date End Date Selena Gentile, CHETAN PCP - General 09/02/16 [address] [place] [address] Nicholas Damon MD 05/29/[address] [address] documented as of this encounter
--- OUTSIDE RECORDS SUMMARY | 2022-01-08 16:14 | XMS_ITS | Encounter Summary ---
:1975 Author Organization [facility] Address [address] [place] [address] Care Team Providers Name Role Phone Nicholas Damon MD Unavailable Selena Gentile APRN Primary Care Provider [phone] Encounter Details Date Type Department Care Team Description 10/15/2016 Historical Results [facility] - Sarai Shipman [place], Only [facility] Radiology Resul ts SET OFF PRESS OPERATOR [address] [place] [address] [place] [address] Social History Tobacco Use Types Packs/Day Years [...] Doris Sheffield , SITA [address] [facility], [facility], [address] [place], [place] [address] (Wo rk) documented as of this encounter Procedures Procedure Name Priority Date/Time Associated Diagnosis Comme nts NM BONE WHOLE BODY 10/15/2016 13:29 Resul ts for this SINGLE ZONE WITH EDT procedure a re in SPECT/CT the results section. documented in this encounter Results NM BONE WHOLE BODY WITH SPECT (10/15/2016 13:29 EDT) Anatomical Region Laterality Modality Body Other Specimen (Source) Anatomical Collection Method Collection Time Re ceived Time Location / / Volume Laterality 10/15/2016 13:29 EDT Narrative 10/15/2016 13:33 EDT ? EXAM: NUCLEAR MEDICINE/BONE SPECT WITH WH EX. D/ (5995) ? CLINICAL INFORMATION: ? M54.5 LOW BACK PAIN ? Exam: Whole-body bone scan. ? Indication: M54.5 LOW BACK PAIN L OW BACK PAIN ? Technique: Whole-body spectroscop ic imaging was obtained following ? the administration of 21.5 millic uries of technetium 99m MDP. ? Concurrent CT imaging with subseq uent registration was performed. ? Comparison: MRI lumbar spine 05/27. ? Findings: The lumbar spine is wel l aligned. The lumbar vertebral ? bodies maintain normal height. No focal hyperintense radiotracer ? activity at the endplates of the lumbar spine or within the lumbar ? spine facets is appreciated. The lumbar vertebral bodies Minimal ? symmetric increased radiotracer a ctivity is seen within the iliac ? bones adjacent to the sacroiliac joints bilaterally. ? No deep pelvic free fluid is seen . No pelvic or inguinal adenopathy ? is noted. The visualized portions of the liver spleen pancreas ? adrenal glands and kidneys is unr emarkable. On whole body imaging, no ? suspicious focal bone lesions are seen. No abnormal long bone ? abnormality is noted, and no majo r abnormality is seen at the knees ? hips or pelvis. ? Impression: ? 1. No abnormal radiotracer activi ty within the lumbar spine detected. ? 2. Minimal increased tracer activ ity at the SI joints bilaterally. ? This is nonspecific though could reflect minimal SI joint ? inflammation. ? REPORT SIGNED IN OTHER VENDOR SYSTEM 10/15/2016 ?Reported B y: Amrit Jimenes MD ? CC: ? Transcribed Date/Time: 10/15/2016 (1333) ? Clinical Pharmacy Manager: [email or web address] ? Printed Date/Time: 07/25/2018 (09 37) ? PAGE 1 ? Daiana d Report ? Procedure Note Amrit Jimenes MD - 12/13/2018Formatt ing of this note might be different from the original. EXAM: NUCLEAR MEDICINE/BONE SPECT WITH WH EX. D/ (1325) CLINICAL INFORMATION: M54.5 LOW BACK PAIN Exam: Whole-body bone scan. Indication: M54.5 LOW BACK PAIN LOW PARMINDER K PAIN Technique: Whole-body spectroscopic royal ging was obtained following the administration of 21.5 millicuries of technetium 99m MDP. Concurrent CT imaging with subsequent r egistration was performed. Comparison: MRI lumbar spine 05/27/2016. Findings: The lumbar spine is well alig ike. The lumbar vertebral bodies maintain normal height. No focal hyperintense radiotracer activity at the endplates of the lumbar spine or within the lumbar spine facets is appreciated. The lumbar vertebral bodies Minimal symmetric increased radiotracer activit y is seen within the iliac bones adjacent to the sacroiliac joints bilaterally. No deep pelvic free fluid is seen. No p elvic or inguinal adenopathy is noted. The visualized portions of th e liver spleen pancreas adrenal glands and kidneys is unremarka ble. On whole body imaging, no suspicious focal bone lesions are seen. No abnormal long bone abnormality is noted, and no clear abno rmality is seen at the knees hips or pelvis. Impression: 1. No abnormal radiotracer activity wit hin the lumbar spine detected. 2. Minimal increased tracer activity at the SI joints bilaterally. This is nonspecific though could reflec t minimal SI joint inflammation. REPORT SIGNED IN OTHER VENDOR SYSTEM 10/15/2016 Reported By: Amrit Jimenes MD CC: Transcribed Date/Time: 10/15/2016 (5901 ) Clinical Pharmacy Manager: Printed Date/Time: 07/25/2018 (7673) PAGE 1 Signed Report Sarai Lund Umberto SET OFF PRESS OPERATOR IMG NM ORDERABLES documented in this encounter Visit Diagnoses Not on filedocumented in this encounter Care Teams Vice President Payer Relationship Specialty Start Date End Date Selena Gentile, 3D SPECIALIST PCP - General 09/02/16 [address] [place] [phone] Nicholas Damon MD 05/29/14 [facility] [address] [place] [address] documented as of this encounter
--- OUTSIDE RECORDS SUMMARY | 2022-01-08 16:14 | XMS_ITS | Encounter Summary ---
:1975 Author Organization [facility] Address [address] [place] [address] Care Team Providers Name Role Phone Nicholas Damon MD Unavailable Selena Gentile APRN Primary Care Provider [phone] Encounter Details Date Type Department Care Team Description 04/21/2019 Travel Social History Tobacco Use Types Packs/Day Years [...] Visit Dermatology Doris Sheffield , SITA [address] [place] [facility], [facility], [address] [place], [place] [phone] (Wo rk) documented as of this encounter Visit Diagnoses Not on filedocumented in this encounter Care Teams Dealer Analyst Relationship Specialty Start Date End Date Selena Gentile APRN PCP - General 09/02/16 [address] [place] [address] Nicholas Damon MD 05/29/[address] [address] documented as of this encounter
--- OUTSIDE RECORDS SUMMARY | 2022-01-08 16:14 | XMS_ITS | Encounter Summary ---
:1975 Author Organization [facility] Address [address] [place] [address] Care Team Providers Name Role Phone Nicholas Damon MD Unavailable Nicholas Damon MD Primary Care Provider Encounter Details Date Type Department Care Team Description 07/13/[address] [facility] [place] Unknown, Provider, [facility] [address] [facility] [phone] [place] [address] (Work) [phone] Social History Tobacco Use Types Packs/Day Years Used Date Smoking Tobacco: Never Assessed Sex Assigned at Date Recorded Female 12/11/2020 13:05 EDT documented as of this encounter Discharge Disposition Disposition Code Departure Means Destination Home or Self Snf documented in this encounter Plan of Treatment Upcoming Encounters Date Type Specialty Care Team Description 03/10/2022 Office Visit Dermatology Doris Sheffield , PASoC [address] [facility], [facility], [address] [place], [place] [address] (Wo rk) documented as of this encounter Visit Diagnoses Not on filedocumented in this encounter Care Teams Thread Winder Automatic Relationship Specialty Start Date End Date Nicholas Damon MD PCP - General 07/08/16 07/27/16 [facility] [address] [place], [place] [address] Nicholas Damon MD 05/29/[address] [address] documented as of this encounter
--- OUTSIDE RECORDS SUMMARY | 2022-01-08 16:14 | XMS_ITS | Encounter Summary ---
:1975 Author Organization [facility] Address [address] [place] [address] Care Team Providers Name Role Phone Nicholas Damon MD Unavailable Selena Gentile APRN Primary Care Provider [phone] Encounter Details Date Type Department Care Team Description 10/15/2016 Hospital Encounter [facility] - Unknown, [facility] [phone] [place] [address] [place] [address] Social History Tobacco Use Types Packs/Day Years Used Date Smoking Tobacco: Never Smokeless Tobacco: Never Alcohol Use Standard Drinks/Week Comments Yes 0 (1 standard drink = 0.6 oz pure alcoho l) Sex Assigned at Date Recorded Female 12/11/2020 13:05 EDT documented as of this encounter Medications at Time of Discharge Medication Sig Dispensed Refills Start Date End Date omeprazole (PRILOSEC) 20 Take 20 mg by mouth 0 01/15/2019 mg capsule daily. documented as of this encounter Discharge Disposition Disposition Code Departure Means Destination Home or Self Correction documented in this encounter Plan of Treatment Upcoming Encounters Date Type Specialty Care Team Description 03/10/2022 Office Visit Dermatology Doris Sheffield , SITA [address] [facility], [facility], [address] [place], [place] [address] (Wo rk) documented as of this encounter Visit Diagnoses Not on filedocumented in this encounter Care Teams Discharge Planner Relationship Specialty Start Date End Date Selena Gentile APRN PCP - General 09/02/16 [address] [place] [phone] Nicholas Damon MD 05/29/[address] [address] documented as of this encounter
--- OUTSIDE RECORDS SUMMARY | 2022-01-08 16:14 | XMS_ITS | Encounter Summary ---
:1975 Author Organization [facility] Address [address] [place] [address] Care Team Providers Name Role Phone Nicholas Damon MD Unavailable Selena Gentile APRN Primary Care Provider [phone] Encounter Details Date Type Department Care Team Description 03/14/2020 Lab Requisition [facility] Outr Resulting Lab, Pathology & Laboratory Provider [facility] [address] [place], [place] [address] Social History Tobacco Use Types Packs/Day Years [...] Visit Dermatology Doris Sheffield , SITA 111 [facility], [facility], [address] [place], [place] [address] (Wo rk) documented as of this encounter Procedures Procedure Name Priority Date/Time Associated Diagnosis Comme nts IGM Routine 03/12/2020 15:45 EST Results for this procedure are i n the results section . IGG Routine 03/12/2020 15:45 EST Results for this procedure are i n the results section . documented in this encounter Results IGM (03/12/2020 15:45 EST) athologist Signature IgM 81 35 - 242 03/17/2020 [facility] mg/dL 10:08 EST [facility] Specimen Anatomical Collection Method Collection Time Receive d Time (Source) Location / / Volume Laterality Blood VENOUS BLOOD / 03/12/2020 15:45 1 Unknown EST 16:29 EST Provider Outr Resulting Lab CHEMISTRY & BLOOD GAS ORDE RABJAMAR Performing Organization Address City/State/ZIP Code Phon e Number [facility] [address] [place] [address] SERVICES IGG (03/12/2020 15:45 EST) athologist Signature IgG 1,113 610-1,616 03/17/2020 [facility] mg/dL 10:08 [facility] Specimen Anatomical Collection Method Collection Time Receive d Time (Source) Location / / Volume Laterality Blood VENOUS BLOOD / 03/12/2020 15:45 1 Unknown EST 16:29 EST Provider Outr Resulting Lab CHEMISTRY & BLOOD GAS ORDE RABJAMAR Performing Organization Address City/State/ZIP Code Phon e Number [facility] [address] [place] [address] SERVICES documented in this encounter Visit Diagnoses Not on filedocumented in this encounter Care Teams Coagulator Relationship Specialty Start Date End Date Selena Gentile APRN PCP - General 09/02/16 [address] [place] [phone] Nicholas Damon MD 05/29/14 [facility] [address] [place] [address] documented as of this encounter
--- OUTSIDE RECORDS SUMMARY | 2022-01-08 16:14 | XMS_ITS | Encounter Summary ---
:1975 Author Organization [facility] Address [address] [place] [address] Care Team Providers Name Role Phone Nicholas Damon MD Unavailable Selena Gentile ROOF TRUSS DETAILER Primary Care Provider [phone] Reason for Visit Reason Comments Telemedicine Video Visit Consult (Routine) - Authorization Not Required Specialty Diagnoses / Procedures Referred By Contact Refer red To Contact Infectious Disease Diagnoses Lyme disease Fever Selena Gentile, [facility] Ep5 Infectious ROOF TRUSS DETAILER Disease [address] [place], [place] [phone] Referral ID Status Reason Start Expiration Visits Visits Date Date Requested Authorized [id number] Authorization Not 1 1 Required Encounter Details Date Type Department Care Team Description 04/02/2020 Telemedicine [facility] Albert Guzmán MD F ibromyalgia (Primary Dx); Infect[place] Disease [place] [facility] [place]; [address] Positive Lyme disease serolo gy [address] [place], [place] [phone] [place] [address] Pavilion, [address] [place] [address] (Wo rk) Social History Tobacco [...] documented as of this encounter Progress Notes Albert Guzmán MD [facility] - 04/02/2020 1530 EST Images from the original note were not included. INFECTIOUS DISEASES INITIAL CONSULT CC seen for possible Lyme disease on referral from Selena Urrutia APRN. HPI Ms. Villanueva is a 44 y.o. female who says she's had fibromyalgia for which she saw [place] [facility] [place] for a long time, and a history of ocular migraines, but then things seemed to change dramatically late fall 2019. She started experiencing daily temps to 99-100, not higher, marked daily bilateral ASHLEY, vertigo exacerbated by moving her eyes in one direction or another, and marked fatigue. She also felt diffusely achy, more so than with her usual fibromyalgia. The patient's PCP Selena Gentile APRN, did bloodwork including a Lyme serology which came back newly positive as below. Two weeks of doxycycline was associated with some improvement in her symptoms,but only partial. In response to this, Ms Gentile prescribed another week which the patient took after a few day gap. She feels better, besides some GI upset, but not all the way and so wonders what else if anything should be done. ROS otherwise notable for stable swelling of her L ankle, but diffuse bilateral puffiness of her hands and feet that she says she can see. She saw neuro at [facility] [place] where their assessment was: Symptoms are positional in nature. On evaluation she has left > right vestibular dysfunction withvestibulo-cervical dysfunction. No recent imaging. IMPRESSION: Vestibular Dysfunction L >R PLAN/RECOMMENDATIONS: ? Her symptoms are related to Vestibular dysfunction. ? Neck and vestibular PT referral given. ? Will obtain MRI Brain to rule out any other pathology. ? Meclizine or valium PRN for severe symptomatic spells. ? Follow ups based on MRI Findings. She says she had the MRI brain done but I don't have results. I don't see a follow up scheduled. She was referred to ENT 01/2020 at [facility] where impression was: Her description of dizziness is more suggestive of presyncope rather than true vertigo. Differential includes orthostatic hypotension, intracranial hypertension, medication side effect, vestibular migraine, or central problems with assimilating incoming sensory inputs from the eyes, vestibular, and proprioceptive systems. The positional nature of her symptoms [...] for orthostatic hypotension if not already done. ROS 10-point review of systems is negative except as mentioned in the HPI and as noted here. PMH Past Medical History: Diagnosis Date ??? Basal cell carcinoma 11/19/2016 Right forehead/frontal hairline s/p Mohs ??? Environmental allergies ??? Psoriasis NELSON Depression Psoriasis as a teen but it went away besides spot on scalp that hasn't acted up in years Fibromyalgia for which seen at [facility] until December 2019 after which she got a letter saying that they were no longer taking new patients, which perplexed and somewhat alienated the patient, so she opted to transition care to rheum at [facility] which is pending #Fibromyalgia - Symptoms of bloating, lethargy, mental fogginess, dizziness with stress that started in 2012 - Extensive work up unremarkable: MRI brain normal, colonoscopy normal, EGD grade A esophagitis, thyroid panel/AB normal, TTG normal - generalized body aches and joint pains without swelling, redness, and stiffness - poor sleep, diagnosed with mild NELSON - medications tried: Naproxen, Celebrex, Ibuprofen - no benefit trazadone - nausea, dizziness, bad thoughts Gabapentin (600mg bed time, 300mg day time)- rash, worsened depression Nortriptyline - bad thoughts cymbalta (30 and 60mg) - helped FM, depression but made caused shaking, anxiety ,loss of appetite, sweating, dark urine and leaking urine Effexor - bad thoughts, palpitations Citalopram - prescribed, unclear if tried Their impression was She continues to have increased chronic pain, ongoing for at least one year. Reports stressors in her life but she has a close relationship with her therapist that seems to help. We had a long discussion today regarding tackling fibromyalgia from multiple view points. She has tried multiple medications in the past with adverse reactions. We will trial low dose (50mg qPM) lyrica today to avoid potential adverse reactions although I reiterated that there are also lifestyle modifications that will helpher as well. Recommended medication, yoga/stretching, and raquel chi to do daily. Management of risk factors is lee. During [facility] many places are giving classes online or via youtube for assistance. She eats a relatively good diet and has had significant weight loss (intentional). She is no longer using CPAP since she felt this wasn't helping. Pools are closed during [facility] but she is getting a bathtub installed in her home and recommended to do hot water baths at night. IBS L ankle fx 1 yo, hardware in place Ganglion cyst PSH Past Surgical History: Procedure Laterality Date ??? MOHS SURGERY Right 11/19/2016 Frontal hairline/forehead s/p Mohs hysterectomy 2019 has ovaries/tubes Tubal ligation Allergies Allergies Allergen Reactions ??? Duloxetine Severe suicidal thoughts. ??? Adhesive ??? Bentyl [Dicyclomine] ??? Penicillins Medications Current Outpatient Medications: ??? acetaminophen (TYLENOL) 325 mg capsule, Take by mouth., Disp: , Rfl: ??? famotidine (PEPCID) 20 mg tablet, Take 20 mg by mouth 2 times daily., Disp: , Rfl: ??? fluorouraciL (EFUDEX) 5 % cream, Apply to nose and cheek daily for 3 weeks. KEEP AWAY FROM CHILDREN AND PETS, Disp: 40 g, Rfl: 0 ??? ibuprofen (MOTRIN) 200 mg tablet, 4 tab(s) orally every 6 hours PRN headaches, Disp: , Rfl: ??? ranitidine HCl (HEARTBURN RELIEF, RANITIDINE, ORAL), Take by mouth at bedtime., Disp: , Rfl: ??? 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 maybe their dad influencing.21 yo daughter, getting better from some questionable decisions. No international travel. Hoping fora cruise someday soon. Cat, with tick despite [employer]. Puppy 62 lbs. And daughter has a mouse. No tobacco. Rare EtOH, MJ. Has a wisdom tooth that needs work, hasn't been for a couple of years. FH Foster care age 13 so doesn't know a lot. Uncle esophageal cancer. Father EtOH. His family has Parkinson's. Cancer in mother's side of the family, including uterine cancer MGM. Physical Examination No vitals in this video visit Looks well, pleasant, good historian Not otherwise examined Lab 2008 syphilis NR 11/2014 TSH normal 04/2019 Lyme neg 05/2019 HIV neg, GC/CT neg 02/2020 CBC, CMP normal pt says blood culture negative 02/21/2020 14:30 03/12/2020 15:45 Lyme AB Positive (A) Positive (A) Lyme IGG Bands p66... p18... Lyme IGG ImmunoBlot Negative Positive (A) Lyme IGM Band(s) p39... p23... Lyme IgM ImmunoBlot Positive (A) Positive (A) Lyme IGG ImmunoBlot Negative Negative Lyme IGG Bands p66 p58 p41 p18 Lyme IgM ImmunoBlot Negative PositiveAbnormal Lyme IGM Band(s) p39 p23 Lyme IGG Bands p18 p30 p41 p45 p58 p66 p93 p66 p58 p41 p18 Lyme IgM ImmunoBlot Negative PositiveAbnormal PositiveAbnormal Lyme IGM Band(s) p23 p39 p39 p23 Imaging 04/2019 CXR neg ASSESSMENT Non-specific, diffuse symptoms including low-grade fevers, fatigue, headache, and body aches in a patient with a prior history of fibromyalgia, irritable bowel syndrome and depression. In the setting of nonspecific symptoms like these, Lyme disease testing is recommended against. As summarized in UpToDate: When Lyme testing is not warranted??--??Serologic testing for Lyme disease should not be performed: ?For screening of asymptomatic patients who live in endemic areas ?For evaluation of patients who present only with nonspecific symptoms (eg, fatigue, myalgias/arthralgias) We do not test these patients, since the use of serologic testing in populations with a low pre-testprobability of Lyme disease results in a greater likelihood of false-positive test results than true-positive test results. As a consequence, asymptomatic patients and those with nonspecific articular or neurologic symptoms may be incorrectly diagnosed as having chronic Lyme disease and receive unnecessary antibiotics. In patients with noninflammatory musculoskeletal pain, cognitive complaints, fatigue, and/or irritability, alternative diagnoses should be considered, including chronic fatigue syndrome, fibromyalgia, myofascial pain syndrome, polymyalgia rheumatica, hypothyroidism, inflammatory myopathies, and chronic traumatic encephalopathy. That rule of thumb generally applies to this patient, especially since her symptoms exacerbated during colder months when the pre-test probability of Lyme disease was even lower. Having gone down that road, with its risk of coincidental positive results stemming from unrelated exposure to Lyme disease, there are a couple of aspects of this patient's findings that bear additional commentary. First, the patient's Lyme serologies are newly positive in comparison to her negative test of April 2019. Second, the presence of detectable IgM bands can sometimes suggest recent infection, although IgM testing in general has low specificity and so this possibility cannot be taken to thebank. Third, the number of IgG bands that were positive grew over time, also nonspecifically suggesting recent infection. There is controversy about how to manage a positive Lyme serology either in someone who is asymptomatic or when found in the context of nonspecific symptoms. Some experts believe it is reasonable to treat in the event that it was found coincidentally and in the case that treatment might avert the subse quent development of disease, whereas other experts believe that empirical antibiotic treatment of incidentally found Lyme serology findings can add confusion, drug side effects, and drug resistance without clear benefit. Adding it up, I probably would not have tested for Lyme in this context, but with the positive results and the possible patients summarized above, treatment was not unreasonable. Two plus weeks of doxycycline is plenty to cure the vast majority of cases of Lyme disease and so should be sufficient. (There are exceptions to this such as the patient with clear Lyme arthritis which does not respond always to a couple of weeks of therapy, but this patient does not exhibit clinical manifestations that fall into that category.) The partial symptomatic benefit while on doxycycline may relate to coincidence, placebo effect or the putative anti-inflammatory effects of doxycycline. That leaves us with a question of what could be causing her symptoms. Certainly this somewhat improved subacute syndrome could be a nonspecific viral illness including undiagnosed long haul Covid that fired up her pre-existing fibromyalgia and which will progressively improve over time. Dangerous things like endocarditis sound like they were ruled out although I want to confirm that with additional records. On the other hand if the patient has makayla kelley fevers or newly evolving symptoms then additional considerations include a mono-like illness or rheumatological conditions such as psoriatic arthritis, polymyalgia rheumatica, rheumatoid arthritis, and the like. I suspect the safest way forward is to observe longitudinally. If she improves back to baseline thenwe can be glad and stop there. If her symptoms evolve in some informative way that can shape neck steps and diagnostic testing. If rheumatology finds aspects of her evaluation that suggest work-up thatuseful, the great. I am also happy to see her again to see if some new hint arises that prompts new testing such as for mono-like illnesses. I talked with the patient about the controversy about Lyme disease and the possibility that she could find a so-called Lyme specialist who practices outside the mainstream of infectious diseases and who would be willing to give her essentially indefinite unproven antibiotics and hope they will help.I said that I did not want to claim to know everything but that I was nervous that that approach could lead to toxicity without proven benefit, but that she would need to be a self-activated and informed consumer to make the decision for herself. RECOMMENDATIONS 1. Education and shared decision-making 2. We agreed to observe for further improvement or symptomatic evolution and meet again in person inaround 2 months 3. In the meantime she will see rheumatology to see what they make of her symptoms 4. I will request results of her February 2020 blood cultures and the brain MRI reportedly done [place] [facility] recently 5. If true fevers persist we can intensify work up to discover the cause 6. Encouraged pt to follow up with her dentist and to keep me apprised of any evolving/worsening sx Thank you for asking us to participate in this patient's care. Please call with questions or concerns. Electronically signed by Albert Guzmán MD [facility] at 04/02/2020 17:23 EST documented in this encounter Plan of Treatment Upcoming Encounters Date Type Specialty Care Team Description 03/10/2022 Office Visit Dermatology Doris Sheffield PA-C [address] [facility], [facility], [address] [place], [place] [phone] (Wo rk) documented as of this encounter Visit Diagnoses Diagnosis Fibromyalgia - Primary Mylagia and myositis, unspecified Psoriasis Other psoriasis Positive Lyme disease serology Other and unspecified nonspecific immuno logical findings documented in this encounter Historical Medications This list may reflect changes made after this encounter. Medication Sig Dispensed Refills Start Date End Date famotidine (PEPCID) 20 mg Take 20 mg by mouth 0 0 03/08/2020 12/18/2020 tablet 2 times daily. added in this encounter Care Teams Repair Clerk Relationship Specialty Start Date End Date Selena Gentile APRN PCP - General 09/02/16 [address] [place] [phone] Nicholas Damon MD 05/29/[address] [address] documented as of this encounter
--- OUTSIDE RECORDS SUMMARY | 2022-01-08 16:14 | XMS_ITS | Encounter Summary ---
:1975 Author Organization [facility] Address [address] [place] [address] Care Team Providers Name Role Phone Nicholas Damon MD Unavailable Selena Gentile APRN Primary Care Provider [phone] Encounter Details Date Type Department Care Team Description 05/26/2019 Lab Requisition [facility] Unknown, Provider, Pathology & Laboratory [facility] [address] [facility] [address] Social History Tobacco Use Types Packs/Day Years [...] Visit Dermatology Doris Sheffield , SITA [address] [facility], [facility], [address] [place], [place] [phone] (Wo rk) documented as of this encounter Procedures Procedure Name Priority Date/Time Associated Comments Diagnosis HIV 1/2 ANTIGEN AND Routine 05/25/2019 10:05 Resu lts for this ANTIBODY, 4TH EDT procedure are in GENERATION the results section. documented in this encounter Results HIV 1/2 ANTIGEN AND ANTIBODY, 4TH GENERATION (05/25/2019 10:05 EDT) [facility] Method Time Signature HIV 1 and 2 Negative Negative 05/28/[address] [facility] MEDICAL Antibody/p24 11:51 EDT CENTER Antigen, 4th LABORATORY Generation SERVICES Comment: If acute HIV-1 infection is suspected in a high risk ??patient, submit plasma specimen for HIV-1 RNA quantitation test. Fourth Generation assay performed on the Siemens [email or web address]aur. Specimen Anatomical Collection Method Collection Time Receive d Time (Source) Location / / Volume Laterality Blood VENOUS BLOOD / 05/25/2019 10:05 0 Unknown EDT 21:07 EDT Provider Unknown IMMUNOLOGY AND SEROLOGY HERMELINDA MCCALLUM Performing Organization Address City/State/[facility] Code Phon e Number [facility] [address] [place] [id number] SERVICES documented in this encounter Visit Diagnoses Not on filedocumented in this encounter Care Teams Chip Unloader Relationship Specialty Start Date End Date Selena Gentile APRN PCP - General 09/02/16 [address] [place] [address] Nicholas Damon MD 05/29/14 [facility] [address] [place] [address] documented as of this encounter
--- OUTSIDE RECORDS SUMMARY | 2022-01-08 16:14 | XMS_ITS | Encounter Summary ---
:1975 Author Organization [facility] Address [address] [place] [address] Care Team Providers Name Role Phone Nicholas Damon MD Unavailable Selena Gentile APRN Primary Care Provider [phone] Encounter Details Date Type Department Care Team Description 04/02/2020 Travel Social History Tobacco Use Types Packs/Day [...] Visit Dermatology Doris Sheffield , SITA [address] [facility], [facility], [address] [place], [place] [phone] (Wo rk) documented as of this encounter Visit Diagnoses Not on filedocumented in this encounter Care Teams Animal Damage Control Agent Relationship Specialty Start Date End Date Selena Gentile, DESIGN DRAFTER CHIEF PCP - General 09/02/16 [address] [place] [address] Nicholas Damon MD 05/29/[address] [address] documented as of this encounter
--- OUTSIDE RECORDS SUMMARY | 2022-01-08 16:14 | XMS_ITS | Encounter Summary ---
:1975 Author Organization [facility] Address [address] [place] [address] Care Team Providers Name Role Phone Nicholas Damon MD Unavailable Selena Gentile APRN Primary Care Provider [phone] Reason for Visit Reason Comments New Patient Visit FBSE; check spot on right sc alp Encounter Details Date Type Department Care Team Description 09/30/2016 Office Visit [facility] Froilan Sheffield Neop lasm of uncertain behavior of skin (Primary Dx); Dermatology - [facility] PA-C Actinic keratosis; [address] Lentigines; [address] [place] [address] Dermatofibroma; [place], [place] [id number] [place] [address] Actinic skin damage [phone] Pavilion, [address] [place] [address] (Wo rk) Social History Tobacco Use Types Packs/Day Years Used Date Smoking Tobacco: Never Smokeless Tobacco: Never Alcohol Use Standard Drinks/Week Comments Yes 0 (1 standard drink = 0.6 oz pure alcoho l) Sex Assigned at Date Recorded Female 12/11/2020 13:05 EDT documented as of this encounter Discharge Diagnoses Diagnosis D48.5 Neoplasm of uncertain behavior of skin-D48.5[ICD-10-CM] L57.0 Actinic keratosis-L57.0[ICD-10-CM] D23.9 Other benign neoplasm of skin, uns pecified-D23.9[ICD-10-CM] L81.4 Other melanin hyperpigmentation-L8 1.4[ICD-10-CM] L57.8 Other skin changes due to chronic exposure to nonionizing radiation-L57.8[ICD-10-CM] documented in this encounter Patient Instructions Patient InstructionsNatacha Villanueva - 09/30/2016 10:15 EDT DERMATOLOGY WOUND CARE INSTRUCTIONS FOR SKIN BIOPSY The DRESSING/BANDAID should remain in place for 24 hours. You may shower or bathe after 24 hours; remove the bandage and replace it after the shower. DISCOMFORT: Extra-Strength Tylenol, as directed by meteorological observer, usually relieves any pain you may have. BLEEDING: You may notice some blood on the edges of the dressing the first day and this is NORMAL. If the bleeding soaks through the dressing, remove the dressing, and apply firm, steady pressure with a moist clean wash cloth for fifteen minutes. If the bleeding stops, redress the wound, if not, call our office at . ACTIVITY: You may resume normal activity in 1 day unless instructed otherwise. WOUND CARE: ?? Wash hands with soap and water before changing the dressing. ?? Change the dressing daily and when it becomes wet. Clean the wound daily with mild soap and water. You may gently loosen any crusts with a cotton swab.The wound may be slightly tender and may bleed a small amount. A small amount of discharge is normal. Apply a thin layer of sterile petroleum jelly over the wound. Cover the wound with a Telfa (non-stick) dressing or bandage. It is important to keep the wound covered. CONTACT THE OFFICE IF YOU EXPERIENCE: ?? increased redness ?? warmth to touch ?? increased pain ?? drainage with a foul odor ?? rapid swelling of the wound ?? fever or chills Please call our office or . documented in this encounter Discharge Disposition Disposition Code Departure Means Destination Auto Discharge documented in this encounter Progress Notes Froilan Sheffield PA - 10/04/2016 0845 EDT A. right anterior temporal scalp - BCC, nodular type extending to the base - needs M1 (if she is comfortable having the Mohs procedure without a consult this would be fine as I think this is a very straightforward lesion. We had talked about this at her visit) B. right upper back - BCC, superficial multicentric extending to the edge and base - needs ED and C at the time of her Mohs surgery if possible; if they do not have time to do it then, please be sure that she gets scheduled with me for definitive treatment (11:00 or 4:00) MA to call. Please send Mohs paperwork Froilan Sheffield PA-C 8:44 10/04/2016 Natacha Villanueva - 09/30/2016 1015 EDT Review of Systems Constitutional: Negative for fatigue, fever and unexpected weight change. HENT: Negative for mouth sores. Eyes: Negative for pain. Respiratory: Negative for cough and shortness of breath. Cardiovascular: Negative for chest pain and palpitations. Gastrointestinal: Negative for abdominal pain, blood in stool, constipation, diarrhea, nausea and vomiting. Genitourinary: Negative for dysuria, frequency and hematuria. Musculoskeletal: Positive for arthralgias and muscle stiffness in the morning. Negative for myalgiasand joint swelling. Skin: Negative for rash. Neurological: Negative for numbness and headaches. Endo/Heme/Allergies: Does not bruise/bleed easily. Psychiatric/Behavioral: Negative for sleep disturbance. The patient is nervous/anxious. Natacha Villanueva 09/30/2016 10:20 Froilan Sheffield PA-C 10:55 09/30/2016 Patient Education Topic: Wound Care Method: Handout and Verbal Taught to: Patient Barriers: None Outcomes: verbalized understanding Signature:Natacha Villanueva 09/30/2016 10:48 Froilan Sheffield PA - 09/30/2016 1015 EDT Images from the original note were not included. DERMATOLOGY OUT PATIENT PROGRESS NOTE PROBLEM: SKIN CHECK Chief Complaint Patient presents with ??? New Patient Visit FBSE; check spot on right scalp SUBJECTIVE: Ms. Ferrari is a 40 y.o. female who presents today for a skin check. This is her first visit to our office. History of skin cancer: No Family history of skin cancer: No History of significant sun exposure/sunburns: Yes: She remembers quite a few blistering sunburns on her shoulders and upper back when she was younger Previously seen by dermatology: No Dermatologic history: 1. Sunburns Concerns today: 1. Spot on right scalp, just inside the hairline that she noticed about 6 months ago-this has never healed completely though it has also never bled. She feels that it has fluid filled feel 2. Itchy spot on the right upper back that she cannot really see adequately 3. Bump on the right vivar that has been there for many years that never completely heals; sometimes gets irritated with shaving I reviewed the past medical history, social history, current medications and allergies. Current Outpatient Prescriptions Medication Sig Dispense Refill ??? omeprazole (PRILOSEC) 20 mg capsule Take 20 mg by mouth daily. No current facility-administered medications for this visit. Allergies Allergen Reactions ??? Adhesive ??? Penicillins OBJECTIVE: No apparent distress. Healthy appearing female sitting comfortably. Appropriate affect and demenaor. SKIN EXAM: Ramos skin type II. The following areas were examined: head (including scalp and face), neck, back, chest, breasts, axillae, abdomen, upper extremities, lower extremities, hands, feet,pubis and buttocks. The skin exam was normal except for the followin. Diffuse chronic actinic changes over the sun exposed areas of the face, neck, chest, arms and hands with more prominent changes over the upper back and shoulders comprised of 8-10 mm light to mediumbrown patches 2. Overall, her skin is dry 3. Right temporal scalp just inside the hairline - 6 mm pink pearly papule 4. Right upper back - 1.2 x 1.2 cm pink scaly patch 5. Right vivar - 4 mm firm, pink papulonodule 6. Left nasal sidewall - 1 mm keratotic macule ASSESSMENT: 1. Neoplasm of uncertain behavior of skin SURGICAL PATHOLOGY- ORDER ONLY 2. Actinic keratosis 3. Lentigines 4. Dermatofibroma 5. Actinic skin damage PLAN: 1. The importance of sunscreen use (SPF >30), sun avoidance and self-examination was discussed. Sunscreen should be reapplied every 2-3 hours. 2. The ABCDE's of melanoma were reviewed. Also reviewed signs and symptoms of non-melanoma skin cancers. Advised to call office with any questions or concerns. 3. Biopsy by shave technique was performed to the lesion on the right anterior temporal scalp, rightupper back as detailed below. We will be in touch with the results when they become available. 4. The actinic keratosis was treated with liquid nitrogen cryosurgery as detailed below. 5. Reassured about the dermatofibroma; she can expect to get more of these over time in areas where she has deep inflammation 6. Follow-up: one year SHAVE BIOPSY PATIENT INFORMATION: Anya Ferrari : MRN: [id number] SURGEON: Froilan Sheffield PA-C The indication, risks, benefits and alternatives to this procedure were discussed in detail with thepatient and all questions were answered. Informed consent was obtained in writing. PROCEDURE NOTE Specimen A Procedure: Tangential Shave Indication: Diagnostic Biopsy Site: right anterior temporal scalp Anesthesia: 1% lidocaine with epinephrine 1:100,000 Prep: Alcohol The lesion was prepped as above and locally anesthetized. The specimen was removed by tangential shave using a Dermablade??. Hemostasis was achieved with pressure and/or aluminum chloride. The wound was cleansed with alcohol and a sterile dressing was applied over Petrolatum ointment. Verbal and written wound care instructions were given.The specimen was submitted to pathology for histological evaluation. Specimen B Procedure: Tangential Shave Indication: Diagnostic Biopsy Site: Right upper back Anesthesia: 1% lidocaine with epinephrine 1:100,000 Prep: Alcohol The lesion was prepped as above and locally anesthetized. The specimen was removed by tangential shave using a Dermablade??. Hemostasis was achieved with pressure and/or aluminum chloride. The wound was cleansed with alcohol and a sterile dressing was applied over Petrolatum ointment. Verbal and written wound care instructions were given.The specimen was submitted to pathology for histological evaluation. The attending physician was available for this visit. Froilan Sheffield PA-C 10:27 09/30/2016 Please note: Parts of this documentation were created with the use of voice recognition software andmay contain palletizer errors Kathryn Beavers MD - 09/30/2016 1015 EDT I was the supervising physician and was present in the clinic during this visit. Note reviewed, patient was not seen by me. Kathryn Beavers M.D., Ph.D. documented in this encounter Plan of Treatment Upcoming Encounters Date Type Specialty Care Team Description 03/10/2022 Office Visit Dermatology Froilan Sheffield , JUSTIN-C [address] [facility], [facility], [address] [place] [phone] (Wo rk) Scheduled Orders Name Type Priority Associated Diagnoses Order S chedule SURGICAL PATHOLOGY- Pathology Routine Neoplasm of Uncertain Ordered: 09/30/2016 ORDER ONLY Behavior of Skin documented as of this encounter Procedures Procedure Name Priority Date/Time Associated Diagnosis Comme nts SURGICAL PATHOLOGY Routine 09/30/2016 14:03 Resul ts for this EDT procedure are i n the results section. documented in this encounter Results SURGICAL PATHOLOGY (09/30/2016 14:03 EDT) Component Value Ref Test Analysis Performed At [facility] Method Time Signature Pathology SURGICAL PATHOLOGY REPORT [facility] Report: Reports generated via electronic interface contain origina l data; CENTER however they are lacking the format of the original report. LABORATORY Caution should be taken when reading/interpreting unformat sonya reports. SERVICES Name: ? LORENA ANYA ? Accession #: ? [id number] ? : ? 1975 (Age: 40) ??F ? Collect Date: ? 09/30/2016 ? Location: ? [facility] ? Receive Date: ? 09/30/2016 ? Provider: FROILAN ANDERSON Copy to: ? Final Pathologic Diagnosis: A. ??SKIN OF SCALP, RIGHT ANTERIOR TEMPORAL, SHAVE BIOPSY: - Basal cell carcinoma, nodular type. - Lesion extends to biopsy base. - Lesion measures approximately 0.6 mm to the nearest perip heral edge. B. ??SKIN OF BACK, RIGHT UPPER, SHAVE BIOPSY: - Basal cell carcinoma, superficial multicentric type. - Lesion extends to peripheral edge and base of biopsy spec imen. - Lesion measures approximately 0.6 mm to the biopsy base. Document reviewed and electronically signed by: ELOY TALBERT MD Report ??Date: 10/01/2016 13:22 By the signature above, the attending physician certifies th at he/she has personally conducted a gross and/or microscopic examin ation of the described specimens and rendered or confirmed the above diagnosis. Specimen(s) Received: A. ??Right anterior temporal scalp B. ??Right upper back Clinical History: A. pink pearly papule, BCC; B. pink scal y patch, superficial BCC/SCC; clinical diagnosis code: D48.5 Gross Description: A. ?Received in formalin labelled with proper patie nt identification (initials M, S) and right anterior temporal scalp is a sha ve biopsy of a champion-white to pink speckled papule with i rregular borders (0.6 x 0.6 x 0.2 cm). The margin is inked blue. Trisected and submitted in A1. B. ?Received in formalin labelled with proper patie nt identification (initials M, S) and right u pper back is a shave biopsy of champion-white skin (1.1 x 1.0 x 0.1 cm). The margin is inked lana e. The specimen is sectioned into five sections and entirely submitted in B1 and B2. Mimatti Martinez 09/30/2016 3:48 PM End of Report Specimen Anatomical Collection Method Collection Time Receive d Time (Source) Location / / Volume Laterality 09/30/2016 14:03 09/30/2016 EDT 14:03 EDT Froilan Sheffield PA-C PATHOLOGY ORDERABLES Performing Organization Address City/State/ZIP Code Phon e Number [facility] [address] [place] [address] SERVICES documented in this encounter Visit Diagnoses Diagnosis Neoplasm of uncertain behavior of skin - Primary Actinic keratosis Lentigines Other dyschromia Dermatofibroma Benign neoplasm of skin, site unspecifie d Actinic skin damage Other dermatitis due to solar radiation documented in this encounter Historical Medications This list may reflect changes made after this encounter. Medication Sig Dispensed Refills Start Date End Date omeprazole (PRILOSEC) 20 Take 20 mg by mouth 0 01/15/2019 mg capsule daily. added in this encounter Care Teams Healthcare Applications Analyst Relationship Specialty Start Date End Date Selena Gentile, SENIOR ADMINISTRATIVE ASSISTANT PCP - General 09/02/16 [address] [place] [phone] Nicholas Damon MD 05/29/14 [facility] [address] [place] [address] documented as of this encounter
--- OUTSIDE RECORDS SUMMARY | 2022-01-08 16:14 | XMS_ITS | Encounter Summary ---
:1975 Author Organization [facility] Address [address] [place] [address] Care Team Providers Name Role Phone Nicholas Damon MD Unavailable Selena Gentile APRN Primary Care Provider [phone] Encounter Details Date Type Department Care Team Description 03/12/2020 Lab Requisition [facility] Outr Resulting Lab, Pathology & Laboratory Provider [facility] [address] [place], [place] [address] Social History Tobacco Use Types Packs/Day Years [...] Visit Dermatology Doris Sheffield , SITA [address] [facility], [facility], [address] [place], [place] [address] (Wo rk) documented as of this encounter Procedures Procedure Name Priority Date/Time Associated Comments Diagnosis LYME AB Routine 03/12/2020 15:45 Results for this EST procedure are i n the results section. ZZLYME IMMUNOBLOT Today 03/12/2020 15:45 Result s for this CONFIRMATION EST procedure are i n the results section. documented in this encounter Results (ABNORMAL) LYME IMMUNOBLOT CONFIRMATION (03/12/2020 15:45 EST) [facility] Method Time Signature Lyme IGG Positive Negative 03/19/2020 [facility] ImmunoBlot (A) 16:00 [facility] Lyme IGG Bands p18 03/19/2020 [facility] p30 16:00 [facility] p41 LABORATORY p45 SERVICES p58 p66 p93 Lyme IgM Positive Negative 03/19/2020 [facility] ImmunoBlot (A) 16:00 [facility] Lyme IGM Band(s) p23 03/19/2020 [facility] p39 16:00 [facility] Lyme Immunoblot See Comment 03/19/2020 [facility] Interpretation 16:00 [facility] Specimen Anatomical Collection Method Collection Time Receive d Time (Source) Location / / Volume Laterality Blood VENOUS BLOOD / 03/12/2020 15:45 Unknown EST 21:27 EST Narrative [facility] - 03/19/2020 16:00 EST Indicative of active or previous B. burgdorferi infection. IgM Immunoblot is of diagnostic utility only during the first four weeks after the onset of disease. CDC criteria require greater than or equ al to the presence of 5 bands for IgG or greater than or equal to 2 bands for IgM for the Immunoblot to be considered positive. Bands may be detected in patients without Lyme Disease. Patterns not meeti ng CDC criteria should be interpreted with caution. ??Per CDC guidelines, Immunoblot testing should only be performed on specimens that are positive or equivocal by Immunoassay. Performing only the Immu noblot increases the possibility of false positive results. Results should be considered positive only when both the Immunoassay and the Immunoblot are positive. Provider Outr Resulting Lab IMMUNOLOGY AND SEROLOGY OR DERABLES Performing Organization Address City/State/ZIP Code Phon e Number [facility] [address] [place] [address] SERVICES (ABNORMAL) LYME AB (03/12/2020 15:45 EST) Analysis Performed At Patho logist Time Signature Lyme Ab Positive (A) Negative 03/13/2020 [facility] 12:52 EST CENTER LABORATORY SERVICES Comment: Lyme Immunoblot confirmation added by re raymundo. New 3rd generation assay in use 07/18/19 20 The [employer] Lyme Liaison Lyme Total Ant ibody Plus assay contains antigens from Borrelia burgdorferi, Borrelia garinii, and Borelia afzelli. ??Results from the second-step western blots that detect only B. burgdorferi specific antigens should be interpreted with caution. Specimen Anatomical Collection Method Collection Time Receive d Time (Source) Location / / Volume Laterality Blood VENOUS BLOOD / 03/12/2020 15:45 1 Unknown EST 21:27 EST Provider Outr Resulting Lab IMMUNOLOGY AND SEROLOGY OR DERABLES Performing Organization Address City/State/ZIP Code Phon e Number [facility] [address] [place] [address] SERVICES documented in this encounter Visit Diagnoses Not on filedocumented in this encounter Care Teams Rag Cutting Machine Tender Relationship Specialty Start Date End Date Selena Gentile APRN PCP - General 09/02/16 [address] [place] [phone] Nicholas Damon MD 05/29/[address] [address] documented as of this encounter
--- OUTSIDE RECORDS SUMMARY | 2022-01-08 16:14 | XMS_ITS | Encounter Summary ---
:1975 Author Organization [facility] Address [address] [place] [address] Care Team Providers Name Role Phone Nicholas Damon MD Unavailable Selena Gentile APRN Primary Care Provider [phone] Reason for Referral Radiology Services (Routine) - Authorization Not Required Specialty Diagnoses / Procedures Referred By Contact Refer red To Contact Diagnoses Arthralgia of both hands Jennifer White MD Procedures XR HAND RIGHT 1-[address] [place] [phone] Referral ID Status Reason Start Expiration Visits Visits Date Date Requested Authorized [id number] Authorization Not 04/25/2020 1 1 Required Reason for Visit Radiology Services (Routine) - Authorization Not Required Specialty Diagnoses / Procedures Referred By Contact Refer red To Contact Diagnoses Arthralgia of both hands Jennifer White MD Procedures XR HAND RIGHT 1-[address] [place] [phone] Referral ID Status Reason Start Expiration Visits Visits Date Date Requested Authorized [id number] Authorization Not 04/25/2020 1 1 Required Encounter Details Date Type Department Care Team Description 04/25/2020 Hospital Encounter [facility] Arthral joan of both Radiology Xray hands Outpatient - [place] [id number] Social History Tobacco Use Types Packs/Day Years [...] Visit Dermatology Doris Sheffield , SITA [address] [facility], [facility], [address] [place], [place] [address] (Wo rk) documented as of this encounter Procedures Procedure Name Priority Date/Time Associated Diagnosis Comme nts XR HAND RIGHT 1-2 Routine 04/25/2020 16:54 Arthralgia of both Results for this VIEWS EDT hands procedure are i n the results section. documented in this encounter Results XR HAND RIGHT 1-2 VIEWS (04/25/2020 16:54 EDT) Anatomical Region Laterality Modality Upper Extremities Right Computed Radiography Specimen (Source) Anatomical Collection [...] documented in this encounter Visit Diagnoses Diagnosis Arthralgia of both hands documented in this encounter Care Teams Lace Machine Operator Relationship Specialty Start Date End Date Selena Gentile, CHETAN PCP - General 09/02/16 [address] [place] [phone] Nicholas Damon MD 05/29/14 [facility] [address] [place] [address] documented as of this encounter
--- OUTSIDE RECORDS SUMMARY | 2022-01-08 16:14 | XMS_ITS | Encounter Summary ---
:1975 Author Organization [facility] Address [address] [place] [address] Care Team Providers Name Role Phone Nicholas Damon MD Unavailable Selena Gentile APRN Primary Care Provider Reason for Referral Radiology Services (Routine) - Authorization Not Required Specialty Diagnoses / Procedures Referred By Contact Refer red To Contact Diagnoses Arthralgia of both hands Jennifer White MD Procedures XR HAND LEFT 1-[address] [place] [phone] Referral ID Status Reason Start Expiration Visits Visits Date Date Requested Authorized [id number] Authorization Not 04/25/2020 1 1 Required Reason for Visit Radiology Services (Routine) - Authorization Not Required Specialty Diagnoses / Procedures Referred By Contact Refer red To Contact Diagnoses Arthralgia of both hands Jennifer White MD Procedures XR HAND LEFT 1-[address] [place] [phone] Referral ID Status Reason Start Expiration Visits Visits Date Date Requested Authorized [id number] Authorization Not 04/25/2020 1 1 Required Encounter Details Date Type Department Care Team Description 04/25/2020 Hospital Encounter [facility] Arthral joan of both Radiology Xray hands Outpatient - [place] [id number] Social History Tobacco Use Types Packs/Day Years [...] Visit Dermatology Doris Sheffield , SITA [address] [facility], [facility], [address] [place], [place] [phone] (Wo rk) documented as of this encounter Procedures Procedure Name Priority Date/Time Associated Diagnosis Comme nts XR HAND LEFT 1-2 Routine 04/25/2020 16:54 Arthralgia of both R esults for this VIEWS EDT hands procedure are i n the results section. documented in this encounter Results XR HAND LEFT 1-2 VIEWS (04/25/2020 16:54 EDT) Anatomical Region Laterality Modality Upper Extremities Left Computed Radiography Specimen (Source) Anatomical Collection Method [...] hands documented in this encounter Care Teams Quiller Machine Fixer Relationship Specialty Start Date End Date Selena Gentile, CHETAN PCP - General 09/02/16 [address] [place] [phone] Nicholas Damon MD 05/29/14 [facility] [address] [place] [address] documented as of this encounter
--- OUTSIDE RECORDS SUMMARY | 2022-01-08 16:14 | XMS_ITS | Encounter Summary ---
:1975 Author Organization [facility] Address [address] [place] [address] Care Team Providers Name Role Phone Nicholas Damon MD Unavailable Selena Gentile APRN Primary Care Provider [phone] Encounter Details Date Type Department Care Team Description 11/11/2018 Hospital Encounter [facility] - Unknown, [facility] [phone] [place] [address] ([place] [address] Social History Tobacco Use Types Packs/Day Years [...] Code Departure Means Destination Home or Self Penitentiary documented in this encounter Plan of Treatment Upcoming Encounters Date Type Specialty Care Team Description 03/10/2022 Office Visit Dermatology Doris Sheffield , SITA [address] [facility], [facility], [address] [place], [place] [phone] (Wo rk) documented as of this encounter Visit Diagnoses Not on filedocumented in this encounter Care Teams Agricultural Production Engineer Relationship Specialty Start Date End Date Selena Gentile APRN PCP - General 09/02/16 [address] [place] [phone] Nicholas Damon MD 05/29/[address] [address] documented as of this encounter
--- OUTSIDE RECORDS SUMMARY | 2022-01-08 16:14 | XMS_ITS | Encounter Summary ---
:1975 Author Organization [facility] Address [address] [place] [address] Care Team Providers Name Role Phone Nicholas Damon MD Unavailable Selena Gentile APRN Primary Care Provider [phone] Reason for Referral Radiology Services (Routine) - Authorization Not Required Specialty Diagnoses / Procedures Referred By Contact Refer red To Contact Diagnoses Arthralgia of both hands Jennifer White MD Procedures XR HAND LEFT 1-[address] [place] [phone] Referral ID Status Reason Start Expiration Visits Visits Date Date Requested Authorized [id number] Authorization Not 04/25/2020 1 1 Required Radiology Services (Routine) - Authorization Not Required Specialty Diagnoses / Procedures Referred By Contact Refer red To Contact Diagnoses Arthralgia of both hands Jennifer White MD Procedures XR HAND RIGHT 1-2 VIEWS [address] [phone] Referral ID Status Reason Start Expiration Visits Visits Date Date Requested Authorized [id number] Authorization Not 04/25/2020 1 1 Required T/OT/ST (Routine) - New Request Specialty Diagnoses / Procedures Referred By Contact Refer red To Contact Diagnoses Fibromyalgia Jennifer White MD [address] [phone] Referral ID Status Reason Start Expiration Visits Visits Date Date Requested Authorized [id number] New Request Specialty 04/25/2020 1 1 Services Required Question Answer Reason for Request: fibromyalgia, right shoulder possible rotator cuff syndrome, Radiology Services (Routine) - Authorization Not Required Specialty Diagnoses / Procedures Referred By Contact Refer red To Contact Diagnoses Pain in joint of right shoulder Jennifer White MD Procedures XR SHOULDER RIGHT 2 OR MORE VIEWS [address] [place] [phone] Referral ID Status Reason Start Expiration Visits Visits Date Date Requested Authorized [id number] Authorization Not 04/25/2020 1 1 Required Reason for Visit Reason Comments New Patient Visit [place] [facility] [place]/ [place] Joint Pain new joint pain, hands, feet, generalized joint pain Referral (Routine) - Receiving Office to Obtain Authorization Specialty Diagnoses / Procedures Referred By Contact Refer red To Contact Rheumatology Diagnoses Other fatigue Fibromyalgia Selena Gentile, [facility] Rheumatology SQL PROGRAMMER ANALYST[id number] [place] [phone] Referral ID Status Reason Start Expiration Visits Visits Date Date Requested Authorized [id number] Receiving Office 1 1 to Obtain Authorization Encounter Details Date Type Department Care Team Description 04/25/2020 Office Visit [facility] Jennifer White Pain in joint of right shoulder (Primary Dx); Rheumatology & MD Rebeka Fibromyalgia; Immunology - [address] Arthralg ia of both hands [address] [place] [address] [facility], [place] [address] (Wo rk) Social History Tobacco Use Types Packs/Day Years Used Date Smoking Tobacco: Never Smokeless Tobacco: Never Alcohol Use Standard Drinks/Week Comments Yes 0 (1 standard drink = 0.6 oz pure alcoho l) Sex Assigned at Date Recorded Female 12/11/2020 13:05 EDT documented as of this encounter Last Filed Vital Signs Vital Sign Reading Time Taken Comments Blood Pressure 125/74 04/25/2020 1451 EDT Pulse 86 04/25/2020 1451 EDT Temperature - - Respiratory Rate - - Oxygen Saturation - - Inhaled Oxygen Concentration - - Weight 99.3 kg (219 lb) 04/25/2020 1451 EDT Height 163.2 cm (5' 4.25) 04/25/2020 1451 EDT Body Mass Index 37.3 04/25/2020 1451 EDT documented in this encounter [...] as of this encounter Patient Instructions Patient InstructionsNevarJennifer bar MD - 04/25/2020 15:00 EDT XR of right shoulder Flexeril 10 mg bedtime. Referral to pool therapy. Referral to Dr. Luna for US right shoulder Can try GI Fortify powder and see if that improves your bowel habits. Follow up with PCP. Jennifer White MD documented in this encounter Ordered Prescriptions Prescription Sig Dispensed Refills Start Date End Date cyclobenzaprine (FLEXERIL) Take 1 at 30 Tab 4 1 12/18/2020 10 mg tablet bedtime. documented in this encounter Progress Notes Jennifer White MD - 04/25/2020 1500 EDT Procedures [facility] Department of Rheumatology Initial Visit PCP Selena Gentile 04/25/2020 History of Present Illness: Anya Villanueva is a 44 y.o. female with history of psoriasis, environmental allergies, basal cell carcinoma, mild sleep apnea and fibromyalgia, is here for fibromyalgia assessment. Dates her history back to 2013. She developed brain fog. Sensitivity to touch, joint pain. Back then, she had ankle, knees and hip pain, Localizes her pain to hands (all hand joints), they just 'ache'. Wrists are not that painful. Right elbow is painful. Has had left sided frozen shoulder. Did have neck pain few months ago, migraines and dizziness. Reports lower back pain. R knee pain, not that severe. Has had a left ankle fracture, somewhat still painful. Toes don't hurt. Top 3 areas of pain: hands, ankles and hips (groin and outer hips) Feet burn when standing for long periods. Brain fog: yes Sleep: has mild sleep apnea, used her machine couple of months and did not notice a different. Was smoking marihuana For sleep, but no longer does it. Exercise: walks 8, 000 steps a day or so. Last time she did PT, was for her lower back in 2015. Denies fevers Denies sicca Denies rashes Denies photosensitivity Denies red or painful eyes Denies hearing loss Denies chest pain, shortness of breath or cough. + diarrhea Denies Raynaud's Denies family history of psoriasis. Does have personal history of psoriasis over her scalp. Denies iritis, dactylitis, plantar fasciitis. Steroid injections have not been effective in the past. Has tried the following drugs in the past; Naproxen, ibuprofen: no benefit Gabapentin: rash, depression Nortriptyline: can't recall Duloxetine: can't recall Effexor/citalopram: did not work. Had a neurological assessment. She was also tested for Lyme and was. She was assessed by Dr. Guzmán from [place] here at [facility] 04/02/20. Review of Systems: I have reviewed the systems reviewed by the nurse Past Medical History: Diagnosis Date ??? Basal cell carcinoma 11/19/2016 Right forehead/frontal hairline s/p Mohs ??? Environmental allergies ??? Psoriasis Past Surgical History: Procedure Laterality Date ??? HYSTERECTOMY ??? MOHS SURGERY Right 11/19/2016 Frontal hairline/forehead s/p Mohs ??? TUBAL LIGATION No family history on file. Social History Socioeconomic History ??? Marital status: [...] Substance and Sexual Activity ??? Alcohol use: Yes ??? Drug use: No ??? Sexual activity: Not on file Lifestyle ??? Physical activity Days per week: Not on file Minutes per session: Not on file ??? Stress: Not on file Relationships ??? Social connections Talks on phone: Not on file Gets together: Not on file Attends temple service: Not on file Active member of [...] ??? Not on file Social History Narrative ??? Not on file Allergies Allergen Reactions ??? Duloxetine Severe suicidal thoughts. ??? Adhesive ??? Bentyl [Dicyclomine] ??? Penicillins Current Outpatient Medications Medication Sig ??? acetaminophen (TYLENOL) 325 mg capsule Take by mouth. ??? famotidine (PEPCID) 20 mg tablet Take 20 mg by mouth 2 times daily. ??? fluorouraciL (EFUDEX) 5 % cream Apply to nose and cheek daily for 3 weeks. KEEP AWAY FROM CHILDREN AND PETS ??? ibuprofen (MOTRIN) 200 mg tablet 4 tab(s) orally every 6 hours PRN headaches ??? ranitidine HCl (HEARTBURN RELIEF, RANITIDINE, ORAL) Take by mouth at bedtime. ??? sertraline (ZOLOFT) 100 mg tablet Take 100 mg by mouth daily. Physical exam: BP 125/74 (BP Cuff Location: Left arm, BP Patient Position: Sitting, BP Cuff Sizes: Adult, large) Pulse 86 Ht 163.2 cm (64.25) Wt 99.3 kg (219 lb) LMP 09/07/2018 (Approximate) BMI 37.30 kg/m?? HEENT: moist oral mucosa, no ulcers Neck: No lymphadenopathy CV: S1 and S2 audible, rhythmic, no murmurs or rubs Respiratory: breath sounds audible throughout, no crackles or wheezing Abdomen: Bowel sounds audible, soft to deep palpation, no hepatomegaly or splenomegaly Skin: no rashes MSK: Neck: Full ROM Shoulders: Full ROM, no tenderness or swelling Severe pain over right shoulder with active abduction beyond 90 degrees. Pos empty can testing. Somewhat tender AC joint. Elbows:Full ROM, no tenderness or swelling Wrist:Full ROM, no tenderness or swelling Hand:Full ROM, no tenderness or swelling Lower back:Full ROM Hip:Full ROM Knee:Full ROM, no tenderness or swelling Ankles: Full ROM, no tenderness or swelling Feet:Full ROM, no tenderness or swelling Laboratory testing: No laboratory testing ordered Component Latest Ref Rng & Units 02/21/2020 03/12/2020 Lyme IGG ImmunoBlot Negative Negative Positive (A) Lyme IGG Bands p66 . . . p18 . . . Lyme IgM ImmunoBlot Negative Positive (A) Positive (A) Lyme IGM Band(s) p39 . . . p23 . . . Lyme Immunoblot Interpretation See Comment See Comment Lyme AB Negative Positive (A) Positive (A) IgG 610-1,616 mg/dL 1,113 IgM 35 - 242 mg/dL 81 Imaging: Ordered XR of right shoulder Problem List: Patient Active Problem List Diagnosis ??? Fibromyalgia ??? NELSON (obstructive sleep apnea) ??? Psoriasis ??? Depression ??? IBS (irritable bowel syndrome) ??? Fracture of left ankle ??? Basal cell carcinoma of forehead Assessment Plan: #Fibromyalgia. [place] [facility] Discussed the cornerstones of therapy: mind and body practices, paced international physical activity (beyond walking at home), restful sleep and weight management. She has had several adverse reactions to central acting drugs. Discussed that she has tolerated muscle relaxers in the past and that I suggest chcf cyclobenzaprine use if this works for her sleep. I will provide her initial medication supply as she is in the process of transitioning ot a different PCP. We discussed that rheumatology does not follow fibromyalgia manager long term care as it is not an autoimmune disease, but we discussed the potential treatment strategies above mentioned so that she can be empowered and work towards improvement in pain processing and fitness. I have referred her to pool therapy. Lastly, recommend checking TSH and Vit D levels by her PCP. Should she develop any of the following in the future, impression should be reconsidered: dactylitis, enthesitis, iritis, morning and second half of the night back pain. In which case psoriatic arthritis would be a possibility. In addition; any of the following findings should also prompt serologic autoimmune work up In the future; pericarditis, pleurisy, fevers or unknown ongoing, recent joint pain with prolonged morning stiffness (that can't be otherwise explained), anemia, thrombocytopenia, rashes or nephritis. #Right shoulder pain. Discussed that I do think her pain over the right shoulder is mechanical (and not due to fibromyalgia). Suspect impingement syndrome/bursitis. Can't exclude labrum pathology. AC was somewhat tender, but don't think this is the source of her pain. I would usually give landmark guided steroid injections and refer to Dr. Luna if this fails, however, in fibromyalgia patients in my opinion it is best to have imaging guided procedures. Referral to Dr. Luna. After steroid injection and better pain control, could pursue dedicated PT for the right shoulder. #Recent positive Lyme testing As per infectious disease colleagues Plan; As outlined in patient's instructions Patient Instructions XR of right shoulder Flexeril 10 mg bedtime. Referral to pool therapy. Referral to Dr. Luna for US right shoulder Can try GI Fortify powder and see if that improves your bowel habits. Follow up with PCP. Jennifer White MD FIBROMYALGIA - Patient Fact Sheet CONDITION DESCRIPTION Fibromyalgia is a chronic nervous system condition that causes widespread pain and tenderness, affects 2-4% of people, and usually affects women more often than men. People who have other rheumatic diseases are at higher risk of having fibromyalgia. Fibromyalgia is not an inflammatory or autoimmune disease. Research suggests that the nervous systemis involved. Brain chemicals, like serotonin and norepinephrine, may be off balance, changing reactions to painful stimuli. Fibromyalgia may cause fatigue, poor sleep, and mood problems, like anxiety or stress. It does not cause any signs on x-rays or blood tests. There is currently no cure for fibromyalgia. Medications may relieve symptoms for some people. The treatment plan includes exercise, diet, a good sleep routine and cognitive behavioral therapy. SIGN/SYMPTOMS Fibromyalgia symptoms are different for each person. The most common symptoms are widespread pain and tender places around the body. People may feel tenderness to even slight pressure on muscles or around joints. Severe fatigue and sleep problems are also common. Someone with fibromyalgia may not feel refreshed after sleeping all night. Other fibromyalgia signs and symptoms include: ??? Problems with memory or clear thinking, known as fibro fog ??? Depression or anxiety ??? Migraines or tension headaches ??? Digestion problems like IBS or heartburn ??? Irritable or overactive bladder ??? Pelvic pain ??? Temporomandibular disorder (TMJ), or jaw pain or popping Other diseases may cause widespread pain or fatigue. Doctors may ask patients to describe their digestive, sleep or memory problems. Blood tests and x-rays may be used to rule out other causes, like thyroid problems or polymyalgia rheumatica. COMMON TREATMENTS Fibromyalgia is treated with both nondrug therapies and medications. Exercise is the most effective treatment, including low-impact aerobic activity and body- based therapies like raquel chi or yoga. Cognitive behavioral therapy and mindfulness training can help people with fibromyalgia learn skillsto help manage or reduce their symptoms. Complementary therapies like acupuncture, chiropractic and massage may help ease symptoms, but there is little evidence to support effectiveness. Psychotherapy may help patients manage stress and anxiety. A sleep medicine specialist may help patients address sleep disorders. Three drugs are FDA-approved for fibromyalgia: duloxetine (Cymbalta) and milnacipran (Savella) adjust brain chemicals to ease widespread pain, and pregabalin (Lyrica), which blocks overactive nerve cells involved in pain. Older drugs, such as amitryptiline (Elavil), cyclobenzaprine (Flexeril) and other antidepressants may be used too. Opioids, acetaminophen, nonsteroidal anti-inflammatory drugs (NSAIDs) and sleep medicines like zolpidem (Ambien) are not recommended for use in treating fibromyalgia symptoms. CARE/MANAGEMENT TIPS Self-care is important to manage fibromyalgia symptoms and have good quality of life. A healthy lifestyle, along with medications, can be effective at reducing pain, improving sleep, easing fatigue andstress, and helping patients cope with fibromyalgia. Exercise as often as possible. Start slowly and do more over time. Walking, swimming, stretching andyoga are good activities for people with fibromyalgia. Add more movement to daily routines, like taking a flight of stairs instead of the elevator. Medications may help ease pain and make it easier to be more active. Rest and relaxation are helpful too. Make time to relax each day. Deep breathing or medication can ease stress. Set regular sleep habits, like going to bed at the same time each night. Don't take naps or drink coffee to ease afternoon fatigue. Nicotine is a stimulant, but it makes fibromyalgia sleep problems worse. Quit smoking or using tobacco products. ?? 2017 [employer] I spent a total of 65 minutes on the date of this encounter meeting with the patient and reviewing documentation/coordinating care as described in the above note. No procedures were performed at the time of the visit. Jennifer White MD Department of Rheumatology Attending Physician Pager: [phone] documented in this encounter Plan of Treatment Upcoming Encounters Date Type Specialty Care Team Description 03/10/2022 Office Visit Dermatology Doris Sheffield , SITA [address] [facility], [facility], [address] [place], [place] [phone] (Wo rk) Scheduled Referrals Name Type Priority Associated Diagnoses Order S chedule AMB CONS/FOLLOW UP Outpatient Referral Routine Fibromyalgia Ex pected: PHYSICAL THERAPY 05/02/2020 (Approximate) documented as of this encounter Results XR SHOULDER RIGHT 2 [...] White MD IMG DIAGNOSTIC IMAGING ORDER BRENT XR HAND RIGHT 1-2 VIEWS (04/25/2020 16:54 [...] White MD IMG DIAGNOSTIC IMAGING ORDER BRENT XR HAND LEFT 1-2 VIEWS (04/25/2020 16:54 [...] Primar y Pain in joint, shoulder region Fibromyalgia Mylagia and myositis, unspecified Arthralgia of both hands Arthralgia of both hands Arthralgia of both hands Pain in joint of right shoulder Pain in joint, shoulder region documented in this encounter Care Teams Land Manager Relationship Specialty Start Date End Date Selena Gentile APRN PCP - General 09/02/16 [address] [place] [phone] Nicholas Damon MD 05/29/14 [facility] [address] [place] [address] documented as of this encounter
--- OUTSIDE RECORDS SUMMARY | 2022-01-08 16:14 | XMS_ITS | Encounter Summary ---
:[address] [facility] Address [address] [place] [address] Care Team Providers Name Role Phone Nicholas Damon MD Unavailable Unknown, Provider Primary Care Provider Encounter Details Date Type Department Care Team Description 08/04/2016 Results Only [facility]- Pasquale Donaldson PA Imaging [facility] [address] [facility] [phone] [place] [phone] (Wo rk) Social History Tobacco Use Types Packs/Day Years Used Date Smoking Tobacco: Never Assessed Sex Assigned at Date Recorded Female 12/11/2020 13:05 EDT documented as of this encounter Plan of Treatment Upcoming Encounters Date Type Specialty Care Team Description 03/10/2022 Office Visit Dermatology Doris Sheffield , SITA [address] [facility], [facility], [address] [place], [place] [address] (Wo rk) documented as of this encounter Procedures Procedure Name Priority Date/Time Associated Diagnosis Comme nts MR EXTREMITY 08/04/2016 17:47 Results for this SHOULDER WO EDT procedure are i n CONTRAST the results section. documented in this encounter Results MR EXTREMITY SHOULDER WO CONTRAST (08/04/2016 17:47 EDT) Anatomical Region Laterality Modality Other Specimen Anatomical Collection Method Collection Time Receive d Time (Source) Location / / Volume Laterality 08/04/2016 17:47 08/06/2016 EDT 16:05 EDT Narrative 08/06/2016 16:05 EDT MR EXTREMITY LEFT SHOULDER WO CONTRAST ??08/04/2016 5:47 PM Clinical History/Comments: Left shoulder pain, failed conservative treatment, decrease range of motion, positive Burton and neer. COMPARISON: None available. Technique: Routine noncontrast multiplan ar and multisequence MR imaging of the left shoulder is performe d. A 12 cm imaging [id number] was utilized. Findings: The supraspinatus, infraspinatus and sub scapularis tendons show mild tendinosis, without discrete tear visual ized. The teres minor tendon is intact. No rotator cuff muscle atroph y or fatty infiltration is demonstrated. No glenoid labral tear is identified. The long head biceps tendon is intact an d normally positioned within the bicipital groove. There is edematous thickening within the rotator cuff interval and mild thickening of the inferior glenohum eral ligament at the level of the axillary recess as well. Although not entirely specific, these findings in the proper clinical co ntext could indicate a component of adhesive capsulitis. The di fferential includes some other synovial inflammatory process. There is mild to moderate acromioclavicu lar joint osteoarthrosis with a minimal in size AC joint effusion . Lateral downsloping of the anterior acro mion is noted, a nonspecific finding that may be associated with the clinical entity of subacromial impingement syndrome. There are minimal findings of subacromia l subdeltoid bursitis. No significant glenohumeral joint degene rative changes visualized. There is altered bone marrow signal invo lving the visualized scapula, proximal humeral diametaphysis and subcortical region in the humeral head, which show mildly incr eased T2 signal change as well as a mildly decreased T1 marrow sig nal change. The decreased T1 marrow signal change appears brighter th en normal muscle suggesting that the findings in the proper context can represent an exaggerated hematopoietic bone marrow pattern. Howev er, this will need to be correlated clinically and with lab testi ng in order to more confidently exclude the possibility of a proliferative bone marrow disorder. Impression: 1. No discrete rotator cuff tendon tear visualized. The supraspinatus, infraspinatus and subscap ularis tendons show mild tendinosis. 2. Features described above that while n ot specific may be associated with adhesive capsulitis, a c linical diagnosis. Please correlate accordingly. 3. Mild to moderate acromioclavicular os teoarthrosis and nonspecific findings that may be associated with sub acromial impingement syndrome, a clinical diagnosis. 4. Minimal findings of subacromial, subd eltoid bursitis. 5. Altered bone marrow signal changes, w hich in the proper context can represent an exaggerated hematopoiet ic bone marrow pattern. This is most often seen in patients who are s mokers or patients with other etiologies resulting in an increas ed demand for hematopoiesis, including patients with anemia. Please c orrelate clinically and with a complete blood count and differential. 6. Additional findings, as above. Procedure Note Shyam Arreola MD - 08/06/2016 MR EXTREMITY LEFT SHOULDER WO CONTRAST 5:47 PM Clinical History/Comments: Left shoulder pain, failed conservative treatment, decrease range of motion, positive Burton and neer. COMPARISON: None available. Technique: Routine noncontrast multiplan ar and multisequence MR imaging of the left shoulder is performe d. A 12 cm imaging [id number] was utilized. Findings: The supraspinatus, infraspinatus and sub scapularis tendons show mild tendinosis, without discrete tear visual ized. The teres minor tendon is intact. No rotator cuff muscle atroph y or fatty infiltration is demonstrated. No glenoid labral tear is identified. The long head biceps tendon is intact an d normally positioned within the bicipital groove. There is edematous thickening within the rotator cuff interval and mild thickening of the inferior glenohum eral ligament at the level of the axillary recess as well. Although not entirely specific, these findings in the proper clinical co ntext could indicate a component of adhesive capsulitis. The di fferential includes some other synovial inflammatory process. There is mild to moderate acromioclavicu lar joint osteoarthrosis with a minimal in size AC joint effusion . Lateral downsloping of the anterior acro mion is noted, a nonspecific finding that may be associated with the clinical entity of subacromial impingement syndrome. There are minimal findings of subacromia l subdeltoid bursitis. No significant glenohumeral joint degene rative changes visualized. There is altered bone marrow signal invo lving the visualized scapula, proximal humeral diametaphysis and subcortical region in the humeral head, which show mildly incr eased T2 signal change as well as a mildly decreased T1 marrow sig nal change. The decreased T1 marrow signal change appears brighter th en normal muscle suggesting that the findings in the proper context can represent an exaggerated hematopoietic bone marrow pattern. Howev er, this will need to be correlated clinically and with lab testi ng in order to more confidently exclude the possibility of a proliferative bone marrow disorder. Impression: 1. No discrete rotator cuff tendon tear visualized. The supraspinatus, infraspinatus and subscap ularis tendons show mild tendinosis. 2. Features described above that while n ot specific may be associated with adhesive capsulitis, a c linical diagnosis. Please correlate accordingly. 3. Mild to moderate acromioclavicular os teoarthrosis and nonspecific findings that may be associated with sub acromial impingement syndrome, a clinical diagnosis. 4. Minimal findings of subacromial, subd eltoid bursitis. 5. Altered bone marrow signal changes, w hich in the proper context can represent an exaggerated hematopoiet ic bone marrow pattern. This is most often seen in patients who are s mokers or patients with other etiologies resulting in an increas ed demand for hematopoiesis, including patients with anemia. Please c orrelate clinically and with a complete blood count and differential. 6. Additional findings, as above. Priya ANDERSON IMG MRI ORDERABLES documented in this encounter Visit Diagnoses Not on filedocumented in this encounter Care Teams Pulmonologist Relationship Specialty Start Date End Date Unknown, Tao, PCP - General 07/29/16 09/01/16 Nicholas Damon MD 05/29/[address] [address] documented as of this encounter
--- OUTSIDE RECORDS SUMMARY | 2022-01-08 16:14 | XMS_ITS | Encounter Summary ---
:1975 Author Organization [facility] Address [address] [place] [address] Care Team Providers Name Role Phone Nicholas Damon MD Unavailable Selena Gentile APRN Primary Care Provider [phone] Reason for Visit Reason Onset Date Comments Appointment Related 09/04/2018 Encounter Details Date Type Department Care Team Description 09/04/2018 Telephone [facility] Doris Sheffield Appo intment Related Dermatology - [id number] [place] [address], [place] [address] (Wo rk) Social History Tobacco Use Types Packs/Day Years Used Date Smoking Tobacco: Never Smokeless Tobacco: Never Alcohol Use Standard Drinks/Week Comments Yes 0 (1 standard drink = 0.6 oz pure alcoho l) Sex Assigned at Date Recorded Female 12/11/2020 13:05 EDT documented as of this encounter Miscellaneous Notes Telephone Encounter - Camille Peter - 09/04/2018 1557 EDT Patient is scheduled For 10/02/18 at 3pm Camille Peter 09/04/2018 15:57 Telephone Encounter - Miladis Liriano - 09/04/2018 1542 EDT Patient was last seen by Isi on 09/30/16. Patient states she has some new spots that are changing and is looking for a sooner appointment thannext available. Please advise. documented in this encounter Plan of Treatment Upcoming Encounters Date Type Specialty Care Team Description 03/10/2022 Office Visit Dermatology Doris Sheffield , SITA [address] [facility], [facility], [address] [place], [place] [address] (Wo rk) documented as of this encounter Visit Diagnoses Not on filedocumented in this encounter Care Teams Production Consultant Relationship Specialty Start Date End Date Selena Gentile APRN PCP - General 09/02/16 [address] [place] [phone] Nicholas Damon MD 05/29/14 [facility] [address] [place] [address] documented as of this encounter
--- OUTSIDE RECORDS SUMMARY | 2022-01-08 16:14 | XMS_ITS | Encounter Summary ---
:1975 Author Organization [facility] Address [address] [place] [address] Care Team Providers Name Role Phone Nicholas Damon MD Unavailable Selena Gentile APRN Primary Care Provider [phone] Reason for Visit Reason Onset Date Comments Appointment Related 03/24/2020 Encounter Details Date Type Department Care Team Description 03/24/2020 Telephone [facility] Vera Hunt A ppointment Related Infectious Disease - [id number] [place] [address], [facility] [place] [address] (Wo rk) Social History Tobacco [...] this encounter Miscellaneous Notes Telephone Encounter - Braxton Romano - 03/24/2020 1258 EST Patient needs tyo reschedule Televideo Appointment (03/25 @12:30). Please contact patient to reschedule. documented in this encounter Plan of Treatment Upcoming Encounters Date Type Specialty Care Team Description 03/10/2022 Office Visit Dermatology Doris Sheffield , SITA [address] [facility], [facility], [facility] [address] [place], [place] [phone] (Wo rk) documented as of this encounter Visit Diagnoses Not on filedocumented in this encounter Care Teams Laser Set Up Operator Relationship Specialty Start Date End Date Selena Gentile APRN PCP - General 09/02/16 [address] [place] [phone] Nicholas Damon MD 05/29/14 [facility] [address] [place] [address] documented as of this encounter
--- OUTSIDE RECORDS SUMMARY | 2022-01-08 16:14 | XMS_ITS | Encounter Summary ---
:1975 Author Organization [facility] Address [address] [place] [address] Care Team Providers Name Role Phone Nicholas Damon MD Unavailable Selena Gentile APRN Primary Care Provider [phone] Reason for Visit Reason Onset Date Comments Other 04/22/2019 Encounter Details Date Type Department Care Team Description 04/22/2019 Telephone [facility] Other [facility] [address] [facility] [address] [place] [address] [place] [address] [phone] Social History Tobacco Use Types Packs/Day Years [...] this encounter Miscellaneous Notes Telephone Encounter - Evelia Hylton LPN - 04/22/2019 1215 EDT Pt informed. 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 Will send back to provider as 04/22/19 @1215pm Kirsten SUBRAMANIAN Telephone Encounter - Jolene Silva APRN - 04/22/2019 1147 EDT Please inform patient that mono was negative. Lyme is still pending. Telephone Encounter - Jolene Silva APRN - 04/22/2019 1051 EDT Taos could be the reason for her fevers. Her cbc was normal however but I was able to call lab and add the mono. I will call her with results when they come back. Telephone Encounter - Oziel Morejon - 04/22/2019 1013 EDT Patient called and wanted to let you know that she has been exposed to [place]os from a student. She isn't sure if she said that yesterday, and if that might change anything. documented in this encounter Plan of Treatment Upcoming Encounters Date Type Specialty Care Team Description 03/10/2022 Office Visit Dermatology Doris Sheffield PA-C [address] [facility], [facility], [address] [place], [place] [phone] (Wo rk) documented as of this encounter Procedures Procedure Name Priority Date/Time Associated Diagnosis Comme nts MONO-TEST Routine 04/21/2019 12:35 EDT Fever of unknown Res ults for this origin procedure are i n the results section . documented in this encounter Results MONO-TEST (04/21/2019 12:35 EDT) athologist Signature [facility] NEG NEG 04/22/2019 [place] 11:[address] [facility] Specimen Anatomical Collection Method Collection Time Receive d Time (Source) Location / / Volume Laterality Blood VENOUS BLOOD / 04/21/2019 12:35 0 Unknown EDT 13:21 EDT Narrative [facility] - 020 11:41 EDT AOT: 04/22/19 1055: MONO Jolene Silva [employer] CHEMISTRY & BLOOD GAS OR DERABLES Performing Organization Address City/State/ZIP Code Phon e Number [facility] [address] [place] [address] [facility] documented in this encounter Visit Diagnoses Diagnosis Fever of unknown origin - Primary Fever, unspecified documented in this encounter Care Teams Supervisor Wheel Shop Relationship Specialty Start Date End Date Selena Gentile APRN PCP - General 09/02/16 [address] [place] [phone] Nicholas Damon MD 05/29/14 [facility] [address] [place] [address] documented as of this encounter
--- OUTSIDE RECORDS SUMMARY | 2022-01-08 16:14 | XMS_ITS | Encounter Summary ---
:1975 Author Organization [facility] Address [address] [place] [address] Care Team Providers Name Role Phone Nicholas Damon MD Unavailable Unknown, Provider Primary Care Provider Selena Gentile APRN Primary Care Provider [phone] Encounter Details Date Type Department Care Team Description 08/20/2016 Historical Results [facility] - Shahbaz Espinoza [facility] Radiology Resul guear Arguello MD [address] [facility] [address] [place] [address] [place], [place] [phone] Social History Tobacco Use Types Packs/Day Years Used Date Smoking Tobacco: Never Assessed Sex Assigned at Date Recorded Female 12/11/2020 13:05 EDT documented as of this encounter Plan of Treatment Upcoming Encounters Date Type Specialty Care Team Description 03/10/2022 Office Visit Dermatology Doris Sheffield , SITA [address] [facility], [facility], [address] [place], [place] [phone] (Wo rk) documented as of this encounter Procedures Procedure Name Priority Date/Time Associated Diagnosis Comme nts FL C-ARM 08/20/2016 11:05 Results for this BLOCK/INJECTION EDT procedure ar e in the results section. documented in this encounter Results FL C-ARM BLOCK/INJECTION (08/20/2016 11:05 EDT) Anatomical Region Laterality Modality Left Other Specimen (Source) Anatomical Collection Method Collection Time Re ceived Time Location / / Volume Laterality 08/20/2016 11:05 EDT Narrative 08/20/2016 11:08 EDT ? EXAM: RADIOLOGY/C-ARM BLOCK INJECTION ? EX. D/ (1022) ? CLINICAL INFORMATION: ? LESI WITH FLUORO ? C-ARM BLOCK INJECTION ? Signs and Symptoms/Comments: LESI WITH FLUORO ? Comparison: 07/29/2016 ? FINDINGS: ? Fluoroscopy services were provide d during injection procedure ? performed by Dr. Shahbaz Espinoza. ? Fluoroscopy: 7.8 seconds ? IMPRESSION: ? As above. ? REPORT SIGNED IN OTHER VENDOR SYSTEM 08/20/2016 ?Reported B y: Cory Manzano MD ? CC: ? Transcribed Date/Time: 08/20/2016 (1108) ? Stenciling Machine Tender: ? Printed Date/Time: 07/24/2018 (08 27) ? PAGE 1 ? Daiana d Report ? Procedure Note Cory Manzano MD - 12/13/2018Format ting of this note might be different from the original. EXAM: RADIOLOGY/C-ARM BLOCK INJECTION E X. D/ (1022) CLINICAL INFORMATION: LESI WITH FLUORO C-ARM BLOCK INJECTION Signs and Symptoms/Comments: LESI WITH FLUORO Comparison: 07/29/2016 FINDINGS: Fluoroscopy services were provided duri ng injection procedure performed by Dr. Shahbaz Espinoza. Fluoroscopy: 7.8 seconds IMPRESSION: As above. REPORT SIGNED IN OTHER VENDOR SYSTEM 08/20/2016 Reported By: Cory Manzano MD CC: Transcribed Date/Time: 08/20/2016 (1108 ) Stenciling Machine Tender: Printed Date/Time: 07/24/2018 (0643) PAGE 1 Signed Report Shahbaz Espinoza MD IMG FLUOROSCOPY ORDERABLE S documented in this encounter Visit Diagnoses Not on filedocumented in this encounter Care Teams Warehouse Foreman Relationship Specialty Start Date End Date Unknown, Provider, PCP - General 07/29/16 09/01/16 Selena Gentile APRN PCP - General 09/02/[address] [place] [phone] Nicholas Damon MD 05/29/14 [facility] [address] [place] [id number] documented as of this encounter
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
--- OUTSIDE RECORDS SUMMARY | 2022-01-08 16:14 | XMS_ITS | Encounter Summary ---
:1975 Author Organization [facility] Address [address] [place] [address] Care Team Providers Name Role Phone Nicholas Damon MD Unavailable Unknown, Provider Primary Care Provider Encounter Details Date Type Department Care Team Description 07/29/2016 Hospital Encounter [facility] - Unknown, [facility] [phone] [place] [address] (Work) [place], [place] [address] Social History Tobacco Use Types Packs/Day Years Used Date Smoking Tobacco: Never Assessed Sex Assigned at Date Recorded Female 12/11/2020 13:05 EDT documented as of this encounter Discharge Disposition Disposition Code Departure Means Destination Home or Self Prison documented in this encounter Plan of Treatment Upcoming Encounters Date Type Specialty Care Team Description 03/10/2022 Office Visit Dermatology Doris Shefifeld PA-C 111 [facility], [facility], [address] [place], [place] [address] (Wo rk) documented as of this encounter Visit Diagnoses Not on filedocumented in this encounter Care Teams Chief Writer Relationship Specialty Start Date End Date Unknown, Provider, PCP - General 07/29/16 09/01/16 Nicholas Damon MD 05/29/14 [place] [id number] [place], [place] [phone] (work) documented as of this encounter
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
--- OUTSIDE RECORDS SUMMARY | 2022-01-08 16:14 | XMS_ITS | Encounter Summary ---
:[address] [facility] Address [address] [place] [address] Care Team Providers Name Role Phone Nicholas Damon MD Unavailable Selena Gentile APRN Primary Care Provider [phone] Reason for Visit Reason Onset Date Comments Appointment Related 05/26/2020 Encounter Details Date Type Department Care Team Description 05/26/[address] [facility] Mil Lunao intment Related Rheumatology & MD Reg Immunology - Main 111 [facility], [address], [address] [place], [place] [phone] [place] [address] [phone] (Wo rk) Social History Tobacco Use [...] this encounter Miscellaneous Notes Telephone Encounter - Teresa Amato RN - 05/26/2020 1409 EDT Spoke with pt who apologized for calling earlier. Stated thought that US injection appt was scheduled for this Sunday 05/28 but realized that this appt is scheduled on 06/27. Understood that it is 4 weeks after 2nd COVID vaccine. Stated has no further questions or concerns. Telephone Encounter - Justa Elliott - 05/26/2020 1346 EDT Patient believes they were supposed to have an appt and an injection this month. Patient reporting they are getting their 2nd COVID vaccine on 05/28 and was worried about getting an injection after their vaccine. Please call to discuss. documented in this encounter Plan of Treatment Upcoming Encounters Date Type Specialty Care Team Description 03/10/2022 Office Visit Dermatology Doris Sheffield PA-C 111 [facility], [facility], [address] [place], [place] [phone] (Wo rk) documented as of this encounter Visit Diagnoses Not on filedocumented in this encounter Care Teams Reinforcing Bar Setter Relationship Specialty Start Date End Date Selena Gentile APRN PCP - General 09/02/16 [address] [place] [phone] Nicholas Damon MD 05/29/14 [facility] [address] [place] [id number] documented as of this encounter
--- OUTSIDE RECORDS SUMMARY | 2022-01-08 16:14 | XMS_ITS | Encounter Summary ---
:1975 Author Organization [facility] Address [address] [place] [address] Care Team Providers Name Role Phone Nicholas Damon MD Unavailable Selena Gentile APRN Primary Care Provider [phone] Reason for Visit Reason Onset Date Comments Results 04/23/2019 Encounter Details Date Type Department Care Team Description 04/23/2019 Telephone [facility] [address] [facility] [address] [place] [address] [place] [address] [phone] Social History Tobacco Use Types Packs/Day Years [...] this encounter Miscellaneous Notes Telephone Encounter - Elaina Patino LPN - 04/24/2019 3144 EDT Spoke with patient, given results of Lyme test. Told which symptoms to watch for. Can return to work04/24. Telephone Encounter - Jolene Silva APRN - 04/24/2019 1820 EDT Please inform patient that lyme is negative. However as discussed she should still be on the lookoutfor any symptoms of joint pain, rash or unusual fatigue. Sometimes the initial lyme testing can be negative. I placed a note in the chart for her to return to work on 04/25/2019 Telephone Encounter - Elysia Delgado - 04/24/2019 1656 EDT Patient called looking for Lyme Results, needs a call back please today . Telephone Encounter - Oziel Morejon - 04/24/2019 0907 EDT Patient called back, By the looks her fever has broke as of last night. Please fax a note for work to Attn: Mariela Lowe . Telephone Encounter - Oziel Morejon - 04/23/2019 1848 EDT Patient called looking for Lyme test results. Please call her with them! Thank you! documented in this encounter Plan of Treatment Upcoming Encounters Date Type Specialty Care Team Description 03/10/2022 Office Visit Dermatology Doris Sheffield PA-C [address] [facility], [facility], [address] [place], [place] [address] (Wo rk) documented as of this encounter Visit Diagnoses Not on filedocumented in this encounter Care Teams Machine Setter And Repairer Relationship Specialty Start Date End Date Selena Gentile APRN PCP - General 09/02/[address] [place] [address] Nicholas Damon MD 05/29/[address] [address] documented as of this encounter
--- OUTSIDE RECORDS SUMMARY | 2022-01-08 16:14 | XMS_ITS | Encounter Summary ---
:1975 Author Organization [facility] Address [address] [place] [address] Care Team Providers Name Role Phone Nicholas Damon MD Unavailable Anibal Gentile APRN Primary Care Provider [phone] Encounter Details Date Type Department Care Team Description 09/07/2018 Results Only [facility]- Daniel Plasencia MD [phone] [address] [place], [place] [address] (Wo rk) Social History Tobacco Use Types [...] Visit Dermatology Doris Sheffield PA-C [address] [facility], [facility], [address] [place], [place] [address] (Wo rk) documented as of this encounter Procedures Procedure Name Priority Date/Time Associated Diagnosis Comme nts SURGICAL PATHOLOGY Routine 09/07/2018 18:08 Resul ts for this EDT procedure are i n the results section. documented in this encounter Results SURGICAL PATHOLOGY (09/07/2018 18:08 EDT) Component Value Ref Test Analysis Performed At [facility] Method Time Signature Pathology SURGICAL PATHOLOGY REPORT [facility] MEDICAL Report: Reports generated via electronic interface contain origina l data; CENTER however they are lacking the format of the original report. LABORATORY Caution should be taken when reading/interpreting unformat sonya reports. SERVICES Name: ? ANYA CARRILLO ? Accession #: ? [id number] ? : ? 1975 (Age: 42) ??F ? Collect Date: ? 09/07/2018 ? Location: ? [facility] ? Receive Date: ? 09/07/2018 ? Provider: DANIEL LEDESMA MD Copy to: ANIBAL GENTILE GUM MIXER ? Final Pathologic Diagnosis: CERVIX AND UTERUS, HYSTERECTOMY: - Cervix: ? - Chronic inflammation. ? - Squamous metaplasia. - Endometrium: ? - Interphase (proliferative-secretory) endometrium wi th no specific histopathologic features. - Myometrium: ? - Adenomyosis. - Uterine serosa: ? - Nonspecific histopathologic features. Document reviewed and electronically signed by: Josy Peguero MD Report ??Date: 09/12/2018 15:59 By the signature above, the attending physician certifies th at he/she has personally conducted a gross and/or microscopic examin ation of the described specimens and rendered or confirmed the above diagnosis. Specimen(s) Received: Uterus Clinical History: Menorrhagia, uterovaginal pr olapse, stress incontinence; LMP: 08/22/18; clinical diagnosis code: ??N92.0, N39.3, N81.4 Gross Description: ? Received in formalin labelled with proper patient identification (initials M, S) and uterus is an intact uterus and cervix (115 g, 8. 5 cm cervix to fundus x 5.5 cm cornu to cor nu x 3.7 cm anterior to posterior), without attached adnexa. ? The uterine serosa is champion-brown and smooth. The endometrium is champion-brown and smooth without lesions a nd has a thickness of 0.1-0.2 cm. ??The myometrium is champion-brown, smooth with a slightly trabecular pattern and a verages 1.8 cm in thickness. No nodules are identified within the myometrium. The ectocervix is champoin-brown smooth with a slitlike os with no lesions gr ossly appreciable. The endocervix is white with a n ormal herringbone appearance and no lesions grossly appreciable. ? Deep Fat Cook Fry sections are submitted as follows: BLOCK MCMULLEN 1- ??anterior cervix 2-3- ??anterior endomyometrium 4- ??posterior cervix 5-6- ??posterior endomyometrium Dr. Ray 09/08/2018 2:54 PM End of Report Specimen Anatomical Collection Method Collection Time Receive d Time (Source) Location / / Volume Laterality 09/07/2018 18:08 09/07/2018 EDT 18:08 EDT Daniel Ledesma MD PATHOLOGY ORDERABLES Performing Organization Address City/State/ZIP Code Phon e Number [facility] [address] [place] [address] SERVICES documented in this encounter Visit Diagnoses Not on filedocumented in this encounter Care Teams Lens Mold Setter Relationship Specialty Start Date End Date Anibal Gentile APRN PCP - General 09/02/16 [address] [place] [address] Nicholas Damon MD 05/29/[address] [address] documented as of this encounter
--- OUTSIDE RECORDS SUMMARY | 2022-01-08 16:15 | XMS_ITS | Encounter Summary ---
:1975 Author Organization [facility] Address [address] [place] [address] Care Team Providers Name Role Phone Nicholas Damon MD Primary Care Provider Encounter Details Date Type Department Care Team Description 06/09/2010 Results Only [facility] Maggie Ash ie, [facility] Laboratory Services - [address] [facility] [place] [address] [address] [facility] [place], [place] [address] [phone] Social History Tobacco Use Types Packs/Day Years Used Date Smoking Tobacco: Never Assessed Sex Assigned at Date Recorded Female 12/11/2020 13:05 EDT documented as of this encounter Plan of Treatment Upcoming Encounters Date Type Specialty Care Team Description 03/10/2022 Office Visit Dermatology Doris Sheffield , LONGC [address] [facility], [facility], [address] [place], [place] [address] (Wo rk) documented as of this encounter Procedures Procedure Name Priority Date/Time Associated Diagnosis Comme nts PAP TEST- RESULT Routine 06/09/2010 0:00 EDT Resu lts for this ONLY procedure are i n the results section. documented in this encounter Results PAP TEST- RESULT ONLY (06/09/2010 0:00 EDT) Component Value Ref Test Analysis Performed At [facility] Method Time Signature Pathology CYTOPATHOLOGY REPORT ? [facility] Report: ? [facility] Reports generated via electr onic interface contain original data; ? however they are lacking the format of the original report. ? Caution should be taken when reading/interpreting unformatted reports. ? Name: ? ANYA CARRILLO ? Accession #: ? [id number] ? : ? 1975 (Age: 34) ??F ?Collect Date: ? 06/09/2010 ? Location: ? [facility] ? R eceive Date: ? 06/11/2010 ? Provider: GABE SONJA CNM ? Copy to: ? Final Report ? SPECIMEN ADEQUACY ? Satisfactory for Eval uation ? - transformation zone compon ent present ? GENERAL CATEGORIZATION ? Epithelial Cell Abnor mality ? INTERPRETATION ? Glandular Cell Abnorm ality - Atypical endocervical cells. ? EDUCATIONAL NOTES/RECOMMENDA TIONS ? [facility] recommends follo wing the 2006 Consensus Guidelines for the Management of Women with Abnormal Cervi kamini Cancer Screening Tests (JLGTD, ? 2007;11(4):201-222). ??Conse nsus guidelines are available online at ? www.ASCCP.org. ? Last Menstural Period: 05/26 / ? Hormonal/Contraceptive statu s: Tubal ligation: BTL ? Previous Gynecologic Patholo gy: Yes: Hx abn pap 1995 ? Specimen/Source: ??Pap Test, Cervix/Endocervix, ThinPrep Imaging System with ? manual evaluation ? Document reviewed and electr onically signed by: ? SRI B MIRI MD ? Report ??Date: 05/11/ 2011 12:44 ? HPV with Pap Test ? Date Ordered: ? 0 06/17/2010 ? Status: ?? Signed Out ?Date Complete: ? 06/22/2010 ? By: ??System Interface ? Date Reported: ? 06/22/2010 ? Interpretation ? RESULT: Negative for HPV typ es 16, 18, 31, 33, 35, 39, 45, 51, 52, ? 56, 58, 59, and 68. ? Comments ? Document reviewed and electr onically signed by: ? System Interface ? Report date: 05/16/20 11 ? By the signature above, the attending physician certifies that he/she has ? personally conducted a gross and/or microscopic examination of the described ? specimens and rendered or co nfirmed the above diagnosis. ? End of Report ? Specimen (Source) Anatomical Location Collection Method / Collectio n Time Received Time / Laterality Volume 06/09/2010 06/11/2010 Gabe Ash CNM PATHOLOGY ORDERABLES Performing Organization Address City/State/ZIP Code Phon e Number [facility] [address] [place] [phone] SERVICES [facility] [address] [place] [address] documented in this encounter Visit Diagnoses Not on filedocumented in this encounter Care Teams Manager Wind Relationship Specialty Start Date End Date Nicholas Damon MD PCP - General 05/29/08 05/28/14 [facility] [address] [place] [id number] documented as of this encounter
--- OUTSIDE RECORDS SUMMARY | 2022-01-08 16:15 | XMS_ITS | Encounter Summary ---
:1975 Author Organization [facility] Address [address] [place] [address] Care Team Providers Name Role Phone Nicholas Damon MD Primary Care Provider Encounter Details Date Type Department Care Team Description 06/05/2007 Results Only [facility] - Connie vargas, Provider, conversion [address] [place] [address] Social History Tobacco Use Types Packs/Day Years Used Date Smoking Tobacco: Never Assessed Sex Assigned at Date Recorded Female 12/11/2020 13:05 EDT documented as of this encounter Plan of Treatment Upcoming Encounters Date Type Specialty Care Team Description 03/10/2022 Office Visit Dermatology Doris Sheffield , SITA [address] [facility], [facility], [address] [place], [place] [address] (Wo rk) documented as of this encounter Procedures Procedure Name Priority Date/Time Associated Comments Diagnosis CHLAMYDIA/GC AMPLIFIED Routine 06/05/2007 17:24 R esults for this PROBE EDT procedure are i n the results section. CYTOPATHOLOGY Routine 06/05/2007 0:00 Results for this EDT procedure are i n the results section. documented in this encounter Results CHLAMYDIA/GC AMPLIFIED PROBE (06/05/2007 17:24 EDT) Component Value Ref Test Analysis Performed At [facility] Method Time Signature Specimen Cervix [facility] Description [facility] Result No Chlamydia trachomatis or Neisseria gonorrhoeae DNA detected by toll ticket clerk mediated [facility] amplification. [facility] Report Status Final [facility] [id number] [facility] Specimen Anatomical Collection Method Collection Time Receive d Time (Source) Location / / Volume Laterality 06/05/2007 17:24 06/05/2007 EDT 21:12 EDT Provider Unknown MICROBIOLOGY - GENERAL ORDER BRENT Performing Organization Address City/State/ZIP Code Phon e Number [facility] [address] [place] [address] SERVICES [facility] [address] [place] [address] CYTOPATHOLOGY (06/05/2007 0:00 EDT) Component Value Ref Test Analysis Performed At [facility] Method Time Signature Pathology CYTOPATHOLOGY REPORT [facility] Report: [facility] Reports generated via electronic interface contain original data; however they are lacking the format of the original report. Caution should be taken when reading/interpreting unformatte d reports. Name: ? LORENA ANYA Ashely ? Accession #: ? [id number] : ? 1975 (Age: 31) ??F ?Collect Date: ? 06/05/2007 Location: ? [facility] ? Receive Date: ? 06/06/2007 Provider: ?SUNITHA CONWAY [facility] Copy to: ? Specimen/Source: ? ThinPrep Pap Test, Cervix, processed on [employer] ThinPrep Imaging System, with manual evaluation Last Menstrual Period: ? 05/05/07 Previous Gynecologic Pathology: ? Yes: Abn Pap '95, WNL since Other: ? HPVA - HPV testing requested if ASC-US on the current ThinPr ep Pap test. ? SPECIMEN ADEQUACY ? Satisfactory for Evaluation - transformation zone component present GENERAL CATEGORIZATION ? Negative for Intraepithelial Lesion or Malignancy INTERPRETATION ? Shift in palma present suggestive of bacterial vagino sis. ? Document reviewed and electronically signed by: ? LUPE Omer(ASCP) ? Report Date: ??06/08/2007 11:28 End of Report Specimen (Source) Anatomical Location Collection Method / Collectio n Time Received Time / Laterality Volume 06/05/2007 06/06/2007 Sunitha Conway [facility] PATHOLOGY ORDERABLES Performing Organization Address City/State/[facility] Code Phon e Number [facility] [address] [place] [address] SERVICES [facility] [address] [place] [address] documented in this encounter Visit Diagnoses Not on filedocumented in this encounter Care Teams Typist Relationship Specialty Start Date End Date Nicholas Damon MD PCP - General 05/29/08 05/28/[address] [address] documented as of this encounter
--- OUTSIDE RECORDS SUMMARY | 2022-01-08 16:15 | XMS_ITS | Encounter Summary ---
:1975 Author Organization [facility] Address [address] [place] [address] Care Team Providers Name Role Phone Nicholas Damon MD Primary Care Provider Encounter Details Date Type Department Care Team Description 05/22/2004 Results Only [facility] - Pasquale Conway, CNM Maple conversion [address] [facility] [place] [address] [place], [place] [address] [phone] Social History Tobacco Use Types Packs/Day Years Used Date Smoking Tobacco: Never Assessed Sex Assigned at Date Recorded Female 12/11/2020 13:05 EDT documented as of this encounter Plan of Treatment Upcoming Encounters Date Type Specialty Care Team Description 03/10/2022 Office Visit Dermatology Doris Sheffield , SITA [address] [facility], [facility], [address] [place], [place] [address] (Wo rk) documented as of this encounter Procedures Procedure Name Priority Date/Time Associated Diagnosis Comme nts CYTOPATHOLOGY Routine 05/22/2004 0:00 EDT Results for this procedure are i n the results section . documented in this encounter Results CYTOPATHOLOGY (05/22/2004 0:00 EDT) Component Value Ref Test Analysis Performed At [facility] Method Time Signature Pathology CYTOPATHOLOGY REPORT [facility] Report: [facility] Reports generated via electronic interface contain original data; however they are lacking the format of the original report. Caution should be taken when reading/interpreting unformatte d reports. Name: ? ANYA CARRILLO ? Accession #: ? [id number] : ? 1975 (Age: 28) ??F ?Collect Date: ? 05/22/2004 Location: ? [facility] ? Receive Date: ? 05/25/2004 Provider: ?SUNITHA CONWAY CNM Copy to: ? Specimen/Source: ?ThinPrep Pap Test, Cervix/Endoce rvix Last Menstrual Period: ? 05/01/04 Other: ? HPVA - HPV testing requested if ASC-US on the current ThinPr ep Pap test. ? SPECIMEN ADEQUACY ? Satisfactory for Evaluation - transformation zone component present GENERAL CATEGORIZATION ? Negative for Intraepithelial Lesion or Malignancy ? Document reviewed and electronically signed by: ? Brianne Ro, [facility](ASCP) ? Report Date: ??06/01/2004 12:01 End of Report Specimen (Source) Anatomical Location Collection Method / Collectio n Time Received Time / Laterality Volume 05/22/2004 05/25/2004 Sunitha Conway CNM PATHOLOGY ORDERABLES Performing Organization Address City/State/ZIP Code Phon e Number [facility] [address] [place] [address] SERVICES [facility] [address] [place] [address] documented in this encounter Visit Diagnoses Not on filedocumented in this encounter Care Teams Bee Farmer Relationship Specialty Start Date End Date Nicholas Damon MD PCP - General 05/29/08 05/28/[address] [place] [address] documented as of this encounter
--- OUTSIDE RECORDS SUMMARY | 2022-01-08 16:15 | XMS_ITS | Encounter Summary ---
:1975 Author Organization [facility] Address [address] [place] [address] Care Team Providers Name Role Phone Nicholas Damon MD Primary Care Provider Unknown, Provider Primary Care Provider Nicholas Damon MD Unavailable Nicholas Damon MD Primary Care Provider Mariela Paniagua [facility] Primary Care Provider Unknown, Provider Primary Care Provider Selena Gentile APRN Primary Care Provider [phone] Encounter Details Date Type Department Care Team Description 09/15/2000 Hospital Encounter [facility] - Sunitha Escoto CNM [address] [place] [address],[address] [place], [place] [address] Other Unknown, Provider, [address] [place], [place] [address] Social History Tobacco Use Types Packs/Day Years [...] Visit Dermatology Doris Sheffield , PASoC [address] [facility], [facility], [address] [place], [place] [address] (Wo rk) documented as of this encounter Procedures Procedure Name Priority Date/Time Associated Diagnosis Comme nts CYTOPATHOLOGY Routine 09/15/2000 0:00 EDT Results for this procedure are i n the results section . documented in this encounter Results CYTOPATHOLOGY (09/15/2000 0:00 EDT) Component Value Ref Test Analysis Performed At [facility] Method Time Signature Pathology CYTOPATHOLOGY REPORT [facility] Report: [facility] Reports generated via electronic interface contain original data; however they are lacking the format of the original report. Caution should be taken when reading/interpreting unformatte d reports. Name: ? ANYA CARRILLO ? Accession #: ? [id number] : ? 1975 (Age: 24) ??F ?Collect Date: ? 09/15/2000 Location: ? [facility] ? Receive Date: ? 09/19/2000 Provider: ?SUNITHA ESCOTO [facility] Copy to: ? Specimen/Source: ?ThinPrep Pap Test, Cervix/Endoce rvix Last Menstrual Period: ? 08/16/00 Previous Gynecologic Pathology: ? DOROTHEA II: Treatment History: ? Cone biopsy: Other: ? Additional clinical information: F/u paps wnl ? SPECIMEN ADEQUACY ? Satisfactory for evaluation. GENERAL CATEGORIZATION ? Within Normal Limits ? Document reviewed and electronically signed by: ? ITZEL Kasper(ASCP) ? Report Date: ??09/22/2000 15:11 End of Report Specimen (Source) Anatomical Location Collection Method / Collectio n Time Received Time / Laterality Volume 09/15/2000 09/19/2000 Sunitha MATTA PATHOLOGY ORDERABLES Performing Organization Address City/State/ZIP Code Phon e Number [facility] [address] [place] [address] SERVICES [facility] [address] [place] [address] documented in this encounter Visit Diagnoses Not on filedocumented in this encounter Care Teams Employee Adviser Relationship Specialty Start Date End Date Nicholas Damon MD PCP - General 05/29/08 05/28/[address] [address] Unknown, ProviderMD PCP - General 05/29/14 07/07/16 Nicholas Damon MD PCP - General 07/08/16 07/27/[address] [address] Mariela Paniagua CNM PCP - General 07/28/16 07/28/[address] [place] [address] [address] Unknown, ProviderMD PCP - General 07/29/16 09/01/16 Selena Gentile, CHETAN PCP - General 09/02/16 [address] [place] [address] Nicholas Damon MD 05/29/[address] [address] documented as of this encounter
--- OUTSIDE RECORDS SUMMARY | 2022-01-08 16:15 | XMS_ITS | Encounter Summary ---
:1975 Author Organization [facility] Address [address] [place] [address] Care Team Providers Name Role Phone Nicholas Damon MD Primary Care Provider Encounter Details Date Type Department Care Team Description 06/02/2009 Results Only [facility] Alvin Conway, CN Laboratory Services - [address] [facility],[address] [place] [address] [address] [facility] [place], [place] [address] [phone] Social History Tobacco Use Types Packs/Day Years Used Date Smoking Tobacco: Never Assessed Sex Assigned at Date Recorded Female 12/11/2020 13:05 EDT documented as of this encounter Plan of Treatment Upcoming Encounters Date Type Specialty Care Team Description 03/10/2022 Office Visit Dermatology Doris Sheffield , SITA [address] [facility], [facility], [address] [place], [place] [address] (Wo rk) documented as of this encounter Procedures Procedure Name Priority Date/Time Associated Comments Diagnosis HPV DETECTION, HIGH Routine 06/02/2009 19:56 Resu lts for this RISK TYPES EDT procedure are i n the results section. CYTOPATHOLOGY Routine 06/02/2009 0:00 Results for this EDT procedure are i n the results section. documented in this encounter Results HUMAN PAPILLOMA VIRUS DNA TEST (06/02/2009 19:56 EDT) Patholo gist Method Time Signature Specimen Cervix, [facility] Description ThinPrep [facility] vial Result Negative for [facility] HPV types [facility] 16, 18, 31, 33, 35, 39, 45, 51, 52, 56, 58, 59, and 68. Report Status Final JOVANI 06/16/2009 [facility] Specimen Anatomical Collection Method Collection Time Receive d Time (Source) Location / / Volume Laterality 06/02/2009 19:56 06/12/2009 7:37 EDT EDT Sunitha Conway [facility] MICROBIOLOGY - GENERAL ORDER BRENT Performing Organization Address City/State/ZIP Code Phon e Number [facility] [address] [place] [address] SERVICES [facility] [address] [place] [address] CYTOPATHOLOGY (06/02/2009 0:00 EDT) Component Value Ref Test Analysis Performed At [facility] Range Method Time Signature Pathology CYTOPATHOLOGY REPORT ? [facility] Report: ? [facility] Reports generated via electr XRONet interface contain original data; ? however they are lacking the format of the original report. ? Caution should be taken when reading/interpreting unformatted reports. ? Name: ? ANYA CARRILLO ? Accession #: ? [id number] ? : ? 1975 (Age: 33) ??F ?Collect Date: ? 06/02/2009 ? Location: ? [facility] ? Receive Date: ? 06/04/2009 ? Provider: ?SUNITHA BRO MLEY CNM ? Copy to: ? Specimen/Source: ? Pap Test, Cervix/Endocervix, ThinPrep Imaging System ? with manual evaluation ? Last Menstrual Period: ? 04.11.10 ? Hormonal/Contraceptive Statu s: ? Tubal ligation: bilateral 09 .23.09 ? Previous Gynecologic Patholo gy: ? HPV: hx 04.15.09 ? Yes: hx abn pap 1995 ? Other: ? HPVDX - HPV testing requeste d regardless of diagnosis on current ThinPrep Pap ?? test. ? SPECIMEN ADEQUACY ? Satisfactory for Eval uation ? - transformation zone compon ent present ? GENERAL CATEGORIZATION ? Negative for Intraepi thelial Lesion or Malignancy ? Document reviewed and electr onically signed by: ? Karuna Acevedo, CT(ASCP) ? Report Date: ??05/05/ 2010 08:04 ? End of Report ? Specimen (Source) Anatomical Location Collection Method / Collectio n Time Received Time / Laterality Volume 06/02/2009 06/04/2009 Sunitha Conway [facility] PATHOLOGY ORDERABLES Performing Organization Address City/State/ZIP Code Phon e Number [facility] [address] [place] [address] SERVICES [facility] [address] [place] [address] documented in this encounter Visit Diagnoses Not on filedocumented in this encounter Care Teams Dental Biller Relationship Specialty Start Date End Date Nicholas Damon MD PCP - General 05/29/08 05/28/[address] [address] documented as of this encounter
--- OUTSIDE RECORDS SUMMARY | 2022-01-08 16:15 | XMS_ITS | Encounter Summary ---
:1975 Author Organization [facility] Address [address] [place] [address] Care Team Providers Name Role Phone Nicholas Damon MD Primary Care Provider Encounter Details Date Type Department Care Team Description 04/12/2005 Results Only [facility] - Nilsa, Evette gates, CN Maple conversion [address] [facility] [place] [address] [place], [place] [address] [phone] Social History Tobacco Use Types Packs/Day Years Used Date Smoking Tobacco: Never Assessed Sex Assigned at Date Recorded Female 12/11/2020 13:05 EDT documented as of this encounter Plan of Treatment Upcoming Encounters Date Type Specialty Care Team Description 03/10/2022 Office Visit Dermatology Doris Sheffield , SITA [address] [facility], [facility], [address] [place], [place] [address] (Wo rk) documented as of this encounter Procedures Procedure Name Priority Date/Time Associated Diagnosis Comme nts CYTOPATHOLOGY Routine 04/12/2005 0:00 EST Results for this procedure are i n the results section . documented in this encounter Results CYTOPATHOLOGY (04/12/2005 0:00 EST) Component Value Ref Test Analysis Performed At [facility] Range Method Time Signature Pathology CYTOPATHOLOGY REPORT JOVANI Report: [facility] Reports generated via electronic interface contain original data; however they are lacking the format of the original report. Caution should be taken when reading/interpreting unformatte d reports. Name: ? ANYA CARRILLO ? Accession #: ? [id number] : ? 1975 (Age: 29) ??F ?Collect Date: ? 04/12/2005 Location: ? [facility] ? Receive Date: ? 04/13/2005 Provider: ?GABE CASILLAS CNM Copy to: ? Specimen/Source: ? ThinPrep Pap Test, Cervix/Endocervix, processed on [employer] ThinPrep Imaging System, with manual evaluation Last Menstrual Period: ? Menstrual/ Status: ? Post Other: ? HPVA - HPV testing requested if ASC-US on the current ThinPr ep Pap test. ? SPECIMEN ADEQUACY ? Satisfactory for Evaluation - transformation zone component present GENERAL CATEGORIZATION ? Negative for Intraepithelial Lesion or Malignancy ? Document reviewed and electronically signed by: ? Brianne Ro, SCT(ASCP) ? Report Date: ??04/15/2005 08:54 End of Report Specimen (Source) Anatomical Location Collection Method / Collectio n Time Received Time / Laterality Volume 04/12/2005 04/13/2005 Gabe Casillas CNM PATHOLOGY ORDERABLES Performing Organization Address City/State/ZIP Code Phon e Number [facility] [address] [place] [address] SERVICES [facility] [address] [place] [address] documented in this encounter Visit Diagnoses Not on filedocumented in this encounter Care Teams Police Shift Commander Relationship Specialty Start Date End Date Nicholas Damon MD PCP - General 4/22/09 4/21/[address] [address] documented as of this encounter
--- OUTSIDE RECORDS SUMMARY | 2022-01-08 16:15 | XMS_ITS | Encounter Summary ---
:1975 Author Organization [facility] Address [address] [place] [address] Care Team Providers Name Role Phone Unavailable Primary Care Provider Unavailable Encounter Details Date Type Department Care Team Description 10/10/2002 Hospital Encounter [facility] - Yoshi Casillas CNM Other [address] [place] [address] [place] [address] [place] [address] [phone] Social History Tobacco Use Types Packs/Day Years Used Date Smoking Tobacco: Never Assessed Sex Assigned at Date Recorded Female 12/11/2020 13:05 EDT documented as of this encounter Discharge Disposition Disposition Code Departure Means Destination Auto Discharge documented in this encounter Plan of Treatment Upcoming Encounters Date Type Specialty Care Team Description 03/10/2022 Office Visit Dermatology Doris Sheffield , SITA [address] [facility], [facility], [address] [place], [place] [address] (Wo rk) documented as of this encounter Procedures Procedure Name Priority Date/Time Associated Diagnosis Comme nts CYTOPATHOLOGY Routine 10/10/2002 0:00 EDT Results for this procedure are i n the results section . documented in this encounter Results CYTOPATHOLOGY (10/10/2002 0:00 EDT) Component Value Ref Test Analysis Performed At [facility] Method Time Signature Pathology CYTOPATHOLOGY REPORT JOVANI Report: [facility] Reports generated via electronic interface contain original data; however they are lacking the format of the original report. Caution should be taken when reading/interpreting unformatte d reports. Name: ? ANYA CARRILLO ? Accession #: ? [id number] : ? 1975 (Age: 26) ??F ?Collect Date: ? 10/10/2002 Location: ? [facility] ? Receive Date: ? 10/11/2002 Provider: ?GABE CASILLAS CNM Copy to: ? Specimen/Source: ?ThinPrep Pap Test, Cervix/Endoce rvix Last Menstrual Period: ? 06/20/02 Menstrual/ Status: ? Other: ? HPVA - HPV testing requested if ASC-US on the current ThinPr ep Pap test. ? SPECIMEN ADEQUACY ? Satisfactory for Evaluation - transformation zone component present GENERAL CATEGORIZATION ? Negative for Intraepithelial Lesion or Malignancy ? Document reviewed and electronically signed by: ? Iwona Manuel, CT(ASCP)(IAC) ? Report Date: ??10/16/2002 10:31 End of Report Specimen (Source) Anatomical Location Collection Method / Collectio n Time Received Time / Laterality Volume 10/10/2002 10/11/2002 Gabe Casillas CNM PATHOLOGY ORDERABLES Performing Organization Address City/State/ZIP Code Phon e Number [facility] [address] [place] [address] SERVICES [facility] [address] [place] [address] documented in this encounter Visit Diagnoses Not on filedocumented in this encounter
--- OUTSIDE RECORDS SUMMARY | 2022-01-08 16:15 | XMS_ITS | Encounter Summary ---
:1975 Author Organization [facility] Address [address] [place] [address] Care Team Providers Name Role Phone Nicholas Damon MD Primary Care Provider Unknown, Provider Primary Care Provider Nicholas Damon MD Unavailable Nicholas Damon MD Primary Care Provider Mariela Paniagua [facility] Primary Care Provider Unknown, Provider Primary Care Provider Selena Gentile APRN Primary Care Provider [phone] Encounter Details Date Type Department Care Team Description 08/17/1999 Hospital Encounter [facility] - Sunitha Escoto CNM [address] [place] [address],[address] [place], [place] [address] Other Unknown, Provider, [address] [place], [place] [address] Social History Tobacco Use Types Packs/Day Years [...] Visit Dermatology Doris Sheffield , PASoC [address] [facility], [facility], [address] [place], [place] [address] (Wo rk) documented as of this encounter Procedures Procedure Name Priority Date/Time Associated Diagnosis Comme nts CYTOPATHOLOGY Routine 08/17/1999 0:00 EDT Results for this procedure are i n the results section . documented in this encounter Results CYTOPATHOLOGY (08/17/1999 0:00 EDT) Component Value Ref Test Analysis Performed At [facility] Range Method Time Signature Pathology CYTOPATHOLOGY REPORT JOVANI Report: [facility] Reports generated via electronic interface contain original data; however they are lacking the format of the original report. Caution should be taken when reading/interpreting unformatte d reports. Name: ? ANYA CARRILLO ? Accession #: ? [id number] : ? 1975 (Age: 23) ??F ?Collect Date: ? 08/17/1999 Location: ? [facility] ? Receive Date: ? 08/20/1999 Provider: ?SUNITHA ESCOTO [facility] Copy to: ? Specimen/Source: ?ThinPrep Pap Test, Cervix/Endoce rvix Last Menstrual Period: ? 08/17/99 Previous Gynecologic Pathology: ? DOROTHEA III: 1994, F/u WNL. Treatment History: ? Colposcopy: 1994 Cone biopsy: 1994 ? SPECIMEN ADEQUACY ? Satisfactory for evaluation. GENERAL CATEGORIZATION ? Within Normal Limits ? Document reviewed and electronically signed by: ? Saundra Alford [facility](ASCP) ? Report Date: ??08/21/1999 13:26 End of Report Specimen (Source) Anatomical Location Collection Method / Collectio n Time Received Time / Laterality Volume 08/17/1999 08/20/1999 Sunitha MATTA PATHOLOGY ORDERABLES Performing Organization Address City/State/ZIP Code Phon e Number [facility] [address] [place] [address] SERVICES [facility] [address] [place] [address] documented in this encounter Visit Diagnoses Not on filedocumented in this encounter Care Teams Back Filler Operator Relationship Specialty Start Date End Date Nicholas Damon MD PCP - General 05/29/08 05/28/[address] [address] Unknown, Provider, PCP - General 05/29/14 07/07/16 Nicholas Damon MD PCP - General 07/08/16 07/27/[address] [address] Mariela Paniagua CNM PCP - General 07/28/16 07/28/16 [facility] [address] [place] [phone] Unknown, Provider, PCP - General 07/29/16 09/01/16 Selena Gentile, EMERGENCY DEPARTMENT RN PCP - General 09/02/16 [address] [place] [address] Nicholas Damon MD 05/29/[address] [address] documented as of this encounter
--- OUTSIDE RECORDS SUMMARY | 2022-01-08 16:15 | XMS_ITS | Encounter Summary ---
:1975 Author Organization [facility] Address [address] [place] [address] Care Team Providers Name Role Phone Nicholas Damon MD Primary Care Provider Unknown, Provider Primary Care Provider Nicholas Damon MD Unavailable Nicholas Damon MD Primary Care Provider Mariela Paniagua [facility] Primary Care Provider Unknown, Provider Primary Care Provider Selena Gentile APRN Primary Care Provider [phone] Encounter Details Date Type Department Care Team Description 09/18/2001 Hospital Encounter [facility] - Sunitha Escoto CNM [address] [place] [address],[address] [place], [place] [address] Other Unknown, Provider, [address] [place], [place] [address] Social History Tobacco Use Types Packs/Day Years [...] Visit Dermatology Doris Sheffield , PASoC [address] [facility], [facility], [address] [place], [place] [address] (Wo rk) documented as of this encounter Procedures Procedure Name Priority Date/Time Associated Diagnosis Comme nts CYTOPATHOLOGY Routine 09/18/2001 0:00 EDT Results for this procedure are i n the results section . documented in this encounter Results CYTOPATHOLOGY (09/18/2001 0:00 EDT) Component Value Ref Test Analysis Performed At [facility] Range Method Time Signature Pathology CYTOPATHOLOGY REPORT JOVANI Report: [facility] Reports generated via electronic interface contain original data; however they are lacking the format of the original report. Caution should be taken when reading/interpreting unformatte d reports. Name: ? ANYA CARRILLO ? Accession #: ? [id number] : ? 1975 (Age: 25) ??F ?Collect Date: ? 09/18/2001 Location: ? [facility] ? Receive Date: ? 09/20/2001 Provider: ?SUNITHA ESCOTO [facility] Copy to: ? Specimen/Source: ?ThinPrep Pap Test, Cervix/Endoce rvix Last Menstrual Period: ? Hormonal/Contraceptive Status: ? Depo-Provera Previous Gynecologic Pathology: ? Yes: 1994 Treatment History: ? Cone biopsy: 1994 ? SPECIMEN ADEQUACY ? Satisfactory for Evaluation - transformation zone component present GENERAL CATEGORIZATION ? Negative for Intraepithelial Lesion or Malignancy ? Document reviewed and electronically signed by: ? LUPE Borja(ASCP) ? Report Date: ??09/21/2001 14:05 End of Report Specimen (Source) Anatomical Location Collection Method / Collectio n Time Received Time / Laterality Volume 09/18/2001 09/20/2001 Sunitha MATTA PATHOLOGY ORDERABLES Performing Organization Address City/State/ZIP Code Phon e Number [facility] [address] [place] [address] SERVICES [facility] [address] [place] [address] documented in this encounter Visit Diagnoses Not on filedocumented in this encounter Care Teams Framing Mill Operator Relationship Specialty Start Date End Date Nicholas Damon MD PCP - General 05/29/08 05/28/[address] [address] Unknown, Provider, PCP - General 05/29/14 07/07/16 Nicholas Damon MD PCP - General 07/08/16 07/27/[address] [address] Mariela Paniagua CNM PCP - General 07/28/16 07/28/16 [address] [place] [phone] Unknown, Provider, PCP - General 07/29/16 09/01/16 Selena Gentile, QC MANAGER PCP - General 09/02/16 [address] [place] [address] Nicholas Damon MD 05/29/[address] [address] documented as of this encounter
--- OUTSIDE RECORDS SUMMARY | 2022-01-08 16:15 | XMS_ITS | Encounter Summary ---
:1975 Author Organization [facility] Address [address] [place] [address] Care Team Providers Name Role Phone Nicholas Damon MD Primary Care Provider Encounter Details Date Type Department Care Team Description 05/17/2008 Before PRISM Converted [facility] Unknown, Visit (Maple) Adult Primary Care - Provider, Yoshi Ortega [place] [phone] [address] [facility] (Work) [place] [address] [phone] Social History Tobacco Use Types Packs/Day Years Used Date Smoking Tobacco: Never Assessed Sex Assigned at Date Recorded Female 12/11/2020 13:05 EDT documented as of this encounter Plan of Treatment Upcoming Encounters Date Type Specialty Care Team Description 03/10/2022 Office Visit Dermatology Doris Sheffield , SITA [address] [facility], [facility], [address] [place], [place] [address] (Wo rk) documented as of this encounter Procedures Procedure Name Priority Date/Time Associated Comments Diagnosis CHLAMYDIA/N. Routine 05/17/2008 16:28 Results for this GONORRHOEAE AMPLIFIED EDT proced ure are in RNA the results section. HPV DETECTION, HIGH Routine 05/17/2008 16:28 Resu lts for this RISK TYPES EDT procedure are i n the results section. CYTOPATHOLOGY Routine 05/17/2008 0:00 Results for this EDT procedure are i n the results section. documented in this encounter Results HUMAN PAPILLOMA VIRUS DNA TEST (05/17/2008 16:28 EDT) [facility] Signature Specimen Cervix, [facility] Description ThinPrep vial [facility] Result Positive for one or more of HPV types 16,18,31,33,35,39,45,51,52,56,58,59, or 68. These [facility] high/intermediate risk HPV t ypes are associated with dysplasia and some cervical cancers. [facility] Report Status Final [place] 05/23/2008 [facility] Specimen Anatomical Collection Method Collection Time Receive d Time (Source) Location / / Volume Laterality 05/17/2008 16:28 05/22/2008 8:58 EDT EDT Sunitha Conway CNM MICROBIOLOGY - GENERAL ORDER BRENT Performing Organization Address City/[facility]/ZIP Code Phon e Number [facility] [address] [place] [address] SERVICES [facility] [address] [place] [address] CHLAMYDIA/GC AMPLIFIED (05/17/2008 16:28 EDT) Component Value Ref Test Analysis Performed At [facility] Signature Specimen Cervix [facility] Description [facility] Result No Chlamydia [facility] trachomatis DNA [facility] detected by drywall taper mediated amplification. Result No Neisseria [facility] gonorrhoeae DNA [facility] detected by drywall taper mediated amplification. Specimen Anatomical Collection Method Collection Time Receive d Time (Source) Location / / Volume Laterality 05/17/2008 16:28 05/17/2008 EDT 21:50 EDT Provider Rachel HERNANDEZ MICROBIOLOGY - GENERAL ORDER BRENT Performing Organization Address City/[facility]/ZIP Code Phon e Number [facility] [address] [place] [address] SERVICES [facility] [address] [place] [address] CYTOPATHOLOGY (05/17/2008 0:00 EDT) Component Value Ref Test Analysis Performed At [facility] Pathology CYTOPATHOLOGY REPORT ? [facility] Report: ? [facility] Reports generated via electr onic interface contain original data; ? however they are lacking the format of the original report. ? Caution should be taken when reading/interpreting unformatted reports. ? Name: ? ANYA CARRILLO ? Accession #: ? [id number] ? : ? 1975 (Age: 32) ??F ?Collect Date: ? 05/17/2008 ? Location: ? [facility] ? Receive Date: ? 05/20/2008 ? Provider: ?SUNITHA DUNNEY CNM ? Copy to: ? Specimen/Source: ? Pap Test, Cervix/Endocervix, ThinPrep Imaging System ? with manual evaluation ? Last Menstrual Period: ? 12/12/08 ? Menstrual/ Status: ? Previous Gynecologic Patholo gy: ? Yes: 1995 abn. pap ? Other: ? HPVDX - HPV testing requeste d regardless of diagnosis on current ThinPrep Pap ?? test. ? SPECIMEN ADEQUACY ? Satisfactory for Eval uation ? - transformation zone compon ent present ? GENERAL CATEGORIZATION ? Negative for Intraepi thelial Lesion or Malignancy ? Document reviewed and electr onically signed by: ? Karuna Acevedo, CT(ASCP) ? Report Date: ??04/14/ 2009 13:39 ? End of Report ? Specimen (Source) Anatomical Location Collection Method / Collectio n Time Received Time / Laterality Volume 05/17/2008 05/20/2008 Sunitha Conway CNM PATHOLOGY ORDERABLES Performing Organization Address City/State/ZIP Code Phon e Number [facility] [address] [place] [address] SERVICES [facility] [address] [place] [address] documented in this encounter Visit Diagnoses Not on filedocumented in this encounter Care Teams Water Truck Driver Relationship Specialty Start Date End Date Nicholas Damon MD PCP - General 05/29/08 05/28/[address] [address] documented as of this encounter
--- OUTSIDE RECORDS SUMMARY | 2022-01-08 16:15 | XMS_ITS | Encounter Summary ---
:[address] [facility] Address [address] [place] [address] Care Team Providers Name Role Phone Nicholas Damon MD Primary Care Provider Unknown, Provider Primary Care Provider Nicholas Damon MD Unavailable Nicholas Damon MD Primary Care Provider Mariela Paniagua CNM Primary Care Provider Unknown, Provider Primary Care Provider Selena Gentile APRN Primary Care Provider [phone] Encounter Details Date Type Department Care Team Description 05/06/2003 Hospital Encounter [facility] - Sunitha Escoto CNM Other [address] [facility],[address] [place] [address] [place], [place] [address] [phone] Social History Tobacco Use Types Packs/Day Years [...] Doris Sheffield , SITA [address] [facility] [address] [place], [place] [address] (Wo rk) documented as of this encounter Procedures Procedure Name Priority Date/Time Associated Comments Diagnosis RUBELLA IGG ANTIBODY Routine 04/12/2008 12:47 Res ults for this EST procedure are i n the results section. HEPATITIS B SURFACE Routine 04/12/2008 12:47 Resu lts for this ANTIGEN EST procedure are i n the results section. SYPHILIS SERO (RPR) Routine 04/12/2008 12:47 Resu lts for this EST procedure are i n the results section. CYTOPATHOLOGY Routine 05/06/2003 0:00 Results for this EST procedure are i n the results section. documented in this encounter Results HEPATITIS B SURFACE ANTIGEN (04/12/2008 12:47 EST) [facility] Method Time Signature Hepatitis B Negative [facility] Surface Ag Reference Range: ??Negative A [facility] Specimen Anatomical Collection Method Collection Time Receive d Time (Source) Location / / Volume Laterality 04/12/2008 12:47 04/12/2008 EST 22:02 EST Provider Unknown CHEMISTRY & BLOOD GAS IVY RIVAS Performing Organization Address City/[facility]/ZIP Code Phon e Number [facility] [address] [place] [address] SERVICES [facility] [address] [place] [address] SYPHILIS SERO (RPR) (04/12/2008 12:47 EST) [facility] Syphilis Sero NONREACT. NR Dils JOVANI (RPR) [facility] Specimen Anatomical Collection Method Collection Time Receive d Time (Source) Location / / Volume Laterality 04/12/2008 12:47 04/12/2008 EST 22:02 EST Provider Unknown IMMUNOLOGY AND SEROLOGY HERMELINDA MCCALLUM Performing Organization Address City/[facility]/ZIP Code Phon e Number [facility] [address] [place] [address] SERVICES [facility] [address] [place] [address] RUBELLA IGG ANTIBODY (04/12/2008 12:47 EST) [facility] Method Time Signature Rubella IgG Antibody detected [facility] Ab Assayed utilizing the [employer] Immulite 2500. [facility] Values may vary with other methods. Specimen Anatomical Collection Method Collection Time Receive d Time (Source) Location / / Volume Laterality 04/12/2008 12:47 04/12/2008 EST 22:02 EST Provider Unknown CHEMISTRY & BLOOD GAS IVY RIVAS Performing Organization Address City/State/ZIP Code Phon e Number [facility] [address] [place] [address] SERVICES [facility] [address] [place] [address] CYTOPATHOLOGY (05/06/2003 0:00 EST) Component Value Ref Test Analysis Performed At [facility] Range Method Time Signature Pathology CYTOPATHOLOGY REPORT [facility] Report: [facility] Reports generated via electronic interface contain original data; however they are lacking the format of the original report. Caution should be taken when reading/interpreting unformatte d reports. Name: ? ANYA CARRILLO ? Accession #: ? [id number] : ? 1975 (Age: 27) ??F ?Collect Date: ? 05/06/2003 Location: ? [facility] ? Receive Date: ? 05/08/2003 Provider: ?SUNITHA ESCOTO [facility] Copy to: ? Specimen/Source: ?ThinPrep Pap Test, Cervix/Endoce rvix Last Menstrual Period: ? 06/20/02 Menstrual/ Status: ? Post Other: ? HPVA - HPV testing requested if ASC-US on the current ThinPr ep Pap test. ? SPECIMEN ADEQUACY ? Satisfactory for Evaluation - transformation zone component present GENERAL CATEGORIZATION ? Negative for Intraepithelial Lesion or Malignancy ? Document reviewed and electronically signed by: ? Albert Laughlin , LUEP(ASCP) ? Report Date: ??05/14/2003 09:50 End of Report Specimen (Source) Anatomical Location Collection Method / Collectio n Time Received Time / Laterality Volume 05/06/2003 05/08/2003 Sunitha Escoto CNM PATHOLOGY ORDERABLES Performing Organization Address City/State/ZIP Code Phon e Number [facility] [address] [place] [address] SERVICES [facility] [address] [place] [address] documented in this encounter Visit Diagnoses Not on filedocumented in this encounter Care Teams Agricultural Commodities Grader Relationship Specialty Start Date End Date Nicholas Damon MD PCP - General 05/29/08 05/28/[address] [address] Unknown, Provider, PCP - General 05/29/14 07/07/16 Nicholas Damon MD PCP - General 07/08/16 07/27/[address] [address] Mariela Paniagua CNM PCP - General 07/28/16 07/28/16 [facility] [address] [place] [address] Unknown, ProviderMD PCP - General 07/29/16 09/01/16 Selena Gentile APRN PCP - General 09/02/16 [address] [place] [address] Nicholas Damon MD 05/29/[address] [address] documented as of this encounter
--- OUTSIDE RECORDS SUMMARY | 2022-01-08 16:15 | XMS_ITS | Encounter Summary ---
:1975 Author Organization [facility] Address [address] [place] [address] Care Team Providers Name Role Phone Nicholas Damon MD Primary Care Provider Encounter Details Date Type Department Care Team Description 05/16/2006 Results Only [facility] - Pasquale Conway, CNM Maple conversion [address] [facility], [address] [place] [address] [place], [place] [address] [phone] Social History Tobacco Use Types Packs/Day Years Used Date Smoking Tobacco: Never Assessed Sex Assigned at Date Recorded Female 12/11/2020 13:05 EDT documented as of this encounter Plan of Treatment Upcoming Encounters Date Type Specialty Care Team Description 03/10/2022 Office Visit Dermatology Doris Sheffield , SITA [address] [facility], [facility], [address] [place], [place] [address] (Wo rk) documented as of this encounter Procedures Procedure Name Priority Date/Time Associated Diagnosis Comme [facility] CYTOPATHOLOGY Routine 05/16/2006 0:00 EDT Results for this procedure are i n the results section . documented in this encounter Results CYTOPATHOLOGY (05/16/2006 0:00 EDT) Component Value Ref Test Analysis Performed At [facility] Range Method Time Signature Pathology CYTOPATHOLOGY REPORT [facility] Report: [facility] Reports generated via electronic interface contain original data; however they are lacking the format of the original report. Caution should be taken when reading/interpreting unformatte d reports. Name: ? ANYA CARRILLO ? Accession #: ? [id number] : ? 1975 (Age: 30) ??F ?Collect Date: ? 05/16/2006 Location: ? [facility] ? Receive Date: ? 05/17/2006 Provider: ?SUNITHA CONWAY CNM Copy to: ? Specimen/Source: ?ThinPrep Pap Test, E ndocervix, processed on [employer] System, with manual evaluation Last Menstrual Period: ? 04/20/06 Other: ? HPVA - HPV testing requested if ASC-US on the current ThinPr ep Pap test. ? SPECIMEN ADEQUACY ? Satisfactory for Evaluation - transformation zone component present GENERAL CATEGORIZATION ? Negative for Intraepithelial Lesion or Malignancy ? Document reviewed and electronically signed by: ? LUPE Borja(ASCP) ? 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
[2022-01-08 18:13] LABS: HCT 36.3 % (36.0-46.0); HGB 12.3 g/dL (11.2-15.7); MCH 26.8 pg (27.0-33.0); MCHC 33.9 % (32.0-36.0); MCV 79 fL (80-95); MPV 10.2 fL (8.0-11.0); Platelet Count 178 10^3/uL (130-400); RBC 4.59 10^6/uL (3.93-5.22); RDW 17.6 % (11.7-14.6); RDW-SD 49.1 fL; WBC 7.09 10^3/uL (4.4-10.8)
[2022-01-08 18:30] LABS: Anion Gap 11.4 mmol/L (3-11); BUN 10 mg/dL (7-18); CO2 26.6 mmol/L (21.0-32.0); CREATININE 0.9 mg/dL (0.55-1.02); Calcium 8.9 mg/dL (8.5-10.1); Calculated LDL 106 mg/dL (<100); Chloride 102 mmol/L (98-107); Cholesterol 197 mg/dL (<200); Estimated GFR 78.86 (mL/min/1.73m2); Glucose 112 mg/dL (74-106); HDL Cholesterol 36 mg/dL (40-60); Potassium 4.2 mmol/L (3.5-5.1); Sodium 140 mmol/L (136-145); TSH (W/Ref FT4) 2.59 uIU/mL (0.36-3.74); Triglyceride 276 mg/dL (<150)
[2022-01-08 18:31] LABS: Hemoglobin A1C 4.6 % (<5.7)
== END 2022-01-08 16:07 | disposition home or self-care (01) ==
LOC: NCHCN 16:06
PROVIDERS: PCP Registered Nurse; Visit Provider Nurse Practitioner Family
DX: E66.01 Morbid (severe) obesity due to excess calories (principal); Z00.00 Encounter for general adult medical examination without abnormal findings
CPT/HCPCS: 80048; 80061; 85027; 83036; 84443

== ENCOUNTER 2022-02-20 14:56 | Emergency (ER) | payer MEDICAID, SELFPAY ==
[2022-02-20 15:05] VITALS: BP 140/94; PULSE 111; RESP 18; TEMP 36.6; O2SAT 100
[2022-02-20 15:47] VITALS: BP 145/93; RESP 18; TEMP 36.5; O2SAT 97
--- NOTE | 2022-02-20 16:00 | DI.CT_ITS ---
Exam(s) CT ABDOMEN PELVIS W EXAM: CT ABDOMEN PELVIS W CLINICAL HISTORY: Abd pain, Diarrhea, TECHNIQUE: Imaging Protocol: Axial computed tomography images with coronal and sagittal reformatted images were created and reviewed CONTRAST MATERIAL: Intravenous: Omnipaque 350 Contrast volume:100 mL Oral: No COMPARISON: CT ABD PELVIS WITH CONTRAST from 01/15/[address] BRAIN NECK CTA from 05/31/2019 FINDINGS: ABDOMEN: Lung Bases: Normal where visualized. Liver: There is decreased attenuation of the liver suggesting fatty infiltration. No measurable mass . The liver measures 19 cm long. Portal, Superior Mesenteric, and Splenic Veins: Unremarkable. Gallbladder and Biliary Tract: No radiodense calculus or dilation. Pancreas: Normal density, no abnormal calcifications or inflammatory process. Spleen: Splenomegaly. Adrenals: No masses seen. Kidneys: Normal size, contour and axis. No radiodense stones or obstructive uropathy. No masses seen. Abdominal Aorta: Abdominal portion non-dilated. Bowel: No obstruction or bowel wall thickening. Appendix is unremarkable. Peritoneal Cavity: No ascites, collection or mesenteric inflammatory response. No free air. Lymph Nodes: Within normal limits. Bones: Within normal limits for the patient's age. Soft Tissues: Unremarkable. PELVIS: Bladder: Symmetric distention, no gross wall thickening. Reproductive Organs: Status post hysterectomy. Lymph Nodes: Within normal limits. Bones: Within normal limits for the patient's age. IMPRESSION: 1. No acute abdominal or pelvic process. 2. Hepatosplenomegaly. Fatty liver. RADIATION DOSE DELIVERED: 1,208.11mGy.cm Total DLP DATA REPOSITORY: All CT scans at this facility are submitted to the National Radiology Data Registry (NRDR) Dose Index Registry (DIR) with the [employer] (A[employer]). RADIATION OPTIMIZATION: All CT scans at this facility use at least one of these dose optimization te chniques: automated exposure control; mA and/or kV adjustment per patient size (includes targeted exa ms where dose is matched to clinical indication); or iterative reconstruction.
[2022-02-20 16:02] LABS: Abs Immature Grans 0.01 10^3/uL (0.0-0.06); Absolute Basophil Count 0.03 10^3/uL (0.0-0.2); Absolute Lymphocyte Count 1.45 10^3/uL (1.2-3.4); Absolute Monocyte Count 0.46 10^3/uL (0.1-0.8); Absolute Neutrophil Count 7.15 10^3/uL (1.2-6.7); Basophils % 0.3; HGB 12.2 g/dL (11.2-15.7); Immature Grans % 0.1; Lymphocytes % 15.9; MCH 27.3 pg (27.0-33.0); MCHC 33.9 % (32.0-36.0); MCV 81 fL (80-95); MPV 9.1 fL (8.0-11.0); Monocytes % 5.1; Neutrophils % 78.6; Platelet Count 162 10^3/uL (130-400); RBC 4.47 10^6/uL (3.93-5.22); RDW 17.4 % (11.7-14.6); RDW-SD 50.7 fL
[2022-02-20] MEDS: Normal Saline 1,000 ML 1000 ML IV (16:03)
--- NOTE | 2022-02-20 16:14 | ED.GENADUL_ITS ---
Discharge Plan Disposition Patient Disposition: Home Condition: Stable Discharge Details Clinical Impression: Gastroenteritis Primary Care Provider: Selena Gentile ED Provider: Frances Schultz Home Meds and New Rx's Prescriptions: Continued ibuprofen 800 MG tablet 800 mg PO TID Qty: 30 sertraline 100 mg tablet 100 mg PO DAILY pantoprazole 40 mg tablet,delayed release (DR/EC) 40 mg PO DAILY Label Comments: once a day Myrbetriq 25 mg tablet extended release 24 hr 25 mg PO DAILY Label Comments: take 1 tablet by mouth once daily Discharge Instructions Instructions: Gastroenteritis (ED) Additional Instructions: Please take the Zofran or nausea medications as directed. A monotest was added onto her labs if this comes back as positive I will call you. CT shows no obvious acute abnormality. Labs are largely unremarkable however your bilirubin level was just slightly elevated. Bowel rest, clear liquids for the next 2 to 3 days advance diet as tolerated. [place] diet nothing fried fatty spicy, stay away from dairy. Follow up with primary care provider in 3-5 days discussed with him a possible ultrasound if you continue to have symptoms. Return to ED sooner if any worsening vomiting, fever, blood in your stool or vomit or concerns. Increase oral fluids. Referrals: Selena Gentile, [employer] [Primary Care Provider] - 3 days Medical Decision Making 46-year-old female presents with chief complaint of upper right and upper left abdominal pain, diarrhea. Patient reports that 2 weeks ago patient was throwing up bile which resolved on its own. Last night she began with foul-smelling burps and diarrhea which turned yellow which was constant. She reports that generalized abdominal pain worse upper quadrants. Work-up ordered including CBC, CMP, lipase, urinalysis. CT abdomen pelvis morphine and Zofran. Differential diagnosis includes but not limited to cholecystitis, colitis, diverticulitis, gastroenteritis. CT shows splenomegaly no appendicitis negative for cholecystitis no calcified stones seen. Please see the report below. Labs are largely unremarkable bilirubin is slightly elevated. No leukocytosis, neutrophils slightly elevated at 7.15, potassium is 3.4 glucose 118 urinalysis shows small bilirubin no leukocytes no nitrites and is squamous contaminated. Patient is still complaining of 8 out of 10 abdominal pain after 2 of morphine and 4 Zofran. 30 mg of Toradol ordered. I will discussed the CT results with her. Her heart rate is improved down to 95 blood pressure is 120/66. Discussed CT results with patient home care and follow-up care she verbalizes understanding. I did send her home with [facility]. She is remained hemodynamically stable alert and oriented throughout the remainder of her stay. This text was generated using [employer] Sum[employer] system, please disregard any oddities of phrase or misspellings. Medical Records Medical records reviewed: Yes I reviewed the patient's medical records. Imaging Data Radiologic Study: Imaging: CT Scan Radiologist's impression: COMPARISON: US ABDOMEN 07/25/2018 8:21 AM FINDINGS: Liver: Fatty liver, minimally enlarged. Gallbladder and bile ducts: Normal. No calcified stones. No ductal dilation. Pancreas: Normal. No ductal dilation. Spleen: Splenomegaly. The spleen measures up to 16 cm. Adrenal glands: Normal. No mass. Kidneys and ureters: Normal. No hydronephrosis. Stomach and bowel: Unremarkable. No obstruction. No mucosal thickening. Appendix: Appendix is well seen, within normal limits. Intraperitoneal space: Unremarkable. No free air. No significant fluid collection. Vasculature: Unremarkable. No abdominal aortic aneurysm. Lymph nodes: Unremarkable. No enlarged lymph nodes. Urinary bladder: Bladder not well distended. Reproductive: Post hysterectomy. Bones/joints: Unremarkable. No acute fracture. Soft tissues: Unremarkable. IMPRESSION: Splenomegaly. No definite acute abnormality seen. Thank you for allowing us to participate in the care of your patient. Dictated and Authenticated by: Josefina Salazar MD Lab Data Lab results reviewed: Yes I reviewed the patient's lab results. Labs: Laboratory Tests Range/Units 02/20/22 02/20/22 02/20/22 16:00 16:00 16:00 WBC (4.4-10.8) 10^3/uL 9.10 RBC (3.93-5.22) 10^6/uL 4.47 Hgb (11.2-15.7) g/dL 12.2 Hct (36.0-46.0) % 36.0 MCV (80-95) fL 81 MCH (27.0-33.0) pg 27.3 MCHC (32.0-36.0) % 33.9 RDW (11.7-14.6) % 17.4 H Plt Count (130-400) 10^3/uL 162 MPV (8.0-11.0) fL 9.1 Immature Gran % 0.1 Neutrophils % 78.6 Lymphocytes % 15.9 Monocytes % 5.1 Eosinophils % 0.0 Basophils % 0.3 Nucleated RBC % (0.0-0.3) % 0.0 Absolute Neutrophils (1.2-6.7) 10^3/uL 7.15 H Absolute Lymphocytes (1.2-3.4) 10^3/uL 1.45 Absolute Monocytes (0.1-0.8) 10^3/uL 0.46 Absolute Eosinophils (0.0-0.7) 10^3/uL 0.00 Absolute Basophils (0.0-0.2) 10^3/uL 0.03 Sodium (136-145) mmol/L 136 Potassium (3.5-5.1) mmol/L 3.4 L Chloride (98-107) mmol/L 100 Carbon Dioxide (21.0-32.0) mmol/L 25.5 Anion Gap (3-11) mmol/L 10.5 BUN (7-18) mg/dL 9 Creatinine (0.55-1.02) mg/dL 1.0 Est GFR (CKD-EPI 2020) (mL/min/1.73m2) 69.49 Glucose (74-106) mg/dL 118 H Calcium (8.5-10.1) mg/dL 9.1 Magnesium (1.8-2.4) mg/dL 1.9 Total Bilirubin (0.2-1.0) mg/dL 1.7 H AST (15-37) U/L 27 ALT (14-59) U/L 34 Alkaline Phosphatase (46-116) U/L 99 Total Protein (6.4-8.2) g/dL 8.2 Albumin (3.4-5.0) g/dL 4.4 Lipase (73-393) U/L 84 Urine Color (Yellow) Urine Clarity (Clear) Urine pH (5-8) Ur Specific [place] (1.005-1.025) Urine Protein (Negative) mg/dL Urine Ketones (Negative) mg/dL Urine Blood (Negative) Urine Nitrite (Negative) Urine Bilirubin (Negative) Urine Urobilinogen (Up TO 0.2) EU/dL Ur Leukocyte Esterase (Negative) Urine RBC (0-2) HPF Urine WBC (0-5) HPF Ur Epithelial Cells (Negative) HPF Urine Crystals (Negative) HPF Urine Bacteria (Negative) HPF Urine Mucus (Negative) Ur Culture Indicated? Urine Glucose (Negative) mg/dL Monoscreen (Negative) Add-On Test Request Range/Units 02/20/22 02/20/22 02/20/22 16:00 16:31 18:11 WBC (4.4-10.8) 10^3/uL RBC (3.93-5.22) 10^6/uL Hgb (11.2-15.7) g/dL Hct (36.0-46.0) % MCV (80-95) fL MCH (27.0-33.0) pg MCHC (32.0-36.0) % RDW (11.7-14.6) % Plt Count (130-400) 10^3/uL MPV (8.0-11.0) fL Immature Gran % Neutrophils % Lymphocytes % Monocytes % Eosinophils % Basophils % Nucleated RBC % (0.0-0.3) % Absolute Neutrophils (1.2-6.7) 10^3/uL Absolute Lymphocytes (1.2-3.4) 10^3/uL Absolute Monocytes (0.1-0.8) 10^3/uL Absolute Eosinophils (0.0-0.7) 10^3/uL Absolute Basophils (0.0-0.2) 10^3/uL Sodium (136-145) mmol/L Potassium (3.5-5.1) mmol/L Chloride (98-107) mmol/L Carbon Dioxide (21.0-32.0) mmol/L Anion Gap (3-11) mmol/L BUN (7-18) mg/dL Creatinine (0.55-1.02) mg/dL Est GFR (CKD-EPI 2020) (mL/min/1.73m2) Glucose (74-106) mg/dL Calcium (8.5-10.1) mg/dL Magnesium (1.8-2.4) mg/dL Total Bilirubin (0.2-1.0) mg/dL AST (15-37) U/L ALT (14-59) U/L Alkaline Phosphatase (46-116) U/L Total Protein (6.4-8.2) g/dL Albumin (3.4-5.0) g/dL Lipase (73-393) U/L Urine Color (Yellow) Yellow Urine Clarity (Clear) Sl Cloudy Urine pH (5-8) 5.5 Ur Specific [place] (1.005-1.025) 1.020 Urine Protein (Negative) mg/dL 30 H Urine Ketones (Negative) mg/dL Negative Urine Blood (Negative) Negative Urine Nitrite (Negative) Negative Urine Bilirubin (Negative) Small H Urine Urobilinogen (Up TO 0.2) EU/dL 0.2 Ur Leukocyte Esterase (Negative) Negative Urine RBC (0-2) HPF 0-2 Urine WBC (0-5) HPF 0-2 Ur Epithelial Cells (Negative) HPF Many Urine Crystals (Negative) HPF Negative Urine Bacteria (Negative) HPF Few Urine Mucus (Negative) Negative Ur Culture Indicated? No/Sq. Contamination Urine Glucose (Negative) mg/dL Negative Monoscreen (Negative) Negative Add-On Test Request Cancelled HPI General Mode of arrival: ambulatory . Date/Time Provider Initiated Documentation: 02/20/22 15:18 . Limitations to Documentation: no limitations . Information obtained by: patient, RN notes reviewed and old records reviewed . HPI Narrative: 46-year-old female presents with chief complaint of upper right and upper left abdominal pain, diarrhea. Patient reports that 2 weeks ago patient was throwing up bile which resolved on its own. Last night she began with foul-smelling burps and diarrhea which turned yellow which was constant. She reports that generalized abdominal pain worse upper quadrants. Denies any vomiting but does endorse nausea. Reports chills no fever. Past abdominal surgical history includes hysterectomy, tubal ligation prior to the hysterectomy. She reports that she does have a history of gallstones but still has her gallbladder. Other past medical history includes obesity, arthralgias low back pain she did take some ibuprofen yesterday. Related Data Home Medications Medication Instructions Recorded Confirmed ibuprofen 800 mg tablet 800 mg PO TID #30 tab-caps 08/22/17 02/20/22 sertraline 100 mg tablet 100 mg PO DAILY 12/18/19 02/20/22 mirabegron 25 mg tablet,extended 25 mg PO DAILY 02/20/22 02/20/22 release 24 hr (Myrbetriq) pantoprazole 40 mg tablet,delayed 40 mg PO DAILY 02/20/22 02/20/22 release Allergies Allergy/AdvReac Type Severity Reaction Status Date / Time dicyclomine [From Bentyl] Allergy Mild Verified 02/20/22 15:09 adhesive tape Allergy Skin Rash Unverified 02/20/22 15:09 Penicillins Allergy Hives Unverified 02/20/22 15:09 General Stated Complaint: Abd Prob MARCELLO: 3 Review of Systems All systems reviewed & are unremarkable except as noted in HPI and below Gastrointestinal Gastrointestinal: Reports abdominal pain, Reports belching, Reports bloating, Denies hematochezia, Reports change in bowel habits, Reports change in stool character, Denies coffee ground emesis, Reports diarrhea, Reports loose stools, Reports nausea and Denies vomiting [facility] All Active Problems (Updated 02/20/22 @ 18:11 by Frances Schultz NP) Gastroenteritis (Acute) No-show for appointment (Acute) H/O tubal ligation (Chronic) Vitamin D deficiency (Acute) 05/2018 Vit D level 15.4 ng/mL. Rx 50K Vit D/week. BMI 30.0-30.9,adult (Acute) 05/2018 BMI 39 Abnormal glandular Papanicolaou smear of cervix (Acute) Fibromyalgia (Acute) Arthralgia, chronic neck pain, low back pain, chronic radicular pain of lower extremities Fatigue (Acute) Anxiety (Chronic) Depression (Chronic) Sleep apnea (Chronic) Palpitations (Acute) Migraine with aura (Acute) Heavy menstrual bleeding (Acute) History of basal cell carcinoma (Acute) PMDD (premenstrual dysphoric disorder) (Acute) Treated with increased dose of sertraline 1 week prior to onset of menses Stress incontinence (Chronic) With component of urinary frequency and urgency 09/2018. Refer to pelvic floor PT at [facility]. Had one visit did not reach Medical History Aftercare for healing traumatic fracture of lower leg Arthralgia Chronic neck pain Chronic radicular pain of lower extremity Low back pain Obesity Suicidal ideation Surgical History Ganglion cyst S/P removal on wrist Family History Other Diabetes Heart disease Uterine cancer Social History Smoking/Tobacco Use Status: Never Smoking risk assessment performed?: Yes Alcohol Intake: current Alcohol Intake frequency: holidays/special occasions only Details: Drinks less than 1 alcoholic beverage per month Drug use: Never Substance use type: marijuana Household members: children Number of Children: 5 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 Appears stated age. Obese body habitus. Head: Normocephalic, no trauma. Eyes: Pupils PERRL, Red reflex noted, EOM's intact. Eyelids symmetrical without lesions, discharge, or swelling. ENT: Bilateral TM's WNL, External ear normal to inspection, no mastoid TTP, swelling, or erythema, Nasal turbinates WNL, no nasal discharge. Normal dentition, Posterior pharynx WNL, no exudate. Chest: RRR, Normal S1, S2, distal pulses intact. Resp: Lungs clear to auscultation bilaterally, no wheezes, rales, or rhonchi. Abdomen: Soft, non-distended, Normoactive bowel sounds all 4 quads. Tenderness with palpation all 4 quadrants. No guarding no masses palpated. Musculoskeletal: Normal gait, 5/5 strength to all four extremities. Skin: No suspicious rashes or lesions. Capillary refill less than 2 sec. Neurologic: Cranial nerves II-XII intact. Alert and oriented x 3. Motor: No deficits noted. Sensory: Intact bilaterally all 4 extremities. Reflexes: DTR's intact bilaterally.. Hematologic/Lymphatic: No ecchymosis, no lymphadenopathy. Course Vital Signs Vital signs: Vital Signs Temperature 36.6 C 02/20/22 15:05 Pulse 111 H 02/20/22 15:05 Respiratory Rate 18 02/20/22 15:05 Blood Pressure 140/94 H 02/20/22 15:05 Pulse Oximetry 100 02/20/22 15:05 Temperature 36.5 C 02/20/22 15:47 Temperature Source Skin 02/20/22 15:47 Pulse 111 H 02/20/22 15:05 Respiratory Rate 18 02/20/22 15:47 Respiratory Effort 02/20/22 15:09 Blood Pressure 145/93 H 02/20/22 15:47 Blood Pressure Position Sitting 02/20/22 15:05 Pulse Oximetry 97 02/20/22 15:47 Oxygen Delivery Method Room Air 02/20/22 15:47 Oxygen Flow Rate 0 02/20/22 15:47 Pain Level 8 02/20/22 15:47 Lab/Test Results Lab/Test Results: Laboratory Tests Range/Units 02/20/22 16:00 WBC (4.4-10.8) 10^3/uL 9.10 RBC (3.93-5.22) 10^6/uL 4.47 Hgb (11.2-15.7) g/dL 12.2 Hct (36.0-46.0) % 36.0 MCV (80-95) fL 81 MCH (27.0-33.0) pg 27.3 MCHC (32.0-36.0) % 33.9 RDW (11.7-14.6) % 17.4 H Plt Count (130-400) 10^3/uL 162 MPV (8.0-11.0) fL 9.1 Immature Gran % 0.1 Neutrophils % 78.6 Lymphocytes % 15.9 Monocytes % 5.1 Eosinophils % 0.0 Basophils % 0.3 Nucleated RBC % (0.0-0.3) % 0.0 Absolute Neutrophils (1.2-6.7) 10^3/uL 7.15 H Absolute Lymphocytes (1.2-3.4) 10^3/uL 1.45 Absolute Monocytes (0.1-0.8) 10^3/uL 0.46 Absolute Eosinophils (0.0-0.7) 10^3/uL 0.00 Absolute Basophils (0.0-0.2) 10^3/uL 0.03
[2022-02-20 16:23] LABS: ALT 34 U/L (14-59); AST 27 U/L (15-37); Albumin 4.4 g/dL (3.4-5.0); Alkaline Phosphatase 99 U/L (46-116); Anion Gap 10.5 mmol/L (3-11); BUN 9 mg/dL (7-18); Bilirubin, Total 1.7 mg/dL (0.2-1.0); CO2 25.5 mmol/L (21.0-32.0); Calcium 9.1 mg/dL (8.5-10.1); Chloride 100 mmol/L (98-107); Estimated GFR 69.49 (mL/min/1.73m2); Glucose 118 mg/dL (74-106); Potassium 3.4 mmol/L (3.5-5.1); Sodium 136 mmol/L (136-145); Total Protein 8.2 g/dL (6.4-8.2)
[2022-02-20 16:30] LABS: Lipase 84 U/L (73-393); Magnesium 1.9 mg/dL (1.8-2.4)
[2022-02-20] MEDS: Ondansetron 4 MG/2 ML VIAL IVP (16:41)
[2022-02-20 16:42] LABS: Bilirubin Small (Negative); Blood Negative (Negative); Clarity Sl Cloudy (Clear); Glucose Negative (Negative); Ketones Negative (Negative); Leukocyte Esterase Negative (Negative); Nitrite Negative (Negative); Urobilinogen 0.2 EU/dL (Up TO 0.2); pH 5.5 (5-8)
[2022-02-20] MEDS: MORPHine 10 MG/ML VIAL 2 MG IVP (16:42)
[2022-02-20] MEDS: Normal Saline - Diluent 50 ML VIAL IJ (16:45)
[2022-02-20] MEDS: Omnipaque 350 MG/ML 100 ML BTL IJ (16:45)
[2022-02-20 16:50] LABS: Bacteria Few HPF (Negative); C & S Indicated? No/Sq. Contamination; Crystals Negative HPF (Negative); Epithelial Cells Many HPF (Negative); Mucus Negative (Negative); RBC 0-2 HPF (0-2); WBC 0-2 HPF (0-5)
--- NOTE | 2022-02-20 17:31 | DI.VRAD_ITS ---
PROCEDURE INFORMATION: Exam: CT Abdomen And Pelvis With Contrast Exam date and time: 02/20/2022 4:52 PM Age: 46 years old Clinical indication: Abdominal pain; Acute TECHNIQUE: Imaging protocol: Computed tomography of the abdomen and pelvis with contrast. Contrast material: OMNIPAQUE 350; Contrast volume: 100 ml; Contrast route: INTRAVENOUS (IV); COMPARISON: US ABDOMEN 07/25/2018 8:21 AM FINDINGS: Liver: Fatty liver, minimally enlarged. Gallbladder and bile ducts: Normal. No calcified stones. No ductal dilation. Pancreas: Normal. No ductal dilation. Spleen: Splenomegaly. The spleen measures up to 16 cm. Adrenal glands: Normal. No mass. Kidneys and ureters: Normal. No hydronephrosis. Stomach and bowel: Unremarkable. No obstruction. No mucosal thickening. Appendix: Appendix is well seen, within normal limits. Intraperitoneal space: Unremarkable. No free air. No significant fluid collection. Vasculature: Unremarkable. No abdominal aortic aneurysm. Lymph nodes: Unremarkable. No enlarged lymph nodes. Urinary bladder: Bladder not well distended. Reproductive: Post hysterectomy. Bones/joints: Unremarkable. No acute fracture. Soft tissues: Unremarkable. IMPRESSION: Splenomegaly. No definite acute abnormality seen. Dictated and Authenticated by: Josefina Salazar MD. Ordering:ANTONIO Daniels MD
[2022-02-20 17:38] VITALS: BP 120/66; PULSE 95; RESP 18; TEMP 36.4; O2SAT 99
[2022-02-20] MEDS: Ketorolac 30 MG/ML VIAL IVP (17:47)
[2022-02-20] MEDS: Ondansetron O.D.T. 4 MG TABEF, 3 TABS/BTL PO (18:29)
[2022-02-20 19:27] LABS: Mono Screening Negative (Negative)
== END 2022-02-20 18:47 | disposition home or self-care (01) ==
PROVIDERS: Emergency Provider Registered Nurse Emergency; PCP Registered Nurse
DX: K52.9 Noninfective gastroenteritis and colitis, unspecified (principal); R16.1 Splenomegaly, not elsewhere classified; E80.7 Disorder of bilirubin metabolism, unspecified
CPT/HCPCS: 80053; 83690; 96361; 96374; 96375; 99285; 74177; 81003; 81015; 83735; 85025; 86308; 99284; J1885; J2270; J2405; J3490

== ENCOUNTER 2022-02-25 08:56 | Outpatient (CLI) | payer MEDICAID, SELFPAY ==
--- NOTE | 2022-02-25 | DI.US_ITS ---
Exam(s) US ABDOMEN LIMITED EXAM: US ABDOMEN LIMITED CLINICAL HISTORY: ABD PAIN, RUQ, R10.11 TECHNIQUE: Ultrasound abdomen performed using standard protocol. COMPARISON: CT CT ABDOMEN PELVIS W from 02/20/2022 FINDINGS: There is no ascites evident. LIVER: Liver appears somewhat hyperechoic indicating steatosis. There are no discrete focal hepatic lesions identified. No obvious dilated intrahepatic ducts. GALLBLADDER/BILIARY: There are no gallstones. No gallbladder wall edema nor pericholecystic fluid. The common hepatic duct isnot dilated, measuring 5mm at the level of luna hepatis. PANCREAS: There is no evidence of pancreatic mass nor dilatation of the pancreatic duct. RIGHT KIDNEY:No evidence of solid mass, calculus, nor hydronephrosis. No cortical cysts evident. IMPRESSION: 1. No evidence of cholelithiasis nor dilatation of the biliary tree. 2. Hepatic steatosis. Correlation with appropriate hepatic blood work recommended. There are no di screte focal hepatic lesions evident 3. There is no ascites. DATA REPOSITORY:
== END 2022-02-25 09:16 ==
PROVIDERS: PCP Registered Nurse; Visit Provider Nurse Practitioner Family
DX: R10.11 Right upper quadrant pain (principal); K76.0 Fatty (change of) liver, not elsewhere classified
CPT/HCPCS: 76705

== ENCOUNTER 2022-03-11 16:20 | Outpatient (REF) | payer MEDICAID, SELFPAY ==
[2022-03-11 15:45] LABS: ALT 37 U/L (14-59); AST 36 U/L (15-37); Albumin 4.5 g/dL (3.4-5.0); Alkaline Phosphatase 104 U/L (46-116); Anion Gap 7.7 mmol/L (3-11); BUN 14 mg/dL (7-18); CO2 27.3 mmol/L (21.0-32.0); CREATININE 0.9 mg/dL (0.55-1.02); Calcium 9.5 mg/dL (8.5-10.1); Chloride 104 mmol/L (98-107); Estimated GFR 78.86 (mL/min/1.73m2); Glucose 102 mg/dL (74-106); Potassium 4.1 mmol/L (3.5-5.1); Sodium 139 mmol/L (136-145); Total Protein 7.6 g/dL (6.4-8.2)
[2022-03-15 13:05] LABS: IgA 418 mg/dL (85-499); Interpretation (See Note); Tissue Transglutaminase IgA 1.4 U/mL (<4.0)
== END 2022-03-11 16:21 | disposition home or self-care (01) ==
LOC: NCHCN 16:20
PROVIDERS: PCP Registered Nurse; Visit Provider Nurse Practitioner Family
DX: R17 Unspecified jaundice (principal); R19.7 Diarrhea, unspecified
CPT/HCPCS: 80053; 82784; 83516

== ENCOUNTER 2022-03-14 11:00 | Outpatient (REF) | payer MEDICAID, SELFPAY ==
[2022-03-16 12:08] LABS: Campylobacter PCR Negative (Negative); Salmonella PCR Negative (Negative); Shiga Toxin PCR Negative (Negative); Shigella/Enteroinvasive Ecoli Negative (Negative)
== END 2022-03-14 11:01 | disposition home or self-care (01) ==
LOC: NCHCN 11:00
PROVIDERS: PCP Registered Nurse; Visit Provider Nurse Practitioner Family
DX: R17 Unspecified jaundice (principal); R19.7 Diarrhea, unspecified
CPT/HCPCS: 87505; 87177

== ENCOUNTER 2022-06-21 01:20 | Outpatient (CLI) | payer MEDICAID, SELFPAY ==
--- NOTE | 2022-06-21 | DI.MAMMO_ITS ---
Exam(s) MAMMO SCREENING EXAM: MAMMO SCREENING CLINICAL HISTORY: SCREENING, Z12.39 TECHNIQUE: Bilateral full field digital CC and MLO mammographic images were obtained with 3D tomosyn thesis and utilizing computer aided detection (CAD). COMPARISON: Available for comparison. FINDINGS: Masses/Architectural Distortion: The nodule in the posterior outer left breast on the CC view is unch anged. The nodule in the outer right breast on the CC view is unchanged. No suspicious nodules or a reas of architectural distortion are present. Microcalcifications: No suspicious pleomorphic-type are seen. Skin Thickening/Nipple Retraction: None. IMPRESSION: 1. No significant interval change with no specific features of malignancy noted. 2. Unless there is more urgent need, screening mammography is recommended, as per [employer] guidelines. BI-RADS Category 2 - Benign Findings Breast Density - Category B - Scattered areas of fibroglandular density Breast density category C or D implies that the patient has dense breast tissue. Dense breast tissue is very common and is not abnormal but dense breast tissue can make it harder to find cancer on a ma mmogram. Also, dense breast tissue may increase their breast cancer risk. This information about the result of the mammogram report was provided to the patient to raise their awareness. Use this report when you speak with the patient about their risks for breast cancer, which includes their family hist ory. At that time, you may recommend for more screening tests (Ultrasound or MRI) as they might be us eful based on their risk. A negative radiographic report should not delay biopsy if a dominant or clinically suspicious mass is present. Up to ten percent of cancers are not identified on mammography. A negative report may reinforce clinical impression. Adenosis and dense breasts may obscure an underlying neoplasm. False positive reports average 6 to 10%. Patient will receive a letter notifying them of these results.
== END 2022-06-21 01:40 ==
LOC: DI 01:21
PROVIDERS: PCP Registered Nurse; Visit Provider Nurse Practitioner Family
DX: Z12.31 Encounter for screening mammogram for malignant neoplasm of breast (principal)
CPT/HCPCS: 77063; 77067

== ENCOUNTER 2022-08-04 13:04 | Outpatient (REF) | payer MEDICAID, SELFPAY ==
[2022-08-04 19:39] LABS: HCT 36.6 % (36.0-46.0); HGB 12.6 g/dL (11.2-15.7); MCH 27.6 pg (27.0-33.0); MCHC 34.4 % (32.0-36.0); MCV 80 fL (80-95); MPV 9.7 fL (8.0-11.0); Platelet Count 202 10^3/uL (130-400); RBC 4.57 10^6/uL (3.93-5.22); RDW 16.3 % (11.7-14.6); RDW-SD 47.1 fL; WBC 6.33 10^3/uL (4.4-10.8)
[2022-08-04 20:06] LABS: ALT 42 U/L (14-59); AST 41 U/L (15-37); Albumin 4.4 g/dL (3.4-5.0); Alkaline Phosphatase 101 U/L (46-116); Anion Gap 10.8 mmol/L (3-11); BUN 11 mg/dL (7-18); Bilirubin, Total 1.2 mg/dL (0.2-1.0); CO2 26.2 mmol/L (21.0-32.0); CREATININE 0.8 mg/dL (0.55-1.02); Calcium 9.4 mg/dL (8.5-10.1); Chloride 103 mmol/L (98-107); Estimated GFR 90.83 (mL/min/1.73m2); Glucose 89 mg/dL (74-106); Magnesium 2.1 mg/dL (1.8-2.4); Potassium 4.2 mmol/L (3.5-5.1); Sodium 140 mmol/L (136-145); TSH 2.29 uIU/mL (0.36-3.74); Total Protein 8.2 g/dL (6.4-8.2)
[2022-08-04 20:08] LABS: Hemoglobin A1C < 4.5 % (<5.7)
== END 2022-08-04 13:05 | disposition home or self-care (01) ==
LOC: NCHCN 13:04
PROVIDERS: PCP Nurse Practitioner Family; Visit Provider Nurse Practitioner Family
DX: R53.83 Other fatigue (principal); R25.3 Fasciculation
CPT/HCPCS: 80053; 85027; 83036; 83735; 84443

== ENCOUNTER 2022-11-29 11:03 | Inpatient (IN) | payer MEDICAID, SELFPAY ==
[2022-11-29] VITALS (31 sets, daily range): BP systolic 91–124; BP diastolic 59–80; PULSE 75–100; RESP 10–18; TEMP 35.8–37; O2SAT 93–100
--- NOTE | 2022-11-29 12:36 | W.ED.GENAD ---
Discharge Plan Disposition Patient Disposition: Admit to [facility] Condition: Serious Discharge Details Chief Complaint: Abd Prob Clinical Impression: Acute pancreatitis Primary Care Provider: Aida Acuña ED Provider: Venkata Merritt Home Meds and New Rx's Prescriptions: No Action ibuprofen 800 MG tablet 800 mg PO TID Qty: 30 sertraline 100 mg tablet 100 mg PO DAILY Patient Comments: Takes 200 mg daily pantoprazole 40 mg tablet,delayed release (DR/EC) 40 mg PO DAILY Patient Comments: once a day Myrbetriq 25 mg tablet extended release 24 hr 25 mg PO DAILY Patient Comments: take 1 tablet by mouth once daily Medical Decision Making 1238?? 46-year-old female here with severe diffuse abdominal pain since this morning with rebound tenderness. Patient is tachycardic and normotensive. She is afebrile. Concern for acute surgical abdomen. Plan for stat CT of the abdomen pelvis to assess for acute surgical pathology including bowel perforation. 1500??Labs reviewed and elevated lipase noted. Normal LFTs. CT of the abdomen pelvis was interpreted by radiology:1. Compared to the prior CT scan of 02/20/2022 there is now abnormal streaking in the fat surrounding the pancreatic tail consistent with probable pancreatitis. No formed pseudocyst. Pancreatic duct is not dilated. No obvious pancreatic masses evident. 2. Splenomegaly is again noted. 3. Uterus is surgically absent. However, there is a 5 x 4.3 x 5.5 cm cystic structure just above the urinary bladder which is probably an ovarian cyst. This appears unilocular and there is no associated free fluid in the pelvis. 4. Appendix appears unremarkable. No diverticulitis. Patient recently stopped Mounjaro, last injection 3 weeks ago. This may be because of her pancreatitis today. Plan for IV fluids and IV analgesic. I called and spoke with the hospitalist on-call, Dr. Herrera, discussed ED presentation and course including diagnostics, he will admit the patient. Care transition at time of admission. Lab Data Lab results reviewed: Yes I reviewed the patient's lab results. Labs: Laboratory Tests Range/Units 11/29/22 11/29/22 11/29/22 12:34 12:44 12:53 WBC (4.4-10.8) 10^3/uL 10.25 RBC (3.93-5.22) 10^6/uL 4.41 Hgb (11.2-15.7) g/dL 12.4 Hct (36.0-46.0) % 36.4 MCV (80-95) fL 83 MCH (27.0-33.0) pg 28.1 MCHC (32.0-36.0) % 34.1 RDW (11.7-14.6) % 17.5 H Plt Count (130-400) 10^3/uL 161 MPV (8.0-11.0) fL 9.1 Immature Gran % 0.4 Neutrophils % 77.8 Lymphocytes % 17.5 Monocytes % 4.0 Eosinophils % 0.0 Basophils % 0.3 Nucleated RBC % (0.0-0.3) % 0.0 Absolute Neutrophils (1.2-6.7) 10^3/uL 7.98 H Absolute Lymphocytes (1.2-3.4) 10^3/uL 1.79 Absolute Monocytes (0.1-0.8) 10^3/uL 0.41 Absolute Eosinophils (0.0-0.7) 10^3/uL 0.00 Absolute Basophils (0.0-0.2) 10^3/uL 0.03 VBG Lactate (0.6-1.4) mmol/L 0.6 Sodium (136-145) mmol/L 137 Potassium (3.5-5.1) mmol/L 3.4 L Chloride (98-107) mmol/L 101 Carbon Dioxide (21.0-32.0) mmol/L 27.8 Anion Gap (3-11) mmol/L 8.2 BUN (7-18) mg/dL 15 Creatinine (0.55-1.02) mg/dL 0.7 Est GFR (CKD-EPI 2020) (mL/min/1.73m2) 106.62 Glucose (74-106) mg/dL 77 Calcium (8.5-10.1) mg/dL 9.5 Total Bilirubin (0.2-1.0) mg/dL 0.8 AST (15-37) U/L 19 ALT (14-59) U/L 27 Alkaline Phosphatase (46-116) U/L 90 Total Protein (6.4-8.2) g/dL 8.0 Albumin (3.4-5.0) g/dL 4.2 Lipase (16-77) U/L > 375 H Urine Color (Yellow) Yellow Urine Clarity (Clear) Clear Urine pH (5-8) 5.5 Ur Specific [place] (1.005-1.025) 1.020 Urine Protein (Negative) mg/dL Negative Urine Ketones (Negative) mg/dL Negative Urine Blood (Negative) Negative Urine Nitrite (Negative) Negative Urine Bilirubin (Negative) Negative Urine Urobilinogen (Up to 0.2) mg/dL 0.2 Ur Leukocyte Esterase (Negative) Negative Urine Glucose (Negative) mg/dL Negative Patient ABO/Rh A Negative Antibody Screen NEGATIVE HPI General Mode of arrival: ambulatory. Date/Time Provider Initiated Documentation: 11/29/22 11:13. Limitations to Documentation: no limitations. Information obtained by: patient. HPI Narrative: 46-year-old female here with severe abdominal pain. Patient notes pain started around 5 AM. Pain was localized to left lower quadrant and now diffuse abdomen. Pain is worse when she takes a deep breath. No associated nausea vomiting. No bright red blood per rectum. No vaginal discharge. No dysuria. No associated fever. Patient denies trauma. Related Data Home Medications Medication Instructions Recorded Confirmed ibuprofen 800 mg tablet 800 mg PO TID #30 tab-caps 08/22/17 11/29/22 sertraline 100 mg tablet 100 mg PO DAILY 12/18/19 11/29/22 mirabegron 25 mg tablet,extended 25 mg PO DAILY 02/20/22 11/29/22 release 24 hr (Myrbetriq) pantoprazole 40 mg tablet,delayed 40 mg PO DAILY 02/20/22 11/29/22 release Allergies Allergy/AdvReac Type Severity Reaction Status Date / Time dicyclomine [From Bentyl] Allergy Mild Verified 11/29/22 11:10 adhesive tape Allergy Skin Rash Unverified 11/29/22 11:10 Penicillins Allergy Hives Unverified 11/29/22 11:10 General Stated Complaint: Abd Prob MARCELLO: 3 Review of Systems All systems reviewed & are unremarkable except as noted in HPI and below Constitutional Constitutional: Denies fever(s) Gastrointestinal Gastrointestinal: Reports as per HPI PFSH All Active Problems (Updated 11/29/22 @ 15:10 by Venkata Merritt MD) Acute pancreatitis (Acute) No-show for appointment (Acute) H/O tubal ligation (Chronic) Vitamin D deficiency (Acute) 05/2018 Vit D level 15.4 ng/mL. Rx 50K Vit D/week. BMI 30.0-30.9,adult (Acute) 05/2018 BMI 39 Abnormal glandular Papanicolaou smear of cervix (Acute) Fibromyalgia (Acute) Arthralgia, chronic neck pain, low back pain, chronic radicular pain of lower extremities Fatigue (Acute) Anxiety (Chronic) Depression (Chronic) Sleep apnea (Chronic) Palpitations (Acute) Migraine with aura (Acute) Heavy menstrual bleeding (Acute) History of basal cell carcinoma (Acute) PMDD (premenstrual dysphoric disorder) (Acute) Treated with increased dose of sertraline 1 week prior to onset of menses Stress incontinence (Chronic) With component of urinary frequency and urgency 09/2018. Refer to pelvic floor PT at [facility]. Had one visit did not reach Medical History Aftercare for healing traumatic fracture of lower leg Arthralgia Chronic neck pain Chronic radicular pain of lower extremity Low back pain Obesity Suicidal ideation Surgical History Ganglion cyst S/P removal on wrist Family History Other Diabetes Heart disease Uterine cancer Social History Smoking/Tobacco Use Status: Never Smoking risk assessment performed?: Yes Alcohol Intake: current Alcohol Intake frequency: holidays/special occasions only Details: Drinks less than 1 alcoholic beverage per month Drug use: Never Substance use type: marijuana Household members: children Housing: house Number of Children: 5 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 [employer] Sexually active: No (Not in relationship) Do you feel safe at home: Yes Do you feel safe in your relationship?: Yes Additional Social history: Children: Sandro, Fatuma, [place], Curt, Justa Female Reproductive History Menstrual Age of Menarche: 11 Duration of menses: 3-5 days control method: permanent sterilization (BTL) History History 5 Para Hx # Term Pregnancies 5 Multiple births Hx # Pregnancies Ectopic pregnancies AB induced Hx Number of Living Children AB spontaneous Exam Const General: cooperative HENMT Mouth: moist mucous membranes Eyes Conjunctivae: normal conjunctivae Sclera: normal sclerae Resp Auscultation: clear to auscultation bilaterally, no rales, no rhonchi and no wheezes Cardio Rate: tachycardic Rhythm: regular rhythm GI Palpation: soft, not firm, no guarding, no masses, not rigid and tender (Diffuse) with rebound tenderness Skin General skin exam: no rashes or lesions noted Neuro General: patient alert, patient awake and tone normal Extrem General: no edema Psych Appearance: grossly normal Mental Status: mental status grossly normal Course Vital Signs Vital signs: Vital Signs Temperature 37.0 C 11/29/22 11:04 Pulse 100 H 11/29/22 11:04 Respiratory Rate 18 11/29/22 11:04 Blood Pressure 124/66 11/29/22 11:04 Pulse Oximetry 100 11/29/22 11:04 Temperature 37.0 C 11/29/22 11:04 Temperature Source Oral 11/29/22 11:04 Pulse 100 H 11/29/22 11:04 Respiratory Rate 18 11/29/22 11:04 Respiratory Effort Normal 11/29/22 11:09 Blood Pressure 124/66 11/29/22 11:04 Blood Pressure Position Sitting 11/29/22 11:04 Pulse Oximetry 100 11/29/22 11:04 Oxygen Delivery Method Room Air 11/29/22 11:04 Oxygen Flow Rate 0 11/29/22 11:04 Pain Level 8 11/29/22 11:04
--- NOTE | 2022-11-29 12:45 | RT.EKG_ITS ---
APPROVED REPORT Exam: Resting ECG Reason for Exam: SOB Patient Location: E HR:84 bpm ECG Measurements Heart Rate 84 AXIS AR 130 P 52 QRSd 83 QRS 22 QT 360 T 23 QTc 427 Conclusion Sinus rhythm...normal P axis, V-rate 60- 99
[2022-11-29 12:58] LABS: Lactate 0.6 mmol/L (0.6-1.4)
[2022-11-29] MEDS: Lactated Ringers 1,000 ML 125 ML IV ×2 (13:02→17:45)
[2022-11-29] MEDS: HYDROmorphone 2 MG/ML SYR 1 MG IVP (13:02)
[2022-11-29 13:03] LABS: Abs Immature Grans 0.04 10^3/uL (0.0-0.06); Absolute Basophil Count 0.03 10^3/uL (0.0-0.2); Absolute Lymphocyte Count 1.79 10^3/uL (1.2-3.4); Absolute Monocyte Count 0.41 10^3/uL (0.1-0.8); Absolute Neutrophil Count 7.98 10^3/uL (1.2-6.7); Basophils % 0.3; HCT 36.4 % (36.0-46.0); HGB 12.4 g/dL (11.2-15.7); Immature Grans % 0.4; Lymphocytes % 17.5; MCH 28.1 pg (27.0-33.0); MCHC 34.1 % (32.0-36.0); MCV 83 fL (80-95); MPV 9.1 fL (8.0-11.0); Neutrophils % 77.8; Platelet Count 161 10^3/uL (130-400); RBC 4.41 10^6/uL (3.93-5.22); RDW 17.5 % (11.7-14.6); WBC 10.25 10^3/uL (4.4-10.8)
[2022-11-29 13:16] LABS: Bilirubin Negative (Negative); Blood Negative (Negative); Clarity Clear (Clear); Glucose Negative (Negative); Ketones Negative (Negative); Leukocyte Esterase Negative (Negative); Nitrite Negative (Negative); Urobilinogen 0.2 mg/dL (Up to 0.2); pH 5.5 (5-8)
[2022-11-29 13:27] LABS: ALT 27 U/L (14-59); AST 19 U/L (15-37); Albumin 4.2 g/dL (3.4-5.0); Alkaline Phosphatase 90 U/L (46-116); Anion Gap 8.2 mmol/L (3-11); BUN 15 mg/dL (7-18); Bilirubin, Total 0.8 mg/dL (0.2-1.0); CO2 27.8 mmol/L (21.0-32.0); CREATININE 0.7 mg/dL (0.55-1.02); Calcium 9.5 mg/dL (8.5-10.1); Chloride 101 mmol/L (98-107); Estimated GFR 106.62 (mL/min/1.73m2); Glucose 77 mg/dL (74-106); Potassium 3.4 mmol/L (3.5-5.1); Sodium 137 mmol/L (136-145)
[2022-11-29 13:28] LABS: Lipase > 375 U/L (16-77)
[2022-11-29] MEDS: Normal Saline - Diluent 50 ML VIAL IJ (13:59)
[2022-11-29] MEDS: Omnipaque 350 MG/ML 500 ML BTL-Imaging package 100 ML IJ (14:01)
--- NOTE | 2022-11-29 14:10 | DI.CT_ITS ---
Exam(s) CT ABDOMEN PELVIS W EXAM: CT ABDOMEN PELVIS W CLINICAL HISTORY: diffuse abd pain, started LLQ, peritoneal exam. TECHNIQUE: Imaging Protocol: Axial computed tomography images with coronal and sagittal reformatted images were created and reviewed CONTRAST MATERIAL: Intravenous: Omnipaque-350 100cc Oral: None COMPARISON: CT CT ABDOMEN PELVIS W from 02/20/2022 FINDINGS: VISUALIZED LUNG BASES: No nodules nor pleural effusions evident. ABDOMEN: There is no ascites. LIVER: There are no focal hepatic lesions evident. No dilated intrahepatic ducts. GALLBLADDER/BILIARY: No obvious gallbladder pathology. CBD is not dilated. PANCREAS: There is abnormal streaking in the fat adjacent to the pancreatic tail consistent with prob able pancreatitis. This tracks towards the spleen. The pancreatic duct is not dilated. There are n o pancreatic masses evident. Uncinate process retains normal triangular configuration. SPLEEN: Spleen is enlarged. Splenic vein exhibits diameter 1.4 cm but is not thrombosed. No intrasp lenic lesions. Cephalocaudal measurement of the spleen is 16.5 cm. Liver size upper normal. ADRENALS: There are no significant adrenal masses. KIDNEYS:No cysts evident. No solid renal masses. No calculi nor hydronephrosis.. ABDOMINAL AORTA: Abdominal aorta is not enlarged. LYMPH NODES:There is no retroperitoneal nor paraaortic adenopathy. ABDOMINAL WALL: No evidence of significant anterior abdominal wall nor inguinal hernia. GI: There is no evidence of bowel obstruction, free air, nor abscess. PELVIS: GI: No evidence of appendicitis.Done in sigmoid but without evidence of acute diverticular disease. LYMPH NODES: There is no intrapelvic nor inguinal adenopathy. REPRODUCTIVE: Uterus is again noted to be surgically absent. However, above the urinary bladder is a large cystic structure measuring 5 cm AP by 4.3 cm craniocaudal by 5.5 cm wide. This appears uniloc ular and is probably an ovarian cyst. The pelvic ureters are not dilated. This subjacent urinary bl adder appears unremarkable. No free fluid in the pelvis. URINARY BLADDER: Unremarkable. OSSEOUS: No fractures and no significant osseous lesions. IMPRESSION: 1. Compared to the prior CT scan of 02/20/2022 there is now abnormal streaking in the fat surrounding the pancreatic tail consistent with probable pancreatitis. No formed pseudocyst. Pancreatic duct i s not dilated. No obvious pancreatic masses evident. 2. Splenomegaly is again noted. 3. Uterus is surgically absent. However, there is a 5 x 4.3 x 5.5 cm cystic structure just above the urinary bladder which is probably an ovarian cyst. This appears unilocular and there is no associat ed free fluid in the pelvis. 4. Appendix appears unremarkable. No diverticulitis. Called by myself to the ER physician. RADIATION DOSE DELIVERED: Total DLP DATA REPOSITORY: All CT scans at this facility are submitted to the National Radiology Data Registry (NRDR) Dose Index Registry (DIR) with the [employer] (ACR). RADIATION OPTIMIZATION: All CT scans at this facility use at least one of these dose optimization te chniques: automated exposure control; mA and/or kV adjustment per patient size (includes targeted exa ms where dose is matched to clinical indication); or iterative reconstruction.
--- NOTE | 2022-11-29 15:00 | DI.US_ITS ---
Exam(s) US ABDOMEN LIMITED EXAM: US ABDOMEN LIMITED CLINICAL HISTORY: pancreatitis, RUQ TECHNIQUE: Ultrasound abdomen performed using standard protocol. COMPARISON: US US ABDOMEN LIMITED from 02/25/2022 FINDINGS: There is no ascites evident. LIVER: There are no hepatic lesions evident nor dilatation of intrahepatic ducts. GALLBLADDER/BILIARY: There are no gallstones. No gallbladder wall edema nor pericholecystic fluid. The common hepatic duct isnot dilated, measuring 3-4mm at the level of luna hepatis. PANCREAS: Pancreatic tail is obscured by overlying bowel gas. Body, neck, and head of the pancreas a ppear unremarkable. The pancreatic duct is not dilated. RIGHT KIDNEY:No evidence of solid mass, calculus, nor hydronephrosis. No cortical cysts evident. IMPRESSION: 1. No evidence of cholelithiasis nor dilatation of the biliary tree. 2. No other significant ultrasound findings in the right upper quadrant. 3. The tail the pancreas is obscured by overlying bowel gas. Please note that CT scan today reveale d peripancreatic streaking in the fat adjacent to the pancreatic tail suspicious for pancreatitis. DATA REPOSITORY:
[2022-11-29 16:47] LABS: Source Nasal/Nares
[2022-11-29 17:17] LABS: COVID-19 PCR Negative (Negative)
[2022-11-29] MEDS: Normal Saline Flush 10 ML SYR IVP (17:52)
[2022-11-29] MEDS: HYDROmorphone 2 MG/ML SYR IVP ×2 (17:56→23:55)
[2022-11-29] MEDS: Prochlorperazine 10 MG/2 ML VIAL 5 MG IVP (18:07)
--- NOTE | 2022-11-29 18:17 | HPE_ITS ---
Date of service: 11/29/22 Time of Service: 18:18 Assessment and Plan Assessment and plan (1) Acute pancreatitis: Status: Acute Assessment and plan: Will monitor lipase and clinical progression PRN analgesic and antiemetics medicine IVF overnight (2) GERD (gastroesophageal reflux disease): Status: Chronic Assessment and plan: Pantoprazole daily (3) Pain management: Status: Acute Assessment and plan: Hydromorphone PRN (4) Hypokalemia: Status: Acute Assessment and plan: Potassium replete, BMP in AM (5) Nausea: Status: Acute Assessment and plan: Prochlorperazine PRN (6) Encounter for deep vein thrombosis (DVT) prophylaxis: Status: Acute Assessment and plan: Patient is not a candidate for DVT prophylaxsis (7) Discharge planning issues: Status: Acute Assessment and plan: CM consulted for new discharge needs None at this time History of Present Illness History of Present Illness Chief Complaint: Abdominal , epigastric pain N arrative: This 46 yo female patient with a PMHx of fibromyalgia, IBS, NELSON (not using her CPAP), on terzepatide for weight management until 3 weeks ago presented to the ED at [facility] today with c/o abdominal pain with rebound tenderness waking her up at 5 AM. She denies nausea, vomiting but reports increased belching. She denied chills, fever, diarrhea, or constipation In the ED her abdominal CT showed abnormal streaking in the fat adjacent to the pancreatic tail consistent with probable pancreatitis, tracking to toward the spleen. The patient's blood work was noticeable for Lipase over 375 and potassium 3.4, otherwise unremarkable. Her abdominal ultrasound showed no evidence of cholelithiasis nor dilatation of the biliary tree. In the ED the patient was treated with IVF and analgesics.The hospitalist was contacted and the patient was admitted to the medical surgical floor for evaluatiion and management of acute pancreatitis.. Review of Systems Constitutional Constitutional: Denies chills, Denies excessive sweating, Reports fatigue, Denies headache(s), Denies lethargy, Reports malaise, Reports poor appetite and Denies weakness Eyes Eyes: Denies change in vision, Denies photophobia and Denies tunnel vision ENT Ears, Nose, Mouth, and Throat: Denies change in voice, Denies dysphagia, Denies vertigo, Denies dizziness, Reports dry mouth, Denies headache(s), Denies neck pain and Denies odynophagia Cardiovascular Cardiovascular: Denies chest pain, Reports edema, Denies radiating jaw, neck or arm pain, Denies palpitations, Denies dyspnea, Denies dyspnea on exertion, Denies orthopnea and Denies paroxysmal nocturnal dyspnea Respiratory Respiratory: Denies dyspnea and Denies dyspnea on exertion Gastrointestinal Gastrointestinal: Reports abdominal pain, Reports belching, Denies melena, Denies hematochezia, Denies constipation, Reports cramping, Denies dysphagia, Reports dyspepsia, Reports heartburn, Denies fecal incontinence, Denies diarrhea, Denies loose stools, Reports nausea, Denies odynophagia, Denies vomiting and Denies hematemesis Genitourinary Genitourinary: Denies urinary frequency and Denies difficulty voiding Musculoskeletal Musculoskeletal: Denies arthralgias, Denies joint swelling, Denies limited range of motion, Denies muscle weakness, Denies neck pain and Reports numbness (left ankle post- trauma and repair in 2021) Integumentary/Breasts Skin/Breast: Denies bleeding lesions Neurologic Neurologic: Denies confusion, Denies vertigo, Denies dizziness, Denies headache(s), Denies memory loss, Reports numbness (left ankle post- trauma and repair in 2021) and Denies weakness Psychiatric Psychiatric: Denies confusion, Denies irritability, Denies memory loss, Denies mood swings and Denies panic attacks Endocrine Endocrine: Denies excessive sweating, Reports fatigue, Denies flushing, Denies polyphagia, Denies polydipsia and Denies palpitations Hematologic/Lymphatic Hematologic/Lymphatic: Denies easy bleeding, Denies easy bruising and Denies lymphadenopathy PFSH All Active Problems (Updated 11/29/22 @ 20:38 by Mayra Reece APRN) Nausea (Acute) Pain management (Acute) GERD (gastroesophageal reflux disease) (Chronic) Encounter for deep vein thrombosis (DVT) prophylaxis (Acute) Hypokalemia (Acute) Discharge planning issues (Acute) Acute pancreatitis (Acute) No-show for appointment (Acute) H/O tubal ligation (Chronic) Vitamin D deficiency (Acute) 05/2018 Vit D level 15.4 ng/mL. Rx 50K Vit D/week. BMI 30.0-30.9,adult (Acute) 05/2018 BMI 39 Abnormal glandular Papanicolaou smear of cervix (Acute) Fibromyalgia (Acute) Arthralgia, chronic neck pain, low back pain, chronic radicular pain of lower extremities Fatigue (Acute) Anxiety (Chronic) Depression (Chronic) Sleep apnea (Chronic) Palpitations (Acute) Migraine with aura (Acute) Heavy menstrual bleeding (Acute) History of basal cell carcinoma (Acute) PMDD (premenstrual dysphoric disorder) (Acute) Treated with increased dose of sertraline 1 week prior to onset of menses Stress incontinence (Chronic) With component of urinary frequency and urgency 09/2018. Refer to pelvic floor PT at [facility]. Had one visit did not reach Medical History Aftercare for healing traumatic fracture of lower leg Arthralgia Chronic neck pain Chronic radicular pain of lower extremity Low back pain Obesity Suicidal ideation Surgical History Ganglion cyst S/P removal on wrist Family History Other Diabetes Heart disease Uterine cancer Social History Smoking/Tobacco Use Status: Never Smoking risk assessment performed?: Yes Alcohol Intake: current Alcohol Intake frequency: holidays/special occasions only Details: Drinks less than 1 alcoholic beverage per month Drug use: Never Substance use type: marijuana Household members: children Housing: house Number of Children: 5 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 [employer] Sexually active: No (Not in relationship) Do you feel safe at home: Yes Do you feel safe in your relationship?: Yes Additional Social history: Children: Sandro, Fatuma, [place], Curt, Justa Female Reproductive History Menstrual Age of Menarche: 11 Duration of menses: 3-5 days control method: permanent sterilization (BTL) History History 2 5 Para Hx # Term Pregnancies 5 Multiple births Hx # Pregnancies Ectopic pregnancies AB induced Hx Number of Living Children AB spontaneous Meds Allergies and Home Medications Allergies Allergy/AdvReac Type Severity Reaction Status Date / Time dicyclomine [From Bentyl] Allergy Mild Verified 11/29/22 11:10 adhesive tape Allergy Skin Rash Unverified 11/29/22 11:10 Penicillins Allergy Hives Unverified 11/29/22 11:10 Home Medications Medication Instructions Recorded Confirmed Type ibuprofen 800 mg tablet 800 mg PO TID #30 tab-caps 08/22/17 11/29/22 History sertraline 100 mg tablet 100 mg PO DAILY 12/18/19 11/29/22 History mirabegron 25 mg tablet,extended 25 mg PO DAILY 02/20/22 11/29/22 History release 24 hr (Myrbetriq) pantoprazole 40 mg tablet,delayed 40 mg PO DAILY 02/20/22 11/29/22 History release Exam Narrative Exam Narrative: Constitutional The patient is lying in bed comfortable pain down to 4/10 and cooperative during the interview. The patient is well groomed without acute distress, sleepy; has average body habitus HENMT: Head is atraumatic, normocephalic, no lymphadenopathy. Facial structures with normal appearance Eyes: Well aligned Neck: Normal ROM, Neuro:alert and oriented to self, person, place time and situation. No neurological focal deficit Chest:Chest is symmetrical and normal appearance Resp: Normal respiratory pattern, speaks in full sentences, unlabored breathing, clear lung bilaterally Cardio: regular rhythm, S1, S2, no murmur, capillary refill<3 sec., bilateral radial and dorsalis pedis pulses are positive, palpable GI: Abdomen is not distended, soft and tender, bowel sounds are hyperactive : no bladder distension Back/spine/Pelvis: No back tenderness, normal alignment Integumentary: No skin lesions or rash, bruising to the abdoinal area Extremities: strength 5/5 to bilateral lower and upper extremities Psych: RASS 0, congruent mood and normal affect. Results Labs 11/29/22 12:53 11/29/22 12:53 Labs: Laboratory Results - last 24 hr 11/29/22 11/29/22 11/29/22 12:34 12:44 12:53 WBC 10.25 RBC 4.41 Hgb 12.4 Hct 36.4 MCV 83 MCH 28.1 MCHC 34.1 RDW 17.5 H Plt Count 161 MPV 9.1 Immature Gran % 0.4 Neutrophils % 77.8 Lymphocytes % 17.5 Monocytes % 4.0 Eosinophils % 0.0 Basophils % 0.3 Nucleated RBC % 0.0 Absolute Neutrophils 7.98 H Absolute Lymphocytes 1.79 Absolute Monocytes 0.41 Absolute Eosinophils 0.00 Absolute Basophils 0.03 VBG Lactate 0.6 Sodium 137 Potassium 3.4 L Chloride 101 Carbon Dioxide 27.8 Anion Gap 8.2 BUN 15 Creatinine 0.7 Est GFR (CKD-EPI 2020) 106.62 Glucose 77 Calcium 9.5 Total Bilirubin 0.8 AST 19 ALT 27 Alkaline Phosphatase 90 Total Protein 8.0 Albumin 4.2 Lipase > 375 H Urine Color Yellow Urine Clarity Clear Urine pH 5.5 Ur Specific [place] 1.020 Urine Protein Negative Urine Ketones Negative Urine Blood Negative Urine Nitrite Negative Urine Bilirubin Negative Urine Urobilinogen 0.2 Ur Leukocyte Esterase Negative Urine Glucose Negative COVID-19 Source SARS-CoV-2 (PCR) Patient ABO/Rh A Negative Antibody Screen NEGATIVE 11/29/22 16:30 WBC RBC Hgb Hct MCV MCH MCHC RDW Plt Count MPV Immature Gran % Neutrophils % Lymphocytes % Monocytes % Eosinophils % Basophils % Nucleated RBC % Absolute Neutrophils Absolute Lymphocytes Absolute Monocytes Absolute Eosinophils Absolute Basophils VBG Lactate Sodium Potassium Chloride Carbon Dioxide Anion Gap BUN Creatinine Est GFR (CKD-EPI 2020) Glucose Calcium Total Bilirubin AST ALT Alkaline Phosphatase Total Protein Albumin Lipase Urine Color Urine Clarity Urine pH Ur Specific [place] Urine Protein Urine Ketones Urine Blood Urine Nitrite Urine Bilirubin Urine Urobilinogen Ur Leukocyte Esterase Urine Glucose COVID-19 Source Nasal/Nares SARS-CoV-2 (PCR) Negative Patient ABO/Rh Antibody Screen Last Vital Signs Temp 37.0 C 11/29/22 11:04 Pulse 80 11/29/22 15:31 Resp 11 L 11/29/22 15:32 BP 115/69 11/29/22 15:31 Pulse Ox 99 11/29/22 16:30 Time Spent Time spent with Patient: >75 minutes Time was spent: preparing to see the patient(eg.review tests), obtaining and/or reviewing separately otained hiistory, ordering medications,tests, procedures, referring, communicating with other health managed care provider, indepentently interpreting results, counseling the patient and care coordination
[2022-11-29] MEDS: POTASSIUM CHLORIDE 20 MEQ/100 ML BAG 50 MEQ IVPB (20:32)
[2022-11-29] MEDS: Mirabegron 25 MG TABCR PO (21:51)
[2022-11-29] MEDS: Cyclobenzaprine 10 MG TAB PO (21:51)
[2022-11-30] MEDS: Lactated Ringers 1,000 ML 125 ML IV ×2 (01:23→10:12)
[2022-11-30] MEDS: HYDROmorphone 2 MG/ML SYR IVP ×6 (04:53→21:49)
[2022-11-30 04:55] VITALS: BP 101/66; PULSE 97; RESP 18; TEMP 36.3; O2SAT 100
[2022-11-30] MEDS: Prochlorperazine 10 MG/2 ML VIAL 5 MG IVP ×4 (04:57→19:36)
[2022-11-30 07:13] LABS: Abs Immature Grans 0.02 10^3/uL (0.0-0.06); Absolute Basophil Count 0.03 10^3/uL (0.0-0.2); Absolute Lymphocyte Count 1.22 10^3/uL (1.2-3.4); Basophils % 0.4; HCT 31.7 % (36.0-46.0); HGB 10.9 g/dL (11.2-15.7); Immature Grans % 0.3; Lymphocytes % 15.7; MCH 28.5 pg (27.0-33.0); MCHC 34.4 % (32.0-36.0); MCV 83 fL (80-95); Monocytes % 6.4; Neutrophils % 77.2; Platelet Count 128 10^3/uL (130-400); RBC 3.83 10^6/uL (3.93-5.22); RDW 17.4 % (11.7-14.6); RDW-SD 51.8 fL; WBC 7.77 10^3/uL (4.4-10.8)
[2022-11-30 07:22] VITALS: BP 96/63; PULSE 89; RESP 17; TEMP 36.7; O2SAT 98
[2022-11-30 07:32] LABS: Anion Gap 8.2 mmol/L (3-11); BUN 11 mg/dL (7-18); CO2 26.8 mmol/L (21.0-32.0); CREATININE 0.7 mg/dL (0.55-1.02); Calcium 8.9 mg/dL (8.5-10.1); Calculated LDL 104 mg/dL (<100); Chloride 104 mmol/L (98-107); Cholesterol 178 mg/dL (<200); Estimated GFR 106.62 (mL/min/1.73m2); Glucose 105 mg/dL (74-106); HDL Cholesterol 40 mg/dL (40-60); Potassium 3.9 mmol/L (3.5-5.1); Sodium 139 mmol/L (136-145); Triglyceride 172 mg/dL (<150)
[2022-11-30 07:39] LABS: Lipase 235 U/L (16-77)
[2022-11-30] MEDS: Pantoprazole 40 MG TABCR PO ×2 (07:46→21:41)
--- NOTE | 2022-11-30 09:09 | PDOC.CMIN ---
Date of service: 11/30/22 Time of Service: 09:09 Care Management Initial Assmt Initial Assessment REASON FOR HOSPITALIZATION:: pancreatitis PREVIOUS FUNCTIONAL STATUS/SOCIAL/FAMILY SUPPORTS:: Anya lives in [place], [place]. with her Sanju. They have adult children and 5 grandchildren. Anya also has shared custody for her 14 year old daughter. 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 She is independent at baseline and does not receive any community services. CURRENT FUNCTIONAL STATUS:: Anya was sitting up in bed visiting with her Sanju when CM met with her. She was in good spirits and informed CM that she is feeling better. She has had some jello and other clear liquids and has tolerated them well. Anya shared that she and Sanju have plans on Tuesday so are hoping she may be ready for discharge before then. ADVANCE DIRECTIVES:: none on file Has patient been provided with info about the portal/API?: Yes Did the patient sign up for the portal?: No CODE STATUS:: Full Code INSURANCE COVERAGE / FINANCIAL ISSUES:: Medicaid CURRENT HOME/COMMUNITY SERVICES/EQUIPMENT:: none currently PRIMARY CARE PHYSICIAN:: Aida Acuña POTENTIAL DISCHARGE NEEDS:: follow up with PCP and plan of care PATIENT/FAMILY EDUCATION NEEDS:: Review of discharge instructions, limitations, follow up plan, discuss Ask Me Three TRANSPORTATION:: via private vehicle with family PLAN:: Anticipate Anya will be discharged home with no new services. She will follow up with her community providers and plan of care and transport with family. CM will continue to support Anya and her discharge planning needs. PFSH All Active Problems (Updated 11/29/22 @ 20:38 by Mayra Reece APRN) Nausea (Acute) Pain management (Acute) GERD (gastroesophageal reflux disease) (Chronic) Encounter for deep vein thrombosis (DVT) prophylaxis (Acute) Hypokalemia (Acute) Discharge planning issues (Acute) Acute pancreatitis (Acute) No-show for appointment (Acute) H/O tubal ligation (Chronic) Vitamin D deficiency (Acute) 05/2018 Vit D level 15.4 ng/mL. Rx 50K Vit D/week. BMI 30.0-30.9,adult (Acute) 05/2018 BMI 39 Abnormal glandular Papanicolaou smear of cervix (Acute) Fibromyalgia (Acute) Arthralgia, chronic neck pain, low back pain, chronic radicular pain of lower extremities Fatigue (Acute) Anxiety (Chronic) Depression (Chronic) Sleep apnea (Chronic) Palpitations (Acute) Migraine with aura (Acute) Heavy menstrual bleeding (Acute) History of basal cell carcinoma (Acute) PMDD (premenstrual dysphoric disorder) (Acute) Treated with increased dose of sertraline 1 week prior to onset of menses Stress incontinence (Chronic) With component of urinary frequency and urgency 09/2018. Refer to pelvic floor PT at [facility]. Had one visit did not reach Medical History Aftercare for healing traumatic fracture of lower leg Arthralgia Chronic neck pain Chronic radicular pain of lower extremity Low back pain Obesity Suicidal ideation Surgical History Ganglion cyst S/P removal on wrist Family History Other Diabetes Heart disease Uterine cancer Social History Smoking/Tobacco Use Status: Never Smoking risk assessment performed?: Yes Alcohol Intake: current Alcohol Intake frequency: holidays/special occasions only Details: Drinks less than 1 alcoholic beverage per month Drug use: Never Substance use type: marijuana Household members: children Housing: house Number of Children: 5 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
--- NOTE | 2022-11-30 09:18 | PGE_ITS ---
Date of Service Date of service: 11/30/22 Time of Service: 09:18 Assessment and Plan Assessment and plan (1) Acute pancreatitis: Status: Acute Assessment and plan: Still no leukocytosis and remains afebrile, lipase this AM 235 from over 375. But triglycerides are 172, LDL 104, calcium remains adequate at 8.9.; hypertryglyceridemia: considering PCP management as it is not high enough to alter the course of treatment We will keep monitoring lipase and clinical progression Will continue PRN analgesic and antiemetics medicine IVF overnight but BPs 91/60 to 101/66, considering providing ideal weight based hydration if patient cannot tolerate adequate oral fluid intake: LR at 95cc/hr (2) GERD (gastroesophageal reflux disease): Status: Chronic Assessment and plan: Will continue pantoprazole daily (3) Pain management: Status: Acute Assessment and plan: Continue hydromorphone PRN Consider acetaminophen PRN as pain is decreased (4) Hypokalemia: Status: Acute Assessment and plan: Potassium 3.9 , we will monitor,BMP in AM (5) Nausea: Status: Acute Assessment and plan: Continue Prochlorperazine PRN (6) Encounter for deep vein thrombosis (DVT) prophylaxis: Status: Acute Assessment and plan: Will continue Lovenox as pancreatitis is a procoagulable state (7) Discharge planning issues: Status: Acute Assessment and plan: CM consulted for new discharge needs None at this time Subjective Subjective Patient reports: no new complaints, feels better, still having pain (The patient reports that pain is well manage with current pain medicine regimen), tolerating liquids well, tolerating a regular diet, voiding w/o difficulty, bowel movement, nausea, afebrile and other (night sweats); denies flatus, diarrhea, vomiting or shortness of breath Exam Narrative Exam Narrative: Constitutional The patient is lying in bed and cooperative during the interview. The patient is well groomed without acute distress and has average body habitus/is obese/ is thin. HENMT: Head is atraumatic, normocephalic, Eyes: Well aligned, intact ROM Neck: Normal ROM, Neuro:alert and oriented to self, person, place, time and situation. No neurol ogical focal deficit Chest:Chest is symmetrical and normal appearance Resp: Normal respiratory pattern, speaks in full sentences, unlabored breathing, clear lung bilaterally Cardio: regular rhythm, S1, S2, no murmur, capillary refill<3 sec., bilateral radial and dorsalis pedis pulses are positive, palpable GI: Abdomen is not distended, soft and tender, bowel sounds are present : Negative Costovertebral angle tenderness, no bladder distension Back/spine/Pelvis: No back tenderness, normal alignment Integumentary: No skin lesions or rash Extremities: strength 5/5 to bilateral lower and upper extremities Psych: RASS 0, congruent mood and normal affect. Objective Last Vital Signs Temp 36.7 C 11/30/22 07:22 Pulse 89 11/30/22 07:22 Resp 17 11/30/22 07:22 BP 96/63 L 11/30/22 07:22 Pulse Ox 98 11/30/22 07:22 Laboratory Results - last 24 hr 11/29/22 11/29/22 11/29/22 12:34 12:44 12:53 WBC 10.25 RBC 4.41 Hgb 12.4 Hct 36.4 MCV 83 MCH 28.1 MCHC 34.1 RDW 17.5 H Plt Count 161 MPV 9.1 Immature Gran % 0.4 Neutrophils % 77.8 Lymphocytes % 17.5 Monocytes % 4.0 Eosinophils % 0.0 Basophils % 0.3 Nucleated RBC % 0.0 Absolute Neutrophils 7.98 H Absolute Lymphocytes 1.79 Absolute Monocytes 0.41 Absolute Eosinophils 0.00 Absolute Basophils 0.03 VBG Lactate 0.6 Sodium 137 Potassium 3.4 L Chloride 101 Carbon Dioxide 27.8 Anion Gap 8.2 BUN 15 Creatinine 0.7 Est GFR (CKD-EPI 2020) 106.62 Glucose 77 Calcium 9.5 Total Bilirubin 0.8 AST 19 ALT 27 Alkaline Phosphatase 90 Total Protein 8.0 Albumin 4.2 Triglycerides Total Cholesterol LDL Cholesterol, Calc HDL Cholesterol Lipase > 375 H Urine Color Yellow Urine Clarity Clear Urine pH 5.5 Ur Specific [place] 1.020 Urine Protein Negative Urine Ketones Negative Urine Blood Negative Urine Nitrite Negative Urine Bilirubin Negative Urine Urobilinogen 0.2 Ur Leukocyte Esterase Negative Urine Glucose Negative COVID-19 Source SARS-CoV-2 (PCR) Patient ABO/Rh A Negative Antibody Screen NEGATIVE 11/29/22 11/30/22 16:30 06:50 WBC 7.77 RBC 3.83 L Hgb 10.9 L Hct 31.7 L MCV 83 MCH 28.5 MCHC 34.4 RDW 17.4 H Plt Count 128 L MPV 9.0 Immature Gran % 0.3 Neutrophils % 77.2 Lymphocytes % 15.7 Monocytes % 6.4 Eosinophils % 0.0 Basophils % 0.4 Nucleated RBC % 0.0 Absolute Neutrophils 6.00 Absolute Lymphocytes 1.22 Absolute Monocytes 0.50 Absolute Eosinophils 0.00 Absolute Basophils 0.03 VBG Lactate Sodium 139 Potassium 3.9 Chloride 104 Carbon Dioxide 26.8 Anion Gap 8.2 BUN 11 Creatinine 0.7 Est GFR (CKD-EPI 2020) 106.62 Glucose 105 Calcium 8.9 Total Bilirubin AST ALT Alkaline Phosphatase Total Protein Albumin Triglycerides 172 H Total Cholesterol 178 LDL Cholesterol, Calc 104 H HDL Cholesterol 40 Lipase 235 H Urine Color Urine Clarity Urine pH Ur Specific [place] Urine Protein Urine Ketones Urine Blood Urine Nitrite Urine Bilirubin Urine Urobilinogen Ur Leukocyte Esterase Urine Glucose COVID-19 Source Nasal/Nares SARS-CoV-2 (PCR) Negative Patient ABO/Rh Antibody Screen Time Spent with Patient Time Spent with Patient: 35-49 minutes Time was spent: preparing to see the patient(eg.review tests), ordering medications,tests, procedures, referring, communicating with other health clinical care manager, indepentently interpreting results, counseling the patient and care coordination
[2022-11-30] MEDS: Enoxaparin 40 MG/0.4 ML SYR SC (10:13)
[2022-11-30 11:09] VITALS: BP 110/74; PULSE 101; RESP 16; TEMP 35.9; O2SAT 97
[2022-11-30 14:56] VITALS: BP 105/68; PULSE 99; RESP 16; TEMP 37.5; O2SAT 99
[2022-11-30] MEDS: Normal Saline Flush 10 ML SYR IVP (15:37)
--- NOTE | 2022-11-30 19:02 | NUR.NOTE ---
When using the pyxis, when removing Dilodid I pulled 2mg and did not waste one. Did not actually waste 1mg for both removals. Witnessed by Concetta.Nursing Note:
[2022-11-30] MEDS: Lactated Ringers 1,000 ML 95 ML IV (19:38)
[2022-11-30] MEDS: Cyclobenzaprine 10 MG TAB PO (21:40)
[2022-11-30] MEDS: Sertraline 100 MG TAB PO (21:40)
[2022-11-30] MEDS: Mirabegron 25 MG TABCR PO (21:40)
[2022-11-30 21:42] VITALS: BP 112/74; PULSE 100; RESP 18; TEMP 37; O2SAT 96
[2022-12-01] MEDS: Prochlorperazine 10 MG/2 ML VIAL 5 MG IVP ×2 (03:44→08:10)
[2022-12-01] MEDS: HYDROmorphone 2 MG/ML SYR IVP ×2 (03:44→08:11)
[2022-12-01] MEDS: Lactated Ringers 1,000 ML 95 ML IV (05:43)
[2022-12-01 06:52] VITALS: BP 97/65; PULSE 98; RESP 20; TEMP 37.1; O2SAT 96
[2022-12-01 07:26] LABS: Abs Immature Grans 0.02 10^3/uL (0.0-0.06); Absolute Basophil Count 0.02 10^3/uL (0.0-0.2); Absolute Lymphocyte Count 1.19 10^3/uL (1.2-3.4); Absolute Monocyte Count 0.47 10^3/uL (0.1-0.8); Absolute Neutrophil Count 6.01 10^3/uL (1.2-6.7); Basophils % 0.3; HCT 27.9 % (36.0-46.0); HGB 9.9 g/dL (11.2-15.7); Immature Grans % 0.3; Lymphocytes % 15.4; MCH 28.9 pg (27.0-33.0); MCHC 35.5 % (32.0-36.0); MCV 82 fL (80-95); MPV 9.6 fL (8.0-11.0); Monocytes % 6.1; Neutrophils % 77.9; Platelet Count 118 10^3/uL (130-400); RBC 3.42 10^6/uL (3.93-5.22); RDW 17.2 % (11.7-14.6); RDW-SD 50.2 fL; WBC 7.71 10^3/uL (4.4-10.8)
[2022-12-01 07:39] LABS: Anion Gap 8.9 mmol/L (3-11); BUN 5 mg/dL (7-18); CO2 27.1 mmol/L (21.0-32.0); CREATININE 0.6 mg/dL (0.55-1.02); Chloride 103 mmol/L (98-107); Estimated GFR 110.65 (mL/min/1.73m2); Glucose 96 mg/dL (74-106); Magnesium 1.9 mg/dL (1.8-2.4); Potassium 3.6 mmol/L (3.5-5.1); Sodium 139 mmol/L (136-145)
[2022-12-01] MEDS: Normal Saline Flush 10 ML SYR IVP (08:10)
--- NOTE | 2022-12-01 08:30 | RESPIRATORY ---
Spoke with patient about NELSON diagnosis and patient advised she had a home CPAP 5+ years ago but couldn't tolerate wearing the mask so she returned it to [facility]. Patient has recently lost 50+ pounds and feels that she sleeps better at night and doesn't have the issues she used to
--- NOTE | 2022-12-01 09:34 | W.PM.DS.N ---
Date of service: 12/01/22 Time of Service: 09:34 DS: Diagnosis Discharge Diagnosis (1) Acute pancreatitis: Status: Acute (2) GERD (gastroesophageal reflux disease): Status: Chronic (3) Pain management: Status: Acute (4) Hypokalemia: Status: Acute (5) Nausea: Status: Acute (6) Encounter for deep vein thrombosis (DVT) prophylaxis: Status: Acute (7) Discharge planning issues: Status: Acute Discharge Plan Disposition Patient Disposition: Home Condition: Improving Discharge Details Reason For Visit: Acute Pancreatitis Admit Date/Time: 11/29/22 14:56 Admit Provider: Hector Herrera Attending Provider: Hector Herrera Primary Care Provider: Aida Acuña Home Meds and New Rx's Prescriptions: No Action ibuprofen 800 MG tablet 800 mg PO TID Qty: 30 sertraline 100 mg tablet 100 mg PO DAILY Patient Comments: Takes 200 mg daily pantoprazole 40 mg tablet,delayed release (DR/EC) 40 mg PO DAILY Patient Comments: once a day Myrbetriq 25 mg tablet extended release 24 hr 25 mg PO DAILY Patient Comments: take 1 tablet by mouth once daily Discharge Instructions Referrals: Aida Acuña [Primary Care Provider] - (This 46 yo female patient with a PMHx of fibromyalgia, IBS, NELSON (not using her CPAP), on terzepatide for weight management until 3 weeks ago presented to the ED at [facility] today with c/o abdominal pain with rebound tenderness waking her up at 5 AM. She denies nausea, vomiting but reports increased belching. She denied chills, fever, diarrhea, or constipation In the ED her abdominal CT showed abnormal streaking in the fat adjacent to the pancreatic tail consistent with probable pancreatitis, tracking to toward the spleen. Had a GI appointment that was missed in 02/2022 after episodes of bilious emesis. H&H was 9.9 and 27.9 on discharge most likely dilutional, CBC outpatient ordered for the office to review, please.) Activity:: Activity as Tolerated Equipment/Supplies:: No Equipment Needed Diet:: low residue Discharge Orders Other Ambulatory Orders: Complete Blood Count w/Diff (Routine) Timeframe: 20221203 Location: Determined by Patient Ordered By: Mayra Reece DS: Summary Time Spent with Patient providing and/or coordinating discharge services: Greater than 30 minutes Status at Discharge Functional status at discharge: independent ambulation Overall status at discharge: patient is progressing back to baseline Mental Status: mental status grossly normal Speech and Movement: speech and movement normal Mood: congruent mood Affect: normal affect Exam Narrative Exam Narrative: Constitutional The patient is lying in bed and cooperative during the interview. The patient is well groomed without acute distress and has average body habitus/is obese/ is thin. HENMT: Head is atraumatic, normocephalic, Eyes: Well aligned, intact ROM Neck: Normal ROM, Neuro:alert and oriented to self, person, place, time and situation. No neurological focal deficit Chest:Chest is symmetrical and normal appearance Resp: Normal respiratory pattern, speaks in full sentences, unlabored breathing, clear lung bilaterally Cardio: regular rhythm, S1, S2, no murmur, capillary refill<3 sec., bilateral radial and dorsalis pedis pulses are positive, palpable GI: Abdomen is not distended, soft and tender, bowel sounds are present : Negative Costovertebral angle tenderness, no bladder distension Back/spine/Pelvis: No back tenderness, normal alignment Integumentary: No skin lesions or rash Extremities: strength 5/5 to bilateral lower and upper extremities Psych: RASS 0, congruent mood and normal affect. Psych Mental Status: mental status grossly normal Speech and Movement: speech and movement normal Mood: congruent mood Affect: normal affect DS: Data Vitals/I&O Vitals and I&O: Vital Signs Temperature 37.1 C 12/01/22 06:52 Temperature Source Tympanic 12/01/22 06:52 Pulse 98 H 12/01/22 06:52 Pulse Rhythm Regular 11/30/22 23:17 Pulse 81 11/29/22 15:32 Respiratory Rate 20 12/01/22 06:52 Respiratory Effort Normal, Non-Labored 11/30/22 23:17 Respiratory Depth Normal 11/30/22 23:17 Respiratory Pattern Normal 11/30/22 23:17 Blood Pressure 97/65 L 12/01/22 06:52 Blood Pressure Mean 83 11/29/22 15:31 Blood Pressure Position Sitting 11/29/22 11:04 Pulse Oximetry 96 12/01/22 06:52 Oxygen Delivery Method Room Air 12/01/22 06:52 Oxygen Flow Rate 0 12/01/22 06:52 Pain Level 6 12/01/22 08:11 Comment Nurse notified about BP. Manual BP: 100/70 11/30/22 07:22 Intake & Output 11/30/22 11/30/22 12/01/22 11:59 23:59 11:59 Intake Total 2908.334 / 8248.334 5340 / 8248.334 957.917 / 957.917 Output Total 400 / 1700 1300 / 1700 600 / 600 Balance 2508.334 / 6548.334 4040 / 6548.334 357.917 / 357.917 Weight 88.5 kg Intake: IV 2908.334 / 3908.334 1000 / 3908.334 957.917 / 957.917 Oral 4340 / 4340 Output: Urine 400 / 1700 1300 / 1700 600 / 600 Other: Urine Color Straw Yellow Light Brianna Urine Appearance Clear Clear Clear Urine Odor None None Comment Pt toileted themselves Voiding Methods Toilet Toilet Toilet Data Completed and Pending Labs on day of discharge: Labs from last 24 hours 12/01/22 06:20 WBC 7.71 RBC 3.42 L Hgb 9.9 L Hct 27.9 L MCV 82 MCH 28.9 MCHC 35.5 RDW 17.2 H Plt Count 118 L MPV 9.6 Immature Gran % 0.3 Neutrophils % 77.9 Lymphocytes % 15.4 Monocytes % 6.1 Eosinophils % 0.0 Basophils % 0.3 Nucleated RBC % 0.0 Absolute Neutrophils 6.01 Absolute Lymphocytes 1.19 L Absolute Monocytes 0.47 Absolute Eosinophils 0.00 Absolute Basophils 0.02 Sodium 139 Potassium 3.6 Chloride 103 Carbon Dioxide 27.1 Anion Gap 8.9 BUN 5 L Creatinine 0.6 Est GFR (CKD-EPI 2020) 110.65 Glucose 96 Calcium 9.0 Magnesium 1.9 PFSH All Active Problems (Updated 11/29/22 @ 20:38 by Mayra Reece APRN) Nausea (Acute) Pain management (Acute) GERD (gastroesophageal reflux disease) (Chronic) Encounter for deep vein thrombosis (DVT) prophylaxis (Acute) Hypokalemia (Acute) Discharge planning issues (Acute) Acute pancreatitis (Acute) No-show for appointment (Acute) H/O tubal ligation (Chronic) Vitamin D deficiency (Acute) 05/2018 Vit D level 15.4 ng/mL. Rx 50K Vit D/week. BMI 30.0-30.9,adult (Acute) 05/2018 BMI 39 Abnormal glandular Papanicolaou smear of cervix (Acute) Fibromyalgia (Acute) Arthralgia, chronic neck pain, low back pain, chronic radicular pain of lower extremities Fatigue (Acute) Anxiety (Chronic) Depression (Chronic) Sleep apnea (Chronic) Palpitations (Acute) Migraine with aura (Acute) Heavy menstrual bleeding (Acute) History of basal cell carcinoma (Acute) PMDD (premenstrual dysphoric disorder) (Acute) Treated with increased dose of sertraline 1 week prior to onset of menses Stress incontinence (Chronic) With component of urinary frequency and urgency 09/2018. Refer to pelvic floor PT at [facility]. Had one visit did not reach Medical History Aftercare for healing traumatic fracture of lower leg Arthralgia Chronic neck pain Chronic radicular pain of lower extremity Low back pain Obesity Suicidal ideation Surgical History Ganglion cyst S/P removal on wrist Family History Other Diabetes Heart disease Uterine cancer Social History Smoking/Tobacco Use Status: Never Smoking risk assessment performed?: Yes Alcohol Intake: current Alcohol Intake frequency: holidays/special occasions only Details: Drinks less than 1 alcoholic beverage per month Drug use: Never Substance use type: marijuana Household members: children Housing: house Number of Children: 5 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
[2022-12-01 09:54] LABS: Lab Add On Test DONE
[2022-12-01 10:00] LABS: Lipase 55 U/L (16-77)
[2022-12-01] MEDS: Polyethylene Glycol 3350 17 GM PACKET PO (11:02)
[2022-12-01] MEDS: Enoxaparin 40 MG/0.4 ML SYR SC (11:02)
[2022-12-01 12:10] LABS: Bilirubin Negative (Negative); Blood Negative (Negative); Clarity Clear (Clear); Glucose Negative (Negative); Ketones Negative (Negative); Leukocyte Esterase Negative (Negative); Nitrite Negative (Negative); Specific Gravity 1.015 (1.005-1.025)
[2022-12-01] MEDS: traMADol 50 MG TAB PO ×3 (13:42→21:45)
[2022-12-01 14:59] VITALS: BP 94/59; PULSE 100; RESP 20; TEMP 36.6; O2SAT 100
--- NOTE | 2022-12-01 15:04 | W.PM.PROGNOT ---
Date of Service Date of service: 12/01/22 Time of Service: 15:05 Assessment and Plan Assessment and plan (1) Acute pancreatitis: Status: Acute Assessment and plan: Still no leukocytosis and remains afebrile, lipase this AM 77 from over 235. But triglycerides are 172, LDL 104, calcium remains adequate at 8.9.; hypertryglyceridemia: considering PCP management as it is not high enough to alter the course of treatment We will keep monitoring lipase and clinical progression Will continue PRN analgesic, trying oral route and antiemetics medicine IVF overnight but BPs 91/60 to 101/66, considering providing ideal weight based hydration if patient cannot tolerate adequate oral fluid intake: LR stopped and diet advanced Urine remains dark orange and sclera is jaundiced. UA and LFT's ordered (2) GERD (gastroesophageal reflux disease): Status: Chronic Assessment and plan: Will continue pantoprazole daily (3) Pain management: Status: Acute Assessment and plan: Hold hydromorphone PRN and starting Ultram, adjusting dose PRN oxycodone added for sever pain Consider acetaminophen PRN but will wait on LFT's (4) Hypokalemia: Status: Acute Assessment and plan: Resolved BMP in AM (5) Nausea: Status: Acute Assessment and plan: Continue Prochlorperazine PRN (6) Encounter for deep vein thrombosis (DVT) prophylaxis: Status: Acute Assessment and plan: Will continue Lovenox as pancreatitis is a procoagulable state Platelets 118 today will continue to monitor (7) Discharge planning issues: Status: Acute Assessment and plan: CM consulted for new discharge needs None at this time Subjective Subjective Patient reports: no new complaints, feels better, still having pain (The patient reports that pain is well manage with current pain medicine regimen), pain is less (Pain was 4-5/10 ), tolerating liquids well, tolerating a regular diet, voiding w/o difficulty, flatus, shortness of breath and afebrile; denies bowel movement, diarrhea, nausea or vomiting (This Am but X 1 last night ) Exam Narrative Exam Narrative: Constitutional The patient is lying in bed and cooperative during the interview. The patient is well groomed without acute distress and has average body habitus/is obese/ is thin. HENMT: Head is atraumatic, normocephalic, Eyes: Well aligned, intact ROM Neck: Normal ROM, Neuro:alert and oriented to self, person, place, time and situation. No neurological focal deficit Chest:Chest is symmetrical and normal appearance Resp: Normal respiratory pattern, speaks in full sentences, unlabored breathing, clear lung bilaterally Cardio: regular rhythm, S1, S2, no murmur, capillary refill<3 sec., bilateral radial and dorsalis pedis pulses are positive, palpable GI: Abdomen is more distended epigastric region still soft and tender, bowel sounds are present : Negative Costovertebral angle tenderness, no bladder distension Back/spine/Pelvis: No back tenderness, normal alignment Integumentary: No skin lesions or rash Extremities: strength 5/5 to bilateral lower and upper extremities Psych: RASS 0, congruent mood and normal affect. Psych Mental Status: mental status grossly normal Speech and Movement: speech and movement normal Mood: congruent mood Affect: normal affect Objective Last Vital Signs Temp 36.6 C 12/01/22 14:59 Pulse 100 H 12/01/22 14:59 Resp 20 12/01/22 14:59 BP 94/59 L 12/01/22 14:59 Pulse Ox 100 12/01/22 14:59 Laboratory Results - last 24 hr 12/01/22 12/01/22 06:20 11:47 WBC 7.71 RBC 3.42 L Hgb 9.9 L Hct 27.9 L MCV 82 MCH 28.9 MCHC 35.5 RDW 17.2 H Plt Count 118 L MPV 9.6 Immature Gran % 0.3 Neutrophils % 77.9 Lymphocytes % 15.4 Monocytes % 6.1 Eosinophils % 0.0 Basophils % 0.3 Nucleated RBC % 0.0 Absolute Neutrophils 6.01 Absolute Lymphocytes 1.19 L Absolute Monocytes 0.47 Absolute Eosinophils 0.00 Absolute Basophils 0.02 Sodium 139 Potassium 3.6 Chloride 103 Carbon Dioxide 27.1 Anion Gap 8.9 BUN 5 L Creatinine 0.6 Est GFR (CKD-EPI 2020) 110.65 Glucose 96 Calcium 9.0 Magnesium 1.9 Lipase 55 Urine Color Yellow Urine Clarity Clear Urine pH 6.0 Ur Specific [place] 1.015 Urine Protein Negative Urine Ketones Negative Urine Blood Negative Urine Nitrite Negative Urine Bilirubin Negative Urine Urobilinogen 4.0 H Ur Leukocyte Esterase Negative Urine Glucose Negative Add-On Test Request DONE Time Spent with Patient Time Spent with Patient: >50 minutes Time was spent: preparing to see the patient(eg.review tests), ordering medications,tests, procedures, referring, communicating with other health children's zoo caretaker, indepentently interpreting results, counseling the patient and care coordination
[2022-12-01 17:20] LABS: ALT 19 U/L (14-59); AST 22 U/L (15-37); Albumin 3.4 g/dL (3.4-5.0); Alkaline Phosphatase 89 U/L (46-116); Bilirubin, Direct 0.5 mg/dL (0.0-0.2); Bilirubin, Total 1.8 mg/dL (0.2-1.0); Total Protein 6.8 g/dL (6.4-8.2)
--- NOTE | 2022-12-01 17:41 | PDOC.CMPRO ---
Date of service: 12/01/22 Time of Service: 17:42 Care Management Progress Note Progress Note Text Progress Note Text: S/O:Anya anticipated being discharged today as she did so well yesterday. She was able to tolerate a clear liquid diet without an increase in pain. Today Anya did not do as well. She required more pain medication and was not able to eat as much of her full liquid diet. In addition, per provider, Anya's sclera were jaundiced and her urobilinogin went from 0.2 to 4.0. Repeat bloodwork done this afternoon revealed a Total bilirubin of 1.8 and conjugated bilirubin of 0.5. She will remain hospitalized for further evaluation and treatment. A: Anya is a 46 year old woman admitted on 11/29/22 with pancreatitis P:Anticipate Anya will be discharged home with no new services. She will follow up with her community providers and plan of care and transport with family. will continue to support Anya and her discharge planning needs.
[2022-12-01] MEDS: oxyCODONE 5 MG TAB PO (18:58)
[2022-12-01] MEDS: Pantoprazole 40 MG TABCR PO (21:41)
[2022-12-01] MEDS: Sertraline 100 MG TAB PO (21:41)
[2022-12-01] MEDS: Cyclobenzaprine 10 MG TAB PO (21:41)
[2022-12-01] MEDS: Mirabegron 25 MG TABCR PO (21:42)
[2022-12-01 22:38] VITALS: BP 111/77; PULSE 91; RESP 18; TEMP 36.3; O2SAT 97
[2022-12-02] MEDS: oxyCODONE 5 MG TAB PO ×2 (01:55→09:36)
[2022-12-02] MEDS: traMADol 50 MG TAB PO ×2 (06:31→12:09)
[2022-12-02 07:01] LABS: Abs Immature Grans 0.01 10^3/uL (0.0-0.06); Absolute Basophil Count 0.02 10^3/uL (0.0-0.2); Absolute Lymphocyte Count 1.56 10^3/uL (1.2-3.4); Absolute Monocyte Count 0.32 10^3/uL (0.1-0.8); Absolute Neutrophil Count 3.99 10^3/uL (1.2-6.7); Basophils % 0.3; HCT 28.6 % (36.0-46.0); HGB 9.8 g/dL (11.2-15.7); Immature Grans % 0.2; Lymphocytes % 26.4; MCH 28.2 pg (27.0-33.0); MCHC 34.3 % (32.0-36.0); MCV 82 fL (80-95); MPV 9.7 fL (8.0-11.0); Monocytes % 5.4; Neutrophils % 67.7; Platelet Count 134 10^3/uL (130-400); RBC 3.47 10^6/uL (3.93-5.22); RDW 17.1 % (11.7-14.6); RDW-SD 50.4 fL
[2022-12-02 07:14] LABS: Anion Gap 7.1 mmol/L (3-11); BUN 4 mg/dL (7-18); CO2 28.9 mmol/L (21.0-32.0); CREATININE 0.7 mg/dL (0.55-1.02); Calcium 9.1 mg/dL (8.5-10.1); Chloride 105 mmol/L (98-107); Estimated GFR 106.62 (mL/min/1.73m2); Glucose 90 mg/dL (74-106); Potassium 3.6 mmol/L (3.5-5.1); Sodium 141 mmol/L (136-145)
[2022-12-02 07:38] VITALS: BP 109/71; PULSE 86; RESP 17; TEMP 35.6; O2SAT 98
--- NOTE | 2022-12-02 08:42 | PDOC.CMPRO ---
Date of service: 12/02/22 Time of Service: 08:42 Care Management Progress Note Progress Note Text Progress Note Text: S/O:Anya A: Anya is a 46 year old woman admitted on 11/29/22 with pancreatitis P:Anticipate Anya will be discharged home with no new services. She will follow up with her community providers and plan of care and transport with family. CM will continue to support Anya and her discharge planning needs.
[2022-12-02] MEDS: Enoxaparin 40 MG/0.4 ML SYR SC (09:36)
[2022-12-02] MEDS: Normal Saline Flush 10 ML SYR IVP (09:37)
--- NOTE | 2022-12-02 11:35 | DSE_ITS ---
Date of service: 12/02/22 Time of Service: 11:35 DS: Diagnosis Discharge Diagnosis (1) Acute pancreatitis: Status: Acute (2) GERD (gastroesophageal reflux disease): Status: Chronic (3) Pain management: Status: Acute (4) Hypokalemia: Status: Acute (5) Nausea: Status: Acute Discharge Plan Disposition Patient Disposition: Home Condition: Improving Discharge Details Reason For Visit: Acute Pancreatitis Admit Date/Time: 11/29/22 14:56 Admit Provider: Hector Herrera Attending Provider: Hector Herrera Primary Care Provider: Aida Acuña Hospital Course Hospital Course: This is a 46-year-old female patient with a past medical history significant for IBS PMDD fibromyalgia who presented to the emergency department with a 1 day history of diffuse abdominal pain. Work-up in the emergency department did show acute pancreatitis. Only change in her medication was she stopped taking Mounjaro injection 3 weeks ago. She received IV fluids and IV analgesics and was admitted under hospitalist services for further evaluation and management. She was admitted on clears her diet was slowly advanced. She remained hemodynamically stable. Labs showed improved lipase which normalized abdominal exam remained benign and nonsurgical. Labs did show triglyceride level at 172 LDL at 104. She has remained hemodynamically stable tolerating p.o and ready for discharge to home she should follow-up with her primary care provider for further evaluation of her pancreatitis. She does not drink alcohol.. Her abdominal ultrasound with no evidence of Cholelithiasis or biliary tree dilatation. Discharge is discussed with Dr. Herrera Home Meds and New Rx's Prescriptions: New tramadol 50 mg tablet 50 mg PO Q6H PRNQty: 10 0RF Continued ibuprofen 800 MG tablet 800 mg PO TID Qty: 30 sertraline 100 mg tablet 100 mg PO DAILY Patient Comments: Takes 200 mg daily pantoprazole 40 mg tablet,delayed release (DR/EC) 40 mg PO DAILY Patient Comments: once a day Myrbetriq 25 mg tablet extended release 24 hr 25 mg PO DAILY Patient Comments: take 1 tablet by mouth once daily Discharge Instructions Instructions: Pancreatitis (DC) Additional Instructions: advance diet as tolerated, push fluids to stay well hydrated Stand Alone Forms: Nursing Discharge Form Referrals: Cas Camacho NP [NURSE PRACTITIONER] - 12/09/22 10:15 am Activity:: Activity as Tolerated Equipment/Supplies:: No Equipment Needed Diet:: low residue Discharge Orders Discharge Orders: Discharge Order (Routine); Ordered 12/02/22 Ordered By: Fani Blakely Other Ambulatory Orders: Complete Blood Count w/Diff (Routine) Timeframe: 20221203 Location: Determined by Patient Ordered By: Mayra Reece Discharge Data Discharge Date/Time-TO BE ENTERED AT DEPARTURE: 12/02/22 15:30 Discharge Comment: dc home DS: Summary Time Spent with Patient providing and/or coordinating discharge services: Less than 30 minutes Status at Discharge Functional status at discharge: independent ambulation Overall status at discharge: patient is back to baseline Mental Status: mental status grossly normal Speech and Movement: speech and movement normal Mood: congruent mood Affect: normal affect Exam Const General: cooperative, healthy appearing, comfortable and no acute distress Nutritional Appearance: overweight Orientation: alert, awake and oriented x3 HENMT Head: normal to inspection, normocephalic and atraumatic Face and sinus: normal facial exam Mouth: oral mucosae normal Eyes General: appearance normal, both eyes and all related structures Neck Neck: normal visual inspection and full ROM Chest Chest: normal inspection of the chest Resp Effort & Inspection: normal respiratory effort Auscultation: clear to auscultation bilaterally Cardio Rate: regular rate Rhythm: regular rhythm GI Inspection: distended Palpation: soft, not firm, no guarding, no masses, not rigid and tender in the e pigastrum, in the LUQ and in the RUQ Auscultation: normal bowel sounds Skin General skin exam: no rashes or lesions noted Neuro General: patient alert, patient awake, patient oriented x3 and no focal motor deficits Extrem General: normal to inspection, full ROM and no pedal edema Psych Mental Status: mental status grossly normal Speech and Movement: speech and movement normal Mood: congruent mood Affect: normal affect DS: Data Vitals/I&O Vitals and I&O: Vital Signs Temperature 35.6 C L 12/02/22 07:38 Temperature Source Tympanic 12/02/22 07:38 Pulse 86 12/02/22 07:38 Pulse Rhythm Regular 12/02/22 09:18 Pulse 81 11/29/22 15:32 Respiratory Rate 17 12/02/22 07:38 Respiratory Effort Normal, Non-Labored 12/02/22 09:18 Respiratory Depth Normal 12/02/22 09:18 Respiratory Pattern Normal 12/02/22 09:18 Blood Pressure 109/71 12/02/22 07:38 Blood Pressure Mean 83 11/29/22 15:31 Blood Pressure Position Sitting 11/29/22 11:04 Pulse Oximetry 98 12/02/22 07:38 Oxygen Delivery Method Room Air 12/02/22 07:38 Oxygen Flow Rate 0 12/02/22 07:38 Pain Level 6 12/02/22 09:36 Comment Nurse notified about BP. Manual BP: 100/70 11/30/22 07:22 Intake & Output 12/01/22 12/01/22 12/02/22 11:59 23:59 11:59 Intake Total 2042.417 / 4622.417 2580 / 4622.417 600 / 600 Output Total 600 / 2500 1900 / 2500 900 / 900 Balance 1442.417 / 2122.417 680 / 2122.417 -300 / -300 Intake: IV 1442.417 / 1442.417 Oral 600 / 3180 2580 / 3180 600 / 600 Output: Urine 600 / 2500 1900 / 2500 900 / 900 Other: Urine Color Light Brianna Straw Straw Urine Appearance Clear Sediment Sediment Urine Odor None None None Voiding Methods Toilet Toilet Data Completed and Pending Labs on day of discharge: Labs from last 24 hours 12/02/22 12/01/22 12/01/22 06:25 16:50 11:47 WBC 5.90 RBC 3.47 L Hgb 9.8 L Hct 28.6 L MCV 82 MCH 28.2 MCHC 34.3 RDW 17.1 H Plt Count 134 MPV 9.7 Immature Gran % 0.2 Neutrophils % 67.7 Lymphocytes % 26.4 Monocytes % 5.4 Eosinophils % 0.0 Basophils % 0.3 Nucleated RBC % 0.0 Absolute Neutrophils 3.99 Absolute Lymphocytes 1.56 Absolute Monocytes 0.32 Absolute Eosinophils 0.00 Absolute Basophils 0.02 Sodium 141 Potassium 3.6 Chloride 105 Carbon Dioxide 28.9 Anion Gap 7.1 BUN 4 L Creatinine 0.7 Est GFR (CKD-EPI 2020) 106.62 Glucose 90 Calcium 9.1 Total Bilirubin 1.8 H Conjugated Bilirubin 0.5 H AST 22 ALT 19 Alkaline Phosphatase 89 Total Protein 6.8 Albumin 3.4 Urine Color Yellow Urine Clarity Clear Urine pH 6.0 Ur Specific Orange 1.015 Urine Protein Negative Urine Ketones Negative Urine Blood Negative Urine Nitrite Negative Urine Bilirubin Negative Urine Urobilinogen 4.0 H Ur Leukocyte Esterase Negative Urine Glucose Negative [facility] All Active Problems (Updated 11/29/22 @ 20:38 by Mayra Reece APRN) Nausea (Acute) Pain management (Acute) GERD (gastroesophageal reflux disease) (Chronic) Encounter for deep vein thrombosis (DVT) prophylaxis (Acute) Hypokalemia (Acute) Discharge planning issues (Acute) Acute pancreatitis (Acute) No-show for appointment (Acute) H/O tubal ligation (Chronic) Vitamin D deficiency (Acute) 05/2018 Vit D level 15.4 ng/mL. Rx 50K Vit D/week. BMI 30.0-30.9,adult (Acute) 05/2018 BMI 39 Abnormal glandular Papanicolaou smear of cervix (Acute) Fibromyalgia (Acute) Arthralgia, chronic neck pain, low back pain, chronic radicular pain of lower extremities Fatigue (Acute) Anxiety (Chronic) Depression (Chronic) Sleep apnea (Chronic) Palpitations (Acute) Migraine with aura (Acute) Heavy menstrual bleeding (Acute) History of basal cell carcinoma (Acute) PMDD (premenstrual dysphoric disorder) (Acute) Treated with increased dose of sertraline 1 week prior to onset of menses Stress incontinence (Chronic) With component of urinary frequency and urgency 09/2018. Refer to pelvic floor PT at [facility]. Had one visit did not reach Medical History Aftercare for healing traumatic fracture of lower leg Arthralgia Chronic neck pain Chronic radicular pain of lower extremity Low back pain Obesity Suicidal ideation Surgical History Ganglion cyst S/P removal on wrist Family History Other Diabetes Heart disease Uterine cancer Social History Smoking/Tobacco Use Status: Never Smoking risk assessment performed?: Yes Alcohol Intake: current Alcohol Intake frequency: holidays/special occasions only Details: Drinks less than 1 alcoholic beverage per month Drug use: Never Substance use type: marijuana Household members: children Housing: house Number of Children: 5 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 [employer] Sexually active: No (Not in relationship) Do you feel safe at home: Yes Do you feel safe in your relationship?: Yes Additional Social history: Children: Sandro, Fatuma, Gm, Curt, Justa Female Reproductive History Menstrual Age of Menarche: 11 Duration of menses: 3-5 days control method: permanent sterilization (BTL) History History 5 Para Hx # Term Pregnancies 5 Multiple births Hx # Pregnancies Ectopic pregnancies AB induced Hx Number of Living Children AB spontaneous Time Spent with Patient Time Spent with Patient: <45 minutes Time was spent: preparing to see the patient(eg.review tests), obtaining and/or reviewing separately otained hiistory, ordering medications,tests, procedures, indepentently interpreting results and counseling the patient
[2022-12-02 15:26] VITALS: BP 112/74; PULSE 92; RESP 16; TEMP 36.4; O2SAT 99
--- NOTE | 2022-12-02 15:38 | CMDISCH_ITS ---
Date of service: 12/02/22 Time of Service: 15:38 LACE Index Scoring Tool Questions: Length of Stay (in days): 3 Was the patient admitted via the E.D.?: Yes E.D. Visits: 1 Answers: Total Score: 7 Risk of Readmission: Low Risk Care Management Discharge Plan Reason for Hospitalization: pancreatitis Discharge Plan: Anya will be discharged home with no new services. She will follow up with her community providers and plan of care and transport with deja ross. Patient/Family Education Needs: Review of discharge instructions, limitations, follow up plan, discuss Ask Me Three
== END 2022-12-02 15:30 | disposition home or self-care (01) | DRG 440 ==
LOC: ER 15:20 → MS 17:27
PROVIDERS: Nurse Practitioner Acute Care; Admitting Provider Internal Medicine; Emergency Provider Student in an Organized Health Care Education/Training Program; PCP Nurse Practitioner Family; Visit Provider Internal Medicine
DX: K85.90 Acute pancreatitis without necrosis or infection, unspecified (principal); K21.9 Gastro-esophageal reflux disease without esophagitis; E87.6 Hypokalemia; R11.0 Nausea; M79.7 Fibromyalgia; K58.9 Irritable bowel syndrome, unspecified; G47.33 Obstructive sleep apnea (adult) (pediatric); E55.9 Vitamin D deficiency, unspecified; F41.9 Anxiety disorder, unspecified; F32.A Depression, unspecified; N39.46 Mixed incontinence; G47.30 Sleep apnea, unspecified; G43.109 Migraine with aura, not intractable, without status migrainosus; F32.81 Premenstrual dysphoric disorder; E66.9 Obesity, unspecified; Z68.30 Body mass index [BMI] 30.0-30.9, adult; M54.2 Cervicalgia; M54.10 Radiculopathy, site unspecified; E78.1 Pure hyperglyceridemia
CPT/HCPCS: 00123; 36415; 80048; 80053; 80061; 80076; 83690; 86850; 86900; 86901; 87635; 93005; 96374; 99285; J1650; 74177; 76705; 81003; 83605; 83735; 85025; 93010; 99223; 99232; 99233; 99238; J0780; J1170; J3480

== ENCOUNTER 2022-12-03 10:02 | Outpatient (CLI) | payer MEDICAID, SELFPAY ==
[2022-12-03 09:38] LABS: Abs Immature Grans 0.01 10^3/uL (0.0-0.06); Absolute Basophil Count 0.03 10^3/uL (0.0-0.2); Absolute Lymphocyte Count 1.26 10^3/uL (1.2-3.4); Absolute Monocyte Count 0.33 10^3/uL (0.1-0.8); Absolute Neutrophil Count 4.67 10^3/uL (1.2-6.7); Basophils % 0.5; HCT 30.2 % (36.0-46.0); Immature Grans % 0.2; MCH 27.7 pg (27.0-33.0); MCHC 33.1 % (32.0-36.0); MCV 84 fL (80-95); MPV 8.9 fL (8.0-11.0); Monocytes % 5.2; Neutrophils % 74.1; Platelet Count 140 10^3/uL (130-400); RBC 3.61 10^6/uL (3.93-5.22); RDW 17.2 % (11.7-14.6); RDW-SD 52.2 fL
== END 2022-12-03 10:03 | disposition home or self-care (01) ==
LOC: LBO 10:02
PROVIDERS: PCP Nurse Practitioner Family; Visit Provider Nurse Practitioner Acute Care
DX: K85.90 Acute pancreatitis without necrosis or infection, unspecified (principal)
CPT/HCPCS: 36415; 85025

== ENCOUNTER 2022-12-22 10:46 | Outpatient (REF) | payer MEDICAID, SELFPAY ==
[2022-12-22 15:13] LABS: ALT 30 U/L (14-59); AST 24 U/L (15-37); Albumin 4.2 g/dL (3.4-5.0); Alkaline Phosphatase 104 U/L (46-116); Anion Gap 10.9 mmol/L (3-11); BUN 6 mg/dL (7-18); Bilirubin, Total 0.7 mg/dL (0.2-1.0); CO2 26.1 mmol/L (21.0-32.0); CREATININE 0.8 mg/dL (0.55-1.02); Calcium 9.3 mg/dL (8.5-10.1); Calculated LDL 130 mg/dL (<100); Chloride 105 mmol/L (98-107); Cholesterol 219 mg/dL (<200); Estimated GFR 90.27 (mL/min/1.73m2); Ferritin 258 ng/mL (8-252); Glucose 100 mg/dL (74-106); HDL Cholesterol 42 mg/dL (40-60); Lipase 54 U/L (16-77); Potassium 4.2 mmol/L (3.5-5.1); Sodium 142 mmol/L (136-145); Total Protein 7.7 g/dL (6.4-8.2); Triglyceride 237 mg/dL (<150)
[2022-12-22 16:28] LABS: Iron 64 ug/dL (50-170); Total Iron Binding Capacity 254 ug/dL (250-450); Transferrin Sat 25 % (15-50)
== END 2022-12-22 10:47 | disposition home or self-care (01) ==
LOC: NCHCN 10:46
PROVIDERS: PCP Nurse Practitioner Family; Visit Provider Nurse Practitioner Family
DX: E78.1 Pure hyperglyceridemia (principal); Z86.2 Personal history of diseases of the blood and blood-forming organs and certain disorders involving the immune mechanism
CPT/HCPCS: 80053; 80061; 83690; 82728; 83540; 83550

== ENCOUNTER 2023-09-22 12:37 | Outpatient (REF) | payer MEDICAID, SELFPAY ==
[2023-09-22 15:37] LABS: Abs Immature Grans 0.02 10^3/uL (0.0-0.06); HCT 37.4 % (36.0-46.0); HGB 12.7 g/dL (11.2-15.7); MCH 27.9 pg (27.0-33.0); MCV 82 fL (80-95); MPV 9.4 fL (8.0-11.0); Platelet Count 215 10^3/uL (130-400); RBC 4.56 10^6/uL (3.93-5.22); RDW 16.8 % (11.7-14.6); RDW-SD 49.6 fL; WBC 9.14 10^3/uL (4.4-10.8)
[2023-09-22 15:58] LABS: Absolute Eosinophil Count 0.09 10^3/uL (0.0-0.7); Absolute Lymphocyte Count 2.19 10^3/uL (1.2-3.4); Absolute Monocyte Count 0.27 10^3/uL (0.1-0.8); Absolute Neutrophil Count 6.58 10^3/uL (1.2-6.7); Diff Comment Manual Differential
[2023-09-22 15:59] LABS: Anisocytosis 1+
[2023-09-22 16:26] LABS: Hemoglobin A1C 4.6 % (<5.7)
[2023-09-22 16:48] LABS: ALT 32 U/L (14-59); AST 23 U/L (15-37); Albumin 4.2 g/dL (3.4-5.0); Alkaline Phosphatase 99 U/L (46-116); Amylase 28 U/L (25-115); BUN 13 mg/dL (7-18); Bilirubin, Total 1.02 mg/dL (0.2-1.0); CREATININE 0.8 mg/dL (0.55-1.02); Chloride 103 mmol/L (98-107); Estimated GFR 90.27 (mL/min/1.73m2); Glucose 117 mg/dL (74-106); Lipase 39 U/L (16-77); Potassium 4.3 mmol/L (3.5-5.1); Sodium 139 mmol/L (136-145); Total Protein 7.7 g/dL (6.4-8.2)
[2023-09-22 16:53] LABS: Calcium 9.4 mg/dL (8.5-10.1)
[2023-09-22 17:36] LABS: Calculated LDL 99 mg/dL (<100); Cholesterol 194 mg/dL (<200); HDL Cholesterol 44 mg/dL (40-60); Triglyceride 258 mg/dL (<150)
== END 2023-09-22 12:38 | disposition home or self-care (01) ==
LOC: NCHCN 12:37
PROVIDERS: Visit Provider Nurse Practitioner Family
DX: Z13.6 Encounter for screening for cardiovascular disorders (principal); Z13.1 Encounter for screening for diabetes mellitus; N39.46 Mixed incontinence; R74.8 Abnormal levels of other serum enzymes
CPT/HCPCS: 80053; 80061; 83690; 82150; 83036; 85025

== ENCOUNTER 2023-10-17 01:19 | Outpatient (CLI) | payer MEDICAID, SELFPAY ==
--- NOTE | 2023-10-17 12:21 | DI.MAMMO_ITS ---
Exam(s) MAMMO SCREENING EXAM: MAMMO SCREENING CLINICAL HISTORY: SCREENING, Z12.31 TECHNIQUE: Mammograms were interpreted according to the usual protocol including computer analysis w [employer] CAD system, tomosynthesis and C-view imaging. COMPARISON: 2017 through 2022 FINDINGS: The breasts are composed of scattered fibroglandular densities, Breast Density category B. No suspicious masses or suspicious microcalcifications are seen. No skin thickening or abnormal axillary lymph nodes are seen. There has been no significant change from prior exams. IMPRESSION: BI-RADS Category 1, Negative mammogram Yearly screening mammography is recommended. Breast Density - Category B, scattered fibroglandular densities. A negative radiographic report should not delay biopsy if a dominant or clinically suspicious mass is present. Up to ten percent of cancers are not identified on mammography. A negative report may reinforce clinical impression. Adenosis and dense breasts may obscure an underlying neoplasm. False positive reports average 6 to 10%. Patient will receive a letter notifying them of these results.
== END 2023-10-17 01:39 ==
LOC: DI 01:19
PROVIDERS: Visit Provider Nurse Practitioner Family
DX: Z12.31 Encounter for screening mammogram for malignant neoplasm of breast (principal)
CPT/HCPCS: 77063; 77067

== ENCOUNTER 2023-10-25 01:14 | Outpatient (CLI) | payer MEDICAID, SELFPAY ==
--- NOTE | 2023-10-25 07:43 | DI.US_ITS ---
Exam(s) US PELVIS TRANSVAGINAL EXAM: US PELVIS TRANSVAGINAL CLINICAL HISTORY: PAIN IN PELVIS, R10.2 TECHNIQUE: Transabdominal and transvaginal imaging was performed using standard protocol. COMPARISON: No exams were available for comparison FINDINGS: The bladder appears normal. UTERUS: Status post hysterectomy. OVARIES: Right: Cyst or mass: None. Left: Cyst or mass: 2.4 centimeter cyst/dominant follicle. DOPPLER: Color: Symmetric and uniform flow to both ovaries. No hyperemia. CUL-DE-SAC: Free fluid: None. IMPRESSION: Status post hysterectomy. 2.4 centimeter cyst/dominant follicle of the left ovary. DATA REPOSITORY:
== END 2023-10-25 01:34 ==
LOC: DI 01:14
PROVIDERS: Visit Provider Nurse Practitioner Family
DX: R10.2 Pelvic and perineal pain (principal)
CPT/HCPCS: 76830; 76856

== ENCOUNTER → 2023-11-08 08:38 | Emergency (ER) | payer MEDICAID, SELFPAY ==
--- NOTE | 2023-11-08 08:46 | W.ED.GENAD ---
Discharge Plan Disposition Patient Disposition: Home Discharge Details Clinical Impression: Low back pain Primary Care Provider: Unknown,Unknown ED Provider: Curt Martinez Home Meds and New Rx's Prescriptions: Continued ibuprofen 800 MG tablet 800 mg PO TID PRNQty: 30 sertraline 100 mg tablet 100 mg PO DAILY Patient Comments: Takes 200 mg daily pantoprazole 40 mg tablet,delayed release (DR/EC) 40 mg PO DAILY Patient Comments: once a day mirabegron [Myrbetriq] 25 mg tablet extended release 24 hr 50 mg PO DAILY Patient Comments: take 1 tablet by mouth once daily tramadol 50 mg tablet 50 mg PO QHS Discharge Instructions Instructions: Do I need an X-ray (or other test) for low back pain? Additional Instructions: You are seen in the emergency department for your back pain. As we discussed please return to the emergency department if you develop any numbness or tingling between your legs if you develop any color changes in your feet or if you lose control of your bowels or bladder. Otherwise please follow-up with your primary care provider next week. For your pain please take medications as follows: 1. Take acetaminophen (Tylenol), 1,000 mg (two 500 mg tabs) every 6 hours [2. Take ibuprofen (Advil), 400 mg every 6 hours.] HPI General Date/Time Provider Initiated Documentation: 11/08/23 08:45. HPI Narrative: MDM This is an overall well-appearing normothermic and not tachycardic 47-year-old female with midline lumbar spinal and paraspinal muscle tenderness most consistent with spasm for which patient will receive symptomatic treatment with diazepam acetaminophen and ibuprofen. No pain out of proportion to suggest necrotizing soft tissue infection. No rash to back to suggest zoster. Soft nontender abdomen and no fevers so I am not suspicious for appendicitis so I do not feel that the patient required a CT scan. No left lower quadrant tenderness to suggest diverticulitis. Not hypotensive nor did she have a history of AAA so I am not suspicious for ruptured AAA. No dysuria nor frequency so doubt UTI. No recent spinal instrumentation so I am not concerned for spinal epidural hematoma. No history of IV drug use nor fevers so my suspicion is low for spinal epidural abscess. No loss of bowel or bladder control to suggest cauda equina syndrome. No history of malignancy to suggest increased risk for pathological fracture. No vomiting and nontender abdomen so my suspicion for recurrent pancreatitis is low so I did not feel the patient required assessment of her labs. No history of ureterolithiasis to suggest ureterolithiasis. Patient is not recently to suggest increased risk for splenic arterial aneurysm. On recent transvaginal ultrasound patient did have a 2.4 cm left ovarian cyst/dominant follicle. Given patient has reproducible back pain my suspicion for ovarian torsion is low so I did not feel that the patient required a repeat transvaginal ultrasound. 11:20 AM I met with the patient again. I had seen her following dose of diazepam which did not improve her symptoms. We attempted treatment with oral morphine and this did not improve her symptoms. She reported that she had some tramadol at home that she had used in the past for sleep. She wants to try this at home. I advised that she certainly could try this is an option. We discussed that she should follow-up with her primary care provider next week. We discussed that she should return to the emergency department if she lost control of her bowels or bladder develop any weakness in her lower extremities or if she took any falls. She understood her return indications and was discharged with empiric trial of expectant outpatient management. 12:10 PM At the time of discharge patient having some food and became nauseous. Given ODT ondansetron. No vomiting. No reported abdominal pain. She received a course of cyclobenzaprine from the emergency department. Chronic conditions affecting the care of the patient: Fibromyalgia IBS History obtained from an outside historian: N/A External record review: N/A Medications: Diazepam Lidoderm acetaminophen morphine Social determinants of health affecting disposition: N/A Management discussed with: N/A Treatment/interventions considered: Repeat imaging Response to therapies provided: N/A HPI This is a 47-year-old female history of fibromyalgia arrived to the emergency department via private vehicle in setting of low back pain. Patient reports that for the past approximately 1 week she has had constant low back pain. She has a history of issues with her SI joint in the past but this is lasted longer than usual. She has not taken any medications yet this morning. She denies any trauma. She has not been nauseous nor vomiting. She has intermittently had some burning sensations in her stomach associated the pain. No history of ureterolithiasis. No fevers nor chills. No history of malignancy anticoagulation nor IV drug use. She has not lost control of her bowels nor bladder. She denies dysuria and frequency. Has not had any recent back surgeries. She has had difficulty moving around at home secondarily to pain. Exam General: Well-appearing in no acute distress speaking in complete sentences. Head: Normocephalic, atraumatic. Eye: Extraocular eye movements intact. No conjunctival injection. No scleral icterus. Ear, nose, mouth, throat: Grossly normal inspection. Normal voice, handling secretions normally. Neck: Trachea midline. Cardiovascular: Well-perfused distal extremities. Respiratory: Nonlabored respiration. Gastrointestinal: Nondistended abdomen. Soft nontender. Back: No step-offs or deformities. No rash to back. Patient does have lumbar midline spinal tenderness and bilateral lumbar paraspinal muscle tenderness associated with spasm. Musculoskeletal: No edema. Moving all 4 extremities spontaneously. Bilateral feet warm well-perfused 2+ PT DP pulses. Patient is 5 out of 5 strength dorsi and plantarflexion bilaterally. Patient has brisk 3+ patellar reflexes bilaterally. Skin: Normal for age and race, grossly normal temperature and turgor. No acute rash. Neurologic: Alert and appropriate, no apparent acute deficits. Psychiatric: Mood and manner are appropriate. Grooming and personal hygiene are appropriate. Related Data Home Medications ?Medication ?Instructions ?Recorded ?Confirmed ibuprofen 800 mg tablet 800 mg PO TID PRN #30 tab-caps 08/22/17 11/08/23 sertraline 100 mg tablet 100 mg PO DAILY 12/18/19 11/08/23 mirabegron 25 mg tablet,extended 50 mg PO DAILY 02/20/22 11/08/23 release 24 hr (Myrbetriq) pantoprazole 40 mg tablet,delayed 40 mg PO DAILY 02/20/22 11/08/23 release tramadol 50 mg tablet 50 mg PO QHS 11/08/23 11/08/23 Allergies Allergy/AdvReac Type Severity Reaction Status Date / Time dicyclomine (From Bentyl) Allergy Mild Unknown Verified 11/08/23 08:55 adhesive tape Allergy Skin Rash Unverified 11/08/23 08:55 Penicillins Allergy Hives Unverified 11/08/23 08:55 General MARCELLO: 3 Medical Decision Making Quality:SDOH Health Related Social Needs: No Data to Display PFSH All Active Problems (Updated 11/08/23 @ 10:33 by Curt Martinez MD) Low back pain (Acute) GERD (gastroesophageal reflux disease) (Chronic) Acute pancreatitis (Acute) No-show for appointment (Acute) H/O tubal ligation (Chronic) Vitamin D deficiency (Acute) 05/2018 Vit D level 15.4 ng/mL. Rx 50K Vit D/week. BMI 30.0-30.9,adult (Acute) 05/2018 BMI 39 Abnormal glandular Papanicolaou smear of cervix (Acute) Fibromyalgia (Acute) Arthralgia, chronic neck pain, low back pain, chronic radicular pain of lower extremities Fatigue (Acute) Anxiety (Chronic) Depression (Chronic) Sleep apnea (Chronic) Palpitations (Acute) Migraine with aura (Acute) Heavy menstrual bleeding (Acute) History of basal cell carcinoma (Acute) PMDD (premenstrual dysphoric disorder) (Acute) Treated with increased dose of sertraline 1 week prior to onset of menses Stress incontinence (Chronic) With component of urinary frequency and urgency 09/2018. Refer to pelvic floor PT at [facility]. Had one visit did not reach Medical History Aftercare for healing traumatic fracture of lower leg Arthralgia Chronic neck pain Chronic radicular pain of lower extremity Low back pain Obesity Suicidal ideation Surgical History (Updated 12/03/22 @ 00:04 by TANIA GALVAN) Ganglion cyst S/P removal on wrist Family History Other Diabetes Heart disease Uterine cancer Social History Smoking/Tobacco Use Status: Never Smoking risk assessment performed?: Yes Alcohol Intake: current Alcohol Intake frequency: holidays/special occasions only Details: Drinks less than 1 alcoholic beverage per month Drug use: Daily Substance use type: marijuana Household members: children Housing: house Number of Children: 5 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
[2023-11-08 08:50] VITALS: BP 117/85; PULSE 95; RESP 14; TEMP 36.6; O2SAT 98
[2023-11-08] MEDS: Acetaminophen 500 MG TAB 1000 MG PO (09:25)
[2023-11-08] MEDS: Lidocaine 5% Patch 1 PATCH TP (09:26)
[2023-11-08] MEDS: Ibuprofen 600 MG TAB PO (09:26)
[2023-11-08] MEDS: diazePAM 5 MG TAB PO (09:26)
[2023-11-08 10:20] VITALS: BP 121/79; PULSE 72; RESP 14; O2SAT 98
[2023-11-08] MEDS: MORPHine IR 15 MG TAB PO (10:39)
[2023-11-08] MEDS: Cyclobenzaprine 10 MG TAB, 3 TABS/BTL PO (12:20)
[2023-11-08] MEDS: Ondansetron O.D.T. 4 MG TABEF PO (12:20)
[2023-11-08 12:21] VITALS: BP 100/64; PULSE 68; RESP 16; O2SAT 100
== END | disposition home or self-care (01) ==
LOC: ER 10:32 → RED 12:22
PROVIDERS: Emergency Provider Emergency Medicine
DX: M54.50 Low back pain, unspecified (principal)
CPT/HCPCS: 99283

== ENCOUNTER 2024-01-09 02:20 | Outpatient (CLI) | payer MEDICAID, SELFPAY ==
--- NOTE | 2024-01-09 09:15 | DI.RAD_ITS ---
Exam(s) XR HAND RT COMPLETE EXAM: XR HAND RT COMPLETE CLINICAL HISTORY: BILAT HAND PAIN,M79.641,M79.642? ARTHRITIS OR OTHER ISSUE. TECHNIQUE: 2D digital imaging was performed. Three views. COMPARISON: No exams were available for comparison FINDINGS: BONES: No acute fracture is present. No bony destructive lesion is seen. JOINTS: No dislocation present. No joint space narrowing or periarticular spurring. SOFT TISSUE: Normal. IMPRESSION: Unremarkable radiographs of the right hand. DATA REPOSITORY: RADIATION DOSE DELIVERED:
--- NOTE | 2024-01-09 09:16 | DI.RAD_ITS ---
Exam(s) XR HAND LT COMPLETE EXAM: XR HAND LT COMPLETE CLINICAL HISTORY: BILAT HAND PAIN,M79.642,M79.641,? ARTHRITIS OR OTHER ISSUE. TECHNIQUE: 2D digital imaging was performed of the left hand. Three views were obtained. AP, later al and oblique views were obtained. COMPARISON: No priors for comparison. FINDINGS: BONES: No acute fracture is present. No bony destructive lesion is seen. JOINTS: No dislocation present. The joint spaces are well maintained. No significant arthritic choi es are seen. SOFT TISSUE: Normal. IMPRESSION: Unremarkable radiographs of the left hand. DATA REPOSITORY: RADIATION DOSE DELIVERED:
== END 2024-01-09 02:40 ==
LOC: DI 02:20
PROVIDERS: Visit Provider Nurse Practitioner Family
DX: M79.642 Pain in left hand (principal); M79.641 Pain in right hand
CPT/HCPCS: 73130

== ENCOUNTER 2024-01-09 16:00 | Outpatient (REF) | payer MEDICAID, SELFPAY ==
[2024-01-09 15:29] LABS: Abs Immature Grans 0.02 10^3/uL (0.0-0.06); Absolute Basophil Count 0.04 10^3/uL (0.0-0.2); Absolute Eosinophil Count 0.18 10^3/uL (0.0-0.7); Absolute Lymphocyte Count 1.46 10^3/uL (1.2-3.4); Absolute Monocyte Count 0.23 10^3/uL (0.1-0.8); Absolute Neutrophil Count 4.16 10^3/uL (1.2-6.7); Basophils % 0.7 %; HCT 35.5 % (36.0-46.0); HGB 12.2 g/dL (11.2-15.7); Immature Grans % 0.3 %; MCHC 34.4 % (32.0-36.0); MCV 81 fL (80-95); MPV 9.7 fL (8.0-11.0); Monocytes % 3.8 %; Neutrophils % 68.2 %; Platelet Count 176 10^3/uL (130-400); RBC 4.36 10^6/uL (3.93-5.22); RDW 17.1 % (11.7-14.6); RDW-SD 50.1 fL; WBC 6.09 10^3/uL (4.4-10.8)
[2024-01-09 16:01] LABS: ALT 38 U/L (14-59); AST 28 U/L (15-37); Albumin 4.1 g/dL (3.4-5.0); Alkaline Phosphatase 92 U/L (46-116); Anion Gap 9.6 mmol/L (3-11); BUN 12 mg/dL (7-18); Bilirubin, Total 0.82 mg/dL (0.2-1.0); CO2 27.4 mmol/L (21.0-32.0); CREATININE 0.9 mg/dL (0.55-1.02); Calcium 9.4 mg/dL (8.5-10.1); Chloride 105 mmol/L (98-107); Estimated GFR 77.88 (mL/min/1.73m2); Glucose 122 mg/dL (74-106); Potassium 4.7 mmol/L (3.5-5.1); Sodium 142 mmol/L (136-145); Total Protein 7.6 g/dL (6.4-8.2)
[2024-01-09 22:39] LABS: FSH 23.8 mIU/mL (See Note)
== END 2024-01-09 16:01 | disposition home or self-care (01) ==
LOC: NCHCN 16:00
PROVIDERS: Visit Provider Nurse Practitioner Family
DX: N95.9 Unspecified menopausal and perimenopausal disorder (principal); A69.20 Lyme disease, unspecified; K64.5 Perianal venous thrombosis
CPT/HCPCS: 80053; 83001; 85025

== ENCOUNTER 2024-02-16 16:55 | Emergency (ER) | payer MEDICAID, SELFPAY ==
[2024-02-16] VITALS (15 sets, daily range): BP systolic 103–140; BP diastolic 71–83; PULSE 82–91; RESP 16–18; TEMP 36.5; O2SAT 95–99
--- NOTE | 2024-02-16 18:15 | DI.CT_ITS ---
Exam(s) CT ABDOMEN PELVIS CTA EXAM: CT ABDOMEN PELVIS CTA CLINICAL HISTORY: lower GI bleed. TECHNIQUE: Imaging Protocol: Axial computed tomography images with coronal and sagittal reformatted images were created and reviewed CONTRAST MATERIAL: Intravenous: Omnipaque 350 Contrast volume:100 ml Oral: None COMPARISON: No exams were available for comparison FINDINGS: ABDOMEN: Visualized lung bases are clear. No pleural effusions AORTA: There is no evidence of abdominal aortic aneurysm nor dissection.There is no aneurysmal dilata tion of the common iliac arteries.The celiac and superior mesenteric arteries are patent.Inferior mes enteric artery is also patent. There is no intraluminal extravasation of injected intravenous contrast to suggest acute intraluminal hemorrhage at the time of this study image acquisition. The delayed post-contrast injected images a lso reveal no evidence to suggest intraluminal hemorrhage.. Renal arteries are patent without evidence of significant stenosis. There is no ascites. LIVER: Liver is diffusely hypodense and prominent size implying steatosis. There no discrete focal h epatic lesions. GALLBLADDER/BILIARY: The gallbladder surgically absent. CBD is not dilated. PANCREAS: No evidence of pancreatic mass nor dilatation of the pancreatic duct. No evidence of pancr eatitis at this time. SPLEEN: Spleen is enlarged. It measures 16.3 cm craniocaudal (upper limits normal 13 cm). There are no splenic lesions. Splenic vein is patent but prominent size measuring 11 mm. Portal vein conflue nce and portal vein are patent as is the superior mesenteric vein. ADRENALS: There are no significant adrenal masses. KIDNEYS: No cysts evident. No calculi nor hydronephrosis. No solid renal masses. LYMPH NODES: There is no retroperitoneal nor para-aortic adenopathy. Small benign-appearing lymph nod es are noted in the mesentery, these measuring less than 1 cm. ABDOMINAL WALL: There is a fat only containing anterior abdominal wall umbilical hernia. GI: There is no evidence of bowel obstruction, free air, nor abscess. PELVIS: LYMPH NODES: There is no intrapelvic nor inguinal adenopathy. GI: No evidence of appendicitis.There is no evidence of sigmoid diverticular disease. Also no eviden ce of obvious diverticulosis of the colon. URINARY BLADDER: No calculi nor masses evident REPRODUCTIVE: Uterus is surgically absent. The previously present large 5 x 5.5 cm ovarian cyst has significantly decreased in size. There is a cystic structure in left adnexa which is probably the le ft ovary, this measuring 2.6 x 2.0 cm. Dominant cyst within this left ovary measures 2.5 by 2 cm. T he right ovary is not identified. There is no free fluid within the pelvis. OSSEOUS: No significant osseous lesions. No fractures. Sacroiliac joints appear unremarkable. IMPRESSION: 1. Abdominal aorta and its mesenteric branches appear unremarkable. 2. No evidence of intraluminal contrast extravasation within bowel loops to suggest acute hemorrhage. 3. There is splenomegaly again noted and the liver is steatotic and slightly enlarged. Splenic vein diameter is increased but patent without evidence of splenic vein nor portal vein thrombosis. 4. No evidence of appendicitis nor diverticulitis. No obvious large bowel mass, realizing limitation s of CT scan for detecting intraluminal masses and given the clinical presentation follow-up colonosc opy is recommended. 5. Gallbladder surgically absent. The biliary tree is not dilated. The uterus is also again noted to be surgically absent. Report called by myself to ER physician 02/16/2024 at 7:40 p.m. RADIATION DOSE DELIVERED: 2,835.69mGy.cm Total DLP DATA REPOSITORY: All CT scans at this facility are submitted to the National Radiology Data Registry (NRDR) Dose Index Registry (DIR) with the [employer] (ACR). RADIATION OPTIMIZATION: All CT scans at this facility use at least one of these dose optimization te chniques: automated exposure control; mA and/or kV adjustment per patient size (includes targeted exa ms where dose is matched to clinical indication); or iterative reconstruction.
[2024-02-16] MEDS: Normal Saline - Diluent 50 ML VIAL IJ (18:47)
[2024-02-16] MEDS: Omnipaque 350 MG/ML 100 ML BTL IJ (18:47)
[2024-02-16 18:51] LABS: Abs Immature Grans 0.01 10^3/uL (0.0-0.06); Absolute Basophil Count 0.03 10^3/uL (0.0-0.2); Absolute Lymphocyte Count 1.98 10^3/uL (1.2-3.4); Absolute Monocyte Count 0.31 10^3/uL (0.1-0.8); Absolute Neutrophil Count 4.97 10^3/uL (1.2-6.7); Basophils % 0.4 %; HCT 34.4 % (36.0-46.0); HGB 11.8 g/dL (11.2-15.7); Immature Grans % 0.1 %; Lymphocytes % 27.1 %; MCH 27.8 pg (27.0-33.0); MCHC 34.3 % (32.0-36.0); MCV 81 fL (80-95); MPV 9.5 fL (8.0-11.0); Monocytes % 4.2 %; Neutrophils % 68.2 %; Platelet Count 166 10^3/uL (130-400); RBC 4.25 10^6/uL (3.93-5.22); RDW 16.6 % (11.7-14.6); RDW-SD 48.1 fL
[2024-02-16 18:57] LABS: Prothrombin Time 10.4 sec (9.1-11.1)
[2024-02-16 19:04] LABS: ALT 30 U/L (14-59); AST 22 U/L (15-37); Alkaline Phosphatase 90 U/L (46-116); Anion Gap 6.7 mmol/L (3-11); BUN 12 mg/dL (7-18); Bilirubin, Total 1.31 mg/dL (0.2-1.0); CO2 29.3 mmol/L (21.0-32.0); CREATININE 0.8 mg/dL (0.55-1.02); Calcium 8.9 mg/dL (8.5-10.1); Chloride 104 mmol/L (98-107); Estimated GFR 89.71 (mL/min/1.73m2); Glucose 108 mg/dL (74-106); Lipase 32 U/L (<78); Magnesium 1.9 mg/dL (1.8-2.4); Potassium 3.9 mmol/L (3.5-5.1); Sodium 140 mmol/L (136-145); Total Protein 7.6 g/dL (6.4-8.2); Troponin I < 4 ng/L (<or=51)
--- NOTE | 2024-02-16 19:23 | W.ED.GENAD ---
Discharge Plan Disposition Patient Disposition: Home Condition: Stable Discharge Details Clinical Impression: Blood present in stool, Sleep apnea, Depression, Anxiety, GERD (gastroesophageal reflux disease) Primary Care Provider: Unknown,Unknown ED Provider: Annel Quiroga Home Meds and New Rx's Prescriptions: No Action ibuprofen 800 MG tablet 800 mg PO TID PRNQty: 30 sertraline 100 mg tablet 100 mg PO DAILY Patient Comments: Takes 200 mg daily pantoprazole 40 mg tablet,delayed release (DR/EC) 40 mg PO DAILY Patient Comments: once a day mirabegron [Myrbetriq] 25 mg tablet extended release 24 hr 50 mg PO DAILY Patient Comments: take 1 tablet by mouth once daily tramadol 50 mg tablet 50 mg PO QHS fluoxetine 20 mg tablet 40 mg PO DAILY Patient Comments: TAKE 2 TABLETS BY MOUTH ONCE DAILY DIRECTED FOR ANXIETY AND FOR DEPRESSION mirabegron [Myrbetriq] 50 mg tablet extended release 24 hr 50 mg PO DAILY Patient Comments: TAKE ONE TABLET BY MOUTH ONCE DAILY FOR 30 DAYS(DO NOT CRUSH OR CHEW TABLET) famotidine [Acid Controller] 10 mg tablet 20 mg PO DAILY PRN Discharge Instructions Instructions: Bloody Stools, Adult ED Additional Instructions: You were seen in the emergency department today for evaluation of blood in your stool. In our department he had a full physical examination performed, had laboratory studies that were reassuring and did not show any sign of anemia, and had a CT scan that did not show any active bleeding. Unfortunately, we are sometimes unable to determine the exact cause of symptoms in the emergency department setting, though I do suspect that your hemorrhoids may be the source of your bleeding. It is safe at this time for you to go home and follow-up with your sole stitcher hand and outpatient providers to discuss next steps in workup and management of your symptoms. You should return to the emergency department if you develop fever or chills, large-volume blood per rectum, sudden change or worsening of your abdominal pain, or any other symptoms that cause you concern. Thank you for allowing us to be part of your care. HPI General Mode of arrival: ambulatory. Date/Time Provider Initiated Documentation: 02/16/24 17:04. Limitations to Documentation: no limitations. Information obtained by: patient, family and old records reviewed. HPI Narrative: HPI: This is a 48-year-old female patient with a past medical history significant for hemorrhoids, IBS, sleep apnea, who had a recent endoscopy and colonoscopy, presenting for evaluation of 4 days of blood in her stool. The patient reports that she has had dark to bright red blood in her stool, has had 1 or 2 episodes of stool that did not have blood. The patient reports that she has noted a burning type pain in her lower abdomen, has not had any vomiting of blood. She has been taking her prescribed pantoprazole, and has famotidine for acid control given her history of GERD. She has not been taking any excessive NSAIDs. The patient reports that she has no history of diverticular disease, does not take blood thinners. She has been eating beets but states that she noticed that the blood dried brown, which is less typical for vegetable pigments. She has not had fevers or chills, has been tolerating p.o., has a history of abdominal surgery to include tubal ligation, cholecystectomy Exam: Gen: Awake and alert, in no apparent distress HEENT: Non-icteric sclera, no conjunctival pallor appreciated, PERRL Neck: Supple Lungs: No apparent respiratory distress, normal respiratory effort. CV: Appears well perfused, heart with regular rate and rhythm, strong distal pulses. Abdomen: Non-distended, soft, tender to palpation in the right lower quadrant and suprapubic regions without rigidity, rebound, or guarding. : External rectal exam with 2 very small nonthrombosed external hemorrhoids. No sharp tenderness or fluctuance appreciated with JENNIFER, no blood appreciated on the glove. MSK: Moves 4 extremities without apparent limitation in ROM Skin: Visualized skin without rashes, cyanosis. Neuro: Normal Gait, no obvious focal deficits or facial asymmetry. Speaks in full, clear sentences. Psych: Appropriate for situation. MDM: This is a 48-year-old female patient presenting for evaluation of bright red blood per rectum. My differential includes but is not limited to lower GI bleed including hemorrhoidal bleed, AVM, coagulopathy. No evidence of diverticula on her very recent colonoscopy to suggest diverticular bleed. Considered anemia, thrombocytopenia, metabolic and electrolyte derangements. Considered brisk upper GI bleed though the patient is appropriately taking her PPIs. Considered other intra-abdominal pathologies including bowel obstruction, appendicitis. We will obtain laboratory studies to include CBC, CMP, magnesium, type and screen, PT/INR. I will obtain a CTA abdomen pelvis to better characterize any active bleeding. ED Course: I independently interpreted the laboratory studies, which show no significant leukocytosis, anemia, or thrombocytopenia. The chemistry panel is without evidence of electrolyte abnormality, kidney dysfunction, or liver injury. INR normal at 1.0. Troponin was negative and the lipase was low. CTA without evidence of acute GI bleed, and is otherwise without any acute findings to explain the patient's symptoms. She does have baseline splenomegaly and hepatic steatosis which has been previously remarked upon, and a resolving ovarian cyst. The patient has not had any blood per rectum in the emergency department, as well tied in with GI and outpatient providers and will follow-up to discuss the results of this visit and any next steps in workup and management. At this time, the patient has had a full medical evaluation and is safe for discharge to home. They are hemodynamically stable, ambulatory, and tolerating PO. They are understanding of the follow-up plan and return precautions. They left our facility without incident. Annel Quiroga MD Related Data Home Medications ?Medication ?Instructions ?Recorded ?Confirmed ibuprofen 800 mg tablet 800 mg PO TID PRN #30 tab-caps 08/22/17 02/16/24 sertraline 100 mg tablet 100 mg PO DAILY 12/18/19 02/16/24 mirabegron 25 mg tablet,extended 50 mg PO DAILY 02/20/22 02/16/24 release 24 hr (Myrbetriq) pantoprazole 40 mg tablet,delayed 40 mg PO DAILY 02/20/22 02/16/24 release tramadol 50 mg tablet 50 mg PO QHS 11/08/23 02/16/24 famotidine 10 mg tablet (Acid 20 mg PO DAILY PRN 02/16/24 02/16/24 Controller) fluoxetine 20 mg tablet 40 mg PO DAILY 02/16/24 02/16/24 mirabegron 50 mg tablet,extended 50 mg PO DAILY 02/16/24 02/16/24 release 24 hr (Myrbetriq) Allergies Allergy/AdvReac Type Severity Reaction Status Date / Time dicyclomine (From Bentyl) Allergy Mild Unknown Verified 11/08/23 08:55 adhesive tape Allergy Skin Rash Unverified 11/08/23 08:55 Penicillins Allergy Hives Unverified 11/08/23 08:55 General Stated Complaint: GI Bleed MARCELLO: 3 Course Vital Signs Vital signs: Vital Signs Temperature 36.5 C 02/16/24 16:58 Pulse 91 H 02/16/24 16:58 Respiratory Rate 18 02/16/24 16:58 Blood Pressure 140/83 02/16/24 16:58 Pulse Oximetry 95 02/16/24 16:58 Temperature 36.5 C 02/16/24 16:58 Temperature Source Oral 02/16/24 16:58 Pulse 82 02/16/24 19:04 Respiratory Rate 18 02/16/24 16:58 Blood Pressure 111/71 02/16/24 19:04 Blood Pressure Mean 83 02/16/24 19:04 Blood Pressure Position Sitting 02/16/24 16:58 Pulse Oximetry 96 02/16/24 19:10 Oxygen Delivery Method Room Air 02/16/24 16:58 Oxygen Flow Rate 0 02/16/24 16:58 Pain Level 4 02/16/24 18:40 Lab/Test Results Lab/Test Results: Laboratory Tests Range/Units 02/16/24 02/16/24 02/16/24 18:36 19:25 21:25 WBC (4.4-10.8) 10^3/uL 7.30 RBC (3.93-5.22) 10^6/uL 4.25 Hgb (11.2-15.7) g/dL 11.8 Hct (36.0-46.0) % 34.4 L MCV (80-95) fL 81 MCH (27.0-33.0) pg 27.8 MCHC (32.0-36.0) % 34.3 RDW (11.7-14.6) % 16.6 H Plt Count (130-400) 10^3/uL 166 MPV (8.0-11.0) fL 9.5 Immature Gran % % 0.1 Neutrophils % % 68.2 Lymphocytes % % 27.1 Monocytes % % 4.2 Eosinophils % % 0.0 Basophils % % 0.4 Nucleated RBC % (0.0-0.3) % 0.0 Absolute Neutrophils (1.2-6.7) 10^3/uL 4.97 Absolute Lymphocytes (1.2-3.4) 10^3/uL 1.98 Absolute Monocytes (0.1-0.8) 10^3/uL 0.31 Absolute Eosinophils (0.0-0.7) 10^3/uL 0.00 Absolute Basophils (0.0-0.2) 10^3/uL 0.03 PT (9.1-11.1) sec 10.4 INR (0.9-1.1) 1.0 Sodium (136-145) mmol/L 140 Potassium (3.5-5.1) mmol/L 3.9 Chloride (98-107) mmol/L 104 Carbon Dioxide (21.0-32.0) mmol/L 29.3 Anion Gap (3-11) mmol/L 6.7 BUN (7-18) mg/dL 12 Creatinine (0.55-1.02) mg/dL 0.8 Est GFR (CKD-EPI 2020) (mL/min/1.73m2) 89.71 Glucose (74-106) mg/dL 108 H Calcium (8.5-10.1) mg/dL 8.9 Magnesium (1.8-2.4) mg/dL 1.9 Total Bilirubin (0.2-1.0) mg/dL 1.31 H AST (15-37) U/L 22 ALT (14-59) U/L 30 Alkaline Phosphatase (46-116) U/L 90 Troponin I (<or=51) ng/L < 4 Cancelled Cancelled Total Protein (6.4-8.2) g/dL 7.6 Albumin (3.4-5.0) g/dL 4.0 Lipase (<78) U/L 32 Medical Decision Making Quality:SDOH Health Related Social Needs: No Data to Display PFSH All Active Problems (Updated 02/16/24 @ 20:21 by Annel Quiroga MD) Blood present in stool (Acute) GERD (gastroesophageal reflux disease) (Chronic) Acute pancreatitis (Acute) No-show for appointment (Acute) H/O tubal ligation (Chronic) Vitamin D deficiency (Acute) 05/2018 Vit D level 15.4 ng/mL. Rx 50K Vit D/week. BMI 30.0-30.9,adult (Acute) 05/2018 BMI 39 Abnormal glandular Papanicolaou smear of cervix (Acute) Fibromyalgia (Acute) Arthralgia, chronic neck pain, low back pain, chronic radicular pain of lower extremities Fatigue (Acute) Anxiety (Chronic) Depression (Chronic) Sleep apnea (Chronic) Palpitations (Acute) Migraine with aura (Acute) Heavy menstrual bleeding (Acute) History of basal cell carcinoma (Acute) PMDD (premenstrual dysphoric disorder) (Acute) Treated with increased dose of sertraline 1 week prior to onset of menses Stress incontinence (Chronic) With component of urinary frequency and urgency 09/2018. Refer to pelvic floor PT at [facility]. Had one visit did not reach Medical History Aftercare for healing traumatic fracture of lower leg Arthralgia Chronic neck pain Chronic radicular pain of lower extremity Low back pain Obesity Suicidal ideation Surgical History (Updated 12/03/22 @ 00:04 by TANIA GALVAN) Ganglion cyst S/P removal on wrist Family History Other Diabetes Heart disease Uterine cancer Social History Smoking/Tobacco Use Status: Never Smoking risk assessment performed?: Yes Alcohol Intake: current Alcohol Intake frequency: holidays/special occasions only Details: Drinks less than 1 alcoholic beverage per month Drug use: Daily Substance use type: marijuana Household members: children Housing: house Number of Children: 5 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 Sexually active: No (Not in relationship) Do you feel safe at home: Yes Do you feel safe in your relationship?: Yes Additional Social history: Children: Sandro, Fatuma, Pullman, Curt, Justa Female Reproductive History Menstrual Age of Menarche: 11 Duration of menses: 3-5 days control method: permanent sterilization (BTL) History History 5 Para Hx # Term Pregnancies 5 Multiple births Hx # Pregnancies Ectopic pregnancies AB induced Hx Number of Living Children AB spontaneous
--- NOTE | 2024-02-16 19:41 | DI.VRAD_ITS ---
PROCEDURE INFORMATION: Exam: CTA Abdomen and Pelvis With Contrast Exam date and time: 02/16/2024 6:45 PM Age: 48 years old Clinical indication: Other: Lower gi bleed TECHNIQUE: Imaging protocol: Computed tomographic angiography of the abdomen and pelvis with contrast. Exam focused on the arteries. 3D rendering (Not supervised by radiologist): MIP and/or 3D reconstructed images were created by the technologist. Contrast material: OMNI 350; Contrast volume: 100 ml; Contrast route: INTRAVENOUS (IV); COMPARISON: CT ABDOMEN PELVIS W 11/29/2022 1:59 PM FINDINGS: Esophagus: No inflammation identified, visualized esophagus, stomach, duodenum, small bowel or colon. Aorta: No aortic aneurysm. No aortic dissection. Celiac trunk and mesenteric arteries: No occlusion or significant stenosis. Renal arteries: No occlusion or significant stenosis. Right iliac arteries: No occlusion or significant stenosis. Left iliac arteries: No occlusion or significant stenosis. Veins: Splenomegaly, dilated splenic vein, similar to prior. Portal venous patent. IVC is patent. Liver: Fatty liver with no mass lesions. Fatty liver with no mass lesions. Gallbladder and biliary ducts: Cholecystectomy. No significant biliary dilation or radiopaque stones in the biliary tree. Pancreas: No mass. No ductal dilation. Spleen: The spleen measures 17 cm craniocaudad. No focal lesions. Adrenal glands: No mass. Kidneys and ureters: Punctate left renal stone suggested on noncontrast imaging. Stomach and bowel: No blood products in the GI tract on noncontrast imaging. No hypervascular lesions in the GI tract on arterial phase of imaging. No extravasation. Appendix: No evidence of appendicitis. Intraperitoneal space: No free air. No significant fluid collection. Lymph nodes: Retroperitoneal lymph nodes mildly prominent AT however with large fatty lulu suggesting these are benign, similar to prior. Urinary bladder: No mass. Reproductive: Hysterectomy. Small benign-appearing likely follicle left adnexa. Could be worked up with ultrasound if clinically indicated. Bones/joints: No acute fracture or subluxation. Soft tissues: Small fat-containing supraumbilical hernia. IMPRESSION: 1. No acute findings. 2. Incidental findings as described. Dictated and Authenticated by: Lorie Patel MD. Ordering:TERRELL Da Silva MD
== END 2024-02-16 20:33 | disposition home or self-care (01) ==
PROVIDERS: Emergency Provider Emergency Medicine
DX: K92.1 Melena (principal); G47.30 Sleep apnea, unspecified; F32.A Depression, unspecified; F41.9 Anxiety disorder, unspecified; K21.9 Gastro-esophageal reflux disease without esophagitis
CPT/HCPCS: 36415; 80053; 83690; 86850; 86900; 86901; 99285; 74174; 83735; 84484; 85025; 85610; 99284; J3490

== ENCOUNTER 2024-04-19 14:17 | Outpatient (CLI) | payer MEDICAID, SELFPAY ==
--- NOTE | 2024-04-19 | DI.CT_ITS ---
Exam(s) CT ABDOMEN PELVIS W EXAM: CT ABDOMEN PELVIS W CLINICAL HISTORY: BILAT FLANK PAIN,R10.9,? KIDNEY STONE,PELVIC PAIN TECHNIQUE: Imaging Protocol: Axial computed tomography images with coronal and sagittal reformatted images were created and reviewed. CONTRAST MATERIAL: Intravenous: Omnipaque 350 Contrast volume:100 mL Oral: Yes COMPARISON: No exams were available for comparison FINDINGS: ABDOMEN: Lung Bases: No acute abnormality. Liver: There is decreased attenuation of the liver suggesting fatty infiltration. Liver measures 19 cm long. No measurable mass. Portal, Superior Mesenteric, and Splenic Veins: Unremarkable. Gallbladder and Biliary Tract: Status post cholecystectomy. No significant biliary ductal dilatation . Pancreas: Normal density, no abnormal calcifications or inflammatory process. Spleen: The spleen is enlarged measuring over 15 cm. Adrenals: No masses seen. Kidneys: Normal size, contour and axis. There is a 1-2 mm nonobstructing stone in the midpole of the left kidney. No ureterolithiasis or obstructive uropathy. No masses seen. Abdominal Aorta: Abdominal portion non-dilated. Bowel: No obstruction or bowel wall thickening. Appendix is unremarkable. Peritoneal Cavity: No ascites, collection or mesenteric inflammatory response. No free air. Lymph Nodes: Within normal limits. Bones: Within normal limits for the patient's age. Soft Tissues: There is a small fat containing supraumbilical anterior abdominal wall hernia. PELVIS: Bladder: Symmetric distention, no gross wall thickening. Reproductive Organs: Status post hysterectomy. Lymph Nodes: Within normal limits. Bones: Within normal limits for the patient's age. IMPRESSION: 1. No acute abdominal or pelvic process. 2. Left nephrolithiasis. No obstructive uropathy. 3. Hepatosplenomegaly. RADIATION DOSE DELIVERED: 705.2mGy.cm Total DLP DATA REPOSITORY: All CT scans at this facility are submitted to the National Radiology Data Registry (NRDR) Dose Index Registry (DIR) with the [employer] (ACR). RADIATION OPTIMIZATION: All CT scans at this facility use at least one of these dose optimization te chniques: automated exposure control; mA and/or kV adjustment per patient size (includes targeted exa ms where dose is matched to clinical indication); or iterative reconstruction.
[2024-04-19] MEDS: Normal Saline - Diluent 50 ML VIAL IJ (15:38)
[2024-04-19] MEDS: Omnipaque 350 MG/ML 100 ML BTL IJ (15:49)
== END 2024-04-19 14:37 ==
LOC: DI 14:17
PROVIDERS: Visit Provider Nurse Practitioner Family
DX: R10.9 Unspecified abdominal pain (principal); N20.0 Calculus of kidney
CPT/HCPCS: 74177; J3490

== ENCOUNTER 2024-04-19 15:05 | Outpatient (REF) | payer MEDICAID, SELFPAY ==
[2024-04-19 15:31] LABS: Abs Immature Grans 0.01 10^3/uL (0.0-0.06); Absolute Basophil Count 0.02 10^3/uL (0.0-0.2); Absolute Eosinophil Count 0.02 10^3/uL (0.0-0.7); Absolute Lymphocyte Count 1.98 10^3/uL (1.2-3.4); Absolute Monocyte Count 0.31 10^3/uL (0.1-0.8); Basophils % 0.3 %; Eosinophils % 0.3 %; HCT 32.8 % (36.0-46.0); HGB 11.1 g/dL (11.2-15.7); Immature Grans % 0.2 %; Lymphocytes % 30.3 %; MCH 28.4 pg (27.0-33.0); MCHC 33.8 % (32.0-36.0); MCV 84 fL (80-95); MPV 9.7 fL (8.0-11.0); Monocytes % 4.7 %; Neutrophils % 64.2 %; Platelet Count 202 10^3/uL (130-400); RBC 3.91 10^6/uL (3.93-5.22); RDW 17.2 % (11.7-14.6); RDW-SD 52.2 fL; WBC 6.54 10^3/uL (4.4-10.8)
[2024-04-19 17:04] LABS: ALT 32 U/L (14-59); AST 24 U/L (15-37); Albumin 4.3 g/dL (3.4-5.0); Alkaline Phosphatase 107 U/L (46-116); Anion Gap 9.3 mmol/L (3-11); BUN 13 mg/dL (7-18); CO2 28.7 mmol/L (21.0-32.0); CREATININE 0.9 mg/dL (0.55-1.02); Calcium 9.7 mg/dL (8.5-10.1); Chloride 104 mmol/L (98-107); Estimated GFR 77.88 (mL/min/1.73m2); Glucose 106 mg/dL (74-106); Potassium 4.2 mmol/L (3.5-5.1); Sodium 142 mmol/L (136-145); Total Protein 7.7 g/dL (6.4-8.2)
== END 2024-04-19 15:06 | disposition home or self-care (01) ==
LOC: NCHCN 15:05
PROVIDERS: Visit Provider Nurse Practitioner Family
DX: R10.9 Unspecified abdominal pain (principal); R30.0 Dysuria; R82.89 Other abnormal findings on cytological and histological examination of urine
CPT/HCPCS: 80053; 85025; 87086